=== PATIENT | male | born 1960 | race Caucasian/White ===

== ENCOUNTER 2018-02-22 15:46 | Emergency (ER) | payer MEDICARE, MEDICAID, SELFPAY ==
[2018-02-22 16:08] VITALS: BP 149/87; PULSE 95; RESP 22; TEMP 36.7; O2SAT 96
--- NOTE | 2018-02-22 16:20 | PDOC.ERCMPRO ---
Care Management Progress Note 02/22/18-Pt presented to ED by private car with caregiver for open wounds. CM contacted and spoke with Peter Salmeron who reports Pt sees Nursing Mon, Mon, and Mon and has an appt scheduled for tomorrow for wound dressing care and just saw their wound RN, Debby on Monday (02/19). Dr. Neva Arredondo informed.
[2018-02-22 16:44] LABS: Abs Immature Grans 0.01 k/cumm (0.0-0.09); Absolute Basophil Count 0.03 k/cumm (0.0-0.2); Absolute Eosinophil Count 0.13 k/cumm (0.0-0.7); Absolute Lymphocyte Count 2.64 k/cumm (1.2-3.4); Absolute Monocyte Count 0.77 k/cumm (0.11-0.7); Absolute Neutrophil Count 4.38 k/cumm (1.2-6.7); Basophils % 0.4; Eosinophils % 1.6; HCT 36.2 % (40.0-50.0); HGB 10.6 g/dL (13.5-17.5); Immature Grans % 0.1; Lymphocytes % 33.2; Mean Corp. HGB Concentration 29.3 g/dL (32.0-36.0); Mean Corpuscular Volume 78.7 fL (80-95); Mean Platelet Volume 10.1 fL (8.0-11.0); Monocytes % 9.7; Platelet Count 360 x1000/uL (130-400); RBC Distribution Width 16.9 % (11.8-14.1); White Blood Cell Count 7.96 k/cumm (4.4-10.8)
[2018-02-22 16:48] LABS: ALT 26 U/L (12-78); AST 21 U/L (15-37); Albumin 2.5 g/dL (3.4-5.0); Alkaline Phosphatase 114 U/L (46-116); Anion Gap 6.3 mmol/L (3-11); BUN 11 mg/dL (7-18); Bilirubin, Total 0.4 mg/dL (0.2-1.0); C-Reactive Protein 2.61 mg/dL (0.0-0.3); CO2 32.7 mmol/L (21.0-32.0); CREATININE 0.95 mg/dL (0.70-1.30); Calcium 8.4 mg/dL (8.5-10.1); Chloride 97 mmol/L (98-107); Glucose 370 mg/dL (70-100); Sodium 136 mmol/L (136-145); Total Protein 8.2 g/dL (6.4-8.2)
--- NOTE | 2018-02-22 17:07 | DI.RAD_ITS ---
SYMPTOMS/DIAGNOSIS: RIGHT METATARSAL ULCER OF 1ST TOE RIGHT FOOT: Three views. No priors. There is a soft tissue ulcer at the plantar and medial aspect of the base of the great toe adjacent to the 1st metatarsophalangeal joint. The bones show no destructive or erosive changes. No findings to suggest osteomyelitis are present. There are mild degenerative changes seen at the 1st metatarsophalangeal joint. The bones are normally mineralized. There is generalized soft tissue swelling of the foot. Vascular calcifications are seen in the soft tissues. IMPRESSION: Skin ulcer seen adjacent to the 1st metatarsophalangeal joint. No findings to suggest acute osteomyelitis.
--- NOTE | 2018-02-22 17:12 | DI.VRAD_ITS ---
EXAM: XR Right Foot Complete, 3 or more Views EXAM DATE/TIME: 02/22/2018 4:18 PM CLINICAL HISTORY: 57 years old, male; Pain; Foot; Right; Patient HX: Right 1st metatarsal ulcer. ; Additional info: Best images obtained due to patient, unable to move leg for imaging due to habitus. TECHNIQUE: XR Right foot 3 or more views. COMPARISON: No relevant prior studies available. FINDINGS: Bones/joints: There is a plantar surface skin ulcer identified at the first MTP level. There is mild degenerative change of the first MTP articulation with early subchondral cyst formation. Soft tissues: There is diffuse soft tissue swelling of the great toe particularly. IMPRESSION: Skin ulcer noted first MTP level. No evidence for osteomyelitis. COMMENT: Preliminary interpretation is based on receipt of 3 image(s). A final report will be issued subsequently. We appreciate the opportunity to be involved in this patient's care. Dictated and Authenticated by: eJanne Parnell MD. Ordering:IVAN RAJAN MD
--- NOTE | 2018-02-22 17:21 | ED.GENADUL_ITS ---
Discharge Plan Disposition Patient Disposition: HOME Condition: Good Discharge Details Chief Complaint: RashLesion Clinical Impression: Chronic ulcer of right foot Primary Care Provider: Alfonzo Young ED Provider: Fabrice Arredondo Home Meds and New Rx's Prescriptions: New doxycycline hyclate 100 mg capsule 100 mg PO BID Qty: 14 RF: 0 No Action polyethylene glycol 3350 17 GM powder in packet 17 gm PO BID RF: 0 magnesium hydroxide [Milk of Magnesia] 30 ML suspension 30 ml PO DAILY PRN PRN (Reason: Constipation) RF: 0 morphine [MS Contin] 60 MG tablet extended release 60 mg PO Q12H Qty: 30 RF: 0 omeprazole 20 MG capsule,delayed release(DR/EC) 40 mg PO BID@ RF: 0 morphine 15 MG tablet 15 mg PO TID RF: 0 gabapentin 300 MG capsule 300 mg PO TID RF: 0 albuterol sulfate [ProAir HFA] 200 PUFF HFA aerosol inhaler 2 puff Inhalation .Q6HPRN RF: 0 fluticasone 50 mcg/actuation Blister With Device 1 inh INHALATION Q12H RF: 0 acetaminophen [Tylenol] 325 mg Tablet 325 mg PO Q6H PRNRF: 0 glipizide 10 mg Tablet 10 mg PO BID RF: 0 trazodone 150 mg Tablet 150 mg PO HS RF: 0 metformin 1,000 mg Tablet 1,000 mg PO BID RF: 0 nystatin 100,000 unit/gram Cream 1 applic TOPICAL DAILY RF: 0 losartan 25 mg Tablet 25 mg PO DAILY RF: 0 ipratropium bromide [Atrovent HFA] 17 mcg/actuation Hfa Aerosol Inhaler 2 puff INHALATION Q6H RF: 0 cxafejkbeekm-oaoq-xlpgq acid [Multi Complete with Iron] 18-400 mg-mcg Tablet 1 tab PO DAILY RF: 0 amitriptyline 50 MG tablet 200 mg PO HS RF: 0 Discharge Instructions Instructions: Diabetic Foot Ulcers (ED) Additional Instructions: Please take the antibiotic as directed. If you notice any worsening of your symptoms, or any new symptoms such as vomiting, diarrhea, fever, chills, shortness of breath, chest pain, numbness, weakness, or fainting , please return immediately to the emergency department for reevaluation. Please follow up with your primary care provider as soon as possible for reassessment and reevaluation. As always, it was a pleasure participating in your medical care today. Referrals: Alfonzo Young [Primary Care Provider] - Medical Decision Making This is a 57-year-old male with a past medical history super morbid obesity, diabetes, panniculitis, who presents today for evaluation of ulcer, primarily over the distal component of the metatarsal of the foot.. There is evidence of a notable ulcer there, probing does elicit questionable contact with skin. The patient demonstrates multiple other skin breakdown findings throughout the rest of his body. Most notably by his buttock, and left lateral thigh. These all appear very chronic in nature. Barrier cream was placed on these personally by myself. Out of concern for mild osteomyelitis we did get an x-ray of the patient's foot, however this demonstrates no signs of acute osteomyelitis. Concerning the though I was able to probe to bone, and the patient's blood work does show a mildly elevated ESR and CRP, which does increase the likelihood in conjunction with bone probing for potential osteomyelitis. 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 We did involve case management, and contacted both his home nursing care, and his home community support specialist. We confirmed with him the need for continued close follow-up and management, as well as notable support care at home. Patient will be's prescribed doxycycline for MRSA coverage, we have recommended close follow-up with his PCP, we discussed red flags for which to return the patient understands. I have extensively reviewed the treatment plan and discharge instructions with the patient. I have addressed all patient concerns at this time. The patient was made aware of what symptoms to monitor for that would warrant a return to the emergency department. Discussed the plan with the patient, they demonstrate verbal understanding and agreement with our assessment and plan at this time. HPI General Date/Time Provider Initiated Documentation: 02/22/18 15:52 . HPI Narrative: This is a 57-year-old male with a past medical history of super morbid obesity, diabetes mellitus, GERD, who presents today for evaluation of ulcers. The patient is seen and cared for by multiple at home nursing assistance and community support specialist. He states today someone was coming to dress his wounds and they left early without completing their assessment. He comes in for evaluation of his wounds as he felt that they were not finished being cared for. Patient states that he has developed chronic ulcers of his right metatarsal on his great toe, around his buttock where his pannus sits, and on his left calf peer he denies any fevers or chills. He denies any acute worsening of his symptoms. He denies any chest pain, shortness of breath, vomiting, diarrhea, numbness, tingling or weakness. He denies any recent antibiotic use. He he denies any recent injuries. Patient has no other complaints at this time. Related Data Home Medications Medication Instructions Recorded Confirmed albuterol sulfate [ProAir HFA] 2 puff INHALATION .Q6HPRN 04/11/17 02/22/18 gabapentin 300 mg PO TID 04/11/17 02/22/18 morphine 15 mg PO TID 04/11/17 02/22/18 magnesium hydroxide [Milk of 30 ml PO DAILY PRN PRN cup 11/03/17 02/22/18 Magnesia] morphine [MS Contin] 60 mg PO Q12H #30 tabcr 11/03/17 02/22/18 omeprazole 40 mg PO BID@0730,2000 capcr 11/03/17 02/22/18 polyethylene glycol 3350 17 gm PO BID packet 11/03/17 02/22/18 acetaminophen [Tylenol] 325 mg PO Q6H PRN 02/22/18 02/22/18 amitriptyline 200 mg PO HS 02/22/18 02/22/18 doxycycline hyclate 100 mg PO BID #14 cap 02/22/18 fluticasone 1 inh INHALATION Q12H 02/22/18 02/22/18 glipizide 10 mg PO BID 02/22/18 02/22/18 ipratropium bromide [Atrovent HFA] 2 puff INHALATION Q6H 02/22/18 02/22/18 losartan 25 mg PO DAILY 02/22/18 02/22/18 metformin 1,000 mg PO BID 02/22/18 02/22/18 tmbsmrmbktnm-rujz-szphk acid 1 tab PO DAILY 02/22/18 02/22/18 [Multi Complete with Iron] nystatin 1 applic TOPICAL DAILY 02/22/18 02/22/18 trazodone 150 mg PO HS 02/22/18 02/22/18 Previous Rx's Medication Instructions Recorded magnesium hydroxide [Milk of 30 ml PO DAILY PRN PRN cup 11/03/17 Magnesia] morphine [MS Contin] 60 mg PO Q12H #30 tabcr 11/03/17 omeprazole 40 mg PO BID@0730,2000 capcr 11/03/17 polyethylene glycol 3350 17 gm PO BID packet 11/03/17 doxycycline hyclate 100 mg PO BID #14 cap 02/22/18 Allergies Allergy/AdvReac Type Severity Reaction Status Date / Time ketorolac Allergy Unverified 02/22/18 16:29 lisinopril Allergy Unverified 02/22/18 16:29 methadone Allergy Unverified 02/22/18 16:29 oxycodone [From OxyContin] Allergy Unverified 02/22/18 16:29 General Stated Complaint: RashLesion RAMESH: 3 Review of Systems Review of Systems All systems reviewed & are unremarkable except as noted in HPI and below PFSH Social History Smoking/Tobacco Use Status: Former Tobacco Use Exam Narrative Exam Narrative: 1.Const: Well-nourished, super morbidly obese 2.Eyes: PERRL, no conjunctival injection, and symmetrical lids. 3.ENT: Atraumatic external nose and ears. Moist MM. Neck: Symmetric, trachea midline, No thyromegaly. 4.CVS: +S1/S2, No murmurs or gallops. Peripheral pulses 2+ and equal in all extremities. Brisk capillary refill in all extremities. 5.RESP: Unlabored respiratory effort. Clear to auscultation bilaterally. No wheezes rales or rhonchi 6.GI: Extremely large, sagging pannus down below his knees, soft, Nontender/ Nondistended, No hepatosplenomegaly. No guarding or rebound. Some skin breakdown noted on the most inferior aspect of the pannus most likely secondary to dragging or contact. 7.MSK: Normocephalic/Atraumatic, patient is able to get up and ambulate with some assistance and his walker. Lower extremities are very large. Please see skin for findings. 8.Skin: Warm, multiple lesions secondary to trauma, abrasion, and most likely some component of chronic venous stasis and skin breakdown secondary to super morbid obesity. Patient's right foot demonstrates an ulcer over the medial aspect of the distal metatarsal for the great toe. Probing brings about questionable contact with bone. Capillary refill is intact skin brisk. Sensation is intact. Patient also demonstrates some skin breakdown over the left lateral calf, with no active bleeding or evidence of subcutaneous tissue involvement. Exam of the patient's buttock demonstrates mild to moderate skin breakdown between the medial aspect of his medial posterior thighs bilaterally. No evidence of active bleeding drainage or discharge. No other significant abnormalities can be appreciated at this time. 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 Sensation grossly intact, no focal neurologic deficits. 10.Psych: (AAO) x3. Appropriate mood and affect Course Vital Signs Temperature 36.7 C 02/22/18 16:08 Pulse 95 H 02/22/18 16:08 Respiratory Rate 22 02/22/18 16:08 Blood Pressure 149/87 H 02/22/18 16:08 Pulse Oximetry 96 02/22/18 16:08 Temperature 36.7 C 02/22/18 16:08 Temperature Source Temporal Artery Scan 02/22/18 16:08 Pulse 95 H 02/22/18 16:08 Respiratory Rate 22 02/22/18 16:08 Respiratory Effort Non-Labored 02/22/18 16:26 Blood Pressure 149/87 H 02/22/18 16:08 Pulse Oximetry 96 02/22/18 16:08 Oxygen Delivery Method Room Air 02/22/18 16:08 Oxygen Flow Rate 0 02/22/18 16:08 Pain Level 6 02/22/18 16:08 Lab/Test Results Lab/Test Results: Laboratory Tests Range/Units 02/22/18 02/22/18 16:20 16:20 WBC (4.4-10.8) k/cumm 7.96 RBC (4.50-6.00) m/cumm 4.60 Hgb (13.5-17.5) g/dL 10.6 L Hct (40.0-50.0) % 36.2 L MCV (80-95) fL 78.7 L MCH (27.0-33.0) pg 23.0 L MCHC (32.0-36.0) g/dL 29.3 L RDW (11.8-14.1) % 16.9 H Plt Count (130-400) x1000/uL 360 MPV (8.0-11.0) fL 10.1 Immature Gran % 0.1 Neutrophils % 55.0 Lymphocytes % 33.2 Monocytes % 9.7 Eosinophils % 1.6 Basophils % 0.4 Absolute Neutrophils (1.2-6.7) k/cumm 4.38 Absolute Lymphocytes (1.2-3.4) k/cumm 2.64 Absolute Monocytes (0.11-0.7) k/cumm 0.77 H Absolute Eosinophils (0.0-0.7) k/cumm 0.13 Absolute Basophils (0.0-0.2) k/cumm 0.03 Sodium (136-145) mmol/L 136 Potassium (3.5-5.1) mmol/L 4.0 Chloride (98-107) mmol/L 97 L Carbon Dioxide (21.0-32.0) mmol/L 32.7 H Anion Gap (3-11) mmol/L 6.3 BUN (7-18) mg/dL 11 Creatinine (0.70-1.30) mg/dL 0.95 Estimated GFR/1.73 m2 (mL/min/1.73m2) >= 60.00 Glucose (70-100) mg/dL 370 H Calcium (8.5-10.1) mg/dL 8.4 L Total Bilirubin (0.2-1.0) mg/dL 0.4 AST (15-37) U/L 21 ALT (12-78) U/L 26 Alkaline Phosphatase (46-116) U/L 114 C-Reactive Protein (0.0-0.3) mg/dL 2.61 H Total Protein (6.4-8.2) g/dL 8.2 Albumin (3.4-5.0) g/dL 2.5 L
[2018-02-22 17:28] LABS: ESR 70 MM/HR (1-20)
[2018-02-22 18:43] VITALS: BP 149/87; PULSE 95; RESP 22; TEMP 36.7; O2SAT 96
== END 2018-02-22 18:44 | disposition home or self-care (01) ==
PROVIDERS: Emergency Provider Student in an Organized Health Care Education/Training Program; PCP Family Medicine
DX: E11.621 Type 2 diabetes mellitus with foot ulcer (principal); L97.519 Non-pressure chronic ulcer of other part of right foot with unspecified severity; L98.491 Non-pressure chronic ulcer of skin of other sites limited to breakdown of skin; E66.01 Morbid (severe) obesity due to excess calories; Z79.84 Long term (current) use of oral hypoglycemic drugs; I10 Essential (primary) hypertension
CPT/HCPCS: 36415; 80053; 85652; 99284; 73630; 81003; 85025; 86140; 99285

== ENCOUNTER 2018-03-01 18:43 | Emergency (ER) | payer MEDICARE, MEDICAID, SELFPAY ==
[2018-03-01 18:55] VITALS: BP 149/79; PULSE 100; RESP 16; TEMP 36.4; O2SAT 94
[2018-03-01] MEDS: Insulin REGULAR-Human 100 UNITS/ML UNIT 10 UNITS SC (19:14)
--- NOTE | 2018-03-01 19:18 | W.ED.GENAD ---
Discharge Plan Disposition Patient Disposition: HOME Condition: Stable Discharge Details Chief Complaint: Diabetes Clinical Impression: Hyperglycemia Primary Care Provider: Alfonzo Young ED Provider: Lion Amaya Home Meds and New Rx's Prescriptions: Continue polyethylene glycol 3350 17 GM powder in packet 17 gm PO BID RF: 0 morphine [MS Contin] 60 MG tablet extended release 60 mg PO Q12H Qty: 30 RF: 0 morphine 15 MG tablet 15 mg PO TID RF: 0 gabapentin 300 MG capsule 300 mg PO TID RF: 0 albuterol sulfate [ProAir HFA] 200 PUFF HFA aerosol inhaler 2 puff Inhalation .Q6HPRN RF: 0 fluticasone 50 mcg/actuation Blister With Device 1 inh INHALATION Q12H RF: 0 acetaminophen [Tylenol] 325 mg Tablet 325 mg PO Q6H PRNRF: 0 glipizide 10 mg Tablet 10 mg PO BID RF: 0 trazodone 150 mg Tablet 150 mg PO HS RF: 0 metformin 1,000 mg Tablet 1,000 mg PO BID RF: 0 nystatin 100,000 unit/gram Cream 1 applic TOPICAL DAILY RF: 0 losartan 25 mg Tablet 25 mg PO DAILY RF: 0 ipratropium bromide [Atrovent HFA] 17 mcg/actuation Hfa Aerosol Inhaler 2 puff INHALATION Q6H RF: 0 lmacxsutkufn-mlle-ccjsn acid [Multi Complete with Iron] 18-400 mg-mcg Tablet 1 tab PO DAILY RF: 0 amitriptyline 50 MG tablet 200 mg PO HS RF: 0 Discharge Instructions Additional Instructions: follow up with your primary care provider within a week for further management of your diabetes if you have fevers, severe pain, difficulty breathing or persistent vomit return to the emergency department for reevaluation Discharge Data Discharge Physician: Lion Amaya Medical Decision Making 57 yo male with hx of morbid obesity, t2dm, chronic wounds, who comes in with complaint of elevated blood sugars for weeks. He states it was over 500 today so came here for an eval. Has chronic wounds of the legs and buttocks and abdomen which show no significant erythema or drainage and is having home health manage these, and has no bone esposed or evidence of tunneling. Denies fevers or other symptoms and is caox4. Given lack of symptoms do not feel w/u for sepsis or other infection indicated. I am going to have him f/u with his pcp sharonda and return precautions given Differential Diagnosis t2dm, obesity, insulin resistance HPI General Mode of arrival: wheelchair. Date/Time Provider Initiated Documentation: 03/01/18 18:46. Limitations to Documentation: no limitations. Information obtained by: patient. History of Present Illness 57 year old M presents to the emergency department with the chief complaint of high blood sugars, described as moderate, No relieving factors improve symptom(s), No exacerbating factors reported . Related Data Home Medications Medication Instructions Recorded Confirmed albuterol sulfate [ProAir HFA] 2 puff INHALATION .Q6HPRN 04/11/17 03/01/18 gabapentin 300 mg PO TID 04/11/17 03/01/18 morphine 15 mg PO TID 04/11/17 03/01/18 morphine [MS Contin] 60 mg PO Q12H #30 tabcr 11/03/17 03/01/18 polyethylene glycol 3350 17 gm PO BID packet 11/03/17 03/01/18 acetaminophen [Tylenol] 325 mg PO Q6H PRN 02/22/18 03/01/18 amitriptyline 200 mg PO HS 02/22/18 03/01/18 fluticasone 1 inh INHALATION Q12H 02/22/18 03/01/18 glipizide 10 mg PO BID 02/22/18 03/01/18 ipratropium bromide [Atrovent HFA] 2 puff INHALATION Q6H 02/22/18 03/01/18 losartan 25 mg PO DAILY 02/22/18 02/26/18 metformin 1,000 mg PO BID 02/22/18 03/01/18 aisufdogsmyy-uexw-ysxkz acid 1 tab PO DAILY 02/22/18 03/01/18 [Multi Complete with Iron] nystatin 1 applic TOPICAL DAILY 02/22/18 03/01/18 trazodone 150 mg PO HS 02/22/18 03/01/18 Previous Rx's Medication Instructions Recorded morphine [MS Contin] 60 mg PO Q12H #30 tabcr 11/03/17 polyethylene glycol 3350 17 gm PO BID packet 11/03/17 Allergies Allergy/AdvReac Type Severity Reaction Status Date / Time ketorolac Allergy Unverified 02/22/18 16:29 lisinopril Allergy Unverified 02/22/18 16:29 methadone Allergy Unverified 02/22/18 16:29 oxycodone [From OxyContin] Allergy Unverified 02/22/18 16:29 General Stated Complaint: Diabetes RAMESH: 3 Review of Systems Review of Systems All systems reviewed & are unremarkable except as noted in HPI and below Constitutional Denies chills, Denies fever(s) and Denies weakness Eyes Denies loss of vision ENT Denies change in voice Cardiovascular Denies chest pain and Denies dyspnea Respiratory Denies dyspnea Gastrointestinal Denies abdominal pain, Denies nausea and Denies vomiting Genitourinary Denies dysuria Musculoskeletal Denies joint swelling Integumentary/Breasts Denies rash Neurologic Denies loss of vision and Denies weakness Psychiatric Denies depression Endocrine Denies cold intolerance and Denies heat intolerance Allergic/Immunologic Reports urticaria Exam Const General: no acute distress Orientation: alert HENMT Head: normal to inspection Ears: external ears normal General nose exam: external nose normal Mouth: moist mucous membranes Eyes General: appearance normal, both eyes and all related structures Neck Neck: normal visual inspection Resp Effort & Inspection: normal respiratory effort and able to speak in complete sentences Cardio Rate: regular rate Neuro General: alert and oriented x3 Extrem General: normal to inspection Psych Mental Status: mental status grossly normal Course Vital Signs Temperature 36.4 C L 03/01/18 18:55 Pulse 100 H 03/01/18 18:55 Respiratory Rate 16 03/01/18 18:55 Blood Pressure 149/79 H 03/01/18 18:55 Pulse Oximetry 94 L 03/01/18 18:55 Temperature 36.4 C L 03/01/18 18:55 Temperature Source Skin 03/01/18 18:55 Pulse 100 H 03/01/18 18:55 Respiratory Rate 16 03/01/18 18:55 Respiratory Effort 03/01/18 18:59 Blood Pressure 149/79 H 03/01/18 18:55 Blood Pressure Position Sitting 03/01/18 18:55 Pulse Oximetry 94 L 03/01/18 18:55 Oxygen Delivery Method Room Air 03/01/18 18:55 Oxygen Flow Rate 0 03/01/18 18:55
--- NOTE | 2018-03-01 19:23 | ED.GENADUL_ITS ---
Discharge Plan Disposition Patient Disposition: HOME Condition: Stable Discharge Details Chief Complaint: Diabetes Clinical Impression: Hyperglycemia Primary Care Provider: Alfonzo Young ED Provider: Lion Amaya Home Meds and New Rx's Prescriptions: Continue polyethylene glycol 3350 17 GM powder in packet 17 gm PO BID RF: 0 morphine [MS Contin] 60 MG tablet extended release 60 mg PO Q12H Qty: 30 RF: 0 morphine 15 MG tablet 15 mg PO TID RF: 0 gabapentin 300 MG capsule 300 mg PO TID RF: 0 albuterol sulfate [ProAir HFA] 200 PUFF HFA aerosol inhaler 2 puff Inhalation .Q6HPRN RF: 0 fluticasone 50 mcg/actuation Blister With Device 1 inh INHALATION Q12H RF: 0 acetaminophen [Tylenol] 325 mg Tablet 325 mg PO Q6H PRNRF: 0 glipizide 10 mg Tablet 10 mg PO BID RF: 0 trazodone 150 mg Tablet 150 mg PO HS RF: 0 metformin 1,000 mg Tablet 1,000 mg PO BID RF: 0 nystatin 100,000 unit/gram Cream 1 applic TOPICAL DAILY RF: 0 losartan 25 mg Tablet 25 mg PO DAILY RF: 0 ipratropium bromide [Atrovent HFA] 17 mcg/actuation Hfa Aerosol Inhaler 2 puff INHALATION Q6H RF: 0 czffrwtwchnu-upto-twyiu acid [Multi Complete with Iron] 18-400 mg-mcg Tablet 1 tab PO DAILY RF: 0 amitriptyline 50 MG tablet 200 mg PO HS RF: 0 Discharge Instructions Additional Instructions: follow up with your primary care provider within a week for further management of your diabetes if you have fevers, severe pain, difficulty breathing or persistent vomit return to the emergency department for reevaluation Discharge Data Discharge Physician: Lion Amaya Medical Decision Making 57 yo male with hx of morbid obesity, t2dm, chronic wounds, who comes in with complaint of elevated blood sugars for weeks. He states it was over 500 today so came here for an eval. Has chronic wounds of the legs and buttocks and abdomen which show no significant erythema or drainage and is having home health manage these, and has no bone esposed or evidence of tunneling. Denies fevers or other symptoms and is caox4. Given lack of symptoms do not feel w/u for sepsis or other infection indicated. I am going to have him f/u with his pcp sharonda and return precautions given Differential Diagnosis t2dm, obesity, insulin resistance HPI General Mode of arrival: wheelchair . Date/Time Provider Initiated Documentation: 03/01/18 18:46 . Limitations to Documentation: no limitations . Information obtained by: patient . History of Present Illness 57 year old M presents to the emergency department with the chief complaint of high blood sugars, described as moderate, No relieving factors improve symptom(s), No exacerbating factors reported . Related Data Home Medications Medication Instructions Recorded Confirmed albuterol sulfate [ProAir HFA] 2 puff INHALATION .Q6HPRN 04/11/17 03/01/18 gabapentin 300 mg PO TID 04/11/17 03/01/18 morphine 15 mg PO TID 04/11/17 03/01/18 morphine [MS Contin] 60 mg PO Q12H #30 tabcr 11/03/17 03/01/18 polyethylene glycol 3350 17 gm PO BID packet 11/03/17 03/01/18 acetaminophen [Tylenol] 325 mg PO Q6H PRN 02/22/18 03/01/18 amitriptyline 200 mg PO HS 02/22/18 03/01/18 fluticasone 1 inh INHALATION Q12H 02/22/18 03/01/18 glipizide 10 mg PO BID 02/22/18 03/01/18 ipratropium bromide [Atrovent HFA] 2 puff INHALATION Q6H 02/22/18 03/01/18 losartan 25 mg PO DAILY 02/22/18 02/26/18 metformin 1,000 mg PO BID 02/22/18 03/01/18 nipkewkqzycn-dnbp-rptrk acid 1 tab PO DAILY 02/22/18 03/01/18 [Multi Complete with Iron] nystatin 1 applic TOPICAL DAILY 02/22/18 03/01/18 trazodone 150 mg PO HS 02/22/18 03/01/18 Previous Rx's Medication Instructions Recorded morphine [MS Contin] 60 mg PO Q12H #30 tabcr 11/03/17 polyethylene glycol 3350 17 gm PO BID packet 11/03/17 Allergies Allergy/AdvReac Type Severity Reaction Status Date / Time ketorolac Allergy Unverified 02/22/18 16:29 lisinopril Allergy Unverified 02/22/18 16:29 methadone Allergy Unverified 02/22/18 16:29 oxycodone [From OxyContin] Allergy Unverified 02/22/18 16:29 General Stated Complaint: Diabetes RAMESH: 3 Review of Systems Review of Systems All systems reviewed & are unremarkable except as noted in HPI and below Constitutional Denies chills, Denies fever(s) and Denies weakness Eyes Denies loss of vision ENT Denies change in voice Cardiovascular Denies chest pain and Denies dyspnea Respiratory Denies dyspnea Gastrointestinal Denies abdominal pain, Denies nausea and Denies vomiting Genitourinary Denies dysuria Musculoskeletal Denies joint swelling Integumentary/Breasts Denies rash Neurologic Denies loss of vision and Denies weakness Psychiatric Denies depression Endocrine Denies cold intolerance and Denies heat intolerance Allergic/Immunologic Reports urticaria Exam Const General: no acute distress Orientation: alert HENMT Head: normal to inspection Ears: external ears normal General nose exam: external nose normal Mouth: moist mucous membranes Eyes General: appearance normal, both eyes and all related structures Neck Neck: normal visual inspection Resp Effort & Inspection: normal respiratory effort and able to speak in complete sentences Cardio Rate: regular rate Neuro General: alert and oriented x3 Extrem General: normal to inspection Psych Mental Status: mental status grossly normal Course Vital Signs Temperature 36.4 C L 03/01/18 18:55 Pulse 100 H 03/01/18 18:55 Respiratory Rate 16 03/01/18 18:55 Blood Pressure 149/79 H 03/01/18 18:55 Pulse Oximetry 94 L 03/01/18 18:55 Temperature 36.4 C L 03/01/18 18:55 Temperature Source Skin 03/01/18 18:55 Pulse 100 H 03/01/18 18:55 Respiratory Rate 16 03/01/18 18:55 Respiratory Effort 03/01/18 18:59 Blood Pressure 149/79 H 03/01/18 18:55 Blood Pressure Position Sitting 03/01/18 18:55 Pulse Oximetry 94 L 03/01/18 18:55 Oxygen Delivery Method Room Air 03/01/18 18:55 Oxygen Flow Rate 0 03/01/18 18:55
[2018-03-01 19:30] VITALS: BP 149/79; PULSE 100; RESP 16; TEMP 36.4; O2SAT 94
--- NOTE | 2018-03-02 10:01 | CMPROGNOTE_ITS ---
Care Management Progress Note 03/02/18-Pt seen on 03/01/[address] Junior Amaya. F/U request faxed to PCP at [facility].
== END 2018-03-01 19:40 | disposition home or self-care (01) ==
PROVIDERS: Emergency Provider Emergency Medicine; PCP Family Medicine
DX: E11.65 Type 2 diabetes mellitus with hyperglycemia (principal); E66.01 Morbid (severe) obesity due to excess calories; Z68.44 Body mass index [BMI] 60.0-69.9, adult; I10 Essential (primary) hypertension
CPT/HCPCS: 36415; 96372; 99284

== ENCOUNTER 2018-03-07 14:09 | Outpatient (CLI) | payer MEDICARE, MEDICAID, SELFPAY | END 2018-03-07 14:29 | PROVIDERS: PCP Family Medicine; Visit Provider Student in an Organized Health Care Education/Training Program | DX: M75.101 Unspecified rotator cuff tear or rupture of right shoulder, not specified as traumatic (principal); E11.9 Type 2 diabetes mellitus without complications; M25.511 Pain in right shoulder; M25.512 Pain in left shoulder; Z79.84 Long term (current) use of oral hypoglycemic drugs | CPT/HCPCS: 20610; 99214; J1040 ==

== ENCOUNTER 2018-03-16 16:03 | Emergency (ER) | payer MEDICARE, MEDICAID, SELFPAY ==
[2018-03-16 16:21] VITALS: BP 144/83; PULSE 89; RESP 22; TEMP 36.5; O2SAT 94
[2018-03-16 18:23] LABS: Abs Immature Grans 0.02 k/cumm (0.0-0.09); Absolute Basophil Count 0.02 k/cumm (0.0-0.2); Absolute Eosinophil Count 0.15 k/cumm (0.0-0.7); Absolute Lymphocyte Count 2.59 k/cumm (1.2-3.4); Absolute Monocyte Count 0.86 k/cumm (0.11-0.7); Absolute Neutrophil Count 6.68 k/cumm (1.2-6.7); Basophils % 0.2; Eosinophils % 1.5; HCT 39.7 % (40.0-50.0); HGB 11.6 g/dL (13.5-17.5); Immature Grans % 0.2; Lymphocytes % 25.1; Mean Corp. HGB Concentration 29.2 g/dL (32.0-36.0); Mean Corpuscular Hemoglobin 22.7 pg (27.0-33.0); Mean Corpuscular Volume 77.8 fL (80-95); Mean Platelet Volume 10.6 fL (8.0-11.0); Monocytes % 8.3; Neutrophils % 64.7; Platelet Count 357 x1000/uL (130-400); RBC Distribution Width 18.5 % (11.8-14.1); White Blood Cell Count 10.32 k/cumm (4.4-10.8)
[2018-03-16 18:31] LABS: Bilirubin Negative (Negative); Blood Trace-intact (Negative); Clarity Clear; Glucose >=1000 mg/dL (Negative); Ketones Negative (Negative); Leukocyte Esterase Negative (Negative); Nitrite Negative (Negative); Specific Gravity 1.025 (1.005-1.025); Urobilinogen 0.2 EU/dL (Up TO 0.2); pH 5.5 (5-8)
[2018-03-16 18:40] LABS: Bacteria Negative HPF (Negative); C & S Indicated? Yes; Casts Negative LPF (Negative); Crystals Negative HPF (Negative); Epithelial Cells Few HPF (Negative); Mucus Negative (Negative); Other Cells Negative (Negative)
[2018-03-16 18:56] LABS: Anisocytosis 2+; Diff Comment RBC Morph Reviewed; Microcytosis 2+
[2018-03-16 19:01] LABS: ALT 30 U/L (12-78); AST 16 U/L (15-37); Albumin 2.7 g/dL (3.4-5.0); Alkaline Phosphatase 122 U/L (46-116); Anion Gap 5.4 mmol/L (3-11); BUN 17 mg/dL (7-18); Bilirubin, Total 0.4 mg/dL (0.2-1.0); CO2 34.6 mmol/L (21.0-32.0); CREATININE 0.92 mg/dL (0.70-1.30); Calcium 8.9 mg/dL (8.5-10.1); Chloride 95 mmol/L (98-107); Glucose 341 mg/dL (70-100); Potassium 3.9 mmol/L (3.5-5.1); Sodium 135 mmol/L (136-145); Total Protein 8.4 g/dL (6.4-8.2)
--- NOTE | 2018-03-16 19:31 | W.ED.GENAD ---
Discharge Plan Disposition Patient Disposition: HOME Condition: Stable Discharge Details Chief Complaint: Cellulitis Clinical Impression: Venous stasis ulcers of both lower extremities Primary Care Provider: Alfonzo Young ED Provider: Hebert Leger Home Meds and New Rx's Prescriptions: Continue polyethylene glycol 3350 17 GM powder in packet 17 gm PO BID RF: 0 morphine [MS Contin] 60 MG tablet extended release 60 mg PO Q12H Qty: 30 RF: 0 morphine 15 MG tablet 15 mg PO TID PRN PRNRF: 0 gabapentin 300 MG capsule 600 mg PO TID RF: 0 albuterol sulfate [ProAir HFA] 200 PUFF HFA aerosol inhaler .Q 4-6 HRS PRN RF: 0 fluticasone 50 mcg/actuation Blister With Device 1 inh INHALATION Q12H RF: 0 acetaminophen [Tylenol] 325 mg Tablet 325 mg PO Q6H PRNRF: 0 trazodone 150 mg Tablet 150 mg PO HS RF: 0 metformin 1,000 mg Tablet 1,000 mg PO BID RF: 0 nystatin 100,000 unit/gram Cream 1 applic TOPICAL BID RF: 0 losartan 25 mg Tablet 25 mg PO DAILY RF: 0 ipratropium bromide [Atrovent HFA] 17 mcg/actuation Hfa Aerosol Inhaler 2 puff INHALATION Q6H RF: 0 amitriptyline 50 MG tablet 150 mg PO HS RF: 0 furosemide [Lasix] 40 mg Tablet 40 mg PO BID RF: 0 glipizide 10 mg Tablet 10 mg PO BID RF: 0 glucagon (human recombinant) [Glucagon Emergency Kit (human)] 1 mg Recon Soln 1 mg IM PRN PRNRF: 0 furosemide 20 mg Tablet 20 mg PO DAILY RF: 0 metoprolol succinate 25 mg Tablet Extended Release 24 Hr 25 mg PO DAILY RF: 0 omeprazole 20 mg Tablet,Delayed Release (Dr/Ec) 20 mg PO BID RF: 0 insulin degludec [Tresiba FlexTouch U-200] 200 unit/mL (3 mL) Insulin Pen 45 unit subcut DAILY RF: 0 Discharge Instructions Instructions: Chronic Wound Care (ED), Stasis Dermatitis (ED) Additional Instructions: Return immediately to the emergency department for any new or worsening symptoms including fever chills, significant purulence or drainage to the wounds, rapidly spreading erythema/redness around your wound. Otherwise follow-up with your primary care provider early next week for further recommendation on long-term therapy. Referrals: Alfonzo Young [Primary Care Provider] - (Please follow-up with your primary care provider for reassessment early next week.) Medical Decision Making Patient presenting to the emergency department for chief complaint of chronic leg ulcers. Patient was presenting to the hospital to be direct admitted but hospitalist was concerned for possible arterial insufficiency as source of chronic wounds and inability to fully evaluate that on the inpatient unit. Examined patient and patient states that leg ulcers have been present for greater than 3 months, have appeared worse than they are now, and just is coming in for admission due to them not improving. Patient denies any fever chills, chest pain, or other current symptoms. He states that he has been followed by home health who is concern for them not healing. Wounds were visualized and patient has multiple wounds on lower extremities along with bilateral edema concern for venous stasis ulcerations most of them stage II/III otherwise there is no significant surrounding cellulitis, indication of abscess, or other worrisome findings. Initial hospitalist was concerned due to the arterial insufficiency that home health nurse had put in 1 single documentation but otherwise primary care provider had diagnosed with venous stasis ulcers. Bedside ultrasound was utilized to visualize all lower extremity pulses of the feet and there were no deficiencies noted and pulses were present. Labs were checked and patient was noted to have hyperglycemia which is at baseline for him otherwise no other emergent findings were noted. Called and spoke with hospitalist Dr. Crouch about admission of the patient and he declined admission of the patient stating that these were chronic venous stasis ulcerations and that he did not feel that patient needed acute admission for control of ongoing poorly managed diabetes and that surgery should be consulted for chronic wound management. Spoke with Dr. Roman general surgeon whom stated that there were no indications for emergent consultation and that patient should be discharged. Spoke with critical care nurse practitioner Cary and stated that patient did not meet swing bed criteria and that she recommended contacting primary care and that patient should qualify for long-term placement as these wounds may take a significant amount of time to fully heal but that patient did not may acute inpatient criteria and that we had no further beds available. Called and spoke with Dr. Aguayo and informed her that we had no beds available, this point patient states that he would rather be discharged and does not want to be admitted or transferred to a different facility, and that our care management team said that they could potentially assist as needed with long-term rehab or longterm facility placement to help assist with diabetic control and wound healing. Patient was in agreement with this plan and stated that he continued to want to be discharged home at this point. Patient was encouraged to return for any new or significant worsening of symptoms. After discussion of diagnosis and plan of care patient has no further needs, questions, or concerns and states clear understanding to return to the emergency department for any worsening symptoms. Lab Data Lab results reviewed: Yes I reviewed the patient's lab results. HPI General Mode of arrival: wheelchair. Date/Time Provider Initiated Documentation: 03/16/18 16:11. Limitations to Documentation: no limitations. Information obtained by: patient, family, RN notes reviewed and old records reviewed. History of Present Illness 57 year old M presents to the emergency department with the chief complaint of Chronic wounds, described as moderate, with intensity rated at 6. Quality is described as aching, and is localized to the lower extremity. Patient started experiencing this month(s) (3) and it has been constant. No exacerbating factors reported . Patient notes no other symptoms.. Patient did receive the following treatments prior to arrival, none Related Data Home Medications Medication Instructions Recorded Confirmed albuterol sulfate [ProAir HFA] .Q 4-6 HRS PRN 04/11/17 03/07/18 gabapentin 600 mg PO TID 04/11/17 03/16/18 morphine 15 mg PO TID PRN PRN 04/11/17 03/16/18 morphine [MS Contin] 60 mg PO Q12H #30 tabcr 11/03/17 03/16/18 polyethylene glycol 3350 17 gm PO BID packet 11/03/17 03/07/18 acetaminophen [Tylenol] 325 mg PO Q6H PRN 02/22/18 03/16/18 amitriptyline 150 mg PO HS 02/22/18 03/16/18 fluticasone 1 inh INHALATION Q12H 02/22/18 03/07/18 ipratropium bromide [Atrovent HFA] 2 puff INHALATION Q6H 02/22/18 03/16/18 losartan 25 mg PO DAILY 02/22/18 03/16/18 metformin 1,000 mg PO BID 02/22/18 03/16/18 nystatin 1 applic TOPICAL BID 02/22/18 03/16/18 trazodone 150 mg PO HS 02/22/18 03/16/18 furosemide 20 mg PO DAILY 03/16/18 03/16/18 furosemide [Lasix] 40 mg PO BID 03/16/18 03/16/18 glipizide 10 mg PO BID 03/16/18 03/16/18 glucagon (human recombinant) 1 mg IM PRN PRN 03/16/18 03/16/18 [Glucagon Emergency Kit (human)] insulin degludec [Tresiba 45 unit SUBCUT DAILY 03/16/18 FlexTouch U-200] metoprolol succinate 25 mg PO DAILY 03/16/18 03/16/18 omeprazole 20 mg PO BID 03/16/18 03/16/18 Previous Rx's Medication Instructions Recorded morphine [MS Contin] 60 mg PO Q12H #30 tabcr 11/03/17 polyethylene glycol 3350 17 gm PO BID packet 11/03/17 Allergies Allergy/AdvReac Type Severity Reaction Status Date / Time ketorolac Allergy Unverified 03/16/18 16:28 lisinopril Allergy Unverified 03/16/18 16:28 methadone Allergy Unverified 03/16/18 16:28 oxycodone [From OxyContin] Allergy Unverified 03/16/18 16:28 General Stated Complaint: Cellulitis RAMESH: 3 Review of Systems Constitutional Denies chills and Denies fever(s) Cardiovascular Denies chest pain Respiratory Denies cough Integumentary/Breasts Reports as per HPI and Reports skin ulcer PFSH Family History Father No problems noted. Son No problems noted. Medical History Ascending aortic aneurysm (Acute) Right ventricular dilation, secondary (Acute) Right ventricular systolic dysfunction (Acute) Chronic pain disorder (Acute) Super-super obese (Acute) Diabetes mellitus (Acute) Chronic anxiety (Chronic) Depression (Chronic) Obstructive sleep apnea hypopnea, severe (Chronic) Social History adopted: No caregiver/support person: Yes foster care: No household members: caregiver housing: assisted living facility lives independently: No number of children: 1 number of grandchildren: 0 current occupational status: disabled leisure activities: games Hx Recent Travel: No diet: diabetic well-balanced diet: about half the time eating out: rarely or never during the past year weight has: increased > 10 lbs Smoking/Tobacco Use Status: Former Tobacco Use Exam Const General: cooperative and no acute distress Nutritional Appearance: obese morbidly obese Orientation: alert, awake and oriented x3 Resp Effort & Inspection: normal respiratory effort and able to speak in complete sentences Cardio Rate: regular rate and not tachycardic Rhythm: regular rhythm Skin Wounds: wounds noted Extrem Right lower extremity: edema Details: 3+, lower leg Details: non-pitting edema Details: 3+ and foot Details: abnormal to inspection, vascular exam Details: dorsalis pedis pulse present, posterior tibial pulse present and normal capillary refill; not cool and no cyanosis and other (Ulceration to the medial aspect of the inner foot adjacent to the distal first metacarpal) Left lower extremity: edema Details: 3+, lower leg Details: other (Multiple ulcerations that appear approximately stage II to stage III on the anterior and lateral aspect of the leg. Minimal erythema ) and foot Details: vascular exam Details: dorsalis pedis pulse present, posterior tibial pulse present and normal capillary refill; not cool and no cyanosis Course Vital Signs Temperature 36.5 C 03/16/18 16:21 Pulse 89 03/16/18 16:21 Respiratory Rate 22 03/16/18 16:21 Blood Pressure 144/83 H 03/16/18 16:21 Pulse Oximetry 94 L 03/16/18 16:21 Temperature 36.5 C 03/16/18 16:21 Temperature Source Skin 03/16/18 16:21 Pulse 89 03/16/18 16:21 Respiratory Rate 22 03/16/18 16:21 Respiratory Effort 03/16/18 16:26 Blood Pressure 144/83 H 03/16/18 16:21 Blood Pressure Position Sitting 03/16/18 16:21 Pulse Oximetry 94 L 03/16/18 16:21 Oxygen Delivery Method Room Air 03/16/18 16:21 Oxygen Flow Rate 0 03/16/18 16:21 Pain Level 6 03/16/18 16:21 Lab/Test Results Lab/Test Results: 03/16/18 18:00 Urine - Reflex from Ua Urine Culture - Pending Laboratory Tests Range/Units 03/16/18 03/16/18 03/16/18 18:00 18:00 18:00 WBC (4.4-10.8) k/cumm 10.32 RBC (4.50-6.00) m/cumm 5.10 Hgb (13.5-17.5) g/dL 11.6 L Hct (40.0-50.0) % 39.7 L MCV (80-95) fL 77.8 L MCH (27.0-33.0) pg 22.7 L MCHC (32.0-36.0) g/dL 29.2 L RDW (11.8-14.1) % 18.5 H Plt Count (130-400) x1000/uL 357 MPV (8.0-11.0) fL 10.6 Immature Gran % 0.2 Neutrophils % 64.7 Lymphocytes % 25.1 Monocytes % 8.3 Eosinophils % 1.5 Basophils % 0.2 Absolute Neutrophils (1.2-6.7) k/cumm 6.68 Absolute Lymphocytes (1.2-3.4) k/cumm 2.59 Absolute Monocytes (0.11-0.7) k/cumm 0.86 H Absolute Eosinophils (0.0-0.7) k/cumm 0.15 Absolute Basophils (0.0-0.2) k/cumm 0.02 Differential Comment Rbc morph reviewed RBC Morphology See below Anisocytosis 2+ Microcytosis 2+ Sodium Cancelled Potassium Cancelled Chloride Cancelled Carbon Dioxide Cancelled Anion Gap Cancelled BUN Cancelled Creatinine Cancelled Estimated GFR/1.73 m2 Cancelled Glucose Cancelled Calcium Cancelled Total Bilirubin Cancelled AST Cancelled ALT Cancelled Alkaline Phosphatase Cancelled Total Protein Cancelled Albumin Cancelled Urine Color (Yellow) Yellow Urine Clarity Clear Urine pH (5-8) 5.5 Ur Specific [place] (1.005-1.025) 1.025 Urine Protein (Negative) mg/dL Negative Urine Ketones (Negative) mg/dL Negative Urine Blood (Negative) Trace-intact H Urine Nitrite (Negative) Negative Urine Bilirubin (Negative) Negative Urine Urobilinogen (Up TO 0.2) EU/dL 0.2 Ur Leukocyte Esterase (Negative) Negative Urine RBC (0-2) 10-20 H Urine WBC (0-5) HPF 5-10 Ur Epithelial Cells (Negative) HPF Few Urine Crystals (Negative) HPF Negative Urine Bacteria (Negative) HPF Negative Urine Casts (Negative) LPF Negative Urine Mucus (Negative) Negative Urine Other (Negative) Negative Ur Culture Indicated? Yes Urine Glucose (Negative) mg/dL >=1000 H Range/Units 03/16/18 18:35 WBC (4.4-10.8) k/cumm RBC (4.50-6.00) m/cumm Hgb (13.5-17.5) g/dL Hct (40.0-50.0) % MCV (80-95) fL MCH (27.0-33.0) pg MCHC (32.0-36.0) g/dL RDW (11.8-14.1) % Plt Count (130-400) x1000/uL MPV (8.0-11.0) fL Immature Gran % Neutrophils % Lymphocytes % Monocytes % Eosinophils % Basophils % Absolute Neutrophils (1.2-6.7) k/cumm Absolute Lymphocytes (1.2-3.4) k/cumm Absolute Monocytes (0.11-0.7) k/cumm Absolute Eosinophils (0.0-0.7) k/cumm Absolute Basophils (0.0-0.2) k/cumm Differential Comment RBC Morphology Anisocytosis Microcytosis Sodium 135 L Potassium 3.9 Chloride 95 L Carbon Dioxide 34.6 H Anion Gap 5.4 BUN 17 Creatinine 0.92 Estimated GFR/1.73 m2 >= 60.00 Glucose 341 H Calcium 8.9 Total Bilirubin 0.4 AST 16 ALT 30 Alkaline Phosphatase 122 H Total Protein 8.4 H Albumin 2.7 L Urine Color (Yellow) Urine Clarity Urine pH (5-8) Ur Specific [place] (1.005-1.025) Urine Protein (Negative) mg/dL Urine Ketones (Negative) mg/dL Urine Blood (Negative) Urine Nitrite (Negative) Urine Bilirubin (Negative) Urine Urobilinogen (Up TO 0.2) EU/dL Ur Leukocyte Esterase (Negative) Urine RBC (0-2) Urine WBC (0-5) HPF Ur Epithelial Cells (Negative) HPF Urine Crystals (Negative) HPF Urine Bacteria (Negative) HPF Urine Casts (Negative) LPF Urine Mucus (Negative) Urine Other (Negative) Ur Culture Indicated? Urine Glucose (Negative) mg/dL
[2018-03-16 21:10] VITALS: BP 129/98; PULSE 80; RESP 18; TEMP 36.6; O2SAT 94
--- NOTE | 2018-03-16 21:12 | NUR.NOTE ---
Nursing Note: Patients chronic wounds were dressed with mepilex foam and wrapped with cling and then wrapped with co band. Patient tolerated well.
== END 2018-03-16 21:10 | disposition home or self-care (01) ==
PROVIDERS: Emergency Provider Nurse Practitioner Family; PCP Family Medicine
DX: I87.2 Venous insufficiency (chronic) (peripheral) (principal); E11.69 Type 2 diabetes mellitus with other specified complication; Z79.84 Long term (current) use of oral hypoglycemic drugs
CPT/HCPCS: 36415; 80053; 99283; 81003; 81015; 85025; 87086

== ENCOUNTER 2018-06-21 15:53 | Inpatient (IN) | payer MEDICARE, MEDICAID, SELFPAY ==
[2018-06-21] VITALS (20 sets, daily range): BP systolic 108–147; BP diastolic 65–89; PULSE 118–125; RESP 2–25; TEMP 36.6–36.7; O2SAT 88–96
--- NOTE | 2018-06-21 16:04 | DI.RAD_ITS ---
SYMPTOM/DIAGNOSIS: COUGH AP AND LATERAL CHEST: 06/21/18 The heart is mildly enlarged. There are questionable radiodensities overlying the lung bases and in particular on the lateral view there is a suggestion of a posteriorly located area of consolidation which probably lies on the right. No gross pleural effusion seen, CONCLUSION: Findings suspicious for right lower lobe pneumonia. Appropriate follow up studies requested.
[2018-06-21] MEDS: Albuterol/Ipratropium 3 ML UPD VIAL UPD ×3 (16:15→23:23)
[2018-06-21] MEDS: methylPREDNISolone SUCC 125 MG VIAL IVP (16:15)
--- NOTE | 2018-06-21 16:15 | ED.GENADUL_ITS ---
Discharge Plan Disposition Patient Disposition: [facility] INPATIENT Condition: Stable Discharge Details Chief Complaint: RespSymp Clinical Impression: CAP (community acquired pneumonia), Hypoxia Reason For Visit: LYLY Primary Care Provider: Alfonzo Young ED Provider: Lion Amaya Home Meds and New Rx's Prescriptions: No Action polyethylene glycol 3350 17 GM powder in packet 17 gm PO BID RF: 0 morphine [MS Contin] 60 MG tablet extended release 60 mg PO Q12H Qty: 30 RF: 0 morphine 15 MG tablet 15 mg PO TID PRN PRNRF: 0 gabapentin 300 MG capsule 600 mg PO TID RF: 0 fluticasone 50 mcg/actuation Blister With Device 1 inh INHALATION Q12H RF: 0 acetaminophen [Tylenol] 325 mg Tablet 325 mg PO Q6H PRNRF: 0 trazodone 150 mg Tablet 150 mg PO HS RF: 0 metformin 1,000 mg Tablet 1,000 mg PO BID RF: 0 nystatin 100,000 unit/gram Cream 1 applic TOPICAL BID RF: 0 losartan 25 mg Tablet 25 mg PO DAILY RF: 0 amitriptyline 50 MG tablet 150 mg PO HS RF: 0 furosemide [Lasix] 40 mg Tablet 40 mg PO BID RF: 0 glipizide 10 mg Tablet 10 mg PO BID RF: 0 Glucagon Emergency Kit (human) 1 mg Recon Soln 1 mg IM PRN PRNRF: 0 furosemide 20 mg Tablet 20 mg PO DAILY RF: 0 metoprolol succinate 25 mg Tablet Extended Release 24 Hr 25 mg PO DAILY RF: 0 omeprazole 20 mg Tablet,Delayed Release (Dr/Ec) 20 mg PO BID RF: 0 Tresiba FlexTouch U-200 200 unit/mL (3 mL) Insulin Pen 45 unit subcut DAILY RF: 0 Medical Decision Making 58 yo male with hx of morbid obesity, chronic lower extremity wounds, hema, dm, former smoker who used to be on inhalers but is not any longer, comes in with productive cough and general weakness for 3 days. Denies fevers, recent travel. HAs chronic wounds of the lower extremities without discharge, mild redness and warmth of both lower extremities where chronic ulcers are located, no tunneling noted. HE is noted to be 85% on room air and has diffuse wheezing on exam, will treat with nebs and steroids and obtain lab work and chest xray to eval for pna and influenza. HAs no chest pain or pressure and symptoms seem infectious so doubt chf or other cardiac abnormalities. pt remains stable, speaking in full sentences and wheezing improving but still in the mid 80's on room air, is in mid 90's on NC o2. Labs show glucose of over 500, normal anion gap so unlikely dka. Has pna on xray, CAP abx ordered. Will admit to the hospitalist and discuss how they would like my to manage his hyperglycemia (IV insulin vs Sq), apparently he missed his long acting insulin this AM spoke with hospitalist who accepts, will give sq short acting and also his home dose of long acting. We apparently don't have his tresiba here so will discuss with pharmacy on alterante that we have here Differential Diagnosis uri, influenza, pna, copd Imaging Data Radiologic Study: Attestation: I personally reviewed and interpreted this imaging study as follows: Imaging: X-Ray Radiologist's impression: pneumonia ECG Data Attestation: I personally reviewed and interpreted this ECG (s) as follows: Prior ECG tracings: not available for review Interpretation: sinus rhythm, rate of 127, qtc 480, no acute st t wave ischemic changes HPI General Mode of arrival: EMS . Date/Time Provider Initiated Documentation: 06/21/18 15:56 . Limitations to Documentation: no limitations . Information obtained by: patient . History of Present Illness 58 year old M presents to the emergency department with the chief complaint of cough and not feeling well, described as moderate, Patient reports no radiation. and it has been constant. No relieving factors improve symptom(s), No exacerbating factors reported . Patient notes cough. Patient did receive the following treatments prior to arrival, none Related Data Home Medications Medication Instructions Recorded Confirmed gabapentin 600 mg PO TID 04/11/17 06/21/18 morphine 15 mg PO TID PRN PRN 04/11/17 06/21/18 morphine [MS Contin] 60 mg PO Q12H #30 tabcr 11/03/17 06/21/18 polyethylene glycol 3350 17 gm PO BID packet 11/03/17 06/21/18 acetaminophen [Tylenol] 325 mg PO Q6H PRN 02/22/18 06/21/18 amitriptyline 150 mg PO HS 02/22/18 06/21/18 fluticasone 1 inh INHALATION Q12H 02/22/18 06/21/18 losartan 25 mg PO DAILY 02/22/18 06/21/18 metformin 1,000 mg PO BID 02/22/18 06/21/18 nystatin 1 applic TOPICAL BID 02/22/18 06/21/18 trazodone 150 mg PO HS 02/22/18 06/21/18 Glucagon Emergency Kit (human) 1 mg IM PRN PRN 03/16/18 06/21/18 Tresiba FlexTouch U-200 45 unit SUBCUT DAILY 03/16/18 06/21/18 furosemide 20 mg PO DAILY 03/16/18 06/21/18 furosemide [Lasix] 40 mg PO BID 03/16/18 06/21/18 glipizide 10 mg PO BID 03/16/18 06/21/18 metoprolol succinate 25 mg PO DAILY 03/16/18 06/21/18 omeprazole 20 mg PO BID 03/16/18 06/21/18 Previous Rx's Medication Instructions Recorded morphine [MS Contin] 60 mg PO Q12H #30 tabcr 11/03/17 polyethylene glycol 3350 17 gm PO BID packet 11/03/17 Allergies Allergy/AdvReac Type Severity Reaction Status Date / Time ketorolac Allergy Unverified 03/16/18 16:28 lisinopril Allergy Unverified 03/16/18 16:28 methadone Allergy Unverified 03/16/18 16:28 oxycodone [From OxyContin] Allergy Unverified 03/16/18 16:28 General Stated Complaint: RespSymp RAMESH: 3 Review of Systems Review of Systems All systems reviewed & are unremarkable except as noted in HPI and below Constitutional Denies chills and Denies fever(s) ENT Denies change in voice Cardiovascular Denies chest pain Respiratory Denies cough Gastrointestinal Denies abdominal pain, Denies nausea and Denies vomiting Genitourinary Denies dysuria Musculoskeletal Denies joint swelling Integumentary/Breasts Denies rash Endocrine Denies cold intolerance and Denies heat intolerance [facility] Medical History Ascending aortic aneurysm (Acute) Right ventricular dilation, secondary (Acute) Right ventricular systolic dysfunction (Acute) Chronic pain disorder (Acute) Super-super obese (Acute) Diabetes mellitus (Acute) Chronic anxiety (Chronic) Depression (Chronic) Obstructive sleep apnea hypopnea, severe (Chronic) Severe muscle deconditioning (Acute) Family History Father No problems noted. Son No problems noted. Social History adopted: No caregiver/support person: Yes foster care: No household members: caregiver housing: assisted living facility lives independently: No number of children: 1 number of grandchildren: 0 current occupational status: disabled leisure activities: games Hx Recent Travel: No diet: diabetic well-balanced diet: about half the time daily servings fruits/ve-1 eating out: rarely or never reads food labels: sometimes during the past year weight has: increased > 10 lbs Smoking/Tobacco Use Status: Former Tobacco Use Exam Const General: no acute distress Orientation: alert HENMT Head: normal to inspection Ears: external ears normal General nose exam: external nose normal Mouth: moist mucous membranes Eyes General: appearance normal, both eyes and all related structures Neck Neck: normal visual inspection Resp Effort & Inspection: normal respiratory effort and able to speak in complete sentences Cardio Rate: regular rate Skin General skin exam: no rashes or lesions noted Neuro General: alert and oriented x3 Extrem General: normal to inspection Psych Mental Status: mental status grossly normal Course Vital Signs Temperature 36.7 C 06/21/18 15:59 Pulse 125 H 06/21/18 15:59 Respiratory Rate 06/21/18 15:59 Blood Pressure 147/83 H 06/21/18 15:59 Pulse Oximetry 88 L 06/21/18 15:59 Temperature 36.7 C 06/21/18 15:59 Temperature Source Temporal Artery Scan 06/21/18 15:59 Pulse 125 H 06/21/18 15:59 Respiratory Rate 24 06/21/18 15:59 Respiratory Effort 06/21/18 16:01 Blood Pressure 147/83 H 06/21/18 15:59 Pulse Oximetry 88 L 06/21/18 15:59 Oxygen Delivery Method Room Air 06/21/18 15:59 Oxygen Flow Rate 0 06/21/18 15:59
[2018-06-21 16:34] LABS: Abs Immature Grans 0.02 k/cumm (0.0-0.09); Absolute Basophil Count 0.03 k/cumm (0.0-0.2); Absolute Eosinophil Count 0.08 k/cumm (0.0-0.7); Absolute Monocyte Count 0.99 k/cumm (0.11-0.7); Absolute Neutrophil Count 7.82 k/cumm (1.2-6.7); Basophils % 0.3; Eosinophils % 0.7; HCT 38.7 % (40.0-50.0); HGB 11.8 g/dL (13.5-17.5); Immature Grans % 0.2; Lymphocytes % 19.7; Mean Corp. HGB Concentration 30.5 g/dL (32.0-36.0); Mean Corpuscular Hemoglobin 23.1 pg (27.0-33.0); Mean Corpuscular Volume 75.7 fL (80-95); Mean Platelet Volume 10.8 fL (8.0-11.0); Monocytes % 8.9; Neutrophils % 70.2; Platelet Count 282 x1000/uL (130-400); RBC 5.11 m/cumm (4.50-6.00); White Blood Cell Count 11.14 k/cumm (4.4-10.8)
[2018-06-21 16:40] LABS: INR 1.1 (0.9-1.1); PTT Activated 24.9 sec (21.0-31.4); Prothrombin Time 10.7 sec (9.3-11.0)
[2018-06-21 16:43] LABS: Absolute Lymphocyte Count 2.19 k/cumm (1.2-3.4)
[2018-06-21 17:06] LABS: ALT 16 U/L (12-78); Albumin 2.2 g/dL (3.4-5.0); BUN 18 mg/dL (7-18); CREATININE 1.25 mg/dL (0.70-1.30); Calcium 8.5 mg/dL (8.5-10.1); Chloride 94 mmol/L (98-107); Estimated GFR 59.53 (mL/min/1.73m2); Magnesium 1.8 mg/dL (1.8-2.4); NT-proBNP 325 pg/mL; Sodium 131 mmol/L (136-145); Total Protein 8.6 g/dL (6.4-8.2)
--- NOTE | 2018-06-21 17:10 | DI.VRAD_ITS ---
EXAM: XR Chest, 2 Views EXAM DATE/TIME: 06/21/2018 4:05 PM CLINICAL HISTORY: 58 years old, male; Signs and symptoms; Other: Cough TECHNIQUE: XR of the chest, 2 views. COMPARISON: CR PORTABLE CHEST ONE VIEW 10/19/2017 8:05 AM FINDINGS: Lungs: There is increased markings at the right lung base. Pleural space: Unremarkable. No pleural effusion. No pneumothorax. Heart/Mediastinum: Mild cardiomegaly unchanged. Bones/joints: Degenerative changes noted in right shoulder. IMPRESSION: Probable early right lower lobe pneumonia. Followup to assess clearing recommended. COMMENT: Preliminary interpretation is based on receipt of 3 image(s). A final report will be issued subsequently. Dictated and Authenticated by: Jeanne Parnell MD. Ordering:WILBER Seymour MD
[2018-06-21 17:17] LABS: AST 27 U/L (15-37); Alkaline Phosphatase 129 U/L (46-116); Anion Gap 6.4 mmol/L (3-11); Bilirubin, Total 0.2 mg/dL (0.2-1.0); CO2 30.6 mmol/L (21.0-32.0)
[2018-06-21 17:20] LABS: Glucose 553 mg/dL (70-100)
[2018-06-21] MEDS: Normal Saline 1,000 ML 1000 ML IV (17:27)
[2018-06-21] MEDS: Insulin REGULAR-Human 100 UNITS/ML UNIT 15 UNITS SC (17:41)
[2018-06-21] MEDS: Insulin Glargine 100 UNITS/ML UNIT 45 UNITS SC (17:52)
[2018-06-21 17:57] LABS: Bilirubin Negative (Negative); Blood Moderate (Negative); Clarity Clear; Glucose 500 mg/dL (Negative); Ketones Negative (Negative); Leukocyte Esterase Negative (Negative); Nitrite Negative (Negative); Specific Gravity <= 1.005 (1.005-1.025); Urobilinogen 0.2 EU/dL (Up TO 0.2); pH 5.5 (5-8)
[2018-06-21] MEDS: AZITHROMYCIN 500 MG in Normal Saline 250 ML 250 MG IVPB (18:00)
[2018-06-21 18:09] LABS: Bacteria Negative HPF (Negative); C & S Indicated? No; Casts Negative LPF (Negative); Crystals Negative HPF (Negative); Epithelial Cells Negative HPF (Negative); Mucus Negative (Negative); Other Cells Negative (Negative); WBC 0-2 HPF (0-5)
--- NOTE | 2018-06-21 19:05 | NUR.NOTE ---
Nursing Note: Report received from off going nurse, patient is currently resting in bed with no report of pain or discomfort at this time, the bed is in the low and locked position, side rails up x2, call light within reach.
[2018-06-21] MEDS: Omeprazole 20 MG CAPCR PO (20:11)
[2018-06-21] MEDS: Enoxaparin 40 MG/0.4 ML SYR SC (20:11)
[2018-06-21] MEDS: guaiFENesin 600 MG TABCR 1200 MG PO (20:11)
[2018-06-21] MEDS: Gabapentin 300 MG CAP 600 MG PO (20:11)
[2018-06-21] MEDS: Benzonatate 200 MG CAP PO (20:11)
[2018-06-21] MEDS: glipiZIDE 10 MG TAB PO (20:11)
[2018-06-21] MEDS: Nystatin CREAM 15 GM TUBE TP (20:12)
--- NOTE | 2018-06-21 20:50 | NUR.NOTE ---
Nursing Note: Charge nurse notified of elevated blood glucose, she will notify MD per orders.
[2018-06-21] MEDS: Amitriptyline 50 MG TAB 150 MG PO (21:13)
--- NOTE | 2018-06-21 21:13 | W.PM.HP.N ---
Date of service: 06/21/18 Time of Service: 21:13 Assessment and Plan (1) Acute pneumonitis: Current visit: Yes Status: Acute broad spectrum antibiotic coverage for CAP including Rocephin, Azithromycin, corticosteroids, aerosolized bronchodilators; check blood culture results but with normal lactate, I doubt that he has bacteremia. I asked him about his influenza and pneumonia vaccines. He says that he had this years influenza vaccine and had either the pneumovax of prevnar 4 yrs ago. (2) Pressure ulcer: Current visit: No Status: Chronic his ulcerations over his buttock/gluteal cleft are chronic as arre his lower extremity wounds. His pretibial stasis ulcers are healing up well. His right great toe is more concerning in that it remains open and he has not seen a manager credit collections. In addition to getting the hospital wound care nurses to look at his wounds, I will ask that Dr. Schultz evaluate his right great toe ulcer to see if this needs debrided. Christoph says that he has had an xray to rule out osteomyelitis. Last xray was taken February 22, 2018. I will repeat this in the a.m. to be sure that there is not an underlying osteomyelitis. We may need to broaden his antibiotic coverage in addition to treating his pneumonia. I will wait and see what Dr. Schultz thinks how we should proceed. Qualifiers: Laterality: left Pressure injury location: calf Pressure injury stage: stage 3 Qualified Code(s): L89.893 - Pressure ulcer of other site, stage 3 (3) Diabetes mellitus: Current visit: No Status: Chronic poorly controlled by the patient's admission. reportedly A1c was 11% last month. Previously he had been under 7%. Some of this is probably driven by his current infection or by his chronic skin ulcers. Some is certainly diet related and lack of activity d/t his morbid obesity. We do not have his Tresiba therefore I have written for Lantus and added both high dose sliding scale as well as for carb coverage. I will hold his metformin and glipizide for now. I am holding his metformin until I see how his renal function and his pneumonia respond. I do not feel that he is septic and if he remains stable his metformin can be restarted tomorrow. I have concerns about type 2 diabetic patients who are on insulin and taking either glyburide or glipizide. I think that he would be better controlled if he were to take a meal time Novolog and receive a progressive corrective scale. he also probably needs adjustment of his long acting insulin. At present he is not in DKA although his glucose is severly out of control partially driven by his pneumonia. Qualifiers: Diabetes mellitus complication detail: with foot ulcer Diabetes mellitus complication status: with skin complications Diabetes mellitus usp insulin use: with camera machinist use Diabetes mellitus type: due to underlying condition Qualified Code(s): E08.621 - Diabetes mellitus due to underlying condition with foot ulcer; L97.509 - Non-pressure chronic ulcer of other part of unspecified foot with unspecified severity; Z79.4 - care home (current) use of insulin (4) Obstructive sleep apnea hypopnea, severe: Current visit: No Status: Chronic patient states he is compliant w/ home CPAP. A unit was brought and he is wearing one tonight. (5) Iron deficiency anemia, unspecified: Current visit: No Status: Chronic he remains anemic. I will check his iron levels, reticulocyte count tomorrow. also check B12 given he is chronically on metformin (which I have held for now) (6) Depression: Current visit: No Status: Chronic continue current home meds History of Present Illness Chief Complaint: cough, dyspnea, hypoxemia Narrative: 58 yr old morbidly obese male w/ poorly controlled DM type 2 on insulin and oral diabetic meds complicated by peripheral neuropathy and chronic venous stasis ulcerations of his legs, ABHAY, GERD, cor pulmonale, depression and anxiety, he is former smoker. He now presents to the ER w/ 3 day hx of productive cough, generalized weakness and malaise, as well as dyspnea and hypoxemia. Oxygen saturation on RA on arrival was 88% but corrected to 93% after aerosolized bronchodilators and supplemental oxygen at 3 LPM per NC. Workup in the ER included negative influenza nasal swab for influenza A&B, CXR that demonstrated RLL infiltrate c/w pneumonia. Labs were remarkable for leukocytosis of 11,000, mild microcytic anemia w/ Hb 11.8 GM and MCV of 75, RDW 17% w/ normal platelets of 282,000. Coagulation studies were normal. CMP demonstrated low sodium of 131, normal BUN 18 and creatinine of 1.25. Glucose was high at 553 mg/dL. Pro-BNP was borderline elevated at 325. UA was remarkable for moderate blood, 10-20 RBC, 0-2 WBC, but negative for crystals/bacteria, casts, mucous, leukocyte esterace, nitrites or ketones or protein but glycosuria of 500 mg/dL. Dr. Lion Amaya, emergency room attending treated the patient w/ iv fluids, antibiotics (ceftriaxone 2 gm, azithromycin 500 mg), solumedrol 125 mg iv, and novolog 15 units. The patient is now admitted for treatment of CAP. Review of Systems Constitutional Denies chills, Reports fatigue, Denies fever(s) and Reports malaise ENT Reports system reviewed and no additional complaints, except as docu Cardiovascular Denies chest pain, Denies chest pain at rest, Reports dyspnea and Reports dyspnea on exertion Respiratory Reports as per HPI, Reports chest congestion, Reports cough, Denies hemoptysis, Reports dyspnea, Reports dyspnea on exertion and Reports wheezing Gastrointestinal Reports system reviewed and no additional complaints, except as docu Genitourinary Reports system reviewed and no additional complaints, except as docu Musculoskeletal Reports system reviewed and no additional complaints, except as docu Integumentary/Breasts Reports skin ulcer (buttocks, legs and r. great toe) and Reports sores Neurologic Reports sensory deficit and Reports paresthesias Psychiatric Reports system reviewed and no additional complaints, except as docu Endocrine Reports fatigue Hematologic/Lymphatic Reports system reviewed and no additional complaints, except as docu Allergic/Immunologic Reports system reviewed and no additional complaints, except as docu and Reports wheezing PFSH Medical History Pressure ulcer (Chronic) Right rotator cuff tear (Chronic) Ascending aortic aneurysm (Chronic) Right ventricular dilation, secondary (Chronic) Right ventricular systolic dysfunction (Chronic) Chronic pain disorder (Chronic) Super-super obese (Chronic) Diabetes mellitus (Chronic) GERD (gastroesophageal reflux disease) (Chronic) Chronic anxiety (Chronic) Depression (Chronic) Chronic back pain (Chronic) Obstructive sleep apnea hypopnea, severe (Chronic) Iron deficiency anemia, unspecified (Chronic) Severe muscle deconditioning (Acute) Panniculitis of other sites (Resolved) Family History Father No problems noted. Son No problems noted. Social History adopted: No caregiver/support person: Yes foster care: No household members: caregiver housing: assisted living facility lives independently: No number of children: 1 number of grandchildren: 0 current occupational status: disabled leisure activities: games Hx Recent Travel: No diet: diabetic well-balanced diet: about half the time daily servings fruits/ve-1 eating out: rarely or never reads food labels: sometimes during the past year weight has: increased > 10 lbs Smoking/Tobacco Use Status: Former Tobacco Use Meds Home Medications Medication Instructions Recorded Confirmed Type gabapentin 600 mg PO TID 04/11/17 06/21/18 History morphine 15 mg PO TID PRN PRN 04/11/17 06/21/18 History morphine [MS Contin] 60 mg PO Q12H #30 tabcr 11/03/17 06/21/18 Rx polyethylene glycol 3350 17 gm PO BID packet 11/03/17 06/21/18 Rx acetaminophen [Tylenol] 325 mg PO Q6H PRN 02/22/18 06/21/18 History amitriptyline 150 mg PO HS 02/22/18 06/21/18 History fluticasone 1 inh INHALATION Q12H 02/22/18 06/21/18 History losartan 25 mg PO DAILY 02/22/18 06/21/18 History metformin 1,000 mg PO BID 02/22/18 06/21/18 History nystatin 1 applic TOPICAL BID 02/22/18 06/21/18 History trazodone 150 mg PO HS 02/22/18 06/21/18 History Glucagon Emergency Kit (human) 1 mg IM PRN PRN 03/16/18 06/21/18 History Tresiba FlexTouch U-200 45 unit SUBCUT DAILY 03/16/18 06/21/18 History furosemide 20 mg PO DAILY 03/16/18 06/21/18 History furosemide [Lasix] 40 mg PO BID 03/16/18 06/21/18 History glipizide 10 mg PO BID 03/16/18 06/21/18 History metoprolol succinate 25 mg PO DAILY 03/16/18 06/21/18 History omeprazole 20 mg PO BID 03/16/18 06/21/18 History Allergies Allergy/AdvReac Type Severity Reaction Status Date / Time ketorolac Allergy Unverified 03/16/18 16:28 lisinopril Allergy Unverified 03/16/18 16:28 methadone Allergy Unverified 03/16/18 16:28 oxycodone [From OxyContin] Allergy Unverified 03/16/18 16:28 Exam Const General: cooperative and no acute distress Nutritional Appearance: obese morbidly obese Orientation: alert, awake and oriented x3 HENMT Head: normal to inspection, normocephalic and atraumatic Teeth and gingiva: poor dentition Eyes General: appearance normal, both eyes and all related structures Alignment and Position: alignment normal Periorbital: periorbital findings normal Eyelids: eyelids normal Conjunctivae: conjunctivae normal Sclera: sclerae normal Resp Effort & Inspection: normal respiratory effort Auscultation: bronchovesicular breath sounds bilaterally and wheezes scattered wheezes Cardio Jugular venous pressure: no JVD Palpation: normal PMI Rate: regular rate Rhythm: regular rhythm Pulses: posterior tibial pulses present bilaterally 1+ and dorsalis pedis pulses present bilaterally 2+ GI Inspection: large pannus and obesity Palpation: soft and nontender Percussion: normal to percussion Auscultation: normal bowel sounds Rectal Exam: other (sacral and bilateral gluteal fold pressure ulcers w/out purulent discharge) Skin Wounds: wounds noted gluteal cleft drainage serosanguinous, buttock open, ulceration right anterior lower leg , right great toe without odor and open Neuro General: alert, awake, oriented x3, moves all extremities and no focal motor deficits Cognition: normal cognition Speech: speech normal Motor: muscle tone normal throughout, strength 5/5 throughout and no movement abnormalities noted Sensory Exam: lower extremity bilateral light-touch abnormal decreased Extrem Right lower extremity: foot (right great toe w/ open ulceration over medial aspect; no purulent drainage) Psych Appearance: grossly normal Mental Status: mental status grossly normal Speech and Movement: speech and movement normal Mood: congruent mood Affect: normal affect Attitude: cooperative Thought Process: normal Thought Content: normal Insight: insight good Judgment: judgment good Results Imaging Chest x-ray: report reviewed (IMPRESSION: Probable early right lower lobe pneumonia. Followup to assess clearing recommended. COMMENT: Preliminary interpretation is based on receipt of 3 image(s). A final report will be issued subsequently. Dictated and Authenticated by: Jeanne Parnell MD.) Labs : 06/22/18 06:50 06/22/18 06:50 Laboratory Results - last 24 hr 06/21/18 06/21/18 06/21/18 16:07 16:07 16:07 WBC 11.14 H RBC 5.11 Hgb 11.8 L Hct 38.7 L MCV 75.7 L MCH 23.1 L MCHC 30.5 L RDW 17.0 H Plt Count 282 MPV 10.8 Immature Gran % 0.2 Neutrophils % 70.2 Lymphocytes % 19.7 Monocytes % 8.9 Eosinophils % 0.7 Basophils % 0.3 Absolute Neutrophils 7.82 H Absolute Lymphocytes 2.19 Absolute Monocytes 0.99 H Absolute Eosinophils 0.08 Absolute Basophils 0.03 PT 10.7 INR 1.1 APTT 24.9 Sodium 131 L Potassium 4.0 Chloride 94 L Carbon Dioxide 30.6 Anion Gap 6.4 BUN 18 Creatinine 1.25 Estimated GFR/1.73 m2 59.53 Glucose 553 H* Calcium 8.5 Magnesium 1.8 Total Bilirubin 0.2 AST 27 ALT 16 Alkaline Phosphatase 129 H Troponin I Cancelled NT-Pro-B Natriuret Pep 325 H Total Protein 8.6 H Albumin 2.2 L Urine Color Urine Clarity Urine pH Ur Specific [place] Urine Protein Urine Ketones Urine Blood Urine Nitrite Urine Bilirubin Urine Urobilinogen Ur Leukocyte Esterase Urine RBC Urine WBC Ur Epithelial Cells Urine Crystals Urine Bacteria Urine Casts Urine Mucus Urine Other Ur Culture Indicated? Urine Glucose 06/21/18 17:25 WBC RBC Hgb Hct MCV MCH MCHC RDW Plt Count MPV Immature Gran % Neutrophils % Lymphocytes % Monocytes % Eosinophils % Basophils % Absolute Neutrophils Absolute Lymphocytes Absolute Monocytes Absolute Eosinophils Absolute Basophils PT INR APTT Sodium Potassium Chloride Carbon Dioxide Anion Gap BUN Creatinine Estimated GFR/1.73 m2 Glucose Calcium Magnesium Total Bilirubin AST ALT Alkaline Phosphatase Troponin I NT-Pro-B Natriuret Pep Total Protein Albumin Urine Color Yellow Urine Clarity Clear Urine pH 5.5 Ur Specific [place] <= 1.005 Urine Protein Negative Urine Ketones Negative Urine Blood Moderate H Urine Nitrite Negative Urine Bilirubin Negative Urine Urobilinogen 0.2 Ur Leukocyte Esterase Negative Urine RBC 10-20 H Urine WBC 0-2 Ur Epithelial Cells Negative Urine Crystals Negative Urine Bacteria Negative Urine Casts Negative Urine Mucus Negative Urine Other Negative Ur Culture Indicated? No Urine Glucose 500 H Last Vital Signs Temp 36.7 C 06/21/18 18:21 Pulse 121 H 06/21/18 18:21 Resp 20 06/21/18 18:21 BP 122/66 06/21/18 18:21 Pulse Ox 93 L 06/21/18 18:55
[2018-06-21] MEDS: traZODone 50 MG TAB 150 MG PO (21:14)
[2018-06-21] MEDS: Insulin Aspart 300 UNITS/3 ML PEN 15 UNITS SC (21:43)
--- NOTE | 2018-06-21 22:57 | NUR.NOTE ---
Nursing Note: POC glucose re checked with a reading of 526. Charge nurse notified.
[2018-06-21] MEDS: Insulin Glargine 300 UNITS/3 ML PEN 15 UNITS SC (23:23)
--- NOTE | 2018-06-21 23:59 | NUR.NOTE ---
Nursing Note: Notified by POT FI[employer]MAN that patients POV glucose is 450. Will notify charge nurse and make her aware of orders to call MD if >350.
[2018-06-22] VITALS (8 sets, daily range): BP systolic 109–136; BP diastolic 63–82; PULSE 64–103; RESP 2–21; TEMP 36–36.8; O2SAT 91–95
[2018-06-22] MEDS: Insulin Aspart 300 UNITS/3 ML PEN 10 UNITS SC ×2 (00:20→04:19)
[2018-06-22] MEDS: Albuterol/Ipratropium 3 ML UPD VIAL UPD ×2 (05:10→18:21)
[2018-06-22 07:19] LABS: Abs Immature Grans 0.02 k/cumm (0.0-0.09); Absolute Basophil Count 0.01 k/cumm (0.0-0.2); Absolute Lymphocyte Count 1.14 k/cumm (1.2-3.4); Absolute Monocyte Count 0.19 k/cumm (0.11-0.7); Absolute Neutrophil Count 8.58 k/cumm (1.2-6.7); Basophils % 0.1; HCT 38.6 % (40.0-50.0); HGB 11.4 g/dL (13.5-17.5); Immature Grans % 0.2; Lymphocytes % 11.5; Mean Corp. HGB Concentration 29.5 g/dL (32.0-36.0); Mean Corpuscular Hemoglobin 22.8 pg (27.0-33.0); Mean Corpuscular Volume 77.2 fL (80-95); Mean Platelet Volume 10.8 fL (8.0-11.0); Monocytes % 1.9; Neutrophils % 86.3; Platelet Count 294 x1000/uL (130-400); RBC Distribution Width 17.1 % (11.8-14.1); Reticulocyte 1.6 % (0.5-2.4); White Blood Cell Count 9.94 k/cumm (4.4-10.8)
[2018-06-22 07:47] LABS: Anion Gap 7.7 mmol/L (3-11); BUN 17 mg/dL (7-18); CO2 29.3 mmol/L (21.0-32.0); CREATININE 0.95 mg/dL (0.70-1.30); Calcium 8.7 mg/dL (8.5-10.1); Chloride 98 mmol/L (98-107); Ferritin 36 ng/mL (8-388); Glucose 437 mg/dL (70-100); Sodium 135 mmol/L (136-145)
[2018-06-22 07:59] LABS: Folate 17.3 ng/mL (8.6-20.0); Vitamin B12 699 pg/mL (193-986)
[2018-06-22 08:05] LABS: Iron 14 ug/dL (50-175); Total Iron Binding Capacity 235 ug/dL (250-450); Transferrin Sat 6 % (20-55)
[2018-06-22 09:53] LABS: Hemoglobin A1C 13.6 % (4.5-6.2)
--- NOTE | 2018-06-22 09:55 | POCOE_ITS ---
Date of service: 06/22/18 Time of Service: 09:41 History of Present Illness Chief Complaint: right foot ulcer Narrative: Mr. Hidalgo is seen at bedside. He is resting comfortably. He indicates he is feeling much better since his admission. I been asked to ev aluate a chronic ulcer on the medial wall of the first MPJ of the right foot. Peter states this wound has been there at least 6 months probably longer. He has been receiving home health services 3 times a week for local wound care. He did have a radiograph done in February 22, 2018 which did not reveal signs of osteomyelitis he is a morbidly obese male he does indicate that when he lays in bed he turns to the left side which places the medial wall of the first MPJ against the mattress likely promoting and exacerbating the chronicity of this wound he does not ambulate very much outside of the home and he goes in his stocking feet within his house. He admits to being neuropathic but states that he does have some pain in the wound on occasion [facility] Medical History Pressure ulcer (Chronic) Right rotator cuff tear (Chronic) Ascending aortic aneurysm (Chronic) Right ventricular dilation, secondary (Chronic) Right ventricular systolic dysfunction (Chronic) Chronic pain disorder (Chronic) Super-super obese (Chronic) Diabetes mellitus (Chronic) GERD (gastroesophageal reflux disease) (Chronic) Chronic anxiety (Chronic) Depression (Chronic) Chronic back pain (Chronic) Obstructive sleep apnea hypopnea, severe (Chronic) Iron deficiency anemia, unspecified (Chronic) Severe muscle deconditioning (Acute) Panniculitis of other sites (Resolved) Family History Father No problems noted. Son No problems noted. Social History adopted: No caregiver/support person: Yes foster care: No household members: caregiver housing: assisted living facility lives independently: No number of children: 1 number of grandchildren: 0 current occupational status: disabled leisure activities: games Hx Recent Travel: No diet: diabetic well-balanced diet: about half the time daily servings fruits/ve-1 eating out: rarely or never reads food labels: sometimes during the past year weight has: increased > 10 lbs Smoking/Tobacco Use Status: Former Tobacco Use Exam Narrative Exam Narrative: Subjective findings: Peter is seen at bedside, he is awake and alert and pleasant. Indicates he is never been seen by podiatry. He does indicate that he suffered from venous wounds for many years and has had failure after failure with compression stockings. The wound on the medial wall of the right great toe has been present for at least 6 months likely longer. He has been receiving home health wound care Fridays for that length of time. Objective findings: Vitals BP 121/70 pulse 64 respirations 16 O2 sat room air is 92% his temp is 36.4 morning labs WBCs are normal at 9.94 RBCs at 5.0 abnormal labs include hemoglobin of 11.4 hematocrit 38.6 absolute neutrophils of 8.58 absolute lymphocytes 1.14 glucose this morning was 437 Is currently receiving ceftriaxone 2 g IV q. 24 Peripheral pulses at the ankle are easily palpable bilaterally. He has chronic venous stasis disease involving both lower extremity with multiple venous stasis wounds over the anterior medial aspects of both left legs. These wounds appear clean at this time hemosiderin changes are noted affecting both lower extremities. Toenails appear fungal sufficiently groomed at this time. He has a full-thickness ulceration overlying the medial wall of the first MPJ of the right foot. Farheen is appreciated along the dorsal and proximal aspect of the wound in need of debridement. Hypertrophy around the wound margin is appreciated but there is no roopa cellulitis noted. No purulence was noted from the wound edges of base of the wound. Range of motion of the first MPJ was free of crepitance although restricted in motion. No instability was currently appreciated. The remaining pedal joints were otherwise grossly benign. Also groups are 5 out of 5 bilaterally although markedly deconditioned. Neurologically he displays typical moderate to dense diabetic peripheral neuropathy affecting both lower extremities. Interestingly, he does have some sensation within the ulcerated region of his right foot upon debridement. Impressions: Poorly controlled insulin dependent diabetic super obese white male with diabetic neuropathy chronic ulceration of his right foot Plan: Radiographs have been ordered for his right foot but have yet to be obtained. I agree with this. The wound was cleansed with Betadine paint and with a #15 scalpel and pickup the eschar was removed from the base of the wound and the hypertrophic margins were gently debrided. Pinpoint bleeding was appreciated within the debridement region. There was no significant undermining and there was no bone exposed within the wound. The wound was dressed with Xeroform gauze dressings. I am recommending Unna boot applications to both lower extremities for control of the venous stasis disease and to aid the venous stasis wounds in healing. See no reason why CircAid compression stockings cannot be utilized once the wounds have healed they are easy to Franklyn and should be amenable to the shape of his leg. We will recommend this going forward. Definitive management for the wound on his right foot remains to be determined based on future x-rays etc. I will continue to follow while he remains inhales. Thank you for this consultation. Results Last Vital Signs Temp 36.4 C L 06/22/18 07:53 Pulse 64 06/22/18 07:53 Resp 16 06/22/18 07:53 BP 121/70 06/22/18 07:53 Pulse Ox 92 L 06/22/18 07:53 Labs : 06/22/18 06:50 06/22/18 06:50 Laboratory Results - last 24 hr 06/21/18 06/21/18 06/21/18 16:07 16:07 16:07 WBC 11.14 H RBC 5.11 Hgb 11.8 L Hct 38.7 L MCV 75.7 L MCH 23.1 L MCHC 30.5 L RDW 17.0 H Plt Count 282 MPV 10.8 Immature Gran % 0.2 Neutrophils % 70.2 Lymphocytes % 19.7 Monocytes % 8.9 Eosinophils % 0.7 Basophils % 0.3 Absolute Neutrophils 7.82 H Absolute Lymphocytes 2.19 Absolute Monocytes 0.99 H Absolute Eosinophils 0.08 Absolute Basophils 0.03 Retic Count PT 10.7 INR 1.1 APTT 24.9 Sodium 131 L Potassium 4.0 Chloride 94 L Carbon Dioxide 30.6 Anion Gap 6.4 BUN 18 Creatinine 1.25 Estimated GFR/1.73 m2 59.53 Glucose 553 H* Calcium 8.5 Magnesium 1.8 Iron TIBC Transferrin % Sat Ferritin Total Bilirubin 0.2 AST 27 ALT 16 Alkaline Phosphatase 129 H Troponin I Cancelled NT-Pro-B Natriuret Pep 325 H Total Protein 8.6 H Albumin 2.2 L Vitamin B12 Folate Urine Color Urine Clarity Urine pH Ur Specific [place] Urine Protein Urine Ketones Urine Blood Urine Nitrite Urine Bilirubin Urine Urobilinogen Ur Leukocyte Esterase Urine RBC Urine WBC Ur Epithelial Cells Urine Crystals Urine Bacteria Urine Casts Urine Mucus Urine Other Ur Culture Indicated? Urine Glucose 06/21/18 06/22/18 06/22/18 17:25 06:50 06:50 WBC 9.94 RBC 5.00 Hgb 11.4 L Hct 38.6 L MCV 77.2 L MCH 22.8 L MCHC 29.5 L RDW 17.1 H Plt Count 294 MPV 10.8 Immature Gran % 0.2 Neutrophils % 86.3 Lymphocytes % 11.5 Monocytes % 1.9 Eosinophils % 0.0 Basophils % 0.1 Absolute Neutrophils 8.58 H Absolute Lymphocytes 1.14 L Absolute Monocytes 0.19 Absolute Eosinophils 0.00 Absolute Basophils 0.01 Retic Count 1.6 PT INR APTT Sodium 135 L Potassium 4.0 Chloride 98 Carbon Dioxide 29.3 Anion Gap 7.7 BUN 17 Creatinine 0.95 Estimated GFR/1.73 m2 >= 60.00 Glucose 437 H D Calcium 8.7 Magnesium Iron TIBC Transferrin % Sat Ferritin 36 Total Bilirubin AST ALT Alkaline Phosphatase Troponin I NT-Pro-B Natriuret Pep Total Protein Albumin Vitamin B12 Folate Urine Color Yellow Urine Clarity Clear Urine pH 5.5 Ur Specific [place] <= 1.005 Urine Protein Negative Urine Ketones Negative Urine Blood Moderate H Urine Nitrite Negative Urine Bilirubin Negative Urine Urobilinogen 0.2 Ur Leukocyte Esterase Negative Urine RBC 10-20 H Urine WBC 0-2 Ur Epithelial Cells Negative Urine Crystals Negative Urine Bacteria Negative Urine Casts Negative Urine Mucus Negative Urine Other Negative Ur Culture Indicated? No Urine Glucose 500 H 06/22/18 06/22/18 06:50 06:50 WBC RBC Hgb Hct MCV MCH MCHC RDW Plt Count MPV Immature Gran % Neutrophils % Lymphocytes % Monocytes % Eosinophils % Basophils % Absolute Neutrophils Absolute Lymphocytes Absolute Monocytes Absolute Eosinophils Absolute Basophils Retic Count PT INR APTT Sodium Potassium Chloride Carbon Dioxide Anion Gap BUN Creatinine Estimated GFR/1.73 m2 Glucose Calcium Magnesium Iron 14 L TIBC 235 L Transferrin % Sat 6 L Ferritin Total Bilirubin AST ALT Alkaline Phosphatase Troponin I NT-Pro-B Natriuret Pep Total Protein Albumin Vitamin B12 699 Folate 17.3 Urine Color Urine Clarity Urine pH Ur Specific [place] Urine Protein Urine Ketones Urine Blood Urine Nitrite Urine Bilirubin Urine Urobilinogen Ur Leukocyte Esterase Urine RBC Urine WBC Ur Epithelial Cells Urine Crystals Urine Bacteria Urine Casts Urine Mucus Urine Other Ur Culture Indicated? Urine Glucose
[2018-06-22] MEDS: Omeprazole 20 MG CAPCR PO ×2 (10:07→19:53)
[2018-06-22] MEDS: Gabapentin 300 MG CAP 600 MG PO ×3 (10:07→19:53)
[2018-06-22] MEDS: Benzonatate 200 MG CAP PO ×3 (10:07→19:53)
[2018-06-22] MEDS: Losartan 25 MG TAB PO (10:07)
[2018-06-22] MEDS: guaiFENesin 600 MG TABCR 1200 MG PO ×2 (10:07→19:53)
[2018-06-22] MEDS: Azithromycin 250 MG TAB PO (10:07)
[2018-06-22] MEDS: predniSONE 20 MG TAB 60 MG PO (10:07)
[2018-06-22] MEDS: Nystatin CREAM 15 GM TUBE TP (10:08)
[2018-06-22] MEDS: Insulin Glargine 300 UNITS/3 ML PEN 45 UNITS SC (10:08)
[2018-06-22] MEDS: Insulin Aspart 300 UNITS/3 ML PEN SC ×7 (10:08→21:44)
[2018-06-22] MEDS: Metoprolol CR 25 MG TABCR PO (10:08)
[2018-06-22] MEDS: Magnesium Oxide 400 MG TAB PO (10:30)
[2018-06-22] MEDS: Mometasone 220 MCG 14 DOSE INHALER 1 PUFF IH (10:35)
--- NOTE | 2018-06-22 11:56 | PGE_ITS ---
Date of Service Date of service: 06/22/18 Time of Service: 11:43 Assessment and Plan (1) Acute pneumonitis: Current visit: Yes Status: Acute Continue current regimen of Azithromycin and Ceftriaxone, day #2. Also on oral prednisone and duonebs. Appears to be significantly improved. Monitor culture results. (2) Pressure ulcer: Current visit: No Status: Chronic Wound consult in place. Qualifiers: Laterality: left Pressure injury location: calf Pressure injury stage: stage 3 Qualified Code(s): L89.893 - Pressure ulcer of other site, stage 3 (3) Right ventricular systolic dysfunction: Current visit: No Status: Chronic In morbidly obese man with history of ABHAY. Noted. Lower extremity edema appears chronic and unchanged. Monitor. (4) Diabetes mellitus: Current visit: No Status: Chronic Poorly controlled sugars in setting of infection and steroid use, in patient with exceedingly poor control - current HgA1C of 13.6%. Initiated Lantus (Tresiba not on formulary) which will very likely need titration. Continue aggressive sliding scale coverage and ADA diet. Qualifiers: Chronic kidney disease stage: Diabetes mellitus complication detail: with foot ulcer Diabetes mellitus complication status: with skin complications Diabetes mellitus penitentiary insulin use: with manager long term care use Diabetes mellitus macular edema: Diabetes mellitus type: due to underlying condition Diabetic retinopathy severity: Laterality: Proliferative retinopathy type: Qualified Code(s): E08.621 - Diabetes mellitus due to underlying condition with foot ulcer; L97.509 - Non-pressure chronic ulcer of other part of unspecified foot with unspecified severity; Z79.4 - FDC (current) use of insulin (5) GERD (gastroesophageal reflux disease): Current visit: No Status: Chronic Continue PPI therapy. (6) Obstructive sleep apnea hypopnea, severe: Current visit: No Status: Chronic CPAP ordered. (7) DVT prophylaxis: Current visit: Yes Status: Acute SC Lovenox. Subjective Interval history since last seen: 58 year old morbidly obese man with past medical history significant for poorly controlled diabetes admitted from [facility] Emergency Department on 06/21 with a diagnosis of community-acquired pneumonia. Mr. Hidalgo has a past medical history significant for poorly controlled type 2 insulin-dependent complicated by peripheral neuropathy diabetes, chronic venous stasis with ulcers in his lower extremities, ABHAY on CPAP therapy, GERD, depression, and anxiety. He also has evidence of mild RV systolic dysfunction. There is evidence of a moderately sized aortic aneurysm on his echocardiogram. The patient presented to the ED with a 3-day history of productive cough, genera lized weakness, malaise, and dyspnea. While in the ED he was found to be hypoxic, with oxygen saturation of 88%. Further workup was negative for influenza, but with evidence of mild leukocytosis and a right lower lobe infiltrates on imaging with chest x-ray. Given these findings he was admitted for further evaluation and treatment. This morning Mr. Hidalgo appears vastly improved, afebrile, and oxygenating well. His white count has normalized, and he feels well. He was also evaluated by podiatry for the wound on his foot, and deemed unlikely to be osteomyelitis. No overnight events were reported. He remains afebrile. Exam Narrative Exam Narrative: General: Patient appears comfortable, AAOX3, NAD Neck: Supple CV: Regular, nontachycardic, S1S2, No rubs, murmurs, or gallops. Pulmonary: Clear to auscultation bilaterally, no wheezing, or rhonchi on exam limited by body habitus. Potential RLL crackles limited to lateral lower lobe. Abdomen: + Bowel Sounds, soft, nontender, nondistended, obese in contour with a large pannus Vascular: B/l LE Edema with with chronic appearing hyperpigmentation Psych: Normal mood and affect. Objective Objective Clinical Data: Abnormal lab results 06/21/18 06/21/18 06/21/18 Range/Units 16:07 16:07 17:25 WBC 11.14 H (4.4-10.8) k/cumm Hgb 11.8 L (13.5-17.5) g/dL Hct 38.7 L (40.0-50.0) % MCV 75.7 L (80-95) fL MCH 23.1 L (27.0-33.0) pg MCHC 30.5 L (32.0-36.0) g/dL RDW 17.0 H (11.8-14.1) % Absolute Neutrophils 7.82 H (1.2-6.7) k/cumm Absolute Lymphocytes (1.2-3.4) k/cumm Absolute Monocytes 0.99 H (0.11-0.7) k/cumm Sodium 131 L (136-145) mmol/L Chloride 94 L (98-107) mmol/L Glucose 553 H* (70-100) mg/dL Hemoglobin A1c (4.5-6.2) % Iron (50-175) ug/dL TIBC (250-450) ug/dL Transferrin % Sat (20-55) % Alkaline Phosphatase 129 H (46-116) U/L NT-Pro-B Natriuret Pep 325 H ( - 299) pg/mL Total Protein 8.6 H (6.4-8.2) g/dL Albumin 2.2 L (3.4-5.0) g/dL Urine Blood Moderate H (Negative) Urine RBC 10-20 H (0-2) Urine Glucose 500 H (Negative) mg/dL 06/22/18 06/22/18 06/22/18 Range/Units 06:50 06:50 06:50 WBC (4.4-10.8) k/cumm Hgb 11.4 L (13.5-17.5) g/dL Hct 38.6 L (40.0-50.0) % MCV 77.2 L (80-95) fL MCH 22.8 L (27.0-33.0) pg MCHC 29.5 L (32.0-36.0) g/dL RDW 17.1 H (11.8-14.1) % Absolute Neutrophils 8.58 H (1.2-6.7) k/cumm Absolute Lymphocytes 1.14 L (1.2-3.4) k/cumm Absolute Monocytes (0.11-0.7) k/cumm Sodium 135 L (136-145) mmol/L Chloride (98-107) mmol/L Glucose 437 H D (70-100) mg/dL Hemoglobin A1c (4.5-6.2) % Iron 14 L (50-175) ug/dL TIBC 235 L (250-450) ug/dL Transferrin % Sat 6 L (20-55) % Alkaline Phosphatase (46-116) U/L NT-Pro-B Natriuret Pep ( - 299) pg/mL Total Protein (6.4-8.2) g/dL Albumin (3.4-5.0) g/dL Urine Blood (Negative) Urine RBC (0-2) Urine Glucose (Negative) mg/dL 06/22/18 Range/Units 06:50 WBC (4.4-10.8) k/cumm Hgb (13.5-17.5) g/dL Hct (40.0-50.0) % MCV (80-95) fL MCH (27.0-33.0) pg MCHC (32.0-36.0) g/dL RDW (11.8-14.1) % Absolute Neutrophils (1.2-6.7) k/cumm Absolute Lymphocytes (1.2-3.4) k/cumm Absolute Monocytes (0.11-0.7) k/cumm Sodium (136-145) mmol/L Chloride (98-107) mmol/L Glucose (70-100) mg/dL Hemoglobin A1c 13.6 H (4.5-6.2) % Iron (50-175) ug/dL TIBC (250-450) ug/dL Transferrin % Sat (20-55) % Alkaline Phosphatase (46-116) U/L NT-Pro-B Natriuret Pep ( - 299) pg/mL Total Protein (6.4-8.2) g/dL Albumin (3.4-5.0) g/dL Urine Blood (Negative) Urine RBC (0-2) Urine Glucose (Negative) mg/dL Vital Signs Temperature 36.4 C L 06/22/18 07:53 Temperature Source Tympanic 06/22/18 07:53 Pulse 64 06/22/18 07:53 Pulse 123 H 06/21/18 18:00 Respiratory Rate 16 06/22/18 07:53 Respiratory Effort 06/21/18 21:51 Respiratory Depth Normal 06/21/18 21:51 Respiratory Pattern Normal 06/21/18 21:51 Blood Pressure 121/70 06/22/18 07:53 Blood Pressure Mean 98 06/21/18 17:30 Pulse Oximetry 92 L 06/22/18 07:53 Oxygen Delivery Method Cpap 06/22/18 07:53 Oxygen Flow Rate 2 06/21/18 21:51 Pain Level 4 06/21/18 22:14 Intake & Output 06/21/18 06/21/18 06/22/18 11:59 23:59 11:59 Intake Total 1300 / 1300 910 / 910 Output Total 1150 / 1150 600 / 600 Balance 150 / 150 310 / 310 Weight 209 kg 205.7 kg Intake: IV 1300 / 1300 Oral 910 / 910 Output: Urine 1150 / 1150 600 / 600 Other: Urine Color Yellow Yellow Urine Appearance Clear Clear Urine Odor Normal Voiding Methods Urinal Laboratory Results WBC 9.94 k/cumm (4.4-10.8) 06/22/18 06:50 RBC 5.00 m/cumm (4.50-6.00) 06/22/18 06:50 Hgb 11.4 g/dL (13.5-17.5) L 06/22/18 06:50 Hct 38.6 % (40.0-50.0) L 06/22/18 06:50 MCV 77.2 fL (80-95) L 06/22/18 06:50 MCH 22.8 pg (27.0-33.0) L 06/22/18 06:50 MCHC 29.5 g/dL (32.0-36.0) L 06/22/18 06:50 RDW 17.1 % (11.8-14.1) H 06/22/18 06:50 Plt Count 294 x1000/uL (130-400) 06/22/18 06:50 MPV 10.8 fL (8.0-11.0) 06/22/18 06:50 Immature Gran % 0.2 06/22/18 06:50 Neutrophils % 86.3 06/22/18 06:50 Lymphocytes % 11.5 06/22/18 06:50 Monocytes % 1.9 06/22/18 06:50 Eosinophils % 0.0 06/22/18 06:50 Basophils % 0.1 06/22/18 06:50 Absolute Neutrophils 8.58 k/cumm (1.2-6.7) H 06/22/18 06:50 Absolute Lymphocytes 1.14 k/cumm (1.2-3.4) L 06/22/18 06:50 Absolute Monocytes 0.19 k/cumm (0.11-0.7) 06/22/18 06:50 Absolute Eosinophils 0.00 k/cumm (0.0-0.7) 06/22/18 06:50 Absolute Basophils 0.01 k/cumm (0.0-0.2) 06/22/18 06:50 Retic Count 1.6 % (0.5-2.4) 06/22/18 06:50 PT 10.7 sec (9.3-11.0) 06/21/18 16:07 INR 1.1 (0.9-1.1) 06/21/18 16:07 APTT 24.9 sec (21.0-31.4) 06/21/18 16:07 Sodium 135 mmol/L (136-145) L 06/22/18 06:50 Potassium 4.0 mmol/L (3.5-5.1) 06/22/18 06:50 Chloride 98 mmol/L (98-107) 06/22/18 06:50 Carbon Dioxide 29.3 mmol/L (21.0-32.0) 06/22/18 06:50 Anion Gap 7.7 mmol/L (3-11) 06/22/18 06:50 BUN 17 mg/dL (7-18) 06/22/18 06:50 Creatinine 0.95 mg/dL (0.70-1.30) 06/22/18 06:50 Estimated GFR/1.73 m2 >= 60.00 (mL/min/1.73m2) 06/22/18 06:50 Glucose 437 mg/dL (70-100) H D 06/22/18 06:50 Hemoglobin A1c 13.6 % (4.5-6.2) H 06/22/18 06:50 Calcium 8.7 mg/dL (8.5-10.1) 06/22/18 06:50 Magnesium 1.8 mg/dL (1.8-2.4) 06/21/18 16:07 Iron 14 ug/dL (50-175) L 06/22/18 06:50 TIBC 235 ug/dL (250-450) L 06/22/18 06:50 Transferrin % Sat 6 % (20-55) L 06/22/18 06:50 Ferritin 36 ng/mL (8-388) 06/22/18 06:50 Total Bilirubin 0.2 mg/dL (0.2-1.0) 06/21/18 16:07 AST 27 U/L (15-37) 06/21/18 16:07 ALT 16 U/L (12-78) 06/21/18 16:07 Alkaline Phosphatase 129 U/L (46-116) H 06/21/18 16:07 Troponin I Cancelled 06/21/18 16:07 NT-Pro-B Natriuret Pep 325 pg/mL (-299) H 06/21/18 16:07 Total Protein 8.6 g/dL (6.4-8.2) H 06/21/18 16:07 Albumin 2.2 g/dL (3.4-5.0) L 06/21/18 16:07 Vitamin B12 699 pg/mL (193-986) 06/22/18 06:50 Folate 17.3 ng/mL (8.6-20.0) 06/22/18 06:50 Urine Color Yellow (Yellow) 06/21/18 17:25 Urine Clarity Clear 06/21/18 17:25 Urine pH 5.5 (5-8) 06/21/18 17:25 Ur Specific [place] <= 1.005 (1.005-1.025) 06/21/18 17:25 Urine Protein Negative mg/dL (Negative) 06/21/18 17:25 Urine Ketones Negative mg/dL (Negative) 06/21/18 17:25 Urine Blood Moderate (Negative) H 06/21/18 17:25 Urine Nitrite Negative (Negative) 06/21/18 17:25 Urine Bilirubin Negative (Negative) 06/21/18 17:25 Urine Urobilinogen 0.2 EU/dL (Up TO 0.2) 06/21/18 17:25 Ur Leukocyte Esterase Negative (Negative) 06/21/18 17:25 Urine RBC 10-20 (0-2) H 06/21/18 17:25 Urine WBC 0-2 HPF (0-5) 06/21/18 17:25 Ur Epithelial Cells Negative HPF (Negative) 06/21/18 17:25 Urine Crystals Negative HPF (Negative) 06/21/18 17:25 Urine Bacteria Negative HPF (Negative) 06/21/18 17:25 Urine Casts Negative LPF (Negative) 06/21/18 17:25 Urine Mucus Negative (Negative) 06/21/18 17:25 Urine Other Negative (Negative) 06/21/18 17:25 Ur Culture Indicated? No 06/21/18 17:25 Urine Glucose 500 mg/dL (Negative) H 06/21/18 17:25
--- NOTE | 2018-06-22 14:52 | PDOC.CMIN ---
- If Service Date Differs Date of service: 06/22/18 Time of Service: 14:52 Care Management Initial Assess REASON FOR HOSPITALIZATION:: Acute Pneumonitis PAST MEDICAL HISTORY/PAST SURGICAL HISTORY:: Pressure ulcer (Chronic). Right rotator cuff tear (Chronic). Ascending aortic aneurysm (Chronic). Right ventricular dilation, secondary (Chronic). Right ventricular systolic dysfunction (Chronic). Chronic pain disorder (Chronic). Super-super obese (Chronic). Diabetes mellitus (Chronic). GERD (gastroesophageal reflux disease) (Chronic). Chronic anxiety (Chronic). Depression (Chronic). Chronic back pain (Chronic). Obstructive sleep apnea hypopnea, severe (Chronic). Iron deficiency anemia, unspecified (Chronic). Severe muscle deconditioning (Acute). Panniculitis of other sites (Resolved) PREVIOUS FUNCTIONAL STATUS/SOCIAL/FAMILY SUPPORTS:: Rajan resides in [place] with his caregiver Cash Shah, he has support of [facility] for care. Rajan has had mutiple stays at different SNF's including [facility]) and [facility]. Rajan depends on his caregiver for transportation. CURRENT FUNCTIONAL STATUS:: Rajan is lying in bed this afternoon when this policy writer typist visits. He states that his caregiver Maxi called and Rajan states that Maxi is reporting that he is unable to care for him at this time. Rajan reports that he will be returning to [facility]'s home. ADVANCE DIRECTIVES:: None on file Has patient been provided with information about the portal?: Yes Did the patient sign up for the portal?: No CODE STATUS:: Full Code INSURANCE COVERAGE / FINANCIAL ISSUES:: Medicare, Medicaid CURRENT HOME/COMMUNITY SERVICES/EQUIPMENT:: Currently Rajan resides [facility] [place] in [place] with his provider Cash. Equipment in the home includes bariatric luis miguel lift, home bipap machine, medical bed, trapeze, and a shower chair. Rajan receives home health RN services 3x/week for wound care. Rajan's case monitor through [place] support services is Licha Driver - Rajan states that she is away at this time. PRIMARY CARE PHYSICIAN:: Dr. Young POTENTIAL DISCHARGE NEEDS:: F/U appointment with PCP. Resume home health RN services PATIENT/FAMILY EDUCATION NEEDS:: Review DC instructions, any limitations, and ongoing DC planning discussion. Discuss 'Ask Me Three' ANTICIPATED BARRIERS TO DISCHARGE:: CM received a call from Maxi, care provider, whom states that he feels as though he is unable to care for Rajan at this time. Maxi states that he has already collected money for Rajan for this month, though states that he does not feel able to meet his needs. SHEBA spoke with Chetan Cuellar [facility], whom states that [facility] [place] been attempting to find Rajan housing for the past month to no avail. Alisa states that she has contacted [facility] and left a message for Archana Tan in regards to next steps. SHEBA notified Alisa that [facility] was not the appropriate place for Rajan to await placement, and that he should return to his previous placement while awaiting a bed. Alisa states that she would like to have a team meeting in regards to Rajan and placement, and SHEBA states that Rajan may be ready as soon as this weekend, therefore this would need to take place at his home. Alisa then stated that if he returns home there is a high likelihood that he will be brought back to the ER. TRANSPORTATION:: ? Via caregiver vs. [facility] PLAN:: Rajan to return to his caregiver Cash's home in [place] once medically cleared. He will resume home health RN services 3x/week. Caregiver Maxi or RCT to transport at time of DC.
--- NOTE | 2018-06-22 15:16 | INITIAL_ITS ---
- If Service Date Differs Date of service: 06/22/18 Time of Service: 14:52 Care Management Initial Assess REASON FOR HOSPITALIZATION:: Acute Pneumonitis PAST MEDICAL HISTORY/PAST SURGICAL HISTORY:: Pressure ulcer (Chronic). Right rotator cuff tear (Chronic). Ascending aortic aneurysm (Chronic). Right ventricular dilation, secondary (Chronic). Right ventricular systolic dysfunction (Chronic). Chronic pain disorder (Chronic). Super-super obese (Chronic). Diabetes mellitus (Chronic). GERD (gastroesophageal reflux disease) (Chronic). Chronic anxiety (Chronic). Depression (Chronic). Chronic back pain (Chronic). Obstructive sleep apnea hypopnea, severe (Chronic). Iron deficiency anemia, unspecified (Chronic). Severe muscle deconditioning (Acute). Panniculitis of other sites (Resolved) PREVIOUS FUNCTIONAL STATUS/SOCIAL/FAMILY SUPPORTS:: Rajan resides in [place] with his caregiver Cash Shah, he has support of [facility] [employer] for care. Rajan has had mutiple stays at different SNF's including [facility] and [facility]. Rajan depends on his caregiver for transportation. CURRENT FUNCTIONAL STATUS:: Rajan is lying in bed this afternoon when this business writer visits. He states that his caregiver Maxi called and Rajan states that Maxi is reporting that he is unable to care for him at this time. Rajan reports that he will be returning to [facility]'s home. ADVANCE DIRECTIVES:: None on file Has patient been provided with information about the portal?: Yes Did the patient sign up for the portal?: No CODE STATUS:: Full Code INSURANCE COVERAGE / FINANCIAL ISSUES:: Medicare, Medicaid CURRENT HOME/COMMUNITY SERVICES/EQUIPMENT:: Currently Rajan resides in a private residential in [place] with his provider Cash. Equipment in the home includes bariatric luis miguel lift, home bipap machine, medical bed, trapeze, and a shower chair. Rajan receives home health RN services 3x/week for wound care. Rajan's case hardener through [facility] support services is Licha Driver - Rajan states that she is away at this time. PRIMARY CARE PHYSICIAN:: Dr. Young POTENTIAL DISCHARGE NEEDS:: F/U appointment with PCP. Resume home health RN services PATIENT/FAMILY EDUCATION NEEDS:: Review DC instructions, any limitations, and ongoing DC planning discussion. Discuss 'Ask Me Three' ANTICIPATED BARRIERS TO DISCHARGE:: CM received a call from Maxi, care provider, whom states that he feels as though he is unable to care for Rajan at this time. Maxi states that he has already collected money for Rajan for this month, though states that he does not feel able to meet his needs. SHEBA spoke with Chetan Cuellar [facility], whom states that [facility] [place] been attempting to find Rajan housing for the past month to no avail. Alisa states that she has contacted [facility] and left a message for Archana Tan in regards to next steps. SHEBA notified Alisa that [facility] was not the appropriate place for Rajan to await placement, and that he should return to his previous placement while awaiting a bed. Alisa states that she would like to have a team meeting in regards to Rajan and placement, and SHEBA states that Rajan may be ready as soon as this weekend, therefore this would need to take place at his home. Alisa then stated that if he returns home there is a high likelihood that he will be brought back to the ER. TRANSPORTATION:: ? Via caregiver vs. [facility] PLAN:: Rajan to return to his caregiver Cash's home in [place] once medically cleared. He will resume home health RN services 3x/week. Caregiver Maxi or RCT to transport at time of DC.
[2018-06-22] MEDS: Normal Saline Flush 10 ML SYR IVP ×3 (16:56→19:54)
[2018-06-22] MEDS: Normal Saline 500 ML 200 ML IV (16:56)
[2018-06-22] MEDS: Enoxaparin 40 MG/0.4 ML SYR SC (18:03)
[2018-06-22] MEDS: Acetaminophen 325 MG TAB PO (18:03)
[2018-06-22] MEDS: traZODone 50 MG TAB 150 MG PO (21:44)
[2018-06-22] MEDS: Amitriptyline 50 MG TAB 150 MG PO (21:44)
--- NOTE | 2018-06-22 23:43 | NUR.NOTE ---
Nursing Note: Unna boots applied BLE to lower legs ankle to knee. Bilat feet do not have stasis, reported need for application clarification - does MD want to start boots at toes/proximal to ulcer on R foot or only over reddened unhealthy skin from ankles to knees. Pt states he has always had coban wrapped over top of unna boots. Current order does not include outside wrap, this will also be clarified.
[2018-06-23] VITALS (12 sets, daily range): BP systolic 105–149; BP diastolic 66–82; PULSE 68–95; RESP 18–21; TEMP 36.2–36.9; O2SAT 93–99
[2018-06-23] MEDS: Albuterol/Ipratropium 3 ML UPD VIAL UPD ×2 (00:09→23:49)
[2018-06-23] MEDS: Nystatin CREAM 15 GM TUBE TP ×3 (00:09→21:27)
[2018-06-23] MEDS: Polyethylene Glycol 3350 17 GM PACKET PO ×2 (09:39→19:53)
[2018-06-23] MEDS: Benzonatate 200 MG CAP PO ×3 (09:40→19:53)
[2018-06-23] MEDS: predniSONE 20 MG TAB 40 MG PO (09:40)
[2018-06-23] MEDS: Omeprazole 20 MG CAPCR PO ×2 (09:40→19:53)
[2018-06-23] MEDS: guaiFENesin 600 MG TABCR 1200 MG PO ×2 (09:40→19:53)
[2018-06-23] MEDS: Azithromycin 250 MG TAB PO (09:40)
[2018-06-23] MEDS: Losartan 25 MG TAB PO (09:40)
[2018-06-23] MEDS: Metoprolol CR 25 MG TABCR PO (09:40)
[2018-06-23] MEDS: Gabapentin 300 MG CAP 600 MG PO ×3 (09:40→19:53)
[2018-06-23] MEDS: Insulin Glargine 300 UNITS/3 ML PEN 45 UNITS SC (09:42)
[2018-06-23] MEDS: Insulin Aspart 300 UNITS/3 ML PEN SC ×7 (09:43→21:30)
--- NOTE | 2018-06-23 10:19 | IN_ITS ---
Date of service: 06/23/18 Time of Service: 10:00 PT Notes Inpatient Physical Therapy Evaluation Date: 06/23/18 Referring Doctor: Brielle Chapin NP PT Orders: PT CONSULT: strengthening Precautions: Fall precautions, LE skin precautions secondary to multiple ulcers Patient Profile/Admitting Diagnosis: Morbidly obese man, admitted with community acquired pneumonia. Receiving medical care for poorly managed LE ulcers while admitted. History of manipulative behavior with prior inpatient PT treatment and evaluations, with attempt to perform poorly and unsafely to remain in hospital care longer. PMHX: Pressure ulcer (Chronic) Right rotator cuff tear (Chronic) Ascending aortic aneurysm (Chronic) Right ventricular dilation, secondary (Chronic) Right ventricular systolic dysfunction (Chronic) Chronic pain disorder (Chronic) Super-super obese (Chronic) Diabetes mellitus (Chronic) GERD (gastroesophageal reflux disease) (Chronic) Chronic anxiety (Chronic) Depression (Chronic) Chronic back pain (Chronic) Obstructive sleep apnea hypopnea, severe (Chronic) Iron deficiency anemia, unspecified (Chronic) Severe muscle deconditioning (Acute) Panniculitis of other sites (Resolved) Social History/Home Situation: Lives with caregiver, nursing services 3x/week for wound care. Premorbid level of function: Reports to be able to stand and transfer from to , and vice versa with walker. He is able to take 2-3 steps with walker at a time. Independent toileting with caregiver stand by. Independent bed mobility. Essentially wheelchair bound. Current Functional Limitations: Same Equipment Owned/DME: Walker, , [facility] bed Subjective: Denies pain, aside from his usual chronic multiple joint arthralgias related to his morbid obesity. He primarily complains about his caregiver during the initial minutes of our session. He no longer feel short of breath or weak compared to her ER presentation. Objective: General Observation: Lying on L side, with remarkable abdominal pannus pulling him to the side, HOB about 30* inclined. Mental Status: A&Ox3 Pain: 4/10 - chronic joint arthralgias Vital Signs: BP 133/77, HR 83, O2 99% on 3L. RN decreasing O2 to 2L, post vital assessment, during my presence due to his good Sat. ROM: Right Upper Extremity: Shoulder flexion/abduction about 90*, otherwise WNL Left Upper Extremity: Shoulder flexion/abduction about 90*, otherwise WNL Right Lower Extremity: Grossly WFL, considering obesity Left Lower Extremity: Grossly WFL, consider obesity Strength: B Upper Extremity: Shoulder flexion 4+/5, abduction 4/5, shoulder ER/IR 5/5, otherwise 5/5 at UE B Lower Extremity: Grossly 5/5 within available knee ankle ROM. B hips grossly 3/4 with abduction and flexion. Unable to perform bridge due to weight. Sensation: Good at R foot, not intact to left foot with light touch. Coverage with bandage for management of ulcers at B lower legs, so not assessed. Bed Mobility/Transfers: I bed mobility I supine <>sit Sit to stand interrupted by Dr. Schultz, will assess at later session. Gait: Not assessed, due to interruption of Dr. Schultz for wound evaluation. Will assess at later time. Per chart review, patient unable to tolerate more then 3-5 steps at a time, and fatigues very quickly due to his poor medical condition, at baseline. Balance: Static Sitting: Good Dynamic Sitting: Good Static Standing: Not assessed Dynamic Standing: Not assessed Special Tests: Mobility Limitations Standardized Measure [facility] 6 clicks Basic Mobility Inpatient Short Form: Raw Score: 17 Standardized Score: 50% Established with clinical judgment from known premorbid level of function, and patient report. Informed Consent/Education: Patient instructed in purpose of PT consult and plan of care. Assessment: Patient is a 58 year old male referred to physical therapy services with the diagnosis of complications from community acquired pneumonia, LE wound from poorly managed diabetic ulcers, and morbid obesity. Patient presents with clinical signs and symptoms consistent with admission diagnosis, as demonstrated by the following impairment level findings: Poor tolerance to weightbearing activity, quick fatigue, poor UE and LE ROM due to morbid obesity and limb weight, LE wounds, and generally deconditioned. Impairments are contributing to the following functional limitations: AMPAC score of 50%, unable to functionally ambulate, dependent on HH nursing and caregiver for assist with hygeine, home care and meals, WC bound, and can only tolerate short distance stand pivot transfers for the most part. Requires PT intevention to receive strengthening and transfer activities to avoid further deconditioning and functional decline, until discharged. Patient is assessed as a Low 84783 Moderate 27760 x High 05261 complexity based on the following: History: See comorbidites, patient has historically unpredictable and manip ulative behavior. Examination: See above impairments and functional limitations Presentation: Unpredictable Decision Making: Complex Goals: Goals X1 week 1. Supine-Sit I 2. Sit-Supine I 3. Sit-Stand Supervision 4. Stand-Sit Supervision 5. Bed-Chair Supervision 6. Chair-Bed Supervision 7. Gait 2-3 steps with walker 8. Stairs N/A 9. Independent with home exercise program 10. Balance Fair with standing at walker Plan of Care/Treatment Plan: 1-2x/day, 7 days/week x 1 week. Plan of care has been reviewed with the SALES WAREHOUSE DRIVER providing the service under Physical Therapy direction. Initiate Physical Therapy intervention for strengthening, bed mobility, transfers, gait, stairs and conditioning. DISCHARGE RECOMMENDATIONS: Home with caregiver and HH for wound care TREATMENT CODE/TIME: 30 minutes, 00121
--- NOTE | 2018-06-23 10:34 | PGE_ITS ---
Date of Service Date of service: 06/23/18 Time of Service: 10:27 Subjective Patient reports: no new complaints Exam Narrative Exam Narrative: Peter is seen at bedside. He is resting comfortably. He indicates he continues to feel better since his admission. He denies any pain in his lower extremities at this time. Objective: Vitals BP 111/71 pulse 69 respiration 20 temperature 36.2 O2 sat room air is 99%. Morning labs are pending. Evaluation of both lower extremities; Unna boot gauze dressings were applied last night but no secondary coverings were applied and the Unna boots have drifted down from his leg and on in a state of disarray. Iodosorb gauze dressing is being applied to the wound on the medial wall of the right first metatarsal head. Dressings are removed at this level the wound appears stable. There is no active signs of bacterial infection there is no surrounding erythema or cellulitis. The ulcer is full-thickness and appears to be down towards the fibrous joint capsule layer. But no bone is probed and there is no undermining. Radiographs had not been ordered although I had attempted to place that order yesterday they will be re-ordered today to rule out osteomyelitis. Impression Chronic ulcer first MPJ right foot in a poorly controlled morbidly obese diabetic Venous stasis disease of both lower extremities with venous stasis ulcers Plan: Unna boot dressings will be reapplied to both lower extremities nursing understands the necessity for secondary dressings over the Unna boot to include Kerlix rolls and Ryley wraps. We will continue with Iodosorb gauze dressings to the right foot and await for x-rays to determine further interventions and/or treatment. Dr. Barr informed me that she thought some vascular studies have been done at [facility] earlier last year and she will try to procure those reports for our review. I will continue to follow. Objective Objective Clinical Data: Vital Signs Temperature 36.2 C L 06/23/18 07:40 Temperature Source Tympanic 06/23/18 07:40 Pulse 69 06/23/18 07:40 Pulse Rhythm Regular 06/22/18 20:00 Pulse 123 H 06/21/18 18:00 Respiratory Rate 20 06/23/18 07:40 Respiratory Effort 06/22/18 20:00 Respiratory Depth Normal 06/22/18 20:00 Respiratory Pattern Normal 06/22/18 20:00 Blood Pressure 111/71 06/23/18 07:40 Blood Pressure Mean 98 06/21/18 17:30 Pulse Oximetry 99 06/23/18 10:00 Oxygen Delivery Method Nasal Cannula 06/23/18 10:00 Oxygen Flow Rate 3 06/23/18 10:00 Pain Level 7 06/23/18 07:41 Comment 06/23/18 10:00 Intake & Output 06/22/18 06/23/18 06/23/18 18:59 06:59 18:59 Intake Total 2023.333 / 3453.333 1430 / 3453.333 Output Total 2000 / 2600 600 / 2600 Balance 23.333 / 853.333 830 / 853.333 Weight 205.7 kg 208.2 kg Intake: IV 83.333 / 193.333 110 / 193.333 Oral 1940 / 3260 1320 / 3260 Output: Urine 2000 / 2600 600 / 2600 Other: Urine Color Yellow Yellow Urine Appearance Clear Urine Odor Normal Comment Void x1 in the urinal. Voiding Methods Urinal Urinal Laboratory Results WBC 9.94 k/cumm (4.4-10.8) 06/22/18 06:50 RBC 5.00 m/cumm (4.50-6.00) 06/22/18 06:50 Hgb 11.4 g/dL (13.5-17.5) L 06/22/18 06:50 Hct 38.6 % (40.0-50.0) L 06/22/18 06:50 MCV 77.2 fL (80-95) L 06/22/18 06:50 MCH 22.8 pg (27.0-33.0) L 06/22/18 06:50 MCHC 29.5 g/dL (32.0-36.0) L 06/22/18 06:50 RDW 17.1 % (11.8-14.1) H 06/22/18 06:50 Plt Count 294 x1000/uL (130-400) 06/22/18 06:50 MPV 10.8 fL (8.0-11.0) 06/22/18 06:50 Immature Gran % 0.2 06/22/18 06:50 Neutrophils % 86.3 06/22/18 06:50 Lymphocytes % 11.5 06/22/18 06:50 Monocytes % 1.9 06/22/18 06:50 Eosinophils % 0.0 06/22/18 06:50 Basophils % 0.1 06/22/18 06:50 Absolute Neutrophils 8.58 k/cumm (1.2-6.7) H 06/22/18 06:50 Absolute Lymphocytes 1.14 k/cumm (1.2-3.4) L 06/22/18 06:50 Absolute Monocytes 0.19 k/cumm (0.11-0.7) 06/22/18 06:50 Absolute Eosinophils 0.00 k/cumm (0.0-0.7) 06/22/18 06:50 Absolute Basophils 0.01 k/cumm (0.0-0.2) 06/22/18 06:50 Retic Count 1.6 % (0.5-2.4) 06/22/18 06:50 PT 10.7 sec (9.3-11.0) 06/21/18 16:07 INR 1.1 (0.9-1.1) 06/21/18 16:07 APTT 24.9 sec (21.0-31.4) 06/21/18 16:07 Sodium 135 mmol/L (136-145) L 06/22/18 06:50 Potassium 4.0 mmol/L (3.5-5.1) 06/22/18 06:50 Chloride 98 mmol/L (98-107) 06/22/18 06:50 Carbon Dioxide 29.3 mmol/L (21.0-32.0) 06/22/18 06:50 Anion Gap 7.7 mmol/L (3-11) 06/22/18 06:50 BUN 17 mg/dL (7-18) 06/22/18 06:50 Creatinine 0.95 mg/dL (0.70-1.30) 06/22/18 06:50 Estimated GFR/1.73 m2 >= 60.00 (mL/min/1.73m2) 06/22/18 06:50 Glucose 437 mg/dL (70-100) H D 06/22/18 06:50 Hemoglobin A1c 13.6 % (4.5-6.2) H 06/22/18 06:50 Calcium 8.7 mg/dL (8.5-10.1) 06/22/18 06:50 Magnesium 1.8 mg/dL (1.8-2.4) 06/21/18 16:07 Iron 14 ug/dL (50-175) L 06/22/18 06:50 TIBC 235 ug/dL (250-450) L 06/22/18 06:50 Transferrin % Sat 6 % (20-55) L 06/22/18 06:50 Ferritin 36 ng/mL (8-388) 06/22/18 06:50 Total Bilirubin 0.2 mg/dL (0.2-1.0) 06/21/18 16:07 AST 27 U/L (15-37) 06/21/18 16:07 ALT 16 U/L (12-78) 06/21/18 16:07 Alkaline Phosphatase 129 U/L (46-116) H 06/21/18 16:07 Troponin I Cancelled 06/21/18 16:07 NT-Pro-B Natriuret Pep 325 pg/mL (-299) H 06/21/18 16:07 Total Protein 8.6 g/dL (6.4-8.2) H 06/21/18 16:07 Albumin 2.2 g/dL (3.4-5.0) L 06/21/18 16:07 Vitamin B12 699 pg/mL (193-986) 06/22/18 06:50 Folate 17.3 ng/mL (8.6-20.0) 06/22/18 06:50 Urine Color Yellow (Yellow) 06/21/18 17:25 Urine Clarity Clear 06/21/18 17:25 Urine pH 5.5 (5-8) 06/21/18 17:25 Ur Specific [place] <= 1.005 (1.005-1.025) 06/21/18 17:25 Urine Protein Negative mg/dL (Negative) 06/21/18 17:25 Urine Ketones Negative mg/dL (Negative) 06/21/18 17:25 Urine Blood Moderate (Negative) H 06/21/18 17:25 Urine Nitrite Negative (Negative) 06/21/18 17:25 Urine Bilirubin Negative (Negative) 06/21/18 17:25 Urine Urobilinogen 0.2 EU/dL (Up TO 0.2) 06/21/18 17:25 Ur Leukocyte Esterase Negative (Negative) 06/21/18 17:25 Urine RBC 10-20 (0-2) H 06/21/18 17:25 Urine WBC 0-2 HPF (0-5) 06/21/18 17:25 Ur Epithelial Cells Negative HPF (Negative) 06/21/18 17:25 Urine Crystals Negative HPF (Negative) 06/21/18 17:25 Urine Bacteria Negative HPF (Negative) 06/21/18 17:25 Urine Casts Negative LPF (Negative) 06/21/18 17:25 Urine Mucus Negative (Negative) 06/21/18 17:25 Urine Other Negative (Negative) 06/21/18 17:25 Ur Culture Indicated? No 06/21/18 17:25 Urine Glucose 500 mg/dL (Negative) H 06/21/18 17:25
[2018-06-23 10:56] LABS: Abs Immature Grans 0.04 k/cumm (0.0-0.09); Absolute Monocyte Count 0.55 k/cumm (0.11-0.7); Basophils % 0.1; HCT 39.5 % (40.0-50.0); HGB 11.8 g/dL (13.5-17.5); Immature Grans % 0.3; Lymphocytes % 14.4; Mean Corp. HGB Concentration 29.9 g/dL (32.0-36.0); Mean Corpuscular Hemoglobin 22.9 pg (27.0-33.0); Mean Corpuscular Volume 76.7 fL (80-95); Mean Platelet Volume 10.6 fL (8.0-11.0); Neutrophils % 81.2; Platelet Count 276 x1000/uL (130-400); RBC 5.15 m/cumm (4.50-6.00); RBC Distribution Width 17.5 % (11.8-14.1); White Blood Cell Count 13.79 k/cumm (4.4-10.8)
[2018-06-23 11:00] LABS: Anion Gap 5.2 mmol/L (3-11); BUN 22 mg/dL (7-18); CO2 31.8 mmol/L (21.0-32.0); CREATININE 1.05 mg/dL (0.70-1.30); Chloride 98 mmol/L (98-107); Glucose 435 mg/dL (70-100); Potassium 4.2 mmol/L (3.5-5.1); Sodium 135 mmol/L (136-145)
[2018-06-23 11:01] LABS: Absolute Basophil Count 0.01 k/cumm (0.0-0.2); Absolute Lymphocyte Count 1.99 k/cumm (1.2-3.4)
--- NOTE | 2018-06-23 11:15 | DI.RAD_ITS ---
SYMPTOM/DIAGNOSIS: CHRONIC WOUND 1ST MTP , EVAL FOR OSTEOMYELITIS RIGHT FOOT: Comparison is made with 22 Feb 2018. The exam is somewhat limited by overlying bandages. There is an ulcer seen at the medial aspect of the foot at the level of the 1st MTP joint. No bony erosions are visible. Vascular calcifications are seen. IMPRESSION: Soft tissue ulcer. No plain film evidence of osteomyelitis.
[2018-06-23 11:17] LABS: Diff Comment Agrees w/ Instrument; RBC Morphology Normal
--- NOTE | 2018-06-23 11:21 | WOUNDCARE ---
Wound Care Report: 06/22/18 - This nurse was asked to recommended wound care for wounds to patient's to LLE, coccyx, and bilateral posterior thigh. Patient is an alert and oriented obese male admitted for pneumonitis. Chart review completed included, history and physical, labs, and vital signs. Patient also has a diabetic ulcer to his great toe of his right foot, which is currently being managed by Dr. Schultz. Present to patient's posterior left lower leg are wounds measuring 3.2 x 3.3 x <0.1 cm and 0.7 x 0.5 <0.1 cm. Wound beds are red and nongranulating, and dry. Minimal serosainguinous drainage noted to be coming from wounds. Periwound skin is pink and warm, with some maceration, no induration noted. To patient's lateral left lower leg is noted to be multiple wounds measuring 0.7 x 0.5 x <0.1cm, 0.3 x 0.4 x <0.1 cm, and 1.1 x 0.5 x <0.1 cm. Wound beds noted to be pink with some fibrinous tissue and moist. Minimal amount of serosainguinous drainage coming from these wounds. Periwound skin is pink and warm, no induration noted. To patient's anterior left lower leg is noted to be a wound measuring 2 x 2.3 x 0.3 cm. Wound bed is noted to be red, nongranulating, and dry. No drainage noted to be coming from this wound. Periwound skin is noted to be warm, pink, dry, and flaky. Dr. Schultz had ordered to have Unna boots to be applied to bilateral lower legs and feet. Patient reports that he has had previously had BLE wounds and that they improve with Unna boot application. This nurse agrees with applying Unna boots and changing them Q3days. Present to patient's coccyx is a wound measuring 6.6 x 0.6 x 0.5 cm. Wound bed noted to be 10% loosely adherent yellow slough and 90% red nongranulating tissue. Minimal amount of serosainguinous drainage noted to be draining from wound. Periwound skin noted to be warm, pink, with some superficial open areas and some maceration. Patient reports a history of pilondial cyst removal 20 years ago, and, since then, wound has been in a cycle of opening, healing, and then opening again. He also reports that he uses the urinal to void and that sometimes he misses and is not always aware of this. He also reports that, although when in bed he lies on his side, he will sit positioned on his coccyx when in his chair for long periods of time. This nurse discussed with patient the importance of keeping pressure off of the coccyx, and also discussed methods to keep area dry, like allowing staff and caregivers to assist patient when using the urinal to avoid spillage and to provide prompt incontinence care PRN. This nurse recommends to his wound to cleanse wound with skintegrity wound cleanser and gauze, apply skin prep to periwound skin, massage anasept gel into gauze and lightly fluff into wound, and cover with mepilex with borders, change QD. Present to patient's left posterior thigh is a collection of wounds covering an area measuring 12.5 x 10.5 x <0.1 cm. Wound bed is noted to be red and nongranulating, and draining a moderate amount of serosainguinous drainage. Periwound skin is noted to macerated, moist, warm, and swollen. Patient reports that his scrotum and inner thighs becomes very moist and diaphoretic, independent of voiding. Patient has a history of wounds to his bilateral posterior thighs. This nurse stressed the importance of keeping this area dry, and advised recommended applying an absorbent pad between thighs, to keep inner thighs and scrotum dry. This nurse recommends cleansing wound with skintegrity wound cleanser and gauze, applying skin prep to periwound skin, and covering with mepilex ag with borders and changing every 2 days. This nurse also recommendations having the area evaluated by the hospitalist for concern for infection. Present to patient's right posterior thigh is two wounds measuring 1.8 x 1.9 cm and 5.3 x 3 cm. Wound bed is noted to be red and nongranulating, and dry. Periwound skin is warm and pink, with some maceration noted. Some epithelialization noted at wound edges. This nurse recommends cleansing wound with skintegrity wound cleanser and gauze, applying skin prep to periwound skin, and covering with mepilex with borders and changing Q2D.
--- NOTE | 2018-06-23 11:38 | DI.VRAD_ITS ---
EXAM: XR Right Foot Complete, 3 or more Views EXAM DATE/TIME: 06/23/2018 11:13 AM CLINICAL HISTORY: 58 years old, male; Condition or disease; Other: Chronic wound 1st mpj eval for osteomyelitis TECHNIQUE: XR Right foot 3 or more views. COMPARISON: CR XR foot RT complete 02/22/2018 4:57 PM FINDINGS: Bones/joints: Mild great toe MTP primary osteoarthritis. Soft tissues: Nonspecific soft tissue swelling over the foot and ankle. Vasculature: Mild calcified peripheral vascular disease. IMPRESSION: 1. Mild calcified peripheral vascular disease. 2. Nonspecific soft tissue swelling over the foot and ankle. 3. Mild great toe MTP primary osteoarthritis. Dictated and Authenticated by: Lion Verdin MD. Ordering:DIMITRIOS Earl MD
[2018-06-23] MEDS: Mometasone 220 MCG 14 DOSE INHALER 1 PUFF IH (11:42)
--- NOTE | 2018-06-23 13:58 | PDOC.CMPRO ---
- If Service Date Differs Date of service: 06/23/18 Time of Service: 13:58 Care Management Progress Note S/O: Rajan is lying in his bed watching TV when this newspaper writer visits this morning, he is pleasant and receptive to discussion. Rajan continues to have an oxygen requirement as of this morning, and it was stated in morning meeting that this would be weaned down today. Rajan states that he would like to return home, CM discussed that his caregiver Maxi would not be home today which Rajan was aware of. Discussed DC when he is medically ready ? Monday/Monday. A: 58 y/o male admitted 06/21/18 with Pneumonia P: Rajan will return to his caregiver Maxi's home in [place] once medically cleared. He will resume home health RN services 3x/week, as well as continue to receive support through [facility].
--- NOTE | 2018-06-23 14:22 | CMPROGNOTE_ITS ---
- If Service Date Differs Date of service: 06/23/18 Time of Service: 13:58 Care Management Progress Note S/O: Rajan is lying in his bed watching TV when this mortgage loan underwriter visits this morning, he is pleasant and receptive to discussion. Rajan continues to have an oxygen requirement as of this morning, and it was stated in morning meeting that this would be weaned down today. Rajan states that he would like to return home, CM discussed that his caregiver Maxi would not be home today which Rajan was aware of. Discussed DC when he is medically ready ? Monday/Monday. A: 58 y/o male admitted 06/21/18 with Pneumonia P: Rajan will return to his caregiver Maxi's home in [place] once medically cleared. He will resume home health RN services 3x/week, as well as continue to receive support through [facility].
--- NOTE | 2018-06-23 15:34 | W.PM.PROGNOT ---
Date of Service Date of service: 06/23/18 Time of Service: 15:43 Assessment and Plan (1) Acute pneumonitis: Start date: 06/23/18 Start time: 15:34 Current visit: Yes Status: Acute Continue current regimen of Azithromycin and Ceftriaxone, day #3. Appears to be significantly improved. Continue with duonebs and steroids. Monitor culture results. Weaning off oxygen today with exercise oximetery and continue ICS. (2) Pressure ulcer: Start date: 06/23/18 Start time: 15:35 Current visit: No Status: Chronic Wound consult in place. Qualifiers: Laterality: left Pressure injury location: calf Pressure injury stage: stage 3 Qualified Code(s): L89.893 - Pressure ulcer of other site, stage 3 (3) Right ventricular systolic dysfunction: Start date: 06/23/18 Start time: 15:38 Current visit: No Status: Chronic morbidly obese man with history of ABHAY. Will continue to monitor, BLE edema is chronic and appear unchanged. (4) Diabetes mellitus: Current visit: No Status: Chronic Poorly controlled sugars in setting of infection and steroid use, in patient with exceedingly poor control, Lantus increased to 60 at h.s. 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 Diabetes mellitus macular edema: Diabetes mellitus type: due to underlying condition Diabetic retinopathy severity: Laterality: Proliferative retinopathy type: Qualified Code(s): E08.621 - Diabetes mellitus due to underlying condition with foot ulcer; L97.509 - Non-pressure chronic ulcer of other part of unspecified foot with unspecified severity; 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 Subjective Patient reports: feels better Interval history since last seen: 58 y.o. M, morbidly obese with past medical history for poorly controlled diabetes admitted from [facility] ED 06/21 with CAP. He is a poorly controlled type 2 diabetic on insulin at home complicated while being on steroids in the hospital. He was started on lantus yesterday 45 mg with 400 blood sugars today, I have increased his lantus to 60 at night and 30 in the am with tight sliding scale control. He further has complicating peripheral neuropathy, chronic venous stasis with ulcers, ABHAY on CPAP, GERD, depression, and anxiety. He had a 3 day history of productive cough, generalized weakness, malaise and dyspnea. Admitted for CAP. Today he is breathing better and feeling better. Afebrile, and oxygen level on 3 L 95. We will wean to RA and exercise Oximetery. Podiatry saw him today and said he looks good and can f/u in 1 week in their office. Xray was negative for osteomylitis,. Exam Const General: cooperative and comfortable HENMT Head: normal to inspection Eyes General: appearance normal, both eyes and all related structures Chest Chest: normal inspection of the chest Resp Effort & Inspection: normal respiratory effort Auscultation: rhonchi and wheezes Cardio Rate: regular rate Rhythm: regular rhythm Heart Sounds: S1 normal and S2 normal GI Inspection: normal to inspection Auscultation: normal bowel sounds Skin Other: Laterality: left Pressure injury location: calf Pressure injury stage: stage 3 Pressure ulcer of other site, stage 3 Neuro General: alert, awake and oriented x3 Extrem Other: B/l LE Edema with with chronic appearing hyperpigmentation Objective Objective Clinical Data: Abnormal lab results 06/23/18 06/23/18 Range/Units 10:41 10:41 WBC 13.79 H D (4.4-10.8) k/cumm Hgb 11.8 L (13.5-17.5) g/dL Hct 39.5 L (40.0-50.0) % MCV 76.7 L (80-95) fL MCH 22.9 L (27.0-33.0) pg MCHC 29.9 L (32.0-36.0) g/dL RDW 17.5 H (11.8-14.1) % Absolute Neutrophils 11.20 H (1.2-6.7) k/cumm Sodium 135 L (136-145) mmol/L BUN 22 H (7-18) mg/dL Glucose 435 H (70-100) mg/dL Vital Signs Temperature 36.2 C L 06/23/18 11:31 Temperature Source Tympanic 06/23/18 11:31 Pulse 78 06/23/18 11:31 Pulse Rhythm Regular 06/22/18 20:00 Pulse 123 H 06/21/18 18:00 Respiratory Rate 20 06/23/18 11:31 Respiratory Effort 06/22/18 20:00 Respiratory Depth Normal 06/22/18 20:00 Respiratory Pattern Normal 06/22/18 20:00 Blood Pressure 116/74 06/23/18 11:31 Blood Pressure Mean 98 06/21/18 17:30 Pulse Oximetry 96 06/23/18 12:58 Oxygen Delivery Method Nasal Cannula 06/23/18 12:58 Oxygen Flow Rate 1 06/23/18 12:58 Pain Level 6 06/23/18 14:40 Comment 06/23/18 12:58 Intake & Output 06/22/18 06/23/18 06/23/18 23:59 11:59 23:59 Intake Total 2543.333 / 3453.333 240 / 1030 790 / 1030 Output Total 2000 / 2600 600 / 600 Balance 543.333 / 853.333 240 / 430 190 / 430 Weight 208.2 kg Intake: IV 193.333 / 193.333 Oral 2350 / 3260 240 / 1030 790 / 1030 Output: Urine 2000 / 2600 600 / 600 Other: Urine Color Yellow Yellow Urine Appearance Clear Clear Urine Odor Normal Comment Void x1 in the urinal. Voiding Methods Urinal Urinal Laboratory Results WBC 13.79 k/cumm (4.4-10.8) H D 06/23/18 10:41 RBC 5.15 m/cumm (4.50-6.00) 06/23/18 10:41 Hgb 11.8 g/dL (13.5-17.5) L 06/23/18 10:41 Hct 39.5 % (40.0-50.0) L 06/23/18 10:41 MCV 76.7 fL (80-95) L 06/23/18 10:41 MCH 22.9 pg (27.0-33.0) L 06/23/18 10:41 MCHC 29.9 g/dL (32.0-36.0) L 06/23/18 10:41 RDW 17.5 % (11.8-14.1) H 06/23/18 10:41 Plt Count 276 x1000/uL (130-400) 06/23/18 10:41 MPV 10.6 fL (8.0-11.0) 06/23/18 10:41 Immature Gran % 0.3 06/23/18 10:41 Neutrophils % 81.2 06/23/18 10:41 Lymphocytes % 14.4 06/23/18 10:41 Monocytes % 4.0 06/23/18 10:41 Eosinophils % 0.0 06/23/18 10:41 Basophils % 0.1 06/23/18 10:41 Absolute Neutrophils 11.20 k/cumm (1.2-6.7) H 06/23/18 10:41 Absolute Lymphocytes 1.99 k/cumm (1.2-3.4) 06/23/18 10:41 Absolute Monocytes 0.55 k/cumm (0.11-0.7) 06/23/18 10:41 Absolute Eosinophils 0.00 k/cumm (0.0-0.7) 06/23/18 10:41 Absolute Basophils 0.01 k/cumm (0.0-0.2) 06/23/18 10:41 Differential Comment Agrees w/ instrument 06/23/18 10:41 RBC Morphology Normal 06/23/18 10:41 Retic Count 1.6 % (0.5-2.4) 06/22/18 06:50 PT 10.7 sec (9.3-11.0) 06/21/18 16:07 INR 1.1 (0.9-1.1) 06/21/18 16:07 APTT 24.9 sec (21.0-31.4) 06/21/18 16:07 Sodium 135 mmol/L (136-145) L 06/23/18 10:41 Potassium 4.2 mmol/L (3.5-5.1) 06/23/18 10:41 Chloride 98 mmol/L (98-107) 06/23/18 10:41 Carbon Dioxide 31.8 mmol/L (21.0-32.0) 06/23/18 10:41 Anion Gap 5.2 mmol/L (3-11) 06/23/18 10:41 BUN 22 mg/dL (7-18) H 06/23/18 10:41 Creatinine 1.05 mg/dL (0.70-1.30) 06/23/18 10:41 Estimated GFR/1.73 m2 >= 60.00 (mL/min/1.73m2) 06/23/18 10:41 Glucose 435 mg/dL (70-100) H 06/23/18 10:41 Hemoglobin A1c 13.6 % (4.5-6.2) H 06/22/18 06:50 Calcium 9.0 mg/dL (8.5-10.1) 06/23/18 10:41 Magnesium 2.0 mg/dL (1.8-2.4) 06/23/18 10:41 Iron 14 ug/dL (50-175) L 06/22/18 06:50 TIBC 235 ug/dL (250-450) L 06/22/18 06:50 Transferrin % Sat 6 % (20-55) L 06/22/18 06:50 Ferritin 36 ng/mL (8-388) 06/22/18 06:50 Total Bilirubin 0.2 mg/dL (0.2-1.0) 06/21/18 16:07 AST 27 U/L (15-37) 06/21/18 16:07 ALT 16 U/L (12-78) 06/21/18 16:07 Alkaline Phosphatase 129 U/L (46-116) H 06/21/18 16:07 Troponin I Cancelled 06/21/18 16:07 NT-Pro-B Natriuret Pep 325 pg/mL (-299) H 06/21/18 16:07 Total Protein 8.6 g/dL (6.4-8.2) H 06/21/18 16:07 Albumin 2.2 g/dL (3.4-5.0) L 06/21/18 16:07 Vitamin B12 699 pg/mL (193-986) 06/22/18 06:50 Folate 17.3 ng/mL (8.6-20.0) 06/22/18 06:50 Urine Color Yellow (Yellow) 06/21/18 17:25 Urine Clarity Clear 06/21/18 17:25 Urine pH 5.5 (5-8) 06/21/18 17:25 Ur Specific [place] <= 1.005 (1.005-1.025) 06/21/18 17:25 Urine Protein Negative mg/dL (Negative) 06/21/18 17:25 Urine Ketones Negative mg/dL (Negative) 06/21/18 17:25 Urine Blood Moderate (Negative) H 06/21/18 17:25 Urine Nitrite Negative (Negative) 06/21/18 17:25 Urine Bilirubin Negative (Negative) 06/21/18 17:25 Urine Urobilinogen 0.2 EU/dL (Up TO 0.2) 06/21/18 17:25 Ur Leukocyte Esterase Negative (Negative) 06/21/18 17:25 Urine RBC 10-20 (0-2) H 06/21/18 17:25 Urine WBC 0-2 HPF (0-5) 06/21/18 17:25 Ur Epithelial Cells Negative HPF (Negative) 06/21/18 17:25 Urine Crystals Negative HPF (Negative) 06/21/18 17:25 Urine Bacteria Negative HPF (Negative) 06/21/18 17:25 Urine Casts Negative LPF (Negative) 06/21/18 17:25 Urine Mucus Negative (Negative) 06/21/18 17:25 Urine Other Negative (Negative) 06/21/18 17:25 Ur Culture Indicated? No 06/21/18 17:25 Urine Glucose 500 mg/dL (Negative) H 06/21/18 17:25
[2018-06-23] MEDS: Enoxaparin 40 MG/0.4 ML SYR SC (17:51)
[2018-06-23] MEDS: Normal Saline Flush 10 ML SYR IVP (19:53)
[2018-06-23] MEDS: Amitriptyline 50 MG TAB 150 MG PO (21:27)
[2018-06-23] MEDS: traZODone 50 MG TAB 150 MG PO (21:27)
[2018-06-23] MEDS: Insulin Glargine 300 UNITS/3 ML PEN 60 UNITS SC (21:30)
[2018-06-24 00:19] VITALS: RESP 1
[2018-06-24 03:26] VITALS: BP 92/54; PULSE 93; RESP 20; TEMP 36.5; O2SAT 94
--- NOTE | 2018-06-24 06:28 | NUR.NOTE ---
Nursing Note: Pt feels that duoneb makes his lungs worse, refused 0600 tx.
[2018-06-24 07:45] VITALS: BP 110/70; PULSE 87; RESP 20; TEMP 36.1; O2SAT 93
[2018-06-24] MEDS: Mometasone 220 MCG 14 DOSE INHALER 1 PUFF IH (08:07)
[2018-06-24] MEDS: Insulin Aspart 300 UNITS/3 ML PEN SC ×4 (08:08→12:13)
[2018-06-24] MEDS: Azithromycin 250 MG TAB PO (08:09)
[2018-06-24] MEDS: Metoprolol CR 25 MG TABCR PO (08:09)
[2018-06-24] MEDS: Gabapentin 300 MG CAP 600 MG PO (08:09)
[2018-06-24] MEDS: predniSONE 20 MG TAB 40 MG PO (08:09)
[2018-06-24] MEDS: Benzonatate 200 MG CAP PO (08:09)
[2018-06-24] MEDS: guaiFENesin 600 MG TABCR 1200 MG PO (08:09)
[2018-06-24] MEDS: Omeprazole 20 MG CAPCR PO (08:09)
[2018-06-24] MEDS: Losartan 25 MG TAB PO (08:09)
[2018-06-24] MEDS: Insulin Glargine 300 UNITS/3 ML PEN 30 UNITS SC ×2 (08:10→10:40)
[2018-06-24] MEDS: Nystatin CREAM 15 GM TUBE TP (08:11)
--- NOTE | 2018-06-24 10:11 | W.PM.DS.N ---
Date of service: 06/24/18 Time of Service: 10:11 DS: Diagnosis Discharge Diagnosis (1) Acute pneumonitis: Status: Acute (2) Pressure ulcer: Status: Chronic (3) Right ventricular systolic dysfunction: Status: Chronic (4) Diabetes mellitus: Status: Chronic (5) GERD (gastroesophageal reflux disease): Status: Chronic (6) Obstructive sleep apnea hypopnea, severe: Status: Chronic Discharge Plan Disposition Patient Disposition: HOME Condition: Stable Discharge Details Reason For Visit: HYPOXIA, PNEUMONIA Admit Date/Time: 06/21/18 17:36 Admit Provider: Jake Cordero Attending Provider: Jake Cordero Primary Care Provider: Alfonzo Young [facility] Course Hospital Course: Interval history since last seen: 58 y.o. M, morbidly obese with past medical history for poorly controlled diabetes admitted from [facility] ED 06/21 with CAP. He is a poorly controlled type 2 diabetic on insulin at home complicated while being on steroids in the hospital. I have given him Lantus 30 units now prior to DC as he will be on a short course Steroids at home. He further has complicating peripheral neuropathy, chronic venous stasis with ulcers, ABHAY on CPAP, GERD, depression, and anxiety. He had a 3 day history of productive cough, generalized weakness, malaise and dyspnea. Admitted for CAP. Today he is breathing better and feeling better. Afebrile, and oxygen level on RA. Able to sit on the side of his bed without assist and becoming SOB, agreeable to being discharged home. 1) Acute pneumonitis: Appears to be significantly improved. Continue with duonebs and steroids. Monitor culture results. Weaning off oxygen today with exercise oximetery and continue ICS. (2) Pressure ulcer: Wound nurse recommends skintergrity wound cleanser and gauze, applying skin prep to periwound skin, and covering with mepilex ag with borders and changing q2 days. Qualifiers: Laterality: left Pressure injury location: calf Pressure injury stage: stage 3 Qualified Code(s): L89.893 - Pressure ulcer of other site, stage 3 (3) Right ventricular systolic dysfunction: morbidly obese man with history of ABHAY. Will continue to monitor, BLE edema is chronic and appear unchanged. (4) Diabetes mellitus: Poorly controlled sugars in setting of infection and steroid use, in patient with exceedingly poor control, Lantus was increased to 60 at h.s. and 30 in am as blood sugars today were in 400's, continue with sliding scale, today prior to d/c I will give an additional 30 units Podiatry will see him in the office in 1 week for f/u. Xray was negative for osteomylitis,. Home Meds and New Rx's Prescriptions: No Action polyethylene glycol 3350 17 GM powder in packet 17 gm PO BID RF: 0 morphine [MS Contin] 60 MG tablet extended release 60 mg PO Q12H Qty: 30 RF: 0 morphine 15 MG tablet 15 mg PO TID PRN PRNRF: 0 gabapentin 300 MG capsule 600 mg PO TID RF: 0 fluticasone 50 mcg/actuation Blister With Device 1 inh INHALATION Q12H RF: 0 acetaminophen [Tylenol] 325 mg Tablet 325 mg PO Q6H PRNRF: 0 trazodone 150 mg Tablet 150 mg PO HS RF: 0 metformin 1,000 mg Tablet 1,000 mg PO BID RF: 0 nystatin 100,000 unit/gram Cream 1 applic TOPICAL BID RF: 0 losartan 25 mg Tablet 25 mg PO DAILY RF: 0 amitriptyline 50 MG tablet 150 mg PO HS RF: 0 furosemide [Lasix] 40 mg Tablet 40 mg PO BID RF: 0 glipizide 10 mg Tablet 10 mg PO BID RF: 0 Glucagon Emergency Kit (human) 1 mg Recon Soln 1 mg IM PRN PRNRF: 0 furosemide 20 mg Tablet 20 mg PO DAILY RF: 0 metoprolol succinate 25 mg Tablet Extended Release 24 Hr 25 mg PO DAILY RF: 0 omeprazole 20 mg Tablet,Delayed Release (Dr/Ec) 20 mg PO BID RF: 0 Tresiba FlexTouch U-200 200 unit/mL (3 mL) Insulin Pen 45 unit subcut DAILY RF: 0 Discharge Instructions Instructions: Foot Care for People with Diabetes (GEN), Diabetes Mellitus Type 2 in Adults (GEN), Acute Wound Care (GEN), Diabetic Foot Ulcers (DC), Venous Insufficiency (GEN) Additional Instructions: Follow up with Dr. Schultz in 1 week continue dressing changes : Unna boot applications to both lower extremities for control of the venous stasis disease and to aid the venous stasis wounds in healing. wash both lower extremities copiously with soap and water. Pat dry gently. Apply Iodosorb to the base of wound right great toe cover with gauze dressing. Every 12 hours. Apply 3 inch Unna boot dressings to both lower extremities. Start the Unna boot proximal to the ulcer on the right first metatarsal head. Unna boots are to be changed every 3 days initially. Activity:: Activity as Tolerated Equipment/Supplies:: Walker Diet:: Carb Counting Discharge Orders Discharge Orders: Discharge Order (Routine); Ordered 06/24/18 Ordered By: Brielle Chapin Exam Const General: cooperative and comfortable HENMT Head: normal to inspection Eyes General: appearance normal, both eyes and all related structures Chest Chest: normal inspection of the chest Resp Effort & Inspection: normal respiratory effort and able to speak in complete sentences Auscultation: rhonchi Cardio Rate: regular rate Rhythm: regular rhythm Heart Sounds: S1 normal and S2 normal GI Inspection: normal to inspection Auscultation: normal bowel sounds Skin General skin exam: no rashes or lesions noted Other: wounds to bilateral feet, Laterality: left Pressure injury location: calf Pressure injury stage: stage 3 Neuro General: alert, awake and oriented x3 DS: Data Vitals/I&O Vitals and I&O: Vital Signs Temperature 36.1 C L 06/24/18 07:45 Temperature Source Tympanic 06/24/18 07:45 Pulse 87 06/24/18 07:45 Pulse Rhythm Regular 06/24/18 09:37 Pulse 123 H 06/21/18 18:00 Respiratory Rate 20 06/24/18 07:45 Respiratory Effort Non-Labored 06/24/18 09:37 Respiratory Depth Normal 06/24/18 09:37 Respiratory Pattern Normal 06/24/18 09:37 Blood Pressure 110/70 06/24/18 07:45 Blood Pressure Mean 98 06/21/18 17:30 Pulse Oximetry 93 L 06/24/18 07:45 Oxygen Delivery Method Cpap 06/24/18 07:45 Oxygen Flow Rate 3 06/24/18 07:45 Pain Level 0 06/24/18 07:45 Comment 06/23/18 12:58 Intake & Output 06/23/18 06/23/18 06/24/18 11:59 23:59 11:59 Intake Total 240 / 2080 1840 / 2080 120 / 120 Output Total 1800 / 1800 800 / 800 Balance 240 / 280 40 / 280 -680 / -680 Weight 208.2 kg 209 kg Intake: IV 140 / 140 Oral 240 / 1940 1700 / 1940 120 / 120 Output: Urine 1800 / 1800 800 / 800 Other: Urine Color Yellow Yellow Urine Appearance Clear Clear Urine Odor None Comment Void x1 in the urinal. Voiding Methods Urinal Urinal Completed studies during hospitalization [Text1]: Foot Xray:06/23/2018 FINDINGS: Bones/joints: Mild great toe MTP primary osteoarthritis. Soft tissues: Nonspecific soft tissue swelling over the foot and ankle. Vasculature: Mild calcified peripheral vascular disease. IMPRESSION: 1. Mild calcified peripheral vascular disease. 2. Nonspecific soft tissue swelling over the foot and ankle. 3. Mild great toe MTP primary osteoarthritis. Chest Xray: AP AND LATERAL CHEST: 06/21/18 The heart is mildly enlarged. There are questionable radiodensities overlying the lung bases and in particular on the lateral view there is a suggestion of a posteriorly located area of consolidation which probably lies on the right. No gross pleural effusion seen, CONCLUSION: Findings suspicious for right lower lobe pneumonia. Labs on day of discharge: Labs from last 24 hours 06/24/18 06/24/18 06/23/18 09:41 09:41 10:41 WBC Pending 13.79 H D RBC Pending 5.15 Hgb Pending 11.8 L Hct Pending 39.5 L MCV Pending 76.7 L MCH Pending 22.9 L MCHC Pending 29.9 L RDW Pending 17.5 H Plt Count Pending 276 MPV Pending 10.6 Immature Gran % Pending 0.3 Neutrophils % Pending 81.2 Lymphocytes % Pending 14.4 Monocytes % Pending 4.0 Eosinophils % Pending 0.0 Basophils % Pending 0.1 Absolute Neutrophils Pending 11.20 H Absolute Lymphocytes Pending 1.99 Absolute Monocytes Pending 0.55 Absolute Eosinophils Pending 0.00 Absolute Basophils Pending 0.01 Differential Comment Agrees w/ instrument RBC Morphology Normal Sodium Pending Potassium Pending Chloride Pending Carbon Dioxide Pending Anion Gap Pending BUN Pending Creatinine Pending Estimated GFR/1.73 m2 Pending Glucose Pending Calcium Pending Magnesium 06/23/18 10:41 WBC RBC Hgb Hct MCV MCH MCHC RDW Plt Count MPV Immature Gran % Neutrophils % Lymphocytes % Monocytes % Eosinophils % Basophils % Absolute Neutrophils Absolute Lymphocytes Absolute Monocytes Absolute Eosinophils Absolute Basophils Differential Comment RBC Morphology Sodium 135 L Potassium 4.2 Chloride 98 Carbon Dioxide 31.8 Anion Gap 5.2 BUN 22 H Creatinine 1.05 Estimated GFR/1.73 m2 >= 60.00 Glucose 435 H Calcium 9.0 Magnesium 2.0 Preliminary micro results at discharge 06/21/18 16:40 Blood Culture - Preliminary Blood NO GROWTH 48 HOURS 06/21/18 16:35 Blood Culture - Preliminary Blood NO GROWTH 48 HOURS PFSH Medical History Pressure ulcer (Chronic) Right rotator cuff tear (Chronic) Ascending aortic aneurysm (Chronic) Right ventricular dilation, secondary (Chronic) Right ventricular systolic dysfunction (Chronic) Chronic pain disorder (Chronic) Super-super obese (Chronic) Diabetes mellitus (Chronic) GERD (gastroesophageal reflux disease) (Chronic) Chronic anxiety (Chronic) Depression (Chronic) Chronic back pain (Chronic) Obstructive sleep apnea hypopnea, severe (Chronic) Iron deficiency anemia, unspecified (Chronic) Severe muscle deconditioning (Acute) Panniculitis of other sites (Resolved) Family History Father No problems noted. Son No problems noted. Social History adopted: No caregiver/support person: Yes foster care: No household members: caregiver housing: assisted living facility lives independently: No number of children: 1 number of grandchildren: 0 current occupational status: disabled leisure activities: games Hx Recent Travel: No diet: diabetic well-balanced diet: about half the time daily servings fruits/ve-1 eating out: rarely or never reads food labels: sometimes during the past year weight has: increased > 10 lbs Smoking/Tobacco Use Status: Former Tobacco Use
[2018-06-24 11:22] LABS: Abs Immature Grans 0.04 k/cumm (0.0-0.09); HCT 40.5 % (40.0-50.0); HGB 11.9 g/dL (13.5-17.5); Mean Corp. HGB Concentration 29.4 g/dL (32.0-36.0); Mean Corpuscular Volume 78.2 fL (80-95); Mean Platelet Volume 10.7 fL (8.0-11.0); RBC 5.18 m/cumm (4.50-6.00); RBC Distribution Width 17.4 % (11.8-14.1); White Blood Cell Count 15.52 k/cumm (4.4-10.8)
--- NOTE | 2018-06-24 11:24 | W.PM.PROGNOT ---
Date of Service Date of service: 06/24/18 Time of Service: 11:25 Subjective Patient reports: no new complaints Interval history since last seen: Peter is seen in his room. He is sitting on the edge of the bed with his feet in dependency. He is hoping to get discharged today . He indicates that he has learned a lot about diet and what he needs to be doing for his wound during his hospital admission and he seems motivated to take better care of himself once he is discharged. Exam Narrative Exam Narrative: Objective: Vitals BP 110/70 pulse 87 respiration 20 temp 36.1 O2 sat at room air is 93% Unna boot dressings are applied and intact on both lower extremities. Gauze dressings are noted overlying the medial aspect of the first metatarsal head right foot. There is no drainage appreciated on the dressings, foot is warm to the touch without signs of sepsis. The peripheral edema is improved secondary to compression therapy. Radiographs that were obtained yesterday of his right foot negative for signs of osteomyelitis. Impressions: Chronic diabetic wound medial wall first MPJ right foot is above Chronic venous stasis disease with ulceration both lower extremity Plan: Peter receives home health care Fridays. I would encourage continued use utilization of Unna boot wraps changing every 5 days until the venous stasis wounds have closed. Once that is achieved compression therapy will be essential to maintain the peripheral edema. CircAid type stockings should be a reasonable option for him. Recommend continued treatment for the right foot wound as he is receiving here at the hospital to the wound shows some improved signs of granulation. Perhaps in the next week or 2 wound care orders will be modified. I will be in touch with the wound care nurse from [facility] and coordinate ongoing wound care for Peter. Appreciate the consultation and coordination of care with the hospitalist. Objective Objective Clinical Data: Vital Signs Temperature 36.1 C L 06/24/18 07:45 Temperature Source Tympanic 06/24/18 07:45 Pulse 87 06/24/18 07:45 Pulse Rhythm Regular 06/24/18 09:37 Pulse 123 H 06/21/18 18:00 Respiratory Rate 20 06/24/18 07:45 Respiratory Effort Non-Labored 06/24/18 09:37 Respiratory Depth Normal 06/24/18 09:37 Respiratory Pattern Normal 06/24/18 09:37 Blood Pressure 110/70 06/24/18 07:45 Blood Pressure Mean 98 06/21/18 17:30 Pulse Oximetry 93 L 06/24/18 07:45 Oxygen Delivery Method Cpap 06/24/18 07:45 Oxygen Flow Rate 3 06/24/18 07:45 Pain Level 0 06/24/18 07:45 Comment 06/23/18 12:58 Intake & Output 06/23/18 06/24/18 06/24/18 18:59 06:59 18:59 Intake Total 1950 / 2200 250 / 2200 Output Total 1300 / 0 750 / 2050 550 / 550 Balance 650 / 150 -500 / 150 -550 / -550 Weight 209 kg Intake: IV 130 / 140 10 / 140 Oral 1820 / 0 240 / 2060 Output: Urine 1300 / 0 750 / 0 550 / 550 Other: Urine Color Yellow Yellow Yellow Urine Appearance Clear Clear Clear Urine Odor None Comment Void x1 in the urinal. Voiding Methods Urinal Urinal Laboratory Results WBC 13.79 k/cumm (4.4-10.8) H D 06/23/18 10:41 RBC 5.15 m/cumm (4.50-6.00) 06/23/18 10:41 Hgb 11.8 g/dL (13.5-17.5) L 06/23/18 10:41 Hct 39.5 % (40.0-50.0) L 06/23/18 10:41 MCV 76.7 fL (80-95) L 06/23/18 10:41 MCH 22.9 pg (27.0-33.0) L 06/23/18 10:41 MCHC 29.9 g/dL (32.0-36.0) L 06/23/18 10:41 RDW 17.5 % (11.8-14.1) H 06/23/18 10:41 Plt Count 276 x1000/uL (130-400) 06/23/18 10:41 MPV 10.6 fL (8.0-11.0) 06/23/18 10:41 Immature Gran % 0.3 06/23/18 10:41 Neutrophils % 81.2 06/23/18 10:41 Lymphocytes % 14.4 06/23/18 10:41 Monocytes % 4.0 06/23/18 10:41 Eosinophils % 0.0 06/23/18 10:41 Basophils % 0.1 06/23/18 10:41 Absolute Neutrophils 11.20 k/cumm (1.2-6.7) H 06/23/18 10:41 Absolute Lymphocytes 1.99 k/cumm (1.2-3.4) 06/23/18 10:41 Absolute Monocytes 0.55 k/cumm (0.11-0.7) 06/23/18 10:41 Absolute Eosinophils 0.00 k/cumm (0.0-0.7) 06/23/18 10:41 Absolute Basophils 0.01 k/cumm (0.0-0.2) 06/23/18 10:41 Differential Comment Agrees w/ instrument 06/23/18 10:41 RBC Morphology Normal 06/23/18 10:41 Retic Count 1.6 % (0.5-2.4) 06/22/18 06:50 PT 10.7 sec (9.3-11.0) 06/21/18 16:07 INR 1.1 (0.9-1.1) 06/21/18 16:07 APTT 24.9 sec (21.0-31.4) 06/21/18 16:07 Sodium 135 mmol/L (136-145) L 06/23/18 10:41 Potassium 4.2 mmol/L (3.5-5.1) 06/23/18 10:41 Chloride 98 mmol/L (98-107) 06/23/18 10:41 Carbon Dioxide 31.8 mmol/L (21.0-32.0) 06/23/18 10:41 Anion Gap 5.2 mmol/L (3-11) 06/23/18 10:41 BUN 22 mg/dL (7-18) H 06/23/18 10:41 Creatinine 1.05 mg/dL (0.70-1.30) 06/23/18 10:41 Estimated GFR/1.73 m2 >= 60.00 (mL/min/1.73m2) 06/23/18 10:41 Glucose 435 mg/dL (70-100) H 06/23/18 10:41 Hemoglobin A1c 13.6 % (4.5-6.2) H 06/22/18 06:50 Calcium 9.0 mg/dL (8.5-10.1) 06/23/18 10:41 Magnesium 2.0 mg/dL (1.8-2.4) 06/23/18 10:41 Iron 14 ug/dL (50-175) L 06/22/18 06:50 TIBC 235 ug/dL (250-450) L 06/22/18 06:50 Transferrin % Sat 6 % (20-55) L 06/22/18 06:50 Ferritin 36 ng/mL (8-388) 06/22/18 06:50 Total Bilirubin 0.2 mg/dL (0.2-1.0) 06/21/18 16:07 AST 27 U/L (15-37) 06/21/18 16:07 ALT 16 U/L (12-78) 06/21/18 16:07 Alkaline Phosphatase 129 U/L (46-116) H 06/21/18 16:07 Troponin I Cancelled 06/21/18 16:07 NT-Pro-B Natriuret Pep 325 pg/mL (-299) H 06/21/18 16:07 Total Protein 8.6 g/dL (6.4-8.2) H 06/21/18 16:07 Albumin 2.2 g/dL (3.4-5.0) L 06/21/18 16:07 Vitamin B12 699 pg/mL (193-986) 06/22/18 06:50 Folate 17.3 ng/mL (8.6-20.0) 06/22/18 06:50 Urine Color Yellow (Yellow) 06/21/18 17:25 Urine Clarity Clear 06/21/18 17:25 Urine pH 5.5 (5-8) 06/21/18 17:25 Ur Specific [place] <= 1.005 (1.005-1.025) 06/21/18 17:25 Urine Protein Negative mg/dL (Negative) 06/21/18 17:25 Urine Ketones Negative mg/dL (Negative) 06/21/18 17:25 Urine Blood Moderate (Negative) H 06/21/18 17:25 Urine Nitrite Negative (Negative) 06/21/18 17:25 Urine Bilirubin Negative (Negative) 06/21/18 17:25 Urine Urobilinogen 0.2 EU/dL (Up TO 0.2) 06/21/18 17:25 Ur Leukocyte Esterase Negative (Negative) 06/21/18 17:25 Urine RBC 10-20 (0-2) H 06/21/18 17:25 Urine WBC 0-2 HPF (0-5) 06/21/18 17:25 Ur Epithelial Cells Negative HPF (Negative) 06/21/18 17:25 Urine Crystals Negative HPF (Negative) 06/21/18 17:25 Urine Bacteria Negative HPF (Negative) 06/21/18 17:25 Urine Casts Negative LPF (Negative) 06/21/18 17:25 Urine Mucus Negative (Negative) 06/21/18 17:25 Urine Other Negative (Negative) 06/21/18 17:25 Ur Culture Indicated? No 06/21/18 17:25 Urine Glucose 500 mg/dL (Negative) H 06/21/18 17:25
[2018-06-24 11:29] LABS: Anion Gap 4.8 mmol/L (3-11); BUN 23 mg/dL (7-18); CO2 35.2 mmol/L (21.0-32.0); CREATININE 0.97 mg/dL (0.70-1.30); Calcium 8.8 mg/dL (8.5-10.1); Chloride 96 mmol/L (98-107); Glucose 348 mg/dL (70-100); Potassium 3.8 mmol/L (3.5-5.1); Sodium 136 mmol/L (136-145)
[2018-06-24 11:40] LABS: Absolute Neutrophil Count 12.26 k/cumm (1.2-6.7)
[2018-06-24 11:41] LABS: Absolute Lymphocyte Count 2.48 k/cumm (1.2-3.4); Absolute Monocyte Count 0.78 k/cumm (0.11-0.7); Anisocytosis 2+; Atypical Lymphocytes % 3; Diff Comment Manual Differential; Hypochromasia 1+
[2018-06-24 11:42] LABS: Platelet Count 368 x1000/uL (130-400)
[2018-06-24 11:50] VITALS: BP 152/95; PULSE 93; RESP 20; TEMP 36.3; O2SAT 93
--- NOTE | 2018-06-24 13:43 | PDOC.CMDIS ---
- If Service Date Differs Date of service: 06/24/18 Time of Service: 13:43 LACE Index Scoring Tool - Questions: Length of Stay (in days): 3 Acuity (Admit via E.D.?): Yes Comorbidities: Diabetes w/o Complication E.D. Visits: 7 - Answers: Total Score: 11 Risk of Readmission: High Risk Care Management Discharge Reason for Hospitalization: Acute Pneumonitis Discharge Plan: Peter will be discharged home today with resumption of home health RN services. Peter will be transported via private vehicle, his caregiver will bring his w/c for transport. Rajan will F/U with Dr. Schultz as an outpatient. has notified [facility] of DC today. Patient/Family Education Needs: review DC instructions, any limitations, and discuss 'Ask me three' Services Needed at Discharge: Home Health Care Services (RN)
--- NOTE | 2018-06-24 13:49 | CMDISCH_ITS ---
- If Service Date Differs Date of service: 06/24/18 Time of Service: 13:43 LACE Index Scoring Tool - Questions: Length of Stay (in days): 3 Acuity (Admit via E.D.?): Yes Comorbidities: Diabetes w/o Complication E.D. Visits: 7 - Answers: Total Score: 11 Risk of Readmission: High Risk Care Management Discharge Reason for Hospitalization: Acute Pneumonitis Discharge Plan: Peter will be discharged home today with resumption of home health RN services. Peter will be transported via private vehicle, his caregiver will bring his w/c for transport. Rajan will F/U with Dr. Schultz as an outpatient. has notified [facility] of DC today. Patient/Family Education Needs: review DC instructions, any limitations, and discuss 'Ask me three' Services Needed at Discharge: Home Health Care Services (RN)
--- NOTE | 2018-06-25 10:43 | PT.INDS ---
Date of service: 06/25/18 Time of Service: 10:43 PT Notes 06/25/18 Discharge Summary Treatment Dates: 06/23/18 Patient was seen for evaluation only. He transferred home the following day, where he receives HH services and has caregiver services around the clock. Will discharge from PT services in acute care setting as patient was medically stabilized to allow for safe transition back home with baseline level of assistance. Chandrika Thacker, PT, DPT
== END 2018-06-24 12:55 | disposition home or self-care (01) | DRG 592 ==
LOC: ER 18:18 → MS 18:27
PROVIDERS: Nurse Practitioner Family; Admitting Provider Internal Medicine; Emergency Provider Emergency Medicine; PCP Family Medicine; Visit Provider Internal Medicine
DX: L89.303 Pressure ulcer of unspecified buttock, stage 3 (principal); J18.9 Pneumonia, unspecified organism; Z68.44 Body mass index [BMI] 60.0-69.9, adult; I83.009 Varicose veins of unspecified lower extremity with ulcer of unspecified site; L97.511 Non-pressure chronic ulcer of other part of right foot limited to breakdown of skin; I51.9 Heart disease, unspecified; E11.65 Type 2 diabetes mellitus with hyperglycemia; Z79.4 Long term (current) use of insulin; T38.0X5A Adverse effect of glucocorticoids and synthetic analogues, initial encounter; E66.01 Morbid (severe) obesity due to excess calories; E11.42 Type 2 diabetes mellitus with diabetic polyneuropathy; G47.33 Obstructive sleep apnea (adult) (pediatric); K21.9 Gastro-esophageal reflux disease without esophagitis; F41.8 Other specified anxiety disorders; D50.9 Iron deficiency anemia, unspecified
CPT/HCPCS: 36415; 80048; 80053; 87040; 87449; 93005; 94640; 96361; 96365; 96367; 96372; 96375; 97163; 99223; 99232; 99233; 99239; 99285; J1650; 71046; 73630; 81003; 81015; 82607; 82728; 82746; 83036; 83540; 83550; 83735; 83880; 84484; 85025; 85045; 85610; 85730; 93010; 94660; J0456; J1815; J2930; J3490; J7512; J7620

== ENCOUNTER 2018-06-28 19:05 | Inpatient (IN) | payer MEDICARE, MEDICAID, SELFPAY ==
[2018-06-28] VITALS (51 sets, daily range): BP systolic 87–144; BP diastolic 59–113; PULSE 98–151; RESP 18–24; TEMP 36.9–37.5; O2SAT 84–98
--- NOTE | 2018-06-28 19:18 | W.ED.GENAD ---
Discharge Plan Disposition Patient Disposition: [facility] INPATIENT Condition: Stable Discharge Details Chief Complaint: SOB Clinical Impression: Hypoxia, HCAP (healthcare-associated pneumonia) Reason For Visit: LYLY Primary Care Provider: Alfonzo Young ED Provider: Lion Amaya Home Meds and New Rx's Prescriptions: No Action polyethylene glycol 3350 17 GM powder in packet 17 gm PO BID RF: 0 morphine [MS Contin] 60 MG tablet extended release 60 mg PO Q12H Qty: 30 RF: 0 Iodosorb 0.9 % Gel 40 gm topical Q12H Qty: 40 RF: 0 morphine 15 MG tablet 15 mg PO TID PRN PRNRF: 0 gabapentin 300 MG capsule 600 mg PO TID RF: 0 fluticasone 50 mcg/actuation Blister With Device 1 inh INHALATION Q12H RF: 0 acetaminophen [Tylenol] 325 mg Tablet 325 mg PO Q6H PRNRF: 0 trazodone 150 mg Tablet 150 mg PO HS RF: 0 metformin 1,000 mg Tablet 1,000 mg PO BID RF: 0 nystatin 100,000 unit/gram Cream 1 applic TOPICAL BID RF: 0 losartan 25 mg Tablet 25 mg PO DAILY RF: 0 amitriptyline 50 MG tablet 150 mg PO HS RF: 0 furosemide [Lasix] 40 mg Tablet 40 mg PO BID RF: 0 glipizide 10 mg Tablet 10 mg PO BID RF: 0 Glucagon Emergency Kit (human) 1 mg Recon Soln 1 mg IM PRN PRNRF: 0 furosemide 20 mg Tablet 20 mg PO DAILY RF: 0 metoprolol succinate 25 mg Tablet Extended Release 24 Hr 25 mg PO DAILY RF: 0 omeprazole 20 mg Tablet,Delayed Release (Dr/Ec) 20 mg PO BID RF: 0 Tresiba FlexTouch U-200 200 unit/mL (3 mL) Insulin Pen 45 unit subcut DAILY RF: 0 Medical Decision Making 58 yr old morbidly obese male with poorly controlled DM type 2 on insulin with peripheral neuropathy and chronic venous stasis ulcerations of his legs, chronic sacral ulcer, ABHAY, GERD, cor pulmonale, depression and anxiety, former smoker, who comes in with chief complaint of shortness of breath worsening throughout the day and cough. He denies chest pain or pressure. He was recently admitted for CAP and pneumonitis and d/c'd on 06/24. He tells me he never felt back to his baseline at time of d/c but shortness of breath had improved. Today his shortness of breath has slowly been worsening. HE has wheezing in all lung taveras bilaterally on exam but does have good air movement. No jvd. Will give steroids and nebulizers for his wheezing and also obtain lab work to evaluate for anemia, cardiac ischemia and monitor. He was noted to have blood on the stretcher when nursing was helping ems move him and he has an external hemorrhoid on exam and no active bleeding on my exam. He is noted to be in the low 80's on room air and is not on home o2 during the day, does where bipap at night per pt labs show mild eda, continued leukocytosis. HE is still hypoxic otherwise HD stable. There are issues with vrad at this current time so don't have radiology read of the xray but on my interpreation continues to have some consolidation in the rll. Spoke with Dr. Cordero who will admit for hypoxia and will cover for HCAP with levofloxacin and vancomycin after discussing with Dr. Cordero Differential Diagnosis copd, pneumonia, chf Imaging Data Radiologic Study: Attestation: I personally reviewed and interpreted this imaging study as follows: Imaging: X-Ray My impression: no significant change from chest xray on 06/21 Lab Data Lab results reviewed: Yes I reviewed the patient's lab results. ECG Data Attestation: I personally reviewed and interpreted this ECG (s) as follows: Prior ECG tracings: available for review Interpretation: sinus rhythm, rate of 106, pr 178, no st t wave changes when compared to old ekg HPI General Mode of arrival: EMS. Date/Time Provider Initiated Documentation: 06/28/18 19:06. Limitations to Documentation: no limitations. Information obtained by: patient. History of Present Illness 58 year old M presents to the emergency department with the chief complaint of shortness of breath, described as moderate, with intensity rated at 5. Patient started experiencing this day(s) (1) and it has been constant. Rest improves symptom(s), Movement worsens symptoms . Patient notes no other symptoms.. Related Data Home Medications Medication Instructions Recorded Confirmed gabapentin 600 mg PO TID 04/11/17 06/28/18 morphine 15 mg PO TID PRN PRN 04/11/17 06/28/18 morphine [MS Contin] 60 mg PO Q12H #30 tabcr 11/03/17 06/28/18 polyethylene glycol 3350 17 gm PO BID packet 11/03/17 06/28/18 acetaminophen [Tylenol] 325 mg PO Q6H PRN 02/22/18 06/28/18 amitriptyline 150 mg PO HS 02/22/18 06/28/18 fluticasone 1 inh INHALATION Q12H 02/22/18 06/28/18 losartan 25 mg PO DAILY 02/22/18 06/28/18 metformin 1,000 mg PO BID 02/22/18 06/28/18 nystatin 1 applic TOPICAL BID 02/22/18 06/28/18 trazodone 150 mg PO HS 02/22/18 06/28/18 Glucagon Emergency Kit (human) 1 mg IM PRN PRN 03/16/18 06/28/18 Tresiba FlexTouch U-200 45 unit SUBCUT DAILY 03/16/18 06/28/18 furosemide 20 mg PO DAILY 03/16/18 06/28/18 furosemide [Lasix] 40 mg PO BID 03/16/18 06/28/18 glipizide 10 mg PO BID 03/16/18 06/28/18 metoprolol succinate 25 mg PO DAILY 03/16/18 06/28/18 omeprazole 20 mg PO BID 03/16/18 06/28/18 cadexomer iodine [Iodosorb] 40 gm TOPICAL Q12H #40 gm 06/24/18 06/28/18 Previous Rx's Medication Instructions Recorded morphine [MS Contin] 60 mg PO Q12H #30 tabcr 11/03/17 polyethylene glycol 3350 17 gm PO BID packet 11/03/17 cadexomer iodine [Iodosorb] 40 gm TOPICAL Q12H #40 gm 06/24/18 Allergies Allergy/AdvReac Type Severity Reaction Status Date / Time ketorolac Allergy Unverified 06/28/18 19:31 lisinopril Allergy Unverified 06/28/18 19:31 methadone Allergy Unverified 06/28/18 19:31 oxycodone [From OxyContin] Allergy Unverified 06/28/18 19:31 General Stated Complaint: SOB RAMESH: 3 Review of Systems Review of Systems All systems reviewed & are unremarkable except as noted in HPI and below Constitutional Denies fever(s) Cardiovascular Denies chest pain Gastrointestinal Denies abdominal pain, Denies nausea and Denies vomiting Genitourinary Denies dysuria Endocrine Denies heat intolerance [facility] Medical History Pressure ulcer (Chronic) Right rotator cuff tear (Chronic) Ascending aortic aneurysm (Chronic) Right ventricular dilation, secondary (Chronic) Right ventricular systolic dysfunction (Chronic) Chronic pain disorder (Chronic) Super-super obese (Chronic) Diabetes mellitus (Chronic) GERD (gastroesophageal reflux disease) (Chronic) Chronic anxiety (Chronic) Depression (Chronic) Chronic back pain (Chronic) Obstructive sleep apnea hypopnea, severe (Chronic) Iron deficiency anemia, unspecified (Chronic) Severe muscle deconditioning (Acute) Panniculitis of other sites (Resolved) Family History Father No problems noted. Son No problems noted. Social History adopted: No caregiver/support person: Yes foster care: No household members: caregiver housing: assisted living facility marital status details: about 17-18 years ago lives independently: No number of children: 1 number of grandchildren: 0 highest education level completed: high school graduate service: No current occupational status: disabled leisure activities: games Hx Recent Travel: No sexually active: No diet: diabetic well-balanced diet: about half the time daily servings fruits/ve-1 eating out: rarely or never reads food labels: sometimes during the past year weight has: increased > 10 lbs what type of physical activity do you participate in: none Smoking and Tabacco status: Former Tobacco Use Exam Const General: no acute distress Orientation: alert HENMT Head: normal to inspection Ears: external ears normal General nose exam: external nose normal Mouth: moist mucous membranes Eyes General: appearance normal, both eyes and all related structures Neck Neck: normal visual inspection Resp Auscultation: wheezes Cardio Rate: regular rate Skin General skin exam: no rashes or lesions noted Neuro General: alert and oriented x3 Extrem General: normal to inspection Psych Mental Status: mental status grossly normal Course Vital Signs Temperature 37.5 C 06/28/18 19:06 Pulse 102 H 06/28/18 19:06 Respiratory Rate 24 06/28/18 19:06 Pulse Oximetry 84 L 06/28/18 19:06 Temperature 37.5 C 06/28/18 19:06 Temperature Source Oral 06/28/18 19:06 Pulse 102 H 06/28/18 19:06 Respiratory Rate 24 06/28/18 19:06 Blood Pressure 97/59 L 06/28/18 19:10 Pulse Oximetry 84 L 06/28/18 19:06 Oxygen Delivery Method Room Air 06/28/18 19:06 Oxygen Flow Rate 0 06/28/18 19:06 Pain Level 0 06/28/18 19:06
[2018-06-28] MEDS: Albuterol/Ipratropium 3 ML UPD VIAL UPD ×2 (19:28→23:14)
[2018-06-28] MEDS: methylPREDNISolone SUCC 125 MG VIAL IVP (19:28)
[2018-06-28 19:32] LABS: Abs Immature Grans 0.07 k/cumm (0.0-0.09); Absolute Basophil Count 0.01 k/cumm (0.0-0.2); Absolute Eosinophil Count 0.06 k/cumm (0.0-0.7); Absolute Monocyte Count 0.94 k/cumm (0.11-0.7); Basophils % 0.1; Eosinophils % 0.4; HCT 45.6 % (40.0-50.0); HGB 13.4 g/dL (13.5-17.5); Immature Grans % 0.5; Lymphocytes % 14.6; Mean Corp. HGB Concentration 29.4 g/dL (32.0-36.0); Mean Corpuscular Hemoglobin 22.7 pg (27.0-33.0); Mean Corpuscular Volume 77.3 fL (80-95); Mean Platelet Volume 10.8 fL (8.0-11.0); Monocytes % 6.4; Platelet Count 437 x1000/uL (130-400); RBC Distribution Width 17.3 % (11.8-14.1)
[2018-06-28 19:35] LABS: Absolute Lymphocyte Count 2.15 k/cumm (1.2-3.4); Absolute Neutrophil Count 11.47 k/cumm (1.2-6.7)
--- NOTE | 2018-06-28 19:37 | NUR.NOTE ---
patient has pre-hospital skin breakdown to perineum and buttocks, area cleasned and dressed with mepilex dressing, patient does hemmoriod noted with some scant blood. MD aware Nursing Note:
[2018-06-28 19:40] LABS: PTT Activated 23.2 sec (21.0-31.4); Prothrombin Time 10.4 sec (9.3-11.0)
--- NOTE | 2018-06-28 19:43 | DI.RAD_ITS ---
SYMPTOM/DIAGNOSIS: HYPOXIA AP AND LATERAL CHEST: The heart is mildly enlarged. Predominantly right sided basilar infiltrate again noted. This may be a little more prominent than on examination of 06/21/18. Upper lungs remain mostly clear with slight interstitial prominence seen bilaterally, likely chronic. CONCLUSION: Findings suggesting mild interval worsening of right basilar infiltrate.
[2018-06-28 19:47] LABS: ALT 26 U/L (12-78); AST 29 U/L (15-37); Albumin 2.9 g/dL (3.4-5.0); Alkaline Phosphatase 139 U/L (46-116); Anion Gap 4.8 mmol/L (3-11); BUN 33 mg/dL (7-18); Bilirubin, Total 0.4 mg/dL (0.2-1.0); CO2 34.2 mmol/L (21.0-32.0); CREATININE 1.72 mg/dL (0.70-1.30); Calcium 9.2 mg/dL (8.5-10.1); Chloride 90 mmol/L (98-107); Estimated GFR 41.19 (mL/min/1.73m2); Glucose 452 mg/dL (70-100); Magnesium 1.7 mg/dL (1.8-2.4); Potassium 4.4 mmol/L (3.5-5.1); Sodium 129 mmol/L (136-145); Total Protein 9.8 g/dL (6.4-8.2)
[2018-06-28 19:48] LABS: NT-proBNP 69 pg/mL
[2018-06-28 19:51] LABS: Troponin I < 0.02 ng/mL (0.00-0.06)
[2018-06-28] MEDS: LEVOFLOXACIN 750 MG/150 ML BAG 100 MG IVPB (20:32)
--- NOTE | 2018-06-28 21:03 | NUR.NOTE ---
patient to be admitted, patient eating dinner Nursing Note:
--- NOTE | 2018-06-28 21:14 | NUR.NOTE ---
patient rpeort given to Mae SINGLETARY Nursing Note:
--- NOTE | 2018-06-28 21:28 | DI.VRAD_ITS ---
EXAM: XR Chest, 2 Views EXAM DATE/TIME: 06/28/2018 8:00 PM CLINICAL HISTORY: 58 years old, male; Signs and symptoms; Other: Hypoxia TECHNIQUE: XR of the chest, 2 views. COMPARISON: CR XR CHEST 2V PA LATERAL 06/21/2018 4:54 PM FINDINGS: Lungs: Slightly more pronounced diffuse prominence to interstitial markings. More pronounced patchy air space consolidations seen in the right lower lobe. Bilateral segmental bronchial wall thickening also suspected. Pleural space: Unremarkable. No pleural effusion. No pneumothorax. Heart/Mediastinum: Stable cardiomediastinal silhouette with mild cardiomegaly again noted. Bones/joints: Stable bony thorax. IMPRESSION: Mild worsening in diffuse interstitial prominence and patchy airspace opacities in the right lower lobe. Differential diagnosis includes worsening interstitial and airspace disease for which the differential would include infectious pneumonia versus interstitial/airspace edema in the appropriate clinical setting. Dictated and Authenticated by: Boby Adamson MD. Ordering:WILBER Seymour MD
--- NOTE | 2018-06-28 23:07 | HPE_ITS ---
Date of service: 06/28/18 Time of Service: 23:07 Assessment and Plan (1) HCAP (healthcare-associated pneumonia): Current visit: Yes Status: Acute Given his recent hospitalization and incomplete resolution of his prior pneumonitis, he should be treated as an HCAP. As such I have put him on Levquin and Vancomycin w/ renal adjustments of each. I have continued iv corticosteroids started in the ER and he will continue to receive schedule DuoNeb treatments for his bronchospasms. (2) Acute kidney injury (nontraumatic): Current visit: Yes Status: Acute Patient has acute renal injury d/t dehydration and continued diuretics use. His baseline renal function is creatinine of 0.97 and BUN of 17. I am witholding his losartan and furosemide for now and giving him gentle iv fluid hydration overnight w/ repeat BMP in the a.m. The day hospitalist can then decide whether or not to continue iv fluids based upon his renal response. (3) Pressure ulcer: Current visit: No Status: Chronic I will ask wound care nurse to resume following him and guiding hospitalist service on appropriate dressing changes for his chronic decubitus wounds and bilateral leg venous ulcerations Qualifiers: Laterality: left Pressure injury location: calf Pressure injury stage: stage 3 Qualified Code(s): L89.893 - Pressure ulcer of other site, stage 3 (4) Diabetes mellitus: Current visit: No Status: Chronic poorly controlled. I have held his metformin and glyburide in light of his renal insufficiency. He really ought to not be on glyburide and insulin but just needs to be on meal time immediate acting insulin such as novolog along w/ a corrective scale and his long acting insulin dose needs to be adjusted. I do not feel that his DM is responding to the glyburide and metformin anymore and just complicates his DM management. Of course his glucose is going to be elevated for few days d/t corticosteroids and he ought to have NPH added for coverage timed to his corticosteroids. Qualifiers: Chronic kidney disease stage: Diabetes mellitus complication detail: with foot ulcer Diabetes mellitus complication status: with skin complications Diabetes mellitus nursing home insulin use: with nursing home use Diabetes mellitus macular edema: Diabetes mellitus type: due to underlying condition Diabetic retinopathy severity: Laterality: Proliferative retinopathy type: Qualified Code(s): E08.621 - Diabetes mellitus due to underlying condition with foot ulcer; L97.509 - Non-pressure chronic ulcer of other part of unspecified foot with unspecified severity; Z79.4 - long term care pharmacist (current) use of insulin (5) Depression: Current visit: No Status: Chronic continue his home meds (6) Obstructive sleep apnea hypopnea, severe: Current visit: No Status: Chronic continue home CPAP use History of Present Illness Chief Complaint: cough, dyspnea Narrative: Christoph is 58 yr old male w/ multiple chronic medical problems (I will not enumerate them here but refer you to my H&P dated 06/21/2018) who was treated at [facility] from 06/21/18 to 06/24/18 with Ceftriaxone and Azithromycin and DuoNeb aerosolized bronchodilators and corti costeroids. He was discharged on 06/24/18 but did not receive further antibiotics but was sent home on prednisone and tessalon. Since discharge he has had incresed dyspnea w/ minimal effort, and persistent cough which has not been productive but no fever or rigors. Workup in the ER included labs and CXR. CXR demonstrated persistent RLL infiltrate that actually appears to be worse w/ increased diffuse interstitial prominence and patchy airspace opacities in the RLL. Labs show leukocytosis of 14,700 (he was on steroids but for only 3 days after discharge). His CMP demonstrates ANI w/ BUN 33, creatinine of 1.72 (baseline is 17 and 0.97 respectively). He has hyponatremia with sodium of 129 and elevated carbon dioxide of 34 and glucose of 452. Troponin and BNP were normal. He is now admitted for broad spectrum antibiotics to cover HCAP and treat w/ parenteral corticosteroids and aerosolized bronchodilators. Review of Systems Review of Systems All systems reviewed & are unremarkable except as noted in HPI and below [facility] Medical History Pressure ulcer (Chronic) Right rotator cuff tear (Chronic) Ascending aortic aneurysm (Chronic) Right ventricular dilation, secondary (Chronic) Right ventricular systolic dysfunction (Chronic) Chronic pain disorder (Chronic) Super-super obese (Chronic) Diabetes mellitus (Chronic) GERD (gastroesophageal reflux disease) (Chronic) Chronic anxiety (Chronic) Depression (Chronic) Chronic back pain (Chronic) Obstructive sleep apnea hypopnea, severe (Chronic) Iron deficiency anemia, unspecified (Chronic) Severe muscle deconditioning (Acute) Panniculitis of other sites (Resolved) Family History Father No problems noted. Son No problems noted. Social History adopted: No caregiver/support person: Yes foster care: No household members: caregiver housing: assisted living facility marital status details: about 17-18 years ago lives independently: No number of children: 1 number of grandchildren: 0 highest education level completed: high school graduate service: No current occupational status: disabled leisure activities: games Hx Recent Travel: No sexually active: No diet: diabetic well-balanced diet: about half the time daily servings fruits/ve-1 eating out: rarely or never reads food labels: sometimes during the past year weight has: increased > 10 lbs what type of physical activity do you participate in: none Smoking and Tabacco status: Former Tobacco Use Meds Home Medications Medication Instructions Recorded Confirmed Type gabapentin 600 mg PO TID 04/11/17 06/28/18 History morphine 15 mg PO TID PRN PRN 04/11/17 06/28/18 History morphine [MS Contin] 60 mg PO Q12H #30 tabcr 11/03/17 06/28/18 Rx polyethylene glycol 3350 17 gm PO BID packet 11/03/17 06/28/18 Rx acetaminophen [Tylenol] 325 mg PO Q6H PRN 02/22/18 06/28/18 History amitriptyline 150 mg PO HS 02/22/18 06/28/18 History fluticasone 1 inh INHALATION Q12H 02/22/18 06/28/18 History losartan 25 mg PO DAILY 02/22/18 06/28/18 History metformin 1,000 mg PO BID 02/22/18 06/28/18 History nystatin 1 applic TOPICAL BID 02/22/18 06/28/18 History trazodone 150 mg PO HS 02/22/18 06/28/18 History Glucagon Emergency Kit (human) 1 mg IM PRN PRN 03/16/18 06/28/18 History Tresiba FlexTouch U-200 45 unit SUBCUT DAILY 03/16/18 06/28/18 History furosemide 20 mg PO DAILY 03/16/18 06/28/18 History furosemide [Lasix] 40 mg PO BID 03/16/18 06/28/18 History glipizide 10 mg PO BID 03/16/18 06/28/18 History metoprolol succinate 25 mg PO DAILY 03/16/18 06/28/18 History omeprazole 20 mg PO BID 03/16/18 06/28/18 History cadexomer iodine [Iodosorb] 40 gm TOPICAL Q12H #40 gm 06/24/18 06/28/18 Rx Allergies Allergy/AdvReac Type Severity Reaction Status Date / Time ketorolac Allergy Unverified 06/28/18 19:31 lisinopril Allergy Unverified 06/28/18 19:31 methadone Allergy Unverified 06/28/18 19:31 oxycodone [From OxyContin] Allergy Unverified 06/28/18 19:31 Exam Const General: cooperative, no acute distress and ill appearing acutely Nutritional Appearance: obese morbidly obese Orientation: alert, awake and oriented x3 HENMT Head: normal to inspection and normocephalic Ears: hearing grossly normal bilaterally, external ears normal and TM's normal bilaterally General nose exam: external nose normal Face and sinus: normal facial exam Mouth: oral mucosae normal Throat: posterior oropharynx normal Eyes General: appearance normal, both eyes and all related structures Alignment and Position: alignment normal Periorbital: periorbital findings normal Eyelids: eyelids normal Conjunctivae: conjunctivae normal Sclera: sclerae normal Cornea: corneas normal Pupils: PERRL EOM: EOM intact bilaterally Direct ophthalmoscopy: normal light reflex Neck Neck: normal visual inspection, full ROM, no lymphadenopathy, no meningeal signs, trachea midline and no JVD Thyroid: thyroid normal Carotids: normal carotid upstroke Lymphatic: no lymphadenopathy noted Chest Chest: normal inspection of the chest and normal palpation of entire chest wall Resp Effort & Inspection: tachypneic Auscultation: bronchovesicular breath sounds bilaterally, rhonchi right lower and wheezes scattered wheezes Cardio Jugular venous pressure: no JVD Palpation: normal PMI Rate: regular rate Rhythm: regular rhythm Heart Sounds: S1 normal, S2 normal and normal, physiologic split S2 Bruits: no abdominal aortic bruits, no carotid bruits and no renal bruits Pulses: normal peripheral pulses GI Inspection: normal to inspection and obesity Palpation: soft and no hepatosplenomegaly Percussion: normal to percussion Auscultation: normal bowel sounds Back/Spine/Pelvis Back: no CVA tenderness Skin Rashes: no rashes Wounds: wounds noted (chronic presacral and gluteal decubitus wounds along) buttock , gluteal cleft , right great toe Neuro General: alert, awake, oriented x3, moves all extremities, no focal motor deficits and decrease sensation to monofilament Cranial Nerves: EOM intact bilaterally Cognition: normal cognition Speech: speech normal Motor: muscle tone normal throughout, strength 5/5 throughout and no movement abnormalities noted Sensory Exam: lower extremity bilateral light-touch abnormal decreased Extrem General: other (both lower legs were wrapped in bandages which I did not remove) Psych Appearance: grossly normal Mental Status: mental status grossly normal Speech and Movement: speech and movement normal Mood: congruent mood Affect: normal affect Attitude: cooperative Thought Process: normal Thought Content: normal Insight: insight good Judgment: judgment good Results Imaging Chest x-ray: image reviewed (mild worsening in diffuse interstitial prominence and patchy airspace opacities in the right lower lobe.) Labs : 06/28/18 19:20 06/28/18 19:20 Laboratory Results - last 24 hr 06/28/18 06/28/18 06/28/18 19:20 19:20 19:20 WBC 14.70 H RBC 5.90 Hgb 13.4 L Hct 45.6 MCV 77.3 L MCH 22.7 L MCHC 29.4 L RDW 17.3 H Plt Count 437 H MPV 10.8 Immature Gran % 0.5 Neutrophils % 78.0 Lymphocytes % 14.6 Monocytes % 6.4 Eosinophils % 0.4 Basophils % 0.1 Absolute Neutrophils 11.47 H Absolute Lymphocytes 2.15 Absolute Monocytes 0.94 H Absolute Eosinophils 0.06 Absolute Basophils 0.01 PT INR APTT Sodium 129 L Potassium 4.4 Chloride 90 L Carbon Dioxide 34.2 H Anion Gap 4.8 BUN 33 H Creatinine 1.72 H Estimated GFR/1.73 m2 41.19 Glucose 452 H Calcium 9.2 Magnesium 1.7 L Total Bilirubin 0.4 AST 29 ALT 26 Alkaline Phosphatase 139 H Troponin I < 0.02 NT-Pro-B Natriuret Pep 69 Total Protein 9.8 H Albumin 2.9 L 06/28/18 19:20 WBC RBC Hgb Hct MCV MCH MCHC RDW Plt Count MPV Immature Gran % Neutrophils % Lymphocytes % Monocytes % Eosinophils % Basophils % Absolute Neutrophils Absolute Lymphocytes Absolute Monocytes Absolute Eosinophils Absolute Basophils PT 10.4 INR 1.0 APTT 23.2 Sodium Potassium Chloride Carbon Dioxide Anion Gap BUN Creatinine Estimated GFR/1.73 m2 Glucose Calcium Magnesium Total Bilirubin AST ALT Alkaline Phosphatase Troponin I NT-Pro-B Natriuret Pep Total Protein Albumin Last Vital Signs Temp 36.9 C 06/28/18 21:45 Pulse 100 H 06/28/18 21:45 Resp 18 06/28/18 21:45 BP 121/68 06/28/18 21:45 Pulse Ox 34 L 06/28/18 21:45
[2018-06-28] MEDS: VANCOMYCIN 2,000 MG in Normal Saline 500 ML 250 MG IVPB (23:15)
[2018-06-29] VITALS (7 sets, daily range): BP systolic 101–135; BP diastolic 64–81; PULSE 87–114; RESP 4–28; TEMP 35.5–37.4; O2SAT 90–95
[2018-06-29] MEDS: Enoxaparin 40 MG/0.4 ML SYR SC ×2 (00:08→21:51)
[2018-06-29] MEDS: Amitriptyline 50 MG TAB 150 MG PO ×2 (00:09→21:51)
[2018-06-29] MEDS: traZODone 50 MG TAB 150 MG PO ×2 (00:09→21:51)
[2018-06-29] MEDS: guaiFENesin 600 MG TABCR 1200 MG PO ×3 (00:23→20:15)
[2018-06-29] MEDS: Normal Saline 1,000 ML 100 ML IV (02:00)
[2018-06-29 02:02] LABS: Glucose 544 mg/dL (70-100)
[2018-06-29] MEDS: Insulin Aspart 300 UNITS/3 ML PEN 25 UNITS SC (02:38)
[2018-06-29] MEDS: Insulin Glargine 300 UNITS/3 ML PEN 45 UNITS SC (02:40)
[2018-06-29] MEDS: methylPREDNISolone SUCC 125 MG VIAL 60 MG IVP ×3 (03:51→20:13)
--- NOTE | 2018-06-29 05:04 | NUR.NOTE ---
Nursing Note: 2135H 06/28/18 Patient admitted to med/surg Bed 231 from ER via stretcher. With c/o SOB. Transferred to bed safely. VSS. Made aware of hospital surroundings: call rivera, TV, Bathroom, bed etc.
[2018-06-29] MEDS: Albuterol/Ipratropium 3 ML UPD VIAL UPD ×3 (05:40→18:44)
[2018-06-29 07:07] LABS: Abs Immature Grans 0.09 k/cumm (0.0-0.09); HCT 40.4 % (40.0-50.0); HGB 11.8 g/dL (13.5-17.5); Mean Corp. HGB Concentration 29.2 g/dL (32.0-36.0); Mean Corpuscular Hemoglobin 22.4 pg (27.0-33.0); Mean Corpuscular Volume 76.8 fL (80-95); RBC 5.26 m/cumm (4.50-6.00); RBC Distribution Width 16.9 % (11.8-14.1); White Blood Cell Count 24.91 k/cumm (4.4-10.8)
[2018-06-29 07:14] LABS: Anion Gap 1.2 mmol/L (3-11); BUN 31 mg/dL (7-18); CO2 34.8 mmol/L (21.0-32.0); CREATININE 1.29 mg/dL (0.70-1.30); Chloride 97 mmol/L (98-107); Estimated GFR 57.41 (mL/min/1.73m2); Glucose 409 mg/dL (70-100); Potassium 4.2 mmol/L (3.5-5.1); Sodium 133 mmol/L (136-145)
[2018-06-29] MEDS: Insulin Aspart 300 UNITS/3 ML PEN SC ×7 (07:39→21:52)
[2018-06-29 08:01] LABS: Absolute Neutrophil Count 23.17 k/cumm (1.2-6.7)
[2018-06-29 08:02] LABS: Absolute Monocyte Count 0.75 k/cumm (0.11-0.7); Anisocytosis 1+; Hypochromasia 1+
[2018-06-29 08:03] LABS: Platelet Count 335 x1000/uL (130-400); Polychromasia Present
[2018-06-29 08:04] LABS: Diff Comment Manual Differential
[2018-06-29] MEDS: Benzonatate 200 MG CAP PO ×3 (09:56→20:15)
[2018-06-29] MEDS: Gabapentin 300 MG CAP 600 MG PO ×2 (09:57→20:15)
[2018-06-29] MEDS: Omeprazole 20 MG CAPCR PO ×2 (09:57→20:15)
[2018-06-29] MEDS: Nystatin CREAM 15 GM TUBE TP ×2 (09:58→20:15)
--- NOTE | 2018-06-29 10:52 | PDOC.CMIN ---
- If Service Date Differs Date of service: 06/29/18 Time of Service: 10:54 Care Management Initial Assess REASON FOR HOSPITALIZATION:: HCAP, Hypoxia PAST MEDICAL HISTORY/PAST SURGICAL HISTORY:: Pressure ulcer (Chronic). Right rotator cuff tear (Chronic). Ascending aortic aneurysm (Chronic). Right ventricular dilation, secondary (Chronic). Right ventricular systolic dysfunction (Chronic). Chronic pain disorder (Chronic). Super-super obese (Chronic). Diabetes mellitus (Chronic). GERD (gastroesophageal reflux disease) (Chronic). Chronic anxiety (Chronic). Depression (Chronic). Chronic back pain (Chronic). Obstructive sleep apnea hypopnea, severe (Chronic). Iron deficiency anemia, unspecified (Chronic). Severe muscle deconditioning (Acute). Panniculitis of other sites (Resolved) PREVIOUS FUNCTIONAL STATUS/SOCIAL/FAMILY SUPPORTS:: Peter resides in [place] with his caregiver Cash Shah, he has support of [facility] for care. Rajan states that he cooks his own meals at home, and has been trying to do lower carb. Rajan has had mutiple stays at different SNF's including [facility] and [facility]. Rajan depends on his caregiver for transportation. CURRENT FUNCTIONAL STATUS:: Peter is lying in bed watching TV when this headline writer visits. He is pleasant and receptive to discussion. Peter states that he is feeling weak, and feels as though he may need PT. ADVANCE DIRECTIVES:: None on file Has patient been provided with information about the portal?: Yes Did the patient sign up for the portal?: No CODE STATUS:: Full Code INSURANCE COVERAGE / FINANCIAL ISSUES:: Medicare, Medicaid CURRENT HOME/COMMUNITY SERVICES/EQUIPMENT:: Currently Rajan resides in a private alf in [place] with his provider Cash. Equipment in the home includes bariatric luis miguel lift, home bipap machine, medical bed, trapeze, and a shower chair. Rajan receives home health RN services 3x/week for wound care. Rajan's porter sample case through [facility] is Licha Driver - Rajan states that she is away at this time. PRIMARY CARE PHYSICIAN:: Dr. Young POTENTIAL DISCHARGE NEEDS:: F/U appointment with PCP. Resumption of home health RN services. PATIENT/FAMILY EDUCATION NEEDS:: Review DC instructions, any limitations, and ongoing DC planning discussion. discuss 'Ask Me Three' ANTICIPATED BARRIERS TO DISCHARGE:: None identified at this time. TRANSPORTATION:: Via private vehicle with caregiver Cash PLAN:: Peter will return home with a resumption of home health RN services, as well as supports through [facility], and his caregiver Cash. Peter to F/U with PCP and plan of care as prescribed. He will transport via private vehicle with caregiver Cash or Luz Readmission - Within the Past 30 Days Yes or No: Y - Date of First Admission Date of 1st Admission: 06/21/18 - Date of this Admission Date of Admission: 06/25/18 This admission was: Through ED - Office Visit Since 1st Admission Have you seen your PCP in the office since discharge?: No Had an appointment Been Scheduled?: Yes Date of Scheduled Appointment: 06/28/18 Describe barriers for scheduling or getting an appointment: Had appointment scheduled, unable to attend appointment due to feeling weak and inability to get into van. - Speicalist Appointments Have you seen any other specialist since your 1st Admission?: No - I. Interview patient and/or Family Difficulty reaching your doctor or getting an office appt?: No Have you had trouble purchasing/ or taking medication?: No How do you take your medications and set up your pills?: Cash (Caregiver) brings pills to Peter and watches him take them. Peter states he was not taking the big pills therefore Cash watches him at this time. Have you had trouble with getting meals at home?: No Describe your typical meals since you have been home: Had salmon, potatoes, and carrots last evening. States that he has been preparing meals himself as his caregiver usually prepares [place] meals which he does not care for. Did you feel ready for discharge when you left the last time: Yes Were services received that you thought were set up on disch: Yes What services were received?: Home health RN services Did you call your physician beore you came to the ED?: No How do you think you became sick enough to come back?: feel like I wasn't ready when I left. Had trouble getting out of bed, and felt weak. Home health thought I should come back. - If the patient had a VNA ordered Did the patient have a VNA order?: Yes Did you call the VNA before you came?: Yes (told me to come to hospital) Did the VNA tell you to come to the hospital?: Yes Do you know if the VNA called your physician?: No - If the patient had home care service Call them to discuss the patient's admission: Spoke with nahed [facility]man line whom states that they had seen him that morning, and then that afternoon. They received a call from Peter, he was stating he was anxious, couldn't breath, and had one word dyspnea. they then recommended that he go to the ER - Ask the Care Team Members: What do you think caused the patient to be readmitted: Providers felt that this was possibly a continuum of illness, and that the infiltrates may still be present from his previous admission. - ED visits How many ED visits in the past 12 months: 8 - Assessment for Readmission Summary of readmission circumstances, based upon interviews: Peter was discharged from [facility] on Monday06/24/18 to his alf with his caregiver Cash Shah. On previous admission, Cash had stated that he was having difficulty caring for Peter in the community, and CM spoke with [facility]. SS stated that they had been working for the past month on a different housing option for Peter, and that they were having difficulties with this. Peter is reporting to this headline writer that he must not have been ready and that he was feeling weak and having difficulty breathing at home. He states that he spoke with [facility] and that they notified him that he should be sent to the ER. Peter stated that I didn't want to come to the ER because they usually send me home. CM to discuss with [facility] and to assess whether there can be increase in services at home.
--- NOTE | 2018-06-29 11:28 | INITIAL_ITS ---
- If Service Date Differs Date of service: 06/29/18 Time of Service: 10:54 Care Management Initial Assess REASON FOR HOSPITALIZATION:: HCAP, Hypoxia PAST MEDICAL HISTORY/PAST SURGICAL HISTORY:: Pressure ulcer (Chronic). Right rotator cuff tear (Chronic). Ascending aortic aneurysm (Chronic). Right ventricular dilation, secondary (Chronic). Right ventricular systolic dysfunction (Chronic). Chronic pain disorder (Chronic). Super-super obese (Chronic). Diabetes mellitus (Chronic). GERD (gastroesophageal reflux disease) (Chronic). Chronic anxiety (Chronic). Depression (Chronic). Chronic back pain (Chronic). Obstructive sleep apnea hypopnea, severe (Chronic). Iron deficiency anemia, unspecified (Chronic). Severe muscle deconditioning (Acute). Panniculitis of other sites (Resolved) PREVIOUS FUNCTIONAL STATUS/SOCIAL/FAMILY SUPPORTS:: Peter resides in [place] with his caregiver Cash Shah, he has support of [employer] for care. Raajn states that he cooks his own meals at home, and has been trying to do lower carb. Rajan has had mutiple stays at different SNF's including [facility] and [facility]. Rajan depends on his caregiver for transportation. CURRENT FUNCTIONAL STATUS:: Peter is lying in bed watching TV when this journalists and other writers visits. He is pleasant and receptive to discussion. Peter states that he is feeling weak, and feels as though he may need PT. ADVANCE DIRECTIVES:: None on file Has patient been provided with information about the portal?: Yes Did the patient sign up for the portal?: No CODE STATUS:: Full Code INSURANCE COVERAGE / FINANCIAL ISSUES:: Medicare, Medicaid CURRENT HOME/COMMUNITY SERVICES/EQUIPMENT:: Currently Rajan resides in a private skilled nursing in [place] with his provider Cash. Equipment in the home includes bariatric luis miguel lift, home bipap machine, medical bed, trapeze, and a shower chair. Rajan receives home health RN services 3x/week for wound care. Rajan's residential case manager through [employer] [facility] is Licha Driver - Rajan states that she is away at this time. PRIMARY CARE PHYSICIAN:: Dr. Young POTENTIAL DISCHARGE NEEDS:: F/U appointment with PCP. Resumption of home health RN services. PATIENT/FAMILY EDUCATION NEEDS:: Review DC instructions, any limitations, and ongoing DC planning discussion. discuss 'Ask Me Three' ANTICIPATED BARRIERS TO DISCHARGE:: None identified at this time. TRANSPORTATION:: Via private vehicle with caregiver Cash PLAN:: Peter will return home with a resumption of home health RN services, as well as supports through [facility], and his caregiver Cash. Peter to F/U with PCP and plan of care as prescribed. He will transport via private vehicle with caregiver Cash or Luz Readmission - Within the Past 30 Days Yes or No: Y - Date of First Admission Date of 1st Admission: 06/21/18 - Date of this Admission Date of Admission: 06/25/18 This admission was: Through ED - Office Visit Since 1st Admission Have you seen your PCP in the office since discharge?: No Had an appointment Been Scheduled?: Yes Date of Scheduled Appointment: 06/28/18 Describe barriers for scheduling or getting an appointment: Had appointment scheduled, unable to attend appointment due to feeling weak and inability to get into van. - Speicalist Appointments Have you seen any other specialist since your 1st Admission?: No - I. Interview patient and/or Family Difficulty reaching your doctor or getting an office appt?: No Have you had trouble purchasing/ or taking medication?: No How do you take your medications and set up your pills?: Cash (Caregiver) brings pills to Peter and watches him take them. Peter states he was not taking the big pills therefore Cash watches him at this time. Have you had trouble with getting meals at home?: No Describe your typical meals since you have been home: Had salmon, potatoes, and carrots last evening. States that he has been preparing meals himself as his caregiver usually prepares [place] [employer] meals which he does not care for. Did you feel ready for discharge when you left the last time: Yes Were services received that you thought were set up on disch: Yes What services were received?: Home health RN services Did you call your physician beore you came to the ED?: No How do you think you became sick enough to come back?: feel like I wasn't ready when I left. Had trouble getting out of bed, and felt weak. Home health thought I should come back. - If the patient had a VNA ordered Did the patient have a VNA order?: Yes Did you call the VNA before you came?: Yes (told me to come to hospital) Did the VNA tell you to come to the hospital?: Yes Do you know if the VNA called your physician?: No - If the patient had home care service Call them to discuss the patient's admission: Spoke with nahed Foreman line whom states that they had seen him that morning, and then that afternoon. They received a call from Peter, he was stating he was anxious, couldn't breath, and had one word dyspnea. they then recommended that he go to the ER - Ask the Care Team Members: What do you think caused the patient to be readmitted: Providers felt that this was possibly a continuum of illness, and that the infiltrates may still be present from his previous admission. - ED visits How many ED visits in the past 12 months: 8 - Assessment for Readmission Summary of readmission circumstances, based upon interviews: Peter was discharged from [facility] on Monday06/24/18 to his skilled nursing with his caregiver Cash Shah. On previous admission, Cash had stated that he was having difficulty caring for Peter in the community, and CM spoke with [facility]. SS stated that they had been working for the past month on a different housing option for Peter, and that they were having difficulties with this. Peter is reporting to this journalists and other writers that he must not have been ready and that he was feeling weak and having difficulty breathing at home. He states that he spoke with [facility] and that they notified him that he should be sent to the ER. Peter stated that I didn't want to come to the ER because they usually send me home. CM to discuss with [facility] and to assess whether there can be increase in services at home.
[2018-06-29] MEDS: Normal Saline Flush 10 ML SYR IVP ×2 (11:55→20:15)
[2018-06-29] MEDS: MAGNESIUM SULFATE 1 GM/100 ML BAG IVPB (13:45)
--- NOTE | 2018-06-29 13:50 | PT.INIE ---
Date of service: 06/29/18 Time of Service: 13:30 PT Notes Inpatient Physical Therapy Evaluation Date: 06/29/18 Referring Doctor: Dr. Barr PT Orders: PT CONSULT: Evaluate and treat Precautions: Fall Patient Profile/Admitting Diagnosis: Patient admitted 06/28/18 with a diagnosis of healthcare acquired pneumonia. He had a recent hospitalization from 06/21/2018 06/24/18, after which he returned home, although with declining health after that point. He presented to the emergency department yesterday with hypoxia, and was subsequently diagnosed with H CAP. 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 Per his report he has been performing stand pivot transfers consistently. He also states that he has been able to walk more as of late, recently able to get himself into a hotel room with family members with use of a WW. He reports increasing frequency of falls over the days leading up to admission. He estimates that he typically falls about once a month, although fell twice yesterday. When he falls he requires assistance and use of Nori lift to get up. Equipment Owned/DME: Bariatric Nori, BiPAP, hospital bed, trapeze, shower chair. Patient has home health services 3 times a week for wound care Subjective: Patient states that he continues to feel very short of breath. He feels generally weak, and does not feel that he is able to walk at this time. He is very nervous about losing ground with regards to his mobility, which he states is quite limited as it is. Objective: General Observation: Morbidly obese male, resting in bed with supplemental oxygen. Mental Status: A and O x3 Pain: Patient reports chronic pain related to his wounds ROM: Right Upper Extremity: WFL, although with reports of right shoulder pain in end ranges of flexion Left Upper Extremity: WFL Right Lower Extremity: WFL Left Lower Extremity: WFL Strength: Right Upper Extremity: 3/5 shoulder flexion. Triceps 4/5. Biceps 4/5. Left Upper Extremity: 4/5 shoulder flexion. Triceps 4/5. Biceps 4/5. Right Lower Extremity: Patient able to perform SLR although with extension lag. Otherwise strength is grossly 3/5 for hip flexion, knee flexion, ankle dorsiflexion. Left Lower Extremity: Patient able to perform SLR although with extension lag. Otherwise strength is grossly 3/5 for hip flexion, knee flexion, ankle dorsiflexion. Bed Mobility/Transfers: Supine sit: Independent, although with increased time to perform Sit to supine: Independent, with increased time to perform. Patient is able to scoot up in bed independently, with heavy reliance on rails and trapeze Sit to stand: Unable Gait: Unable Balance: Static Sitting: Good Dynamic Sitting: Fair Static Standing: Unable Dynamic Standing: Unable Special Tests: Mobility Limitations Standardized Measure [facility] AM-PAC 6 clicks Basic Mobility Inpatient Short Form: Raw Score: 12 CMS Score: 69% deficit Informed Consent/Education: Patient instructed in purpose of PT consult and plan of care. Treatment: Today's session consisted of evaluation, followed by instruction in therex program for supine and seated activities as noted on flowsheet. He requires contact-guard at the trunk during seated upper extremity activities, and frequent rest periods throughout due to WHITLEY. Assessment: Patient is a 58 year old male referred to physical therapy services with the diagnosis of healthcare acquired pneumonia. Patient presents with clinical signs and symptoms consistent with mobility deficits related to current diagnosis, as demonstrated by the following impairment level findings: 1. Decreased upper extremity strength 2. Decreased functional strength of the lower extremities 3. Decreased balance 4. Decreased activity tolerance Impairments are contributing to the following functional limitations: 1. Unable to transfer to wheelchair 2. Unable to ambulate 3. Increased time to perform bed mobility 4. WHITLEY with upper extremity movements Patient is assessed as High [id number] complexity based on the following: History: 58-year-old male with super super obesity and multiple chronic medical issues, being treated in acute care setting for healthcare acquired pneumonia. Patient has a long history of falls including previous falls in this hospital and 2 falls at home yesterday. Examination: Functional limitations as noted above Presentation: Unstable Decision Making: High complexity Goals: Goals X1 week 1. Supine-Sit: Independent 2. Sit-Supine: Independent 3. Sit-Stand: Min assist 4. Stand-Sit : Min assist 5. Stand pivot transfer: Min assist Plan of Care/Treatment Plan: 1-2x/day, 7 days/week x 1 week. Plan of care has been reviewed with the ROVING CAN TENDER providing the service under Physical Therapy direction. Initiate Physical Therapy intervention for strengthening, bed mobility, transfers, gait, stairs, balance training, use of assistive device. DISCHARGE RECOMMENDATIONS: Return home with 24-hour care and resumption of home health services TREATMENT CODE/TIME: 30 minutes ([id number], [id number])
--- NOTE | 2018-06-29 14:06 | IN_ITS ---
Date of service: 06/29/18 Time of Service: 13:30 PT Notes Inpatient Physical Therapy Evaluation Date: 06/29/18 Referring Doctor: Dr. Barr PT Orders: PT CONSULT: Evaluate and treat Precautions: Fall Patient Profile/Admitting Diagnosis: Patient admitted 06/28/18 with a diagnosis of healthcare acquired pneumonia. He had a recent hospitalization from 06/21/2018 06/24/18, after which he returned home, although with declining health after that point. He presented to the emergency department yesterday with hypoxia, and was subsequently diagnosed with H CAP. 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 Per his report he has been performing stand pivot transfers consistently. He also states that he has been able to walk more as of late, recently able to get himself into a hotel room with family members with use of a WW. He reports increasing frequency of falls over the days leading up to admission. He estimates that he typically falls about once a month, although fell twice yesterday. When he falls he requires assistance and use of Nori lift to get up. Equipment Owned/DME: Bariatric Nori, BiPAP, hospital bed, trapeze, shower chair. Patient has home health services 3 times a week for wound care Subjective: Patient states that he continues to feel very short of breath. He f eels generally weak, and does not feel that he is able to walk at this time. He is very nervous about losing ground with regards to his mobility, which he states is quite limited as it is. Objective: General Observation: Morbidly obese male, resting in bed with supplemental oxygen. Mental Status: A and O x3 Pain: Patient reports chronic pain related to his wounds ROM: Right Upper Extremity: WFL, although with reports of right shoulder pain in end ranges of flexion Left Upper Extremity: WFL Right Lower Extremity: WFL Left Lower Extremity: WFL Strength: Right Upper Extremity: 3/5 shoulder flexion. Triceps 4/5. Biceps 4/5. Left Upper Extremity: 4/5 shoulder flexion. Triceps 4/5. Biceps 4/5. Right Lower Extremity: Patient able to perform SLR although with extension lag. Otherwise strength is grossly 3/5 for hip flexion, knee flexion, ankle dorsiflexion. Left Lower Extremity: Patient able to perform SLR although with extension lag. Otherwise strength is grossly 3/5 for hip flexion, knee flexion, ankle dorsiflexion. Bed Mobility/Transfers: Supine sit: Independent, although with increased time to perform Sit to supine: Independent, with increased time to perform. Patient is able to scoot up in bed independently, with heavy reliance on rails and trapeze Sit to stand: Unable Gait: Unable Balance: Static Sitting: Good Dynamic Sitting: Fair Static Standing: Unable Dynamic Standing: Unable Special Tests: Mobility Limitations Standardized Measure [facility] AM-PAC 6 clicks Basic Mobility Inpatient Short Form: Raw Score: 12 CMS Score: 69% deficit Informed Consent/Education: Patient instructed in purpose of PT consult and plan of care. Treatment: Today's session consisted of evaluation, followed by instruction in therex program for supine and seated activities as noted on flowsheet. He requires contact-guard at the trunk during seated upper extremity activities, and frequent rest periods throughout due to WHITLEY. Assessment: Patient is a 58 year old male referred to physical therapy services with the diagnosis of healthcare acquired pneumonia. Patient presents with clinical signs and symptoms consistent with mobility deficits related to current diagnosis, as demonstrated by the following impairment level findings: 1. Decreased upper extremity strength 2. Decreased functional strength of the lower extremities 3. Decreased balance 4. Decreased activity tolerance Impairments are contributing to the following functional limitations: 1. Unable to transfer to wheelchair 2. Unable to ambulate 3. Increased time to perform bed mobility 4. WHITLEY with upper extremity movements Patient is assessed as High 96125 complexity based on the following: History: 58-year-old male with super super obesity and multiple chronic medical issues, being treated in acute care setting for healthcare acquired pneumonia. Patient has a long history of falls including previous falls in this hospital and 2 falls at home yesterday. Examination: Functional limitations as noted above Presentation: Unstable Decision Making: High complexity Goals: Goals X1 week 1. Supine-Sit: Independent 2. Sit-Supine: Independent 3. Sit-Stand: Min assist 4. Stand-Sit : Min assist 5. Stand pivot transfer: Min assist Plan of Care/Treatment Plan: 1-2x/day, 7 days/week x 1 week. Plan of care has been reviewed with the NOVELTY MAKER providing the service under Physical Therapy direction. Initiate Physical Therapy intervention for strengthening, bed mobility, transfers, gait, stairs, balance training, use of assistive device. DISCHARGE RECOMMENDATIONS: Return home with 24-hour care and resumption of home health services TREATMENT CODE/TIME: 30 minutes ([id number], [id number])
[2018-06-29] MEDS: VANCOMYCIN 1,500 MG in Normal Saline 500 ML 333.333 MG IVPB (15:06)
--- NOTE | 2018-06-29 17:02 | DM INPTCON_ITS ---
Date of service: 06/29/18 Time of Service: 12:41 Diabetes Inpatient Consult DESCRIPTION/ASSESSMENT: Appreciate diabetes consult for Mr. Hidalgo who is hospitalized with pneumonia and leg ulcers. A1c 13.6 up from 6.8 two years ago. Mr. Hidalgo manages diabetes with Metformin, Glyburide and 45u Tresiba. He wonders if the oral medication is doing any good. He monitors his blood sugars once a day recently in the 500s. He is now watching his carbohydrate at home. Here bloods sugars 377-544mg/dl. He is medically managed here with 45u Glargine, insulin for carbohydrate at 1 unit for 10 grams, moderate insulin correction. He is taking Prednisone 60mg q 8 hours. Currently inadequately managed type 2 diabetes especially worsened by steroid induced hyperglycemia. INTERVENTION: Mr. Hidalgo is motivated to improve his blood sugars and states he is willing to have his insulin increased to achieve this. He may benefit from NPH at the time of steroid administration to address the glycemic excursion as his currently prescribed insulin dosage looks similar to the effect of his home medication regimen. Typical dosing of NPH is .6Xweight in KG(203) however this would be a very high dose given his usual regimen. Suggest initiating at 20units NPH with each stero id administration. Additionally, he may benefit from insulin correction at the resistant level. PLAN: Will follow up for nutrition and lifestyle changes prior to discharge Will follow blood sugars Suggest increase in insulin: Aspart correction from moderate to resistant; NPH started at ~20units with each steroid dose Time Spent in Nutritional Counseling and Treatment: 15 minutes face to face inpatient
--- NOTE | 2018-06-29 17:42 | NUR.NOTE ---
Nursing Note: patients fingersticks have trended back up to the four hundreds again. spoke to clinical home health caregiver, I told her that I was going to per form a post prandial fs on the patient and report results
--- NOTE | 2018-06-29 18:35 | NUR.NOTE ---
post prandial finger stick was too high to measure on the machine, clinical health care coordinator was notified to ask doctor for orders , will await for new orders Nursing Note:
[2018-06-29] MEDS: Furosemide 40 MG/4 ML VIAL IVP (20:13)
[2018-06-29 20:14] LABS: Anion Gap 3.3 mmol/L (3-11); BUN 26 mg/dL (7-18); CO2 35.7 mmol/L (21.0-32.0); CREATININE 1.16 mg/dL (0.70-1.30); Calcium 8.9 mg/dL (8.5-10.1); Chloride 96 mmol/L (98-107); Glucose 393 mg/dL (70-100); Potassium 3.8 mmol/L (3.5-5.1); Sodium 135 mmol/L (136-145)
[2018-06-29] MEDS: Insulin Aspart 300 UNITS/3 ML PEN 20 UNITS SC (20:14)
[2018-06-29] MEDS: Mometasone 220 MCG 14 DOSE INHALER 1 PUFF IH (20:16)
--- NOTE | 2018-06-29 21:12 | PGE_ITS ---
Date of Service Date of service: 06/29/18 Time of Service: 18:10 Assessment and Plan (1) HCAP (healthcare-associated pneumonia): Current visit: Yes Status: Acute Agree with Levaquin and Vancomycin. Continue IV corticosteroids, nebs. Add symbicort. (2) Acute on chronic diastolic (congestive) heart failure: Current visit: Yes Status: Acute EF preserved on the echo from 09/2017. Some of this is likely also related to R heart failure. At this point, the patient refuses lasix gtt, but is agreeable to bolus infusions. I feel that lasix drip would have been safer on his kidneys. Monitor Cr, I/O's, and daily weights, as well as respiratory status. I feel that a lot of what I am hearing on the lung exam is fluid. (3) Steroid-induced hyperglycemia: Current visit: Yes Status: Acute Increase basal and scheduled prandial insulin. Continue SSI. (4) Acute kidney injury (nontraumatic): Current visit: Yes Status: Acute Agree with holding losartan, but the patient would benefit from diuresis at this point. Read discussion above. No longer on IVF. (5) Pressure ulcer: Current visit: No Status: Chronic Wound care consulted Qualifiers: Pressure injury location: calf Pressure injury stage: stage 3 Laterality: left Qualified Code(s): L89.893 - Pressure ulcer of other site, stage 3 (6) Diabetes mellitus: Current visit: No Status: Chronic As above - titrating basal bolus insulin Qualifiers: Diabetes mellitus type: due to underlying condition Diabetes mellitus rodent exterminator insulin use: with rodent exterminator use Diabetes mellitus complication status: with skin complications Diabetes mellitus complication detail: with f oot ulcer Diabetic retinopathy severity: Proliferative retinopathy type: Diabetes mellitus macular edema: Laterality: Chronic kidney disease stage: Qualified Code(s): E08.621 - Diabetes mellitus due to underlying condition with foot ulcer; L97.509 - Non-pressure chronic ulcer of other part of unspecified foot with unspecified severity; 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 Subjective Interval history since last seen: Mr Brothpetros feels like his not much better today. He feels a lot of secretions in the back of his throat - but the cough is no longer productive. He denies dizziness, chest pain, nausea, vomiting. Exam Narrative Exam Narrative: General: obese male, very pleasant, not in acute distress, able to lay down nearly flat HEENT: EOMI, MMM Heart: RRR, no m/r/g Lungs: rhonchi on expiration and rales bilaterally GI: abdomen obese, soft, nontender Extremities: BLE's with +2 edema, chronic venous stasis dermatitis, wounds that are dressed at the time of exam Objective Objective Clinical Data: Abnormal lab results 06/29/18 06/29/18 06/29/18 Range/Units 01:19 06:38 06:38 WBC 24.91 H (4.4-10.8) k/cumm Hgb 11.8 L (13.5-17.5) g/dL MCV 76.8 L (80-95) fL MCH 22.4 L (27.0-33.0) pg MCHC 29.2 L (32.0-36.0) g/dL RDW 16.9 H (11.8-14.1) % Absolute Neutrophils 23.17 H (1.2-6.7) k/cumm Absolute Lymphocytes 1.00 L (1.2-3.4) k/cumm Absolute Monocytes 0.75 H (0.11-0.7) k/cumm Sodium 133 L (136-145) mmol/L Chloride 97 L (98-107) mmol/L Carbon Dioxide 34.8 H (21.0-32.0) mmol/L Anion Gap 1.2 L (3-11) mmol/L BUN 31 H (7-18) mg/dL Glucose 544 H* D 409 H D (70-100) mg/dL 06/29/18 Range/Units 19:32 WBC (4.4-10.8) k/cumm Hgb (13.5-17.5) g/dL MCV (80-95) fL MCH (27.0-33.0) pg MCHC (32.0-36.0) g/dL RDW (11.8-14.1) % Absolute Neutrophils (1.2-6.7) k/cumm Absolute Lymphocytes (1.2-3.4) k/cumm Absolute Monocytes (0.11-0.7) k/cumm Sodium 135 L (136-145) mmol/L Chloride 96 L (98-107) mmol/L Carbon Dioxide 35.7 H (21.0-32.0) mmol/L Anion Gap (3-11) mmol/L BUN 26 H (7-18) mg/dL Glucose 393 H (70-100) mg/dL Vital Signs Temperature 37.3 C 06/29/18 16:41 Temperature Source Tympanic 06/29/18 16:41 Pulse 114 H 06/29/18 16:41 Pulse Rhythm Regular 06/29/18 17:27 Respiratory Rate 20 06/29/18 16:41 Respiratory Effort 06/29/18 17:27 Respiratory Depth Normal 06/29/18 17:27 Respiratory Pattern Normal 06/29/18 17:27 Blood Pressure 118/73 06/29/18 16:41 Pulse Oximetry 92 L 06/29/18 16:41 Oxygen Delivery Method Room Air 06/29/18 16:41 Oxygen Flow Rate 0 06/29/18 16:41 Pain Level 5 06/29/18 16:10 Intake & Output 06/28/18 06/29/18 06/29/18 23:59 11:59 23:59 Intake Total 150 / 150 2537 / 4094 1557 / 4094 Output Total 2290 / 3105 815 / 3105 Balance 150 / 150 247 / 989 742 / 989 Weight 211.6 kg 203 kg Intake: IV 150 / 150 1500 / 2100 600 / 2100 Oral 1036 / 1993 957 / 1994 Output: Urine 2290 / 3105 815 / 3105 Other: Urine Color Yellow Yellow Urine Appearance Clear Clear Urine Odor Strong Normal Comment No pt c/o burning/itching. Stool Size Large Stool Characteristics Soft Formed Brown Voiding Methods Urinal Urinal Laboratory Results WBC 24.91 k/cumm (4.4-10.8) H 06/29/18 06:38 RBC 5.26 m/cumm (4.50-6.00) 06/29/18 06:38 Hgb 11.8 g/dL (13.5-17.5) L 06/29/18 06:38 Hct 40.4 % (40.0-50.0) 06/29/18 06:38 MCV 76.8 fL (80-95) L 06/29/18 06:38 MCH 22.4 pg (27.0-33.0) L 06/29/18 06:38 MCHC 29.2 g/dL (32.0-36.0) L 06/29/18 06:38 RDW 16.9 % (11.8-14.1) H 06/29/18 06:38 Plt Count 335 x1000/uL (130-400) D 06/29/18 06:38 MPV 11.0 fL (8.0-11.0) 06/29/18 06:38 Immature Gran % 0.0 06/29/18 06:38 Neutrophils % 88.0 06/29/18 06:38 Band Neutrophils % 5.0 % 06/29/18 06:38 Lymphocytes % 4.0 06/29/18 06:38 Monocytes % 3.0 06/29/18 06:38 Eosinophils % 0.0 06/29/18 06:38 Basophils % 0.0 06/29/18 06:38 Absolute Neutrophils 23.17 k/cumm (1.2-6.7) H 06/29/18 06:38 Absolute Lymphocytes 1.00 k/cumm (1.2-3.4) L 06/29/18 06:38 Absolute Monocytes 0.75 k/cumm (0.11-0.7) H 06/29/18 06:38 Absolute Eosinophils 0.00 k/cumm (0.0-0.7) 06/29/18 06:38 Absolute Basophils 0.00 k/cumm (0.0-0.2) 06/29/18 06:38 Differential Comment Manual differential 06/29/18 06:38 RBC Morphology See below 06/29/18 06:38 Polychromasia Present 06/29/18 06:38 Hypochromasia 1+ 06/29/18 06:38 Anisocytosis 1+ 06/29/18 06:38 PT 10.4 sec (9.3-11.0) 06/28/18 19:20 INR 1.0 (0.9-1.1) 06/28/18 19:20 APTT 23.2 sec (21.0-31.4) 06/28/18 19:20 Sodium 135 mmol/L (136-145) L 06/29/18 19:32 Potassium 3.8 mmol/L (3.5-5.1) 06/29/18 19:32 Chloride 96 mmol/L (98-107) L 06/29/18 19:32 Carbon Dioxide 35.7 mmol/L (21.0-32.0) H 06/29/18 19:32 Anion Gap 3.3 mmol/L (3-11) 06/29/18 19:32 BUN 26 mg/dL (7-18) H 06/29/18 19:32 Creatinine 1.16 mg/dL (0.70-1.30) 06/29/18 19:32 Estimated GFR/1.73 m2 >= 60.00 (mL/min/1.73m2) 06/29/18 19:32 Glucose 393 mg/dL (70-100) H 06/29/18 19:32 Calcium 8.9 mg/dL (8.5-10.1) 06/29/18 19:32 Magnesium 1.7 mg/dL (1.8-2.4) L 06/28/18 19:20 Total Bilirubin 0.4 mg/dL (0.2-1.0) 06/28/18 19:20 AST 29 U/L (15-37) 06/28/18 19:20 ALT 26 U/L (12-78) 06/28/18 19:20 Alkaline Phosphatase 139 U/L (46-116) H 06/28/18 19:20 Troponin I < 0.02 ng/mL (0.00-0.06) 06/28/18 19:20 NT-Pro-B Natriuret Pep 69 pg/mL (-299) 06/28/18 19:20 Total Protein 9.8 g/dL (6.4-8.2) H 06/28/18 19:20 Albumin 2.9 g/dL (3.4-5.0) L 06/28/18 19:20
[2018-06-29] MEDS: Insulin Glargine 300 UNITS/3 ML PEN 60 UNITS SC (21:52)
[2018-06-30] MEDS: Albuterol/Ipratropium 3 ML UPD VIAL UPD ×5 (00:14→23:54)
[2018-06-30] MEDS: VANCOMYCIN 1,500 MG in Normal Saline 500 ML 333.333 MG IVPB (00:15)
[2018-06-30] MEDS: methylPREDNISolone SUCC 125 MG VIAL 60 MG IVP ×3 (03:49→22:09)
[2018-06-30] MEDS: Normal Saline Flush 10 ML SYR IVP ×4 (03:49→16:25)
[2018-06-30 07:53] LABS: Abs Immature Grans 0.06 k/cumm (0.0-0.09); HGB 11.9 g/dL (13.5-17.5); Immature Grans % 0.3; Lymphocytes % 4.3; Mean Corpuscular Hemoglobin 22.5 pg (27.0-33.0); Mean Corpuscular Volume 77.7 fL (80-95); Mean Platelet Volume 11.4 fL (8.0-11.0); Neutrophils % 93.4; Platelet Count 347 x1000/uL (130-400); RBC 5.28 m/cumm (4.50-6.00); RBC Distribution Width 17.4 % (11.8-14.1); White Blood Cell Count 20.69 k/cumm (4.4-10.8)
[2018-06-30 08:01] LABS: Absolute Lymphocyte Count 0.89 k/cumm (1.2-3.4); Absolute Monocyte Count 0.41 k/cumm (0.11-0.7); Absolute Neutrophil Count 19.32 k/cumm (1.2-6.7)
[2018-06-30 08:07] LABS: Anion Gap 4.3 mmol/L (3-11); BUN 21 mg/dL (7-18); CO2 37.7 mmol/L (21.0-32.0); CREATININE 0.96 mg/dL (0.70-1.30); Chloride 96 mmol/L (98-107); Glucose 315 mg/dL (70-100); Magnesium 1.6 mg/dL (1.8-2.4); Potassium 3.9 mmol/L (3.5-5.1); Sodium 138 mmol/L (136-145)
[2018-06-30 08:10] VITALS: BP 122/72; PULSE 80; RESP 18; TEMP 36.9; O2SAT 94
[2018-06-30] MEDS: Insulin Aspart 300 UNITS/3 ML PEN 20 UNITS SC ×3 (08:40→17:04)
[2018-06-30] MEDS: Insulin Aspart 300 UNITS/3 ML PEN SC ×4 (08:41→22:08)
[2018-06-30] MEDS: Budesonide/Formoterol 160/4.5 6 GM 60 PUFF INH IH ×2 (09:06→20:11)
[2018-06-30] MEDS: Furosemide 40 MG/4 ML VIAL IVP ×2 (09:29→16:25)
[2018-06-30] MEDS: Benzonatate 200 MG CAP PO ×3 (09:31→20:10)
[2018-06-30] MEDS: Omeprazole 20 MG CAPCR PO ×2 (09:31→20:10)
[2018-06-30] MEDS: guaiFENesin 600 MG TABCR 1200 MG PO ×2 (09:32→20:11)
[2018-06-30] MEDS: Nystatin CREAM 15 GM TUBE TP ×2 (09:32→20:12)
[2018-06-30] MEDS: Gabapentin 300 MG CAP 600 MG PO ×2 (09:32→20:10)
[2018-06-30] MEDS: CEFEPIME 2 GM in Normal Saline 100 ML IVPB ×2 (11:28→22:08)
--- NOTE | 2018-06-30 12:48 | PTTR_ITS ---
Date of service: 06/30/18 Time of Service: 12:05 PT Notes Inpatient Physical Therapy Treatment Note [facility] Date: 06/30/18 PRECAUTIONS: Fall SUBJECTIVE: Indicated he likes to sit up on edge of bed to eat. This was discussed with nursing staff. Wants to be able to use his walker while in hospital this time. OBJECTIVE: PAIN: No complaints of pain offered. BED MOBILITY/TRANSFERS Rolling L/R: Independent but difficult due to bed being small for patient, belly tended to roll over side of bed. Supine-sit: Independent - Although transition was very dangerous with patient moving too quickly and not waiting for lines to be moved. Almost pulled his IV line out and O2 tubing off. Sit-supine: To transfer back to supine with nursing after lunch. Bed alarm set while patient is eating. THEREX: See flow sheet. Tends to hold his breath with exercise, will need to work on this. Performed AP, SLRs, LAQs, glut sets, UE shoulder horizontal abd/ adduction, shoulder flexion within limited ROM due to right old right shoulder injury, elbow flexion/ extension and modified curl up for 10 -15 reps each. ASSESSMENT: Needs significant instructions to avoid doing quick dangerous movements. Needs to slow down and focus on how he is moving to avoid falls. PLAN: Continue with strengthening of bilateral UE / LEs and improved functional mobility. TREATMENT CODE/TIME: 12:05 to 12:25 (20'), 11065 x 1 Mae Laguna, [employer]
--- NOTE | 2018-06-30 12:55 | PGE_ITS ---
Date of Service Date of service: 06/30/18 Time of Service: 13:16 Assessment and Plan (1) HCAP (healthcare-associated pneumonia): Start date: 06/30/18 Start time: 13:14 Current visit: Yes Status: Acute Continue IV corticosteroids, nebs. Add symbicort. vancomycin and levaquin continue with cefipime added for coverage. (2) Acute on chronic diastolic (congestive) heart failure: Start date: 06/30/18 Start time: 13:04 Current visit: Yes Status: Acute EF preserved on the echo from 09/2017. Some of this is likely also related to R heart failure. Lungs sounding improved today. Able to breath better, 91% on 1 L oxygen continue to Monitor Cr, I/O's, and daily weights, as well as respiratory status. (3) Steroid-induced hyperglycemia: Start date: 06/30/18 Start time: 13:05 Current visit: Yes Status: Acute Increase basal and scheduled prandial insulin. Continue SSI. I have also added 30 u in the am with the 60 units Hs (4) Acute kidney injury (nontraumatic): Start date: 06/30/18 Start time: 13:06 Current visit: Yes Status: Acute BUN creatinine at baseline. continue diuresis (5) Pressure ulcer: Start date: 06/30/18 Start time: 13:13 Current visit: No Status: Chronic Wound care consulted Qualifiers: Laterality: left Pressure injury location: calf Pressure injury stage: stage 3 Qualified Code(s): L89.893 - Pressure ulcer of other site, stage 3 (6) Diabetes mellitus: Start date: 06/30/18 Start time: 13:13 Current visit: No Status: Chronic As above Qualifiers: Chronic kidney disease stage: Diabetes mellitus complication detail: with foot ulcer Diabetes mellitus complication status: with skin complications Diabetes mellitus adjunct faculty for medical terminology insulin use: with adjunct faculty for medical terminology use Diabetes mellitus macular edema: Diabetes mellitus type: due to underlying condition Diabetic retinopathy severity: Laterality: Proliferative retinopathy type: Qualified Code(s): E08.621 - Diabetes mellitus due to underlying condition with foot ulcer; L97.509 - Non-pressure chronic ulcer of other part of unspecified foot with unspecified severity; Z79.4 - MCFP (current) use of insulin (7) Obstructive sleep apnea hypopnea, severe: Start date: 06/30/18 Start time: 13:13 Current visit: No Status: Chronic continue home CPAP use (8) DVT prophylaxis: Start date: 06/30/18 Start time: 13:14 Current visit: No Status: Acute Lovenox (9) Discharge planning issues: Start date: 06/30/18 Start time: 13:14 Current visit: Yes Status: Acute Full Code PT/OT consulted. will need nursing for home Subjective Patient reports: feels better Interval history since last seen: Mr. Hidalgo is a 58 y.o male recently admitted for CAP, Dcd on 06/24 returning on 06/28 for cough, worsening SOB, CXR showed RLL infiltrate that was worse from previous admission. He was started on vanco, levaquin, steroids, lasix and nebs. Today he is feeling better, He states he can breath better and feels much better. RA sat was 87, he was placed on 1 L and is 91. He does not currently take oxygen, but does use CPAP at night. He was sitting up in bed during assessment playing video games. He did not have any crackles or SOB when talking. I have reordered his dressing changes from previous admission per Dr. Schultz recommendation. I will continue his nebs, steroids and lasix. His ANI has corrected I will try to wean him tomorrow to PO lasix his home dose is 40 mg BID. Continue to monitor weights and I/O. I have added an am dose of lantus and will monitor glucose levels. He denies CP, SOB, diarrhea. Exam Narrative Exam Narrative: General: obese male, very pleasant, not in acute distress, able to lay down nearly flat HEENT: EOMI, MMM Heart: RRR, no m/r/g Lungs: Rhonci expiration, GI: abdomen obese, soft, nontender Extremities: BLE's with +2 edema, chronic venous stasis dermatitis, wounds that are dressed at the time of exam Const General: cooperative, no acute distress and ill appearing acutely Nutritional Appearance: obese morbidly obese Orientation: alert, awake and oriented x3 HENMT Head: normal to inspection and normocephalic Ears: hearing grossly normal bilaterally, external ears normal and TM's normal bilaterally General nose exam: external nose normal Face and sinus: normal facial exam Mouth: oral mucosae normal Throat: posterior oropharynx normal Eyes General: appearance normal, both eyes and all related structures Alignment and Position: alignment normal Periorbital: periorbital findings normal Eyelids: eyelids normal Conjunctivae: conjunctivae normal Sclera: sclerae normal Cornea: corneas normal Pupils: PERRL EOM: EOM intact bilaterally Direct ophthalmoscopy: normal light reflex Neck Neck: normal visual inspection, full ROM, no lymphadenopathy, no meningeal signs, trachea midline and no JVD Thyroid: thyroid normal Carotids: normal carotid upstroke Lymphatic: no lymphadenopathy noted Chest Chest: normal inspection of the chest and normal palpation of entire chest wall Resp Effort & Inspection: tachypneic Auscultation: bronchovesicular breath sounds bilaterally, rhonchi right lower and wheezes scattered wheezes Cardio Jugular venous pressure: no JVD Palpation: normal PMI Rate: regular rate Rhythm: regular rhythm Heart Sounds: S1 normal, S2 normal and normal, physiologic split S2 Bruits: no abdominal aortic bruits, no carotid bruits and no renal bruits Pulses: normal peripheral pulses GI Inspection: normal to inspection and obesity Palpation: soft and no hepatosplenomegaly Percussion: normal to percussion Auscultation: normal bowel sounds Back/Spine/Pelvis Back: no CVA tenderness Skin Rashes: no rashes Wounds: wounds noted (chronic presacral and gluteal decubitus wounds along) Neuro General: alert, awake, oriented x3, moves all extremities, no focal motor deficits and decrease sensation to monofilament Cranial Nerves: EOM intact bilaterally Cognition: normal cognition Speech: speech normal Motor: muscle tone normal throughout, strength 5/5 throughout and no movement abnormalities noted Sensory Exam: lower extremity Extrem General: other (both lower legs were wrapped in bandages which I did not remove) Psych Appearance: grossly normal Mental Status: mental status grossly normal Speech and Movement: speech and movement normal Mood: congruent mood Affect: normal affect Attitude: cooperative Thought Process: normal Thought Content: normal Insight: insight good Judgment: judgment good Objective Objective Clinical Data: Abnormal lab results 06/29/18 06/30/18 06/30/18 Range/Units 19:32 07:05 07:05 WBC 20.69 H (4.4-10.8) k/cumm Hgb 11.9 L (13.5-17.5) g/dL MCV 77.7 L (80-95) fL MCH 22.5 L (27.0-33.0) pg MCHC 29.0 L (32.0-36.0) g/dL RDW 17.4 H (11.8-14.1) % MPV 11.4 H (8.0-11.0) fL Absolute Neutrophils 19.32 H (1.2-6.7) k/cumm Absolute Lymphocytes 0.89 L (1.2-3.4) k/cumm Sodium 135 L (136-145) mmol/L Chloride 96 L 96 L (98-107) mmol/L Carbon Dioxide 35.7 H 37.7 H (21.0-32.0) mmol/L BUN 26 H 21 H (7-18) mg/dL Glucose 393 H 315 H (70-100) mg/dL Magnesium 1.6 L (1.8-2.4) mg/dL Vital Signs Temperature 36.9 C 06/30/18 08:10 Temperature Source Tympanic 06/30/18 08:10 Pulse 80 06/30/18 08:10 Pulse Rhythm Regular 06/30/18 04:22 Respiratory Rate 18 06/30/18 08:10 Respiratory Effort 06/30/18 04:22 Respiratory Depth Normal 06/30/18 04:22 Respiratory Pattern Normal 06/30/18 04:22 Blood Pressure 122/72 06/30/18 08:10 Pulse Oximetry 94 L 06/30/18 08:10 Oxygen Delivery Method Nasal Cannula 06/30/18 08:10 Oxygen Flow Rate 4 06/30/18 08:10 Pain Level 6 06/30/18 08:39 Intake & Output 06/29/18 06/30/18 06/30/18 23:59 11:59 23:59 Intake Total 1557 / 4094 1070 / 1070 Output Total 1465 / 3755 575 / 575 Balance 92 / 339 495 / 495 Intake: IV 600 / 2100 500 / 500 Oral 957 / 1994 570 / 570 Output: Urine 1465 / 3755 575 / 575 Other: Urine Color Pale Yellow Urine Appearance Clear Clear Urine Odor None None Voiding Methods Urinal Urinal Laboratory Results WBC 20.69 k/cumm (4.4-10.8) H 06/30/18 07:05 RBC 5.28 m/cumm (4.50-6.00) 06/30/18 07:05 Hgb 11.9 g/dL (13.5-17.5) L 06/30/18 07:05 Hct 41.0 % (40.0-50.0) 06/30/18 07:05 MCV 77.7 fL (80-95) L 06/30/18 07:05 MCH 22.5 pg (27.0-33.0) L 06/30/18 07:05 MCHC 29.0 g/dL (32.0-36.0) L 06/30/18 07:05 RDW 17.4 % (11.8-14.1) H 06/30/18 07:05 Plt Count 347 x1000/uL (130-400) 06/30/18 07:05 MPV 11.4 fL (8.0-11.0) H 06/30/18 07:05 Immature Gran % 0.3 06/30/18 07:05 Neutrophils % 93.4 06/30/18 07:05 Band Neutrophils % 5.0 % 06/29/18 06:38 Lymphocytes % 4.3 06/30/18 07:05 Monocytes % 2.0 06/30/18 07:05 Eosinophils % 0.0 06/30/18 07:05 Basophils % 0.0 06/30/18 07:05 Absolute Neutrophils 19.32 k/cumm (1.2-6.7) H 06/30/18 07:05 Absolute Lymphocytes 0.89 k/cumm (1.2-3.4) L 06/30/18 07:05 Absolute Monocytes 0.41 k/cumm (0.11-0.7) 06/30/18 07:05 Absolute Eosinophils 0.00 k/cumm (0.0-0.7) 06/30/18 07:05 Absolute Basophils 0.00 k/cumm (0.0-0.2) 06/30/18 07:05 Differential Comment Manual differential 06/29/18 06:38 RBC Morphology See below 06/29/18 06:38 Polychromasia Present 06/29/18 06:38 Hypochromasia 1+ 06/29/18 06:38 Anisocytosis 1+ 06/29/18 06:38 PT 10.4 sec (9.3-11.0) 06/28/18 19:20 INR 1.0 (0.9-1.1) 06/28/18 19:20 APTT 23.2 sec (21.0-31.4) 06/28/18 19:20 Sodium 138 mmol/L (136-145) 06/30/18 07:05 Potassium 3.9 mmol/L (3.5-5.1) 06/30/18 07:05 Chloride 96 mmol/L (98-107) L 06/30/18 07:05 Carbon Dioxide 37.7 mmol/L (21.0-32.0) H 06/30/18 07:05 Anion Gap 4.3 mmol/L (3-11) 06/30/18 07:05 BUN 21 mg/dL (7-18) H 06/30/18 07:05 Creatinine 0.96 mg/dL (0.70-1.30) 06/30/18 07:05 Estimated GFR/1.73 m2 >= 60.00 (mL/min/1.73m2) 06/30/18 07:05 Glucose 315 mg/dL (70-100) H 06/30/18 07:05 Calcium 9.0 mg/dL (8.5-10.1) 06/30/18 07:05 Magnesium 1.6 mg/dL (1.8-2.4) L 06/30/18 07:05 Total Bilirubin 0.4 mg/dL (0.2-1.0) 06/28/18 19:20 AST 29 U/L (15-37) 06/28/18 19:20 ALT 26 U/L (12-78) 06/28/18 19:20 Alkaline Phosphatase 139 U/L (46-116) H 06/28/18 19:20 Troponin I < 0.02 ng/mL (0.00-0.06) 06/28/18 19:20 NT-Pro-B Natriuret Pep 69 pg/mL (-299) 06/28/18 19:20 Total Protein 9.8 g/dL (6.4-8.2) H 06/28/18 19:20 Albumin 2.9 g/dL (3.4-5.0) L 06/28/18 19:20 Legionella Source (see note) 06/29/18 00:30 Legionella Reprt Status (see note) 06/29/18 00:30 Legionella Final Result (see note) 06/29/18 00:30
--- NOTE | 2018-06-30 13:30 | PHARADMIT ---
Addendum entered by Alejandro Davis III 07/04/18 12:19: Pharmacy Note Subjective HCAP improving, feeling better Objective BP-143/82 VS-OK, Na-137, K+4.2, Mag-2.0 WBC-15.92 (up) FSBS-240 BG-279 Assessment On Cefepime, Levaquin, Vanco trough evaluated (18.4) yesterday, no changes, (Day#5) Steroids being tapered. Insulin adjjusted daily. [id number] Plan Working with PT, plans to return home. Follow Vancomycin, WBC, FSBS Original Note: Admission Pharmacy Clinical Review HCAP, hypoxemia Code Status Full Code Current Weight 203 kg Renally Cleared and Narrow Therapeutic Index Meds Crcl ~110.0 mL/min using lean body weight current meds okay QTc Value / Action Taken QTc 470 BP Control, Fever BP 122/72 afebrile Electrolytes reviewed Cl 96 mag 1.6 DVT Prophylaxis enoxaparin Opiate Usage / Scheduled Bowel Regimen Ordered td/td Plt/SCr for Heparin / Enoxaparin plt 347 SCr 0.96 INR for Warfarin n/a H/H stable, WBC/Bands h/h 11.9/41.0 wbc 20.69 Antibiotic appropriateness cefepime (day 1), levofloxacin and vanco (day 3) Cultures and Sensitivities blood cultures no growth @24 hours rapid flu- negative Surgical ABX d/c within 24 hr n/a DM control / Insulin Dosing BG 315 scheduled glargine; scheduled and sliding scale aspart Heart Failure (Check EF%) (BENJAMIN's, B-Block, Diuretics) furosemide, other home meds not currently ordered IV to PO Switch n/a Home Meds Reviewed multiple MANAGER FILTER depressants-morphine, amitriptyline, gabapentin Home Meds Not Ordered flovent (asmanex substituted), glipizide, insulin degludec (has glargine and aspart ordered), losartan, metformin, metoprolol Comments vanco trough ordered for tomorrow @1100
[2018-06-30] MEDS: MAGNESIUM SULFATE 2 GM/50 ML BAG IVPB (13:39)
[2018-06-30] MEDS: VANCOMYCIN 1,500 MG in Normal Saline 500 ML 333.33 MG IVPB ×2 (13:39→23:54)
[2018-06-30] MEDS: LEVOFLOXACIN 500 MG, LEVOFLOXACIN 250 MG 750 MG PO (13:40)
[2018-06-30 16:04] VITALS: BP 158/90; PULSE 65; RESP 18; TEMP 35.3; O2SAT 97
[2018-06-30] MEDS: Mometasone 220 MCG 14 DOSE INHALER 1 PUFF IH (20:11)
--- NOTE | 2018-06-30 20:38 | PDOC.CMPRO ---
Care Management Progress Note S/O: Peter was sitting on the side of his bed, talking on the phone when CM attempted to meet with him. He appeared friendly; smiled and waved and appeared to have just washed up as his hair was wet. No change to overall plan at this time; outpatient providers will likely resume discharge planning on Monday. CM will continue to follow. A: 58 year old male admitted to [facility] 06/28/18 for HCAP, Hypoxia P: Peter will return home with a resumption of home health RN services, as well as supports through [facility] Support services, and his caregiver Cash. Peter will follow up with his PCP and plan of care as prescribed. He will transport via private vehicle with caregiver Cash or Luz.
--- NOTE | 2018-06-30 21:03 | PDOC.ANES ---
Date of service: 06/30/18 Time of Service: 21:04 Anesthesia Note Report Anesthesia Note: Consulted to place a midline on this gentleman due to multiple IV attempts that were unsuccessful or stopped working after a period of time. He is 58 yo with BMI of 64.2. Left arm used, tourniquet applied, prepped with chloroprep and left basilic vein identified. 1% lidocaine to skin and subcutaneous tissue. 18 gauge 10cm BARD Powerglide Pro advanced under ultrasound until inside vessel. Guidewire advanced with ease, catheter advanced with ease. Noted non pulsatile blood flow. Saline lock placed as well as statlock device and dressing secured. Nursing staff notified and advised given location and amount of soft tissue around line to assess it regularly for infiltration/extravasation. Plan is to use this for now and likely rewire it to a PICC line on Monday given need for 10 days of antibiotics. Pt. tolerated procedure well with no complications encountered.
[2018-06-30] MEDS: Amitriptyline 50 MG TAB 150 MG PO (22:07)
[2018-06-30] MEDS: traZODone 50 MG TAB 150 MG PO (22:07)
[2018-06-30] MEDS: Enoxaparin 40 MG/0.4 ML SYR SC (22:08)
[2018-06-30] MEDS: Insulin Glargine 300 UNITS/3 ML PEN 60 UNITS SC (22:09)
[2018-06-30 23:12] VITALS: BP 135/68; PULSE 106; RESP 20; TEMP 36.7; O2SAT 92
[2018-07-01 00:24] VITALS: RESP 1
[2018-07-01] MEDS: CEFEPIME 2 GM in Normal Saline 100 ML IVPB ×3 (06:16→21:50)
[2018-07-01] MEDS: Albuterol/Ipratropium 3 ML UPD VIAL UPD ×4 (06:17→23:31)
[2018-07-01] MEDS: methylPREDNISolone SUCC 125 MG VIAL 60 MG IVP ×3 (06:17→21:46)
[2018-07-01 07:59] LABS: Abs Immature Grans 0.08 k/cumm (0.0-0.09); Absolute Lymphocyte Count 0.99 k/cumm (1.2-3.4); Absolute Monocyte Count 0.62 k/cumm (0.11-0.7); Absolute Neutrophil Count 10.22 k/cumm (1.2-6.7); HCT 39.2 % (40.0-50.0); HGB 11.7 g/dL (13.5-17.5); Immature Grans % 0.7; Lymphocytes % 8.3; Mean Corp. HGB Concentration 29.8 g/dL (32.0-36.0); Mean Corpuscular Hemoglobin 22.9 pg (27.0-33.0); Mean Corpuscular Volume 76.6 fL (80-95); Mean Platelet Volume 11.3 fL (8.0-11.0); Monocytes % 5.2; Neutrophils % 85.8; Platelet Count 334 x1000/uL (130-400); RBC 5.12 m/cumm (4.50-6.00); RBC Distribution Width 17.3 % (11.8-14.1); White Blood Cell Count 11.91 k/cumm (4.4-10.8)
[2018-07-01 08:07] LABS: Anion Gap 3.4 mmol/L (3-11); BUN 25 mg/dL (7-18); CO2 38.6 mmol/L (21.0-32.0); CREATININE 0.94 mg/dL (0.70-1.30); Chloride 94 mmol/L (98-107); Glucose 404 mg/dL (70-100); Magnesium 1.8 mg/dL (1.8-2.4); Sodium 136 mmol/L (136-145)
[2018-07-01 08:10] VITALS: BP 164/95; PULSE 71; RESP 22; TEMP 35.4; O2SAT 90
[2018-07-01] MEDS: Normal Saline Flush 10 ML SYR IVP ×3 (08:31→21:50)
[2018-07-01] MEDS: Nystatin CREAM 15 GM TUBE TP ×2 (08:31→20:22)
[2018-07-01] MEDS: Furosemide 40 MG/4 ML VIAL IVP ×2 (08:31→16:29)
[2018-07-01] MEDS: Insulin Glargine 300 UNITS/3 ML PEN 30 UNITS SC (08:32)
[2018-07-01] MEDS: Insulin Aspart 300 UNITS/3 ML PEN SC ×4 (08:33→21:53)
[2018-07-01] MEDS: Insulin Aspart 300 UNITS/3 ML PEN 20 UNITS SC ×3 (08:33→16:56)
[2018-07-01] MEDS: Benzonatate 200 MG CAP PO ×3 (08:36→20:05)
[2018-07-01] MEDS: LEVOFLOXACIN 500 MG, LEVOFLOXACIN 250 MG 750 MG PO (08:36)
[2018-07-01] MEDS: Omeprazole 20 MG CAPCR PO ×2 (08:36→20:05)
[2018-07-01] MEDS: guaiFENesin 600 MG TABCR 1200 MG PO ×2 (08:36→20:05)
[2018-07-01] MEDS: Gabapentin 300 MG CAP 600 MG PO (08:36)
[2018-07-01 09:20] VITALS: O2SAT 94
[2018-07-01] MEDS: Budesonide/Formoterol 160/4.5 6 GM 60 PUFF INH IH ×2 (09:21→20:14)
[2018-07-01] MEDS: Magnesium Oxide 400 MG TAB PO ×3 (10:16→21:49)
--- NOTE | 2018-07-01 10:26 | PDOC.CMPRO ---
Care Management Progress Note S/O: Peter was lying on his bed when CM met with him. 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 He had his TV on and his tablet in hand. He reported feeling better physically and felt that he would be able to return home when ready. No change to overall plan at this time; outpatient providers will likely resume discharge planning when available on Monday. CM will continue to follow. A: 58 year old male admitted to [facility] 06/28/18 for HCAP, Hypoxia P: Peter will return home with a resumption of home health RN services, as well as supports through [facility] Support services, and his caregiver Cash. Peter will follow up with his PCP and plan of care as prescribed. He will transport via private vehicle with caregiver Cash or Luz.
[2018-07-01 11:38] LABS: Vancomycin, Trough 17.3 ug/mL (10.0-20.0)
[2018-07-01] MEDS: VANCOMYCIN 1,500 MG in Normal Saline 500 ML 333.33 MG IVPB ×2 (12:16→23:34)
--- NOTE | 2018-07-01 12:51 | PT.INTREAT ---
Date of service: 07/01/18 Time of Service: 09:30 PT Notes Inpatient Physical Therapy Treatment Note [facility] Date: 07/01/18 PRECAUTIONS: Standard and Fall SUBJECTIVE: Indicated he knows he has to build up his leg strength to be able to stand better. Wants to be able to walk again. OBJECTIVE: PAIN: No report of pain, but did get very fatigued when attempting to get himself from seated on edge of bed to supine. Needed to take a short 3-5 minute break. BED MOBILITY/TRANSFERS Rolling L/R: Independent with stand by guarding Supine-sit: Independent with stand by guarding Sit-supine: Independent with stand by guarding THEREX: Performed supine positioned SLRs for 10 reps without assist today and bridging for 10 reps with focus on good breathing pattern. While on edge of bed patient performed APs, SAQs, seated hip flexion, seated hip abd/adduction and UE horizontal shoulder abd/adduction, shoulder flexion and elbow flexion / extension for 10 reps x 2 sets each. ASSESSMENT: Tolerated today's PT session well with good effort given. Very determined to get more independent. Would benefit from a larger bed. PLAN: Continue with current POC with focus on improved UE/LE strength and ADL function. TREATMENT CODE/TIME: 9:30 to 10:00 (30'), [id number] x 2 Mae Laguna [employer]UST[employer] CONSULTANT
--- NOTE | 2018-07-01 13:02 | PTTR_ITS ---
Date of service: 07/01/18 Time of Service: 09:30 PT Notes Inpatient Physical Therapy Treatment Note [facility] Date: 07/01/18 PRECAUTIONS: Standard and Fall SUBJECTIVE: Indicated he knows he has to build up his leg strength to be able to stand better. Wants to be able to walk again. OBJECTIVE: PAIN: No report of pain, but did get very fatigued when attempting to get hims elf from seated on edge of bed to supine. Needed to take a short 3-5 minute break. BED MOBILITY/TRANSFERS Rolling L/R: Independent with stand by guarding Supine-sit: Independent with stand by guarding Sit-supine: Independent with stand by guarding THEREX: Performed supine positioned SLRs for 10 reps without assist today and bridging for 10 reps with focus on good breathing pattern. While on edge of bed patient performed APs, SAQs, seated hip flexion, seated hip abd/adduction and UE horizontal shoulder abd/adduction, shoulder flexion and elbow flexion / extension for 10 reps x 2 sets each. ASSESSMENT: Tolerated today's PT session well with good effort given. Very determined to get more independent. Would benefit from a larger bed. PLAN: Continue with current POC with focus on improved UE/LE strength and ADL function. TREATMENT CODE/TIME: 9:30 to 10:00 (30'), [id number] x 2 Mae Laguna CERTIFIED MIDWIFE
--- NOTE | 2018-07-01 14:46 | W.PM.PROGNOT ---
Date of Service Date of service: 07/01/18 Time of Service: 14:47 Assessment and Plan (1) HCAP (healthcare-associated pneumonia): Start date: 07/01/18 Start time: 14:49 Current visit: Yes Status: Acute Day 2 of vanco, day 2 of levaquin, day 1 of cefepime. Continue Antbx. Breathing improved. 91% on RA not requiring oxygen. Continue steroids, nebs, ICS and accapella (2) Steroid-induced hyperglycemia: Start date: 07/01/18 Start time: 14:53 Current visit: Yes Status: Acute glucose in 400's poorly controlled diabetic on steroids. Will continue to titrate lantus as needed. (3) Acute on chronic diastolic (congestive) heart failure: Start date: 07/01/18 Start time: 14:54 Current visit: Yes Status: Acute Continue diuresis. Lung sounds and breathing improving. Fine crackles in bases will continue with current regimen. (4) DVT prophylaxis: Start date: 07/01/18 Start time: 14:54 Current visit: Yes Status: Acute lovenox subcu (5) Pressure ulcer: Start date: 07/01/18 Start time: 14:55 Current visit: No Status: Chronic managed by wound care continue recommendations Qualifiers: Laterality: left Pressure injury location: calf Pressure injury stage: stage 3 Qualified Code(s): L89.893 - Pressure ulcer of other site, stage 3 (6) Discharge planning issues: Start date: 07/01/18 Start time: 14:56 Current visit: Yes Status: Acute will go home when medically cleared. Full code Subjective Patient reports: feels better Interval history since last seen: Mr. Hidalgo is a 58 y.o male recently admitted for CAP, Dcd on 06/24 returning on 06/28 for cough, worsening SOB, CXR showed RLL infiltrate that was worse from previous admission. He was started on vanco, levaquin, steroids, lasix and nebs. Today he is feeling better, He states he can breath better and feels much better. RA sat was 91% and he is only using Cpap at this time for sleep. He was lying down and half asleep on CPAP when I walked in. He did not have SOB when talking. He did have some fine crackles, I will keep him on his current dose of steroids and diuretics. I encouraged him to get OOB he has agreed to sit up in a reclining chair. His glucose levels are still in 400's if this continues tomorrow, lantus will be adjusted. He will receive a repeat CXR tomorrow. Continue to monitor weights and I/O. He denies CP, SOB, diarrhea. Exam Narrative Exam Narrative: General: obese male, very pleasant, not in acute distress, able to lay down nearly flat HEENT: EOMI, MMM Heart: RRR, no m/r/g Lungs: Rhonci expiration, fine crackles in bases. GI: abdomen obese, soft, nontender Extremities: BLE's with +2 edema, chronic venous stasis dermatitis, wounds that are dressed at the time of exam Const General: cooperative, no acute distress and ill appearing Nutritional Appearance: obese Orientation: alert, awake and oriented x3 HENMT Head: normal to inspection and normocephalic Ears: hearing grossly normal bilaterally, external ears normal and TM's normal bilaterally General nose exam: external nose normal Face and sinus: normal facial exam Mouth: oral mucosae normal Throat: posterior oropharynx normal Eyes General: appearance normal, both eyes and all related structures Alignment and Position: alignment normal Periorbital: periorbital findings normal Eyelids: eyelids normal Conjunctivae: conjunctivae normal Sclera: sclerae normal Cornea: corneas normal Pupils: PERRL EOM: EOM intact bilaterally Direct ophthalmoscopy: normal light reflex Neck Neck: normal visual inspection, full ROM, no lymphadenopathy, no meningeal signs, trachea midline and no JVD Thyroid: thyroid normal Carotids: normal carotid upstroke Lymphatic: no lymphadenopathy noted Chest Chest: normal inspection of the chest and normal palpation of entire chest wall Resp Effort & Inspection: tachypneic Auscultation: bronchovesicular breath sounds, rhonchi and wheezes Cardio Jugular venous pressure: no JVD Palpation: normal PMI Rate: regular rate Rhythm: regular rhythm Heart Sounds: S1 normal, S2 normal and normal, physiologic split S2 Bruits: no abdominal aortic bruits, no carotid bruits and no renal bruits Pulses: normal peripheral pulses GI Inspection: normal to inspection and obesity Palpation: soft and no hepatosplenomegaly Percussion: normal to percussion Auscultation: normal bowel sounds Back/Spine/Pelvis Back: no CVA tenderness Skin Rashes: no rashes Wounds: wounds noted (chronic presacral and gluteal decubitus wounds along) Neuro General: alert, awake, oriented x3, moves all extremities, no focal motor deficits and decrease sensation to monofilament Cranial Nerves: EOM intact bilaterally Cognition: normal cognition Speech: speech normal Motor: muscle tone normal throughout, strength 5/5 throughout and no movement abnormalities noted Sensory Exam: lower extremity Extrem General: other (both lower legs were wrapped in bandages which I did not remove) Psych Appearance: grossly normal Mental Status: mental status grossly normal Speech and Movement: speech and movement normal Mood: congruent mood Affect: normal affect Attitude: cooperative Thought Process: normal Thought Content: normal Insight: insight good Judgment: judgment good Objective Objective Clinical Data: Abnormal lab results 07/01/18 07/01/18 Range/Units 07:30 07:30 WBC 11.91 H D (4.4-10.8) k/cumm Hgb 11.7 L (13.5-17.5) g/dL Hct 39.2 L (40.0-50.0) % MCV 76.6 L (80-95) fL MCH 22.9 L (27.0-33.0) pg MCHC 29.8 L (32.0-36.0) g/dL RDW 17.3 H (11.8-14.1) % MPV 11.3 H (8.0-11.0) fL Absolute Neutrophils 10.22 H (1.2-6.7) k/cumm Absolute Lymphocytes 0.99 L (1.2-3.4) k/cumm Chloride 94 L (98-107) mmol/L Carbon Dioxide 38.6 H (21.0-32.0) mmol/L BUN 25 H (7-18) mg/dL Glucose 404 H (70-100) mg/dL Vital Signs Temperature 35.4 C L 07/01/18 08:10 Temperature Source Tympanic 07/01/18 08:10 Pulse 71 07/01/18 08:10 Pulse Rhythm Regular 07/01/18 12:35 Respiratory Rate 22 07/01/18 08:10 Respiratory Effort 07/01/18 12:35 Respiratory Depth Normal 07/01/18 12:35 Respiratory Pattern Normal 07/01/18 12:35 Blood Pressure 164/95 H 07/01/18 08:10 Pulse Oximetry 94 L 07/01/18 09:20 Oxygen Delivery Method Nasal Cannula 07/01/18 09:20 Oxygen Flow Rate 2 07/01/18 09:20 Pain Level 7 07/01/18 06:35 Comment 07/01/18 08:10 Intake & Output 06/30/18 07/01/18 07/01/18 23:59 11:59 23:59 Intake Total 840 / 2460 1060 / 1310 250 / 1310 Output Total 650 / 2225 2300 / 2900 600 / 2900 Balance 190 / 235 -1240 / -1590 -350 / -1590 Weight 202.4 kg Intake: IV 600 / 1100 700 / 700 Oral 240 / 1360 360 / 610 250 / 610 Output: Urine 650 / 2225 2300 / 2900 600 / 2900 Other: Urine Color Light Keely Yellow Yellow Urine Appearance Clear Clear Clear Urine Odor None None Voiding Methods Urinal Urinal Urinal Laboratory Results WBC 11.91 k/cumm (4.4-10.8) H D 07/01/18 07:30 RBC 5.12 m/cumm (4.50-6.00) 07/01/18 07:30 Hgb 11.7 g/dL (13.5-17.5) L 07/01/18 07:30 Hct 39.2 % (40.0-50.0) L 07/01/18 07:30 MCV 76.6 fL (80-95) L 07/01/18 07:30 MCH 22.9 pg (27.0-33.0) L 07/01/18 07:30 MCHC 29.8 g/dL (32.0-36.0) L 07/01/18 07:30 RDW 17.3 % (11.8-14.1) H 07/01/18 07:30 Plt Count 334 x1000/uL (130-400) 07/01/18 07:30 MPV 11.3 fL (8.0-11.0) H 07/01/18 07:30 Immature Gran % 0.7 07/01/18 07:30 Neutrophils % 85.8 07/01/18 07:30 Band Neutrophils % 5.0 % 06/29/18 06:38 Lymphocytes % 8.3 07/01/18 07:30 Monocytes % 5.2 07/01/18 07:30 Eosinophils % 0.0 07/01/18 07:30 Basophils % 0.0 07/01/18 07:30 Absolute Neutrophils 10.22 k/cumm (1.2-6.7) H 07/01/18 07:30 Absolute Lymphocytes 0.99 k/cumm (1.2-3.4) L 07/01/18 07:30 Absolute Monocytes 0.62 k/cumm (0.11-0.7) 07/01/18 07:30 Absolute Eosinophils 0.00 k/cumm (0.0-0.7) 07/01/18 07:30 Absolute Basophils 0.00 k/cumm (0.0-0.2) 07/01/18 07:30 Differential Comment Manual differential 06/29/18 06:38 RBC Morphology See below 06/29/18 06:38 Polychromasia Present 06/29/18 06:38 Hypochromasia 1+ 06/29/18 06:38 Anisocytosis 1+ 06/29/18 06:38 PT 10.4 sec (9.3-11.0) 06/28/18 19:20 INR 1.0 (0.9-1.1) 06/28/18 19:20 APTT 23.2 sec (21.0-31.4) 06/28/18 19:20 Sodium 136 mmol/L (136-145) 07/01/18 07:30 Potassium 4.0 mmol/L (3.5-5.1) 07/01/18 07:30 Chloride 94 mmol/L (98-107) L 07/01/18 07:30 Carbon Dioxide 38.6 mmol/L (21.0-32.0) H 07/01/18 07:30 Anion Gap 3.4 mmol/L (3-11) 07/01/18 07:30 BUN 25 mg/dL (7-18) H 07/01/18 07:30 Creatinine 0.94 mg/dL (0.70-1.30) 07/01/18 07:30 Estimated GFR/1.73 m2 >= 60.00 (mL/min/1.73m2) 07/01/18 07:30 Glucose 404 mg/dL (70-100) H 07/01/18 07:30 Calcium 9.0 mg/dL (8.5-10.1) 07/01/18 07:30 Magnesium 1.8 mg/dL (1.8-2.4) 07/01/18 07:30 Total Bilirubin 0.4 mg/dL (0.2-1.0) 06/28/18 19:20 AST 29 U/L (15-37) 06/28/18 19:20 ALT 26 U/L (12-78) 06/28/18 19:20 Alkaline Phosphatase 139 U/L (46-116) H 06/28/18 19:20 Troponin I < 0.02 ng/mL (0.00-0.06) 06/28/18 19:20 NT-Pro-B Natriuret Pep 69 pg/mL (-299) 06/28/18 19:20 Total Protein 9.8 g/dL (6.4-8.2) H 06/28/18 19:20 Albumin 2.9 g/dL (3.4-5.0) L 06/28/18 19:20 Vancomycin Trough 17.3 ug/mL (10.0-20.0) 07/01/18 11:18 Legionella Source (see note) 06/29/18 00:30 Legionella Reprt Status (see note) 06/29/18 00:30 Legionella Final Result (see note) 06/29/18 00:30
[2018-07-01 16:03] VITALS: BP 147/87; PULSE 95; RESP 20; TEMP 36.4; O2SAT 96
[2018-07-01] MEDS: Gabapentin 600 MG TAB PO (20:05)
[2018-07-01] MEDS: Mometasone 220 MCG 14 DOSE INHALER 1 PUFF IH (20:15)
[2018-07-01] MEDS: Amitriptyline 50 MG TAB 150 MG PO (21:49)
[2018-07-01] MEDS: traZODone 50 MG TAB 150 MG PO (21:49)
[2018-07-01] MEDS: Enoxaparin 40 MG/0.4 ML SYR SC (21:49)
[2018-07-01] MEDS: Insulin Glargine 300 UNITS/3 ML PEN 60 UNITS SC (21:54)
[2018-07-01 23:31] VITALS: RESP 20; RESP 7; O2SAT 96
[2018-07-02] VITALS (11 sets, daily range): BP systolic 134–161; BP diastolic 75–98; PULSE 66–116; RESP 1–26; TEMP 36.2–36.7; O2SAT 91–98
[2018-07-02] MEDS: methylPREDNISolone SUCC 125 MG VIAL 60 MG IVP (05:40)
[2018-07-02] MEDS: Normal Saline Flush 10 ML SYR IVP ×5 (05:41→23:41)
[2018-07-02] MEDS: CEFEPIME 2 GM in Normal Saline 100 ML IVPB ×3 (05:42→21:15)
[2018-07-02] MEDS: Albuterol/Ipratropium 3 ML UPD VIAL UPD ×4 (05:42→23:35)
[2018-07-02 07:29] LABS: Abs Immature Grans 0.05 k/cumm (0.0-0.09); Absolute Basophil Count 0.01 k/cumm (0.0-0.2); Absolute Lymphocyte Count 0.97 k/cumm (1.2-3.4); Absolute Monocyte Count 0.63 k/cumm (0.11-0.7); Basophils % 0.1; HCT 39.2 % (40.0-50.0); HGB 11.6 g/dL (13.5-17.5); Immature Grans % 0.4; Lymphocytes % 8.5; Mean Corp. HGB Concentration 29.6 g/dL (32.0-36.0); Mean Corpuscular Hemoglobin 22.9 pg (27.0-33.0); Mean Corpuscular Volume 77.3 fL (80-95); Mean Platelet Volume 11.2 fL (8.0-11.0); Monocytes % 5.5; Neutrophils % 85.5; Platelet Count 323 x1000/uL (130-400); RBC 5.07 m/cumm (4.50-6.00); RBC Distribution Width 17.4 % (11.8-14.1); White Blood Cell Count 11.41 k/cumm (4.4-10.8)
[2018-07-02 07:32] LABS: Absolute Neutrophil Count 9.76 k/cumm (1.2-6.7)
[2018-07-02 07:36] LABS: Anion Gap 0.3 mmol/L (3-11); BUN 30 mg/dL (7-18); CO2 39.7 mmol/L (21.0-32.0); CREATININE 1.06 mg/dL (0.70-1.30); Calcium 9.2 mg/dL (8.5-10.1); Chloride 95 mmol/L (98-107); Glucose 377 mg/dL (70-100); Magnesium 1.8 mg/dL (1.8-2.4); Potassium 4.1 mmol/L (3.5-5.1); Sodium 135 mmol/L (136-145)
[2018-07-02] MEDS: guaiFENesin 600 MG TABCR 1200 MG PO ×2 (07:51→19:55)
[2018-07-02] MEDS: LEVOFLOXACIN 500 MG, LEVOFLOXACIN 250 MG 750 MG PO (07:51)
[2018-07-02] MEDS: Gabapentin 600 MG TAB PO ×2 (07:51→19:55)
[2018-07-02] MEDS: Omeprazole 20 MG CAPCR PO ×2 (07:51→19:55)
[2018-07-02] MEDS: Benzonatate 200 MG CAP PO ×3 (07:51→19:55)
[2018-07-02] MEDS: Furosemide 40 MG TAB PO ×2 (07:58→17:06)
[2018-07-02] MEDS: Lactobacillus Acidophilus CAP 1 CAP PO ×3 (07:59→19:55)
[2018-07-02] MEDS: Insulin Aspart 300 UNITS/3 ML PEN 20 UNITS SC ×3 (08:00→17:07)
[2018-07-02] MEDS: Insulin Aspart 300 UNITS/3 ML PEN SC ×4 (08:00→21:17)
[2018-07-02] MEDS: Insulin Glargine 300 UNITS/3 ML PEN 60 UNITS SC ×2 (08:01→21:18)
[2018-07-02] MEDS: Nystatin CREAM 15 GM TUBE TP ×2 (09:30→20:00)
[2018-07-02] MEDS: Magnesium Oxide 400 MG TAB PO ×2 (09:51→21:13)
--- NOTE | 2018-07-02 09:52 | DI.RAD_ITS ---
SYMPTOM/DIAGNOSIS: HYPOXIA PORTABLE CHEST: There are again seen bilateral interstitial infiltrates noted without significant change. No focal consolidating infiltrates or effusions seen. No pneumothorax is identified. IMPRESSION: Overall stable appearance of the chest since 06/28/18.
[2018-07-02] MEDS: Budesonide/Formoterol 160/4.5 6 GM 60 PUFF INH IH ×2 (10:07→19:58)
[2018-07-02 10:34] LABS: Streptococcus Pneumoniae Ag, U Negative (Negative)
[2018-07-02] MEDS: methylPREDNISolone SUCC 40 MG VIAL IVP ×2 (11:34→19:56)
[2018-07-02] MEDS: VANCOMYCIN 1,500 MG in Normal Saline 500 ML 333 MG IVPB (11:35)
--- NOTE | 2018-07-02 14:19 | PDOC.CMPRO ---
- If Service Date Differs Date of service: 07/02/18 Time of Service: 14:20 Care Management Progress Note S/O: Peter is lying in bed when this poem writer visits this morning, he has his computer at the hospital and enjoys playing on it. SHEBA received a call from MIRLANDE Lisa, inquiring about Peter's current care, and requesting an update. SHEBA updated Sloan on Peter's current stay at [facility], as well as his DC plan of returning to his caregiver Cash's home. A: 58 y/o male admitted 06/28/18 for HCAP, Hypoxia P: Peter will return to his caregiver Cash's home in [place] once medically cleared. He will resume home health RN services, and F/U with PCP and plan of care as prescribed. Peter's caregiver to transport when ready.
--- NOTE | 2018-07-02 14:26 | W.PM.PROGNOT ---
Date of Service Date of service: 07/02/18 Time of Service: 14:43 Assessment and Plan (1) HCAP (healthcare-associated pneumonia): Start date: 07/02/18 Start time: 14:27 Current visit: Yes Status: Acute Day 3 of vanco, day 3 of levaquin, day 2 of cefepime. Continue Antbx. Breathing improved. 98% on RA not requiring oxygen. Continue steroids, nebs, ICS and accapella. Weaning steroids as pt is feeling improved. (2) Steroid-induced hyperglycemia: Start date: 07/02/18 Start time: 14:27 Current visit: Yes Status: Acute glucose in 300's, titrated lantus to 60 in am and 60 HS. Poorly controlled diabetic on steroids. Weaning down steroids this should help with glucose levels. (3) Acute on chronic diastolic (congestive) heart failure: Start date: 07/02/18 Start time: 14:32 Current visit: Yes Status: Acute Continue diuresis. Lung sounds and breathing improving, no Fine crackles in bases, weaning diuersis to home dose. Will conintue to montior. Edema to bilateral extremities is trace. (4) DVT prophylaxis: Start date: 07/02/18 Start time: 14:41 Current visit: Yes Status: Acute lovenox subcu (5) Pressure ulcer: Start date: 07/02/18 Start time: 14:41 Current visit: No Status: Chronic managed by wound care continue recommendations, wounds to legs per Dr. Schultz recommendation Qualifiers: Laterality: left Pressure injury location: calf Pressure injury stage: stage 3 Qualified Code(s): L89.893 - Pressure ulcer of other site, stage 3 (6) Discharge planning issues: Start date: 07/02/18 Start time: 14:42 Current visit: Yes Status: Acute will go home when medically cleared. Full code Subjective Patient reports: feels better Interval history since last seen: Mr. Hidalgo is a 58 y.o male recently admitted for CAP, Dcd on 06/24 returning on 06/28 for cough, worsening SOB, CXR showed RLL infiltrate that was worse from previous admission. He was started on vanco, levaquin, steroids, lasix and nebs. Today he is feeling better, He states he can breath better and feels much better. RA sat is 98% with CPAP at HS. No crackles or wheezing. No SOB. BLE with trace edema. Steroids are being weaned as he is improving. Repeat CXR is pending, treatment will continue with vanco, levaquin and cefepime. Lasix is being titrated to home dose. Glucose in 300's still, lantus has been titrated to 60 q daily and at HS. with steroids being weaned pt should start to have better control. He was able to get up today and stand up with walker which is the most he has been able to do in days. Exam Narrative Exam Narrative: General: obese male, very pleasant, not in acute distress, able to lay down nearly flat HEENT: EOMI, MMM Heart: RRR, no m/r/g Lungs: Rhonci expiration, fine crackles in bases. GI: abdomen obese, soft, nontender Extremities: BLE's with +2 edema, chronic venous stasis dermatitis, wounds that are dressed at the time of exam Const General: cooperative, no acute distress and ill appearing Nutritional Appearance: obese Orientation: alert, awake and oriented x3 HENMT Head: normal to inspection and normocephalic Ears: hearing grossly normal bilaterally, external ears normal and TM's normal bilaterally General nose exam: external nose normal Face and sinus: normal facial exam Mouth: oral mucosae normal Throat: posterior oropharynx normal Eyes General: appearance normal, both eyes and all related structures Alignment and Position: alignment normal Periorbital: periorbital findings normal Eyelids: eyelids normal Conjunctivae: conjunctivae normal Sclera: sclerae normal Cornea: corneas normal Pupils: PERRL EOM: EOM intact bilaterally Direct ophthalmoscopy: normal light reflex Neck Neck: normal visual inspection, full ROM, no lymphadenopathy, no meningeal signs, trachea midline and no JVD Thyroid: thyroid normal Carotids: normal carotid upstroke Lymphatic: no lymphadenopathy noted Chest Chest: normal inspection of the chest and normal palpation of entire chest wall Resp Effort & Inspection: tachypneic Auscultation: bronchovesicular breath sounds, rhonchi and wheezes Cardio Jugular venous pressure: no JVD Palpation: normal PMI Rate: regular rate Rhythm: regular rhythm Heart Sounds: S1 normal, S2 normal and normal, physiologic split S2 Bruits: no abdominal aortic bruits, no carotid bruits and no renal bruits Pulses: normal peripheral pulses GI Inspection: normal to inspection and obesity Palpation: soft and no hepatosplenomegaly Percussion: normal to percussion Auscultation: normal bowel sounds Back/Spine/Pelvis Back: no CVA tenderness Skin Rashes: no rashes Wounds: wounds noted (chronic presacral and gluteal decubitus wounds along) Neuro General: alert, awake, oriented x3, moves all extremities, no focal motor deficits and decrease sensation to monofilament Cranial Nerves: EOM intact bilaterally Cognition: normal cognition Speech: speech normal Motor: muscle tone normal throughout, strength 5/5 throughout and no movement abnormalities noted Sensory Exam: lower extremity Extrem General: other (both lower legs were wrapped in bandages which I did not remove) Psych Appearance: grossly normal Mental Status: mental status grossly normal Speech and Movement: speech and movement normal Mood: congruent mood Affect: normal affect Attitude: cooperative Thought Process: normal Thought Content: normal Insight: insight good Judgment: judgment good Objective Objective Clinical Data: Abnormal lab results 07/02/18 07/02/18 Range/Units 06:50 06:50 WBC 11.41 H (4.4-10.8) k/cumm Hgb 11.6 L (13.5-17.5) g/dL Hct 39.2 L (40.0-50.0) % MCV 77.3 L (80-95) fL MCH 22.9 L (27.0-33.0) pg MCHC 29.6 L (32.0-36.0) g/dL RDW 17.4 H (11.8-14.1) % MPV 11.2 H (8.0-11.0) fL Absolute Neutrophils 9.76 H (1.2-6.7) k/cumm Absolute Lymphocytes 0.97 L (1.2-3.4) k/cumm Sodium 135 L (136-145) mmol/L Chloride 95 L (98-107) mmol/L Carbon Dioxide 39.7 H (21.0-32.0) mmol/L Anion Gap 0.3 L (3-11) mmol/L BUN 30 H (7-18) mg/dL Glucose 377 H (70-100) mg/dL Vital Signs Temperature 36.2 C L 07/02/18 07:45 Temperature Source Tympanic 07/02/18 07:45 Pulse 110 H 07/02/18 12:53 Pulse Rhythm Regular 07/02/18 07:44 Respiratory Rate 26 H 07/02/18 12:53 Respiratory Effort Non-Labored 07/02/18 07:44 Respiratory Depth Normal 07/02/18 07:44 Respiratory Pattern Normal 07/02/18 07:44 Blood Pressure 134/79 07/02/18 07:45 Pulse Oximetry 98 07/02/18 12:53 Oxygen Delivery Method Room Air 07/02/18 12:53 Oxygen Flow Rate 0 07/02/18 12:53 Pain Level 6 07/02/18 07:45 Comment 07/02/18 03:50 Intake & Output 07/01/18 07/02/18 07/02/18 23:59 11:59 23:59 Intake Total 994 / 2054 1320 / 1560 240 / 1560 Output Total 1850 / 4150 1700 / 1700 Balance -856 / -2096 -380 / -140 240 / -140 Intake: IV 744 / 1444 600 / 600 Oral 250 / 610 720 / 960 240 / 960 Output: Urine 1850 / 4150 1700 / 1700 Other: Urine Color Pale Yellow Urine Appearance Clear Clear Urine Odor Normal Normal Voiding Methods Urinal Urinal Incontinent Laboratory Results WBC 11.41 k/cumm (4.4-10.8) H 07/02/18 06:50 RBC 5.07 m/cumm (4.50-6.00) 07/02/18 06:50 Hgb 11.6 g/dL (13.5-17.5) L 07/02/18 06:50 Hct 39.2 % (40.0-50.0) L 07/02/18 06:50 MCV 77.3 fL (80-95) L 07/02/18 06:50 MCH 22.9 pg (27.0-33.0) L 07/02/18 06:50 MCHC 29.6 g/dL (32.0-36.0) L 07/02/18 06:50 RDW 17.4 % (11.8-14.1) H 07/02/18 06:50 Plt Count 323 x1000/uL (130-400) 07/02/18 06:50 MPV 11.2 fL (8.0-11.0) H 07/02/18 06:50 Immature Gran % 0.4 07/02/18 06:50 Neutrophils % 85.5 07/02/18 06:50 Band Neutrophils % 5.0 % 06/29/18 06:38 Lymphocytes % 8.5 07/02/18 06:50 Monocytes % 5.5 07/02/18 06:50 Eosinophils % 0.0 07/02/18 06:50 Basophils % 0.1 07/02/18 06:50 Absolute Neutrophils 9.76 k/cumm (1.2-6.7) H 07/02/18 06:50 Absolute Lymphocytes 0.97 k/cumm (1.2-3.4) L 07/02/18 06:50 Absolute Monocytes 0.63 k/cumm (0.11-0.7) 07/02/18 06:50 Absolute Eosinophils 0.00 k/cumm (0.0-0.7) 07/02/18 06:50 Absolute Basophils 0.01 k/cumm (0.0-0.2) 07/02/18 06:50 Differential Comment Manual differential 06/29/18 06:38 RBC Morphology See below 06/29/18 06:38 Polychromasia Present 06/29/18 06:38 Hypochromasia 1+ 06/29/18 06:38 Anisocytosis 1+ 06/29/18 06:38 PT 10.4 sec (9.3-11.0) 06/28/18 19:20 INR 1.0 (0.9-1.1) 06/28/18 19:20 APTT 23.2 sec (21.0-31.4) 06/28/18 19:20 Sodium 135 mmol/L (136-145) L 07/02/18 06:50 Potassium 4.1 mmol/L (3.5-5.1) 07/02/18 06:50 Chloride 95 mmol/L (98-107) L 07/02/18 06:50 Carbon Dioxide 39.7 mmol/L (21.0-32.0) H 07/02/18 06:50 Anion Gap 0.3 mmol/L (3-11) L 07/02/18 06:50 BUN 30 mg/dL (7-18) H 07/02/18 06:50 Creatinine 1.06 mg/dL (0.70-1.30) 07/02/18 06:50 Estimated GFR/1.73 m2 >= 60.00 (mL/min/1.73m2) 07/02/18 06:50 Glucose 377 mg/dL (70-100) H 07/02/18 06:50 Calcium 9.2 mg/dL (8.5-10.1) 07/02/18 06:50 Magnesium 1.8 mg/dL (1.8-2.4) 07/02/18 06:50 Total Bilirubin 0.4 mg/dL (0.2-1.0) 06/28/18 19:20 AST 29 U/L (15-37) 06/28/18 19:20 ALT 26 U/L (12-78) 06/28/18 19:20 Alkaline Phosphatase 139 U/L (46-116) H 06/28/18 19:20 Troponin I < 0.02 ng/mL (0.00-0.06) 06/28/18 19:20 NT-Pro-B Natriuret Pep 69 pg/mL (-299) 06/28/18 19:20 Total Protein 9.8 g/dL (6.4-8.2) H 06/28/18 19:20 Albumin 2.9 g/dL (3.4-5.0) L 06/28/18 19:20 Vancomycin Trough 17.3 ug/mL (10.0-20.0) 07/01/18 11:18 Legionella Source (see note) 06/29/18 00:30 Legionella Reprt Status (see note) 06/29/18 00:30 Legionella Final Result (see note) 06/29/18 00:30 Ur Strep pneumoniae Ag Negative (Negative) 06/29/18 00:30
--- NOTE | 2018-07-02 14:28 | CMPROGNOTE_ITS ---
- If Service Date Differs Date of service: 07/02/18 Time of Service: 14:20 Care Management Progress Note S/O: Peter is lying in bed when this food writer visits this morning, he has his computer at the hospital and enjoys playing on it. SHEBA received a call from MIRLANDE Lisa, inquiring about Peter's current care, and requesting an update. SHEBA updated Sloan on Peter's current stay at [facility], as well as his DC plan of returning to his caregiver Cash's home. A: 58 y/o male admitted 06/28/18 for HCAP, Hypoxia P: Peter will return to his caregiver Cash's home in [place] once medically cleared. He will resume home health RN services, and F/U with PCP and plan of care as prescribed. Peter's caregiver to transport when ready.
--- NOTE | 2018-07-02 15:23 | PT.INTREAT ---
Date of service: 07/02/18 Time of Service: 15:23 PT Notes Inpatient Physical Therapy Treatment Note [facility] Date: 07/02/18 PRECAUTIONS: Fall SUBJECTIVE: Raajn is agreeable to participating in PT. In afternoon Rajan states that he is feeling lightheaded, and feels that it would not be safe to attempt to stand this afternoon. OBJECTIVE: PAIN: No complaints of pain BED MOBILITY/TRANSFERS Rolling L/R: Min A Supine-sit: I Sit-supine: I Sit-stand: SBA Stand-sit: SBA Bed-Chair: SBA Chair-bed: SBA GAIT Assistive Device: Bariatric FWW Weight bearing: Full Assist: SBA Distance: Stand pivot THEREX: Patient completed a resisted upper extremity and lower extremity strengthening program, while seated at edge of bed and in supine and side-lying positions, as per flow sheet. Patient was able to tolerate a progression and ther ex today, modifications made to weights and repetitions are noted on flow sheet. ASSESSMENT: Patient tolerated session well, with some complaint of increased fatigue. Patient was able to tolerate stand pivot transfers from bed<>commode with bariatric FWW support. Patient was able to tolerate a progression and ther ex today. Patient would benefit from continued strengthening as well as transfer training for improved mobility, as well as improved activity tolerance. PLAN: Continue with PTs POC TREATMENT CODE/TIME: Session 1: 40 minutes; 94397, 12573 x2 Session 2: 25 minutes; [id number]
--- NOTE | 2018-07-02 15:28 | PTTR_ITS ---
Date of service: 07/02/18 Time of Service: 15:23 PT Notes Inpatient Physical Therapy Treatment Note [facility] Date: 07/02/18 PRECAUTIONS: Fall SUBJECTIVE: Rajan is agreeable to participating in PT. In afternoon Rajan states that he is feeling lightheaded, and feels that it would not be safe to attempt to stand this afternoon. OBJECTIVE: PAIN: No complaints of pain BED MOBILITY/TRANSFERS Rolling L/R: Min A Supine-sit: I Sit-supine: I Sit-stand: SBA Stand-sit: SBA Bed-Chair: SBA Chair-bed: SBA GAIT Assistive Device: Bariatric FWW Weight bearing: Full Assist: SBA Distance: Stand pivot THEREX: Patient completed a resisted upper extremity and lower extremity strengthening program, while seated at edge of bed and in supine and side-lying positions, as per flow sheet. Patient was able to tolerate a progression and ther ex today, modifications made to weights and repetitions are noted on flow sheet. ASSESSMENT: Patient tolerated session well, with some complaint of increased fat igue. Patient was able to tolerate stand pivot transfers from bed<>commode with bariatric FWW support. Patient was able to tolerate a progression and ther ex today. Patient would benefit from continued strengthening as well as transfer training for improved mobility, as well as improved activity tolerance. PLAN: Continue with PTs POC TREATMENT CODE/TIME: Session 1: 40 minutes; [id number], 98596 x2 Session 2: 25 minutes; [id number]
--- NOTE | 2018-07-02 15:47 | OT.INIE ---
Occupational Therapy Notes Inpatient Occupational Therapy Evaluation Date: 07/02/18 Referring Doctor:Dahlai Barr MD OT Orders: Eval and Treat Precautions: Fall Precautions PATIENT PROFILE/ADMITTING DIAGNOSIS: Pt is a 58 year old male admitted to [facility] on 06/28/18 with a diagnosis of healthcare acquired pneumonia. He had a recent hospitalization from 06/21/2018 to 06/24/18, after which he returned home, with declining health after that point. He presented to the emergency department on 06/29/18 with hypoxia. 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 Social History/Home Situation: Pt reports that he lives in the basement level of his caretakers home. He states that he has 24 hour care as well as 2 other residents in the home. His baseline is sitting in shower with max (A) for (B) LE, min (A) for dressing, (I) eating, he reports that he cooks meals in the microwave and is able to go grocery shopping. He has a wheelchair that he utilizes as well as an electric chiar which he states is supposed to be coming this week. Equipment owned/DME: Bariatric Nori, BiPAP, hospital bed, trapeze, shower chair. Patient has home health services 3 times a week for wound care SUBJECTIVE: Pt was lying in bed when OT arrived. He reports that he is agreeable to OT consult and would like to be as (I) as possible. OBJECTIVE: General Observation: Morbidly obese male, supplemental oxygen, IV (B) UE. Mental Status: A&Ox3 Pain: no c/o pain. ROM: RUE WFL throughout L UE WFL throughout STRENGTH: RUE 3-/5 shoulder flexion, 4+/5 elbow, 4/5 medical laboratory technician LUE 4/5 shoulder flexion. 4/5 elbow FUNCTIONAL MOBILITY/ADLS: GROOMING Sitting in bed with max (A) for set up pt was able to perform brushing of his teeth with min vc for body positioning, otherwise (I). BALANCE: Static sitting Good Dynamic Sitting Fair SPECIAL TESTS: Daily Activity Limitations Standardized Measure [facility] AM -PAC ?6 clicks? Daily Activity Inpatient Short Form: Raw score: 16 CMS score: 53% INFORMED CONSENT/EDUCATION: Pt instructed in purpose of OT Consult and plan of care. ASSESSMENT: Patient is a 58-year-old male referred to occupational therapy services with diagnosis of of healthcare acquired pneumonia . Patient presents with clinical signs and symptoms consistent with decreased functional (I) in ADLs/IADLs due to dx, as demonstrated by the following impairment level findings: decreased (B) UE strength, decreased functional activity tolerance, decreased functional mobility to perform ADLs. Impairments are contributing to the following functional limitations: Unable to perform ADLs, decreased functional activity tolerance, decrease functional mobility, decreased gross motor control for ADLs. OT recommends that pt return home with 24 hour care and increased HH services. AMPAC score 16, CMS score 53% Patient is assessed as a high [id number] complexity based on the following: History: See Above Examination: See Above Presentation: Evolving Decision Making: AMPAC score 16, CMS score 53% GOALS Goals x1 week 1. Transfers min (A) 2. Dressing- Sitting on side of the bed pt will be able to (I) don and doff UE clothing Sitting on side of bed pt will require min (A) for donning and doffing LE clothing 3. Bathing- Pt will be able to (I) wash up sitting in the shower with min (A) LE and ideal technique with use of long handled sponge. 4. Toileting- Pt will be able to perform toileting routine (I) on toilet. PLAN OF CARE/TREATMENT PLAN: 1x/day, 5 days/ week x 1week Initiate Occupational Therapy Services for bathing, dressing, grooming, toileting, eating, transfer training. DISCHARGE RECOMMENDATIONS OT recommends that pt return home with 24 hour care and increased HH services. TREATMENT TIME/MINUTES/CODES 84696, 23650, 20 minutes (09:50) [facility]
--- NOTE | 2018-07-02 16:05 | OTIE_ITS ---
Occupational Therapy Notes Inpatient Occupational Therapy Evaluation Date: 07/02/18 Referring Doctor:Dahlia Barr MD OT Orders: Eval and Treat Precautions: Fall Precautions PATIENT PROFILE/ADMITTING DIAGNOSIS: Pt is a 58 year old male admitted to [facility] on 06/28/18 with a diagnosis of healthcare acquired pneumonia. He had a recent hospitalization from 06/21/2018 to 06/24/18, after which he returned home, with declining health after that point. He presented to the emergency department on 06/29/18 with hypoxia. 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 Social History/Home Situation: Pt reports that he lives in the basement level of his caretakers home. He states that he has 24 hour care as well as 2 other residents in the home. His baseline is sitting in shower with max (A) for (B) LE, min (A) for dressing, (I) eating, he reports that he cooks meals in the microwave and is able to go grocery shopping. He has a wheelchair that he utilizes as well as an electric chiar which he states is supposed to be coming this week. Equipment owned/DME: Bariatric Nori, BiPAP, hospital bed, trapeze, shower chair. Patient has home health services 3 times a week for wound care SUBJECTIVE: Pt was lying in bed when OT arrived. He reports that he is agreeable to OT consult and would like to be as (I) as possible. OBJECTIVE: General Observation: Morbidly obese male, supplemental oxygen, IV (B) UE. Mental Status: A&Ox3 Pain: no c/o pain. ROM: RUE WFL throughout L UE WFL throughout STRENGTH: RUE 3-/5 shoulder flexion, 4+/5 elbow, 4/5 game farm helper LUE 4/5 shoulder flexion. 4/5 elbow FUNCTIONAL MOBILITY/ADLS: GROOMING Sitting in bed with max (A) for set up pt was able to perform brushing of his teeth with min vc for body positioning, otherwise (I). BALANCE: Static sitting Good Dynamic Sitting Fair SPECIAL TESTS: Daily Activity Limitations Standardized Measure [facility] AM -PAC ?6 clicks? Daily Activity Inpatient Short Form: Raw score: 16 CMS score: 53% INFORMED CONSENT/EDUCATION: Pt instructed in purpose of OT Consult and plan of care. ASSESSMENT: Patient is a 58-year-old male referred to occupational therapy services with diagnosis of of healthcare acquired pneumonia . Patient presents with clinical signs and symptoms consistent with decreased functional (I) in ADLs/IADLs due to dx, as demonstrated by the following impairment level findings: decreased (B) UE strength, decreased functional activity tolerance, decreased functional mobility to perform ADLs. Impairments are contributing to the following functional limitations: Unable to perform ADLs, decreased functional activity tolerance, decrease functional mobility, decreased gross motor control for ADLs. OT recommends that pt return home with 24 hour care and increased HH services. AMPAC score 16, CMS score 53% Patient is assessed as a high [id number] complexity based on the following: History: See Above Examination: See Above Presentation: Evolving Decision Making: AMPAC score 16, CMS score 53% GOALS Goals x1 week 1. Transfers min (A) 2. Dressing- Sitting on side of the bed pt will be able to (I) don and doff UE clothing Sitting on side of bed pt will require min (A) for donning and doffing LE clothing 3. Bathing- Pt will be able to (I) wash up sitting in the shower with min (A) LE and ideal technique with use of long handled sponge. 4. Toileting- Pt will be able to perform toileting routine (I) on toilet. PLAN OF CARE/TREATMENT PLAN: 1x/day, 5 days/ week x 1week Initiate Occupational Therapy Services for bathing, dressing, grooming, toileting, eating, transfer training. DISCHARGE RECOMMENDATIONS OT recommends that pt return home with 24 hour care and increased HH services. TREATMENT TIME/MINUTES/CODES 33520, 89940, 20 minutes (09:50) [facility]
[2018-07-02] MEDS: Polyethylene Glycol 3350 17 GM PACKET PO (20:06)
[2018-07-02] MEDS: Mometasone 220 MCG 14 DOSE INHALER 1 PUFF IH (20:07)
[2018-07-02] MEDS: traZODone 50 MG TAB 150 MG PO (21:13)
[2018-07-02] MEDS: Amitriptyline 50 MG TAB 150 MG PO (21:13)
[2018-07-02] MEDS: Enoxaparin 40 MG/0.4 ML SYR SC (21:16)
[2018-07-02] MEDS: VANCOMYCIN 1,500 MG in Normal Saline 500 ML 333.333 MG IVPB (23:42)
[2018-07-03] VITALS (8 sets, daily range): BP systolic 119–154; BP diastolic 74–100; PULSE 82–114; RESP 1–20; TEMP 36.2–37.1; O2SAT 92–98
[2018-07-03] MEDS: Normal Saline Flush 10 ML SYR IVP ×5 (03:31→23:26)
[2018-07-03] MEDS: methylPREDNISolone SUCC 40 MG VIAL IVP ×2 (03:31→11:37)
[2018-07-03] MEDS: CEFEPIME 2 GM in Normal Saline 100 ML IVPB ×3 (05:48→21:33)
[2018-07-03] MEDS: Albuterol/Ipratropium 3 ML UPD VIAL UPD ×2 (06:25→11:42)
[2018-07-03] MEDS: Insulin Aspart 300 UNITS/3 ML PEN 20 UNITS SC ×3 (07:53→16:57)
[2018-07-03] MEDS: Polyethylene Glycol 3350 17 GM PACKET PO ×2 (07:53→19:36)
[2018-07-03 07:54] LABS: Anion Gap 0.5 mmol/L (3-11); BUN 33 mg/dL (7-18); CO2 38.5 mmol/L (21.0-32.0); Calcium 9.2 mg/dL (8.5-10.1); Chloride 95 mmol/L (98-107); Glucose 398 mg/dL (70-100); Magnesium 1.9 mg/dL (1.8-2.4); Potassium 4.3 mmol/L (3.5-5.1); Sodium 134 mmol/L (136-145)
[2018-07-03] MEDS: Insulin Glargine 300 UNITS/3 ML PEN 60 UNITS SC (07:54)
[2018-07-03] MEDS: Insulin Aspart 300 UNITS/3 ML PEN SC ×4 (07:54→21:34)
[2018-07-03] MEDS: LEVOFLOXACIN 500 MG, LEVOFLOXACIN 250 MG 750 MG PO (07:55)
[2018-07-03] MEDS: Omeprazole 20 MG CAPCR PO ×2 (07:56→19:37)
[2018-07-03] MEDS: Benzonatate 200 MG CAP PO ×3 (07:56→19:36)
[2018-07-03] MEDS: Lactobacillus Acidophilus CAP 1 CAP PO ×3 (07:56→19:36)
[2018-07-03] MEDS: Budesonide/Formoterol 160/4.5 6 GM 60 PUFF INH IH ×2 (07:56→19:41)
[2018-07-03] MEDS: guaiFENesin 600 MG TABCR 1200 MG PO ×2 (07:56→19:37)
[2018-07-03] MEDS: Gabapentin 600 MG TAB PO ×2 (07:56→19:37)
[2018-07-03] MEDS: Furosemide 40 MG TAB PO ×2 (07:56→16:56)
[2018-07-03] MEDS: Nystatin CREAM 15 GM TUBE TP ×2 (07:58→19:42)
[2018-07-03 08:01] LABS: Abs Immature Grans 0.07 k/cumm (0.0-0.09); Absolute Basophil Count 0.01 k/cumm (0.0-0.2); Absolute Lymphocyte Count 0.97 k/cumm (1.2-3.4); Absolute Monocyte Count 0.65 k/cumm (0.11-0.7); Absolute Neutrophil Count 10.31 k/cumm (1.2-6.7); Basophils % 0.1; HCT 39.3 % (40.0-50.0); HGB 11.7 g/dL (13.5-17.5); Immature Grans % 0.6; Lymphocytes % 8.1; Mean Corp. HGB Concentration 29.8 g/dL (32.0-36.0); Mean Corpuscular Volume 77.2 fL (80-95); Mean Platelet Volume 11.3 fL (8.0-11.0); Monocytes % 5.4; Neutrophils % 85.8; Platelet Count 344 x1000/uL (130-400); RBC 5.09 m/cumm (4.50-6.00); RBC Distribution Width 17.5 % (11.8-14.1); White Blood Cell Count 12.02 k/cumm (4.4-10.8)
[2018-07-03] MEDS: Magnesium Oxide 400 MG TAB PO ×2 (09:09→21:31)
--- NOTE | 2018-07-03 11:36 | OT.INTREAT ---
Date of service: 07/03/18 Time of Service: 11:25 Occupational Therapy Notes Occupational Therapy Inpatient Treatment Note Date: 07/03/18 PRECAUTIONS: Fall, standard precautions SUBJECTIVE: Pt was lying in bed when OT arrived. He reports that he has been washed up with nursing and that he would love to wash his teeth. OBJECTIVE: PAIN:no c/o pain. GROOMING: Lying in bed with pt lying on the his (L) side. He was (I) with brushing his teeth. He reports that he is hoping to get a new partial plate for his upper and lower teeth. ASSESSMENT/PLAN: Pt was cleaned up with nursing prior to OT arrival. He is concerned about washing his lower legs, OT will educate pt on long handled sponge to increase pts (I) in bathing routine. OT recommends that pt return home with 24 hr care and HH services when medically cleared per MD. TREATMENT CODES/TIME: 38991, 11 minutes (11:25) [facility]
[2018-07-03 11:37] LABS: Vancomycin, Trough 19.8 ug/mL (10.0-20.0)
--- NOTE | 2018-07-03 11:40 | OTTR_ITS ---
Date of service: 07/03/18 Time of Service: 11:25 Occupational Therapy Notes Occupational Therapy Inpatient Treatment Note Date: 07/03/18 PRECAUTIONS: Fall, standard precautions SUBJECTIVE: Pt was lying in bed when OT arrived. He reports that he has been washed up with nursing and that he would love to wash his teeth. OBJECTIVE: PAIN:no c/o pain. GROOMING: Lying in bed with pt lying on the his (L) side. He was (I) with brushing his teeth. He reports that he is hoping to get a new partial plate for his upper and lower teeth. ASSESSMENT/PLAN: Pt was cleaned up with nursing prior to OT arrival. He is concerned about washing his lower legs, OT will educate pt on long handled sponge to increase pts (I) in bathing routine. OT recommends that pt return home with 24 hr care and HH services when medically cleared per MD. TREATMENT CODES/TIME: 28452, 11 minutes (11:25) [facility]
[2018-07-03] MEDS: VANCOMYCIN 1,500 MG in Normal Saline 500 ML 333.333 MG IVPB ×2 (11:56→23:26)
--- NOTE | 2018-07-03 15:00 | PT.INTREAT ---
Date of service: 07/03/18 Time of Service: 15:00 PT Notes Inpatient Physical Therapy Treatment Note [facility] Date: 07/03/18 PRECAUTIONS: Fall SUBJECTIVE: Rajan reports that he has been performing exercise routine, independently, in bed. OBJECTIVE: PAIN: No c/o pain BED MOBILITY/TRANSFERS Rolling L/R: I Supine-sit: I Sit-supine: I Sit-stand: SBA Stand-sit: SBA Bed?chair: SBA Chair?bed: Mod A x3 GAIT Assistive Device: Bariatric FWW Weight bearing: Full Assist: SBA to commode; Mod A x3 to bed due to LOB Distance: Stand pivot transfer bed<> commode Deviation: LOB x1 THEREX: Patient completed a global strengthening program, in a supine position, as per flow sheet. Patient tolerated the addition of side-lying hip abduction and extension, as well as supine bridging and resisted punch-ups. Patient requires verbal and tactile cueing for proper exercise performance. ASSESSMENT: Patient tolerated session with LOB x1, requiring Mod A x3 for [id number] transfer. Patient would benefit from continued transfer training as well as strengthening for continued improvement in activity tolerance and mobility. PLAN: Continue with PT's POC TREATMENT CODE/TIME: Session 1: 45 minutes; 28552 x2, 52931 Session 2: 30 minutes; 01280, 22730
--- NOTE | 2018-07-03 15:01 | CMPROGNOTE_ITS ---
- If Service Date Differs Date of service: 07/03/18 Time of Service: 15:00 Care Management Progress Note S/O: Peter is lying in bed playing on his tablet when this administrative underwriter visits this afternoon, he is pleasant and receptive to discussion. Peter also has his TV hooked up in his room, and has been watching [employer] ([employer] to pass the time. Peter states that once his IV abx are completed he will be returning to Cash's home, which CM discussed. Peter states that he has been working with PT, and that he is feeling like he is getting much stronger. A: 58 y/o male admitted 06/28/18 for HCAP, Hypoxia P: Peter will return to his caregiver Cash's home in [place] once medically cleared. He will resume home health RN services, and F/U with PCP and plan of care as prescribed. ePter's caregiver to transport when ready.
--- NOTE | 2018-07-03 15:04 | PTTR_ITS ---
Date of service: 07/03/18 Time of Service: 15:00 PT Notes Inpatient Physical Therapy Treatment Note [facility] Date: 07/03/18 PRECAUTIONS: Fall SUBJECTIVE: Rajan reports that he has been performing exercise routine, independently, in bed. OBJECTIVE: PAIN: No c/o pain BED MOBILITY/TRANSFERS Rolling L/R: I Supine-sit: I Sit-supine: I Sit-stand: SBA Stand-sit: SBA Bed?chair: SBA Chair?bed: Mod A x3 GAIT Assistive Device: Bariatric FWW Weight bearing: Full Assist: SBA to commode; Mod A x3 to bed due to LOB Distance: Stand pivot transfer bed<> commode Deviation: LOB x1 THEREX: Patient completed a global strengthening program, in a supine position, as per flow sheet. Patient tolerated the addition of side-lying hip abduction and extension, as well as supine bridging and resisted punch-ups. Patient requires verbal and tactile cueing for proper exercise performance. ASSESSMENT: Patient tolerated session with LOB x1, requiring Mod A x3 for [id number] transfer. Patient would benefit from continued transfer training as well as strengthening for continued improvement in activity tolerance and mobility. PLAN: Continue with PT's POC TREATMENT CODE/TIME: Session 1: 45 minutes; 58853 x2, 72596 Session 2: 30 minutes; 66564, 03132
--- NOTE | 2018-07-03 15:21 | PGE_ITS ---
Date of Service Date of service: 07/03/18 Time of Service: 15:18 Assessment and Plan (1) HCAP (healthcare-associated pneumonia): Current visit: Yes Status: Acute Improving. Currently on day #4 of combination antibiotic therapy including Vancomycin, levaquin and cefepime. Not requiring oxygen. Continue antibiotics, change nebs to PRN, continue to taper steroids, transition to oral prednisone. Continue IS. (2) Steroid-induced hyperglycemia: Current visit: Yes Status: Acute In the setting of poorly controlled diabetes, with Hgb A1c of 13.6. Blood glucose remains elevated, increase HS lantus to 65 units, increase short-acting insulin to resistant scale, continue to monitor closely as steroids are tapered. (3) Acute on chronic diastolic (congestive) heart failure: Current visit: Yes Status: Acute He is back on his home diuretic dose. His respiratory status has improved, no rales on auscultation, edema improved. Continue lasix at current dose. Continue to monitor fluid status and renal function. (4) Pressure ulcer: Current visit: No Status: Chronic Continue current wound care. Qualifiers: Pressure injury location: calf Pressure injury stage: stage 3 Laterality: left Qualified Code(s): L89.893 - Pressure ulcer of other site, stage 3 (5) DVT prophylaxis: Current visit: Yes Status: Acute Subcutaneous Lovenox. (6) Discharge planning issues: Current visit: Yes Status: Acute He is a FULL CODE. He will return home when he is medically ready. This case was discussed with Dr. Acuña who is in agreement. Subjective Interval history since last seen: Mr. Hidalgo is a pleasant 58-year-old male with past medical history significant for poorly controlled diabetes, morbid obesity, diastolic heart failure, chronic pain, ABHAY, who was recently admitted to [facility] for community acquired pneumonia with azithromycin and ceftriaxone and discharged on 06/24/18. He returned 4 days later with worsening infiltrate noted on CXR. He is currently being treated with Vanomycin, Levaquin and Cefepime (day #4) as well as steroids and nebs. He reports feeling better today, he is not coughing, he only has shortness of breath with ambulation, which is baseline for him, he is not wheezing, no chest pain/pressure, or palpitations. He is eating and drinking without nausea, vomiting or diarrhea. He is working with PT, he got out of bed to the commode today. Exam Narrative Exam Narrative: General: obese male, very pleasant, laying in bed in acute distress, able to speak in complete sentences with no shortness of breath. HEENT: EOMI, pupils equal and round, mucous membranes slightly dry. Heart: regular rate and rhythm, no murmur appreciated. Lungs: Respirations even and unlabored, lungs are clear throughout, no rales, rhonchi or wheezing. GI: abdomen obese with thickened skin on pannus, no open areas noted on limited exam, soft, nontender on palpation. Extremities: BLE's with trace edema, chronic venous stasis dermatitis, wounds with shearing to posterior thighs. Bilateral feet cool to touch, pedal pulses palpable bilaterally. Ulceration to coccyx not visualized. Objective Objective Clinical Data: Abnormal lab results 07/03/18 07/03/18 Range/Units 07:30 07:30 WBC 12.02 H (4.4-10.8) k/cumm Hgb 11.7 L (13.5-17.5) g/dL Hct 39.3 L (40.0-50.0) % MCV 77.2 L (80-95) fL MCH 23.0 L (27.0-33.0) pg MCHC 29.8 L (32.0-36.0) g/dL RDW 17.5 H (11.8-14.1) % MPV 11.3 H (8.0-11.0) fL Absolute Neutrophils 10.31 H (1.2-6.7) k/cumm Absolute Lymphocytes 0.97 L (1.2-3.4) k/cumm Sodium 134 L (136-145) mmol/L Chloride 95 L (98-107) mmol/L Carbon Dioxide 38.5 H (21.0-32.0) mmol/L Anion Gap 0.5 L (3-11) mmol/L BUN 33 H (7-18) mg/dL Glucose 398 H (70-100) mg/dL Vital Signs Temperature 36.2 C L 07/03/18 07:50 Temperature Source Tympanic 07/03/18 07:50 Pulse 82 07/03/18 07:50 Pulse Rhythm Regular 07/03/18 08:41 Respiratory Rate 20 07/03/18 07:50 Respiratory Effort Non-Labored 07/03/18 08:41 Respiratory Depth Normal 07/03/18 08:41 Respiratory Pattern Normal 07/03/18 08:41 Blood Pressure 154/94 H 07/03/18 07:50 Pulse Oximetry 94 L 07/03/18 07:50 Oxygen Delivery Method Bi-pap 07/03/18 07:50 Oxygen Flow Rate 0 07/03/18 00:04 Pain Level 7 07/03/18 07:50 Comment 07/02/18 03:50 Intake & Output 07/02/18 07/03/18 07/03/18 23:59 11:59 23:59 Intake Total 1723.333 / 3043.333 850 / 1590 740 / 1590 Output Total 1200 / 2900 1350 / 1900 550 / 1900 Balance 523.333 / 143.333 -500 / -310 190 / -310 Weight 204.5 kg Intake: IV 713.333 / 1313.333 600 / 1100 500 / 1100 Oral 1010 / 1730 250 / 490 240 / 490 Output: Urine 1200 / 2900 1350 / 1900 550 / 1900 Other: Urine Color Yellow Yellow Yellow Urine Appearance Clear Clear Clear Urine Odor Normal Normal Normal Comment Pt needs assistance with urinal. Voiding Methods Urinal Urinal Urinal Incontinent Laboratory Results WBC 12.02 k/cumm (4.4-10.8) H 07/03/18 07:30 RBC 5.09 m/cumm (4.50-6.00) 07/03/18 07:30 Hgb 11.7 g/dL (13.5-17.5) L 07/03/18 07:30 Hct 39.3 % (40.0-50.0) L 07/03/18 07:30 MCV 77.2 fL (80-95) L 07/03/18 07:30 MCH 23.0 pg (27.0-33.0) L 07/03/18 07:30 MCHC 29.8 g/dL (32.0-36.0) L 07/03/18 07:30 RDW 17.5 % (11.8-14.1) H 07/03/18 07:30 Plt Count 344 x1000/uL (130-400) 07/03/18 07:30 MPV 11.3 fL (8.0-11.0) H 07/03/18 07:30 Immature Gran % 0.6 07/03/18 07:30 Neutrophils % 85.8 07/03/18 07:30 Band Neutrophils % 5.0 % 06/29/18 06:38 Lymphocytes % 8.1 07/03/18 07:30 Monocytes % 5.4 07/03/18 07:30 Eosinophils % 0.0 07/03/18 07:30 Basophils % 0.1 07/03/18 07:30 Absolute Neutrophils 10.31 k/cumm (1.2-6.7) H 07/03/18 07:30 Absolute Lymphocytes 0.97 k/cumm (1.2-3.4) L 07/03/18 07:30 Absolute Monocytes 0.65 k/cumm (0.11-0.7) 07/03/18 07:30 Absolute Eosinophils 0.00 k/cumm (0.0-0.7) 07/03/18 07:30 Absolute Basophils 0.01 k/cumm (0.0-0.2) 07/03/18 07:30 Differential Comment Manual differential 06/29/18 06:38 RBC Morphology See below 06/29/18 06:38 Polychromasia Present 06/29/18 06:38 Hypochromasia 1+ 06/29/18 06:38 Anisocytosis 1+ 06/29/18 06:38 PT 10.4 sec (9.3-11.0) 06/28/18 19:20 INR 1.0 (0.9-1.1) 06/28/18 19:20 APTT 23.2 sec (21.0-31.4) 06/28/18 19:20 Sodium 134 mmol/L (136-145) L 07/03/18 07:30 Potassium 4.3 mmol/L (3.5-5.1) 07/03/18 07:30 Chloride 95 mmol/L (98-107) L 07/03/18 07:30 Carbon Dioxide 38.5 mmol/L (21.0-32.0) H 07/03/18 07:30 Anion Gap 0.5 mmol/L (3-11) L 07/03/18 07:30 BUN 33 mg/dL (7-18) H 07/03/18 07:30 Creatinine 1.10 mg/dL (0.70-1.30) 07/03/18 07:30 Estimated GFR/1.73 m2 >= 60.00 (mL/min/1.73m2) 07/03/18 07:30 Glucose 398 mg/dL (70-100) H 07/03/18 07:30 Calcium 9.2 mg/dL (8.5-10.1) 07/03/18 07:30 Magnesium 1.9 mg/dL (1.8-2.4) 07/03/18 07:30 Total Bilirubin 0.4 mg/dL (0.2-1.0) 06/28/18 19:20 AST 29 U/L (15-37) 06/28/18 19:20 ALT 26 U/L (12-78) 06/28/18 19:20 Alkaline Phosphatase 139 U/L (46-116) H 06/28/18 19:20 Troponin I < 0.02 ng/mL (0.00-0.06) 06/28/18 19:20 NT-Pro-B Natriuret Pep 69 pg/mL (-299) 06/28/18 19:20 Total Protein 9.8 g/dL (6.4-8.2) H 06/28/18 19:20 Albumin 2.9 g/dL (3.4-5.0) L 06/28/18 19:20 Vancomycin Trough 19.8 ug/mL (10.0-20.0) 07/03/18 11:05 Legionella Source (see note) 06/29/18 00:30 Legionella Reprt Status (see note) 06/29/18 00:30 Legionella Final Result (see note) 06/29/18 00:30 Ur Strep pneumoniae Ag Negative (Negative) 06/29/18 00:30
[2018-07-03] MEDS: predniSONE 20 MG TAB 40 MG PO (19:37)
[2018-07-03] MEDS: Mometasone 220 MCG 14 DOSE INHALER 1 PUFF IH (19:42)
[2018-07-03] MEDS: Amitriptyline 50 MG TAB 150 MG PO (21:31)
[2018-07-03] MEDS: traZODone 50 MG TAB 150 MG PO (21:32)
[2018-07-03] MEDS: Insulin Glargine 300 UNITS/3 ML PEN 65 UNITS SC (21:36)
[2018-07-03] MEDS: Enoxaparin 40 MG/0.4 ML SYR SC (21:38)
[2018-07-04] MEDS: CEFEPIME 2 GM in Normal Saline 100 ML IVPB ×3 (05:03→22:49)
[2018-07-04] MEDS: Normal Saline Flush 10 ML SYR IVP ×3 (05:04→22:47)
[2018-07-04 07:29] LABS: Abs Immature Grans 0.14 k/cumm (0.0-0.09); Absolute Lymphocyte Count 2.01 k/cumm (1.2-3.4); Absolute Monocyte Count 1.26 k/cumm (0.11-0.7); Absolute Neutrophil Count 11.92 k/cumm (1.2-6.7); Basophils % 0.1; HGB 11.6 g/dL (13.5-17.5); Immature Grans % 0.9; Lymphocytes % 13.1; Mean Corp. HGB Concentration 29.7 g/dL (32.0-36.0); Mean Corpuscular Hemoglobin 22.9 pg (27.0-33.0); Mean Corpuscular Volume 77.1 fL (80-95); Monocytes % 8.2; Neutrophils % 77.7; Platelet Count 349 x1000/uL (130-400); RBC 5.06 m/cumm (4.50-6.00); RBC Distribution Width 17.6 % (11.8-14.1); White Blood Cell Count 15.34 k/cumm (4.4-10.8)
[2018-07-04 07:30] LABS: Absolute Basophil Count 0.02 k/cumm (0.0-0.2)
[2018-07-04 07:39] LABS: Anion Gap 0.6 mmol/L (3-11); BUN 31 mg/dL (7-18); CO2 39.4 mmol/L (21.0-32.0); CREATININE 0.95 mg/dL (0.70-1.30); Chloride 97 mmol/L (98-107); Glucose 279 mg/dL (70-100); Potassium 4.2 mmol/L (3.5-5.1); Sodium 137 mmol/L (136-145)
[2018-07-04 08:00] VITALS: BP 143/82; PULSE 67; RESP 15; TEMP 36.4; O2SAT 92
[2018-07-04] MEDS: Nystatin CREAM 15 GM TUBE TP ×2 (09:00→20:41)
[2018-07-04] MEDS: LEVOFLOXACIN 500 MG, LEVOFLOXACIN 250 MG 750 MG PO (09:02)
[2018-07-04] MEDS: Gabapentin 600 MG TAB PO ×2 (09:02→20:42)
[2018-07-04] MEDS: guaiFENesin 600 MG TABCR 1200 MG PO ×2 (09:02→20:42)
[2018-07-04] MEDS: Furosemide 40 MG TAB PO ×2 (09:03→16:23)
[2018-07-04] MEDS: Benzonatate 200 MG CAP PO ×3 (09:03→20:42)
[2018-07-04] MEDS: Omeprazole 20 MG CAPCR PO ×2 (09:03→20:42)
[2018-07-04] MEDS: Lactobacillus Acidophilus CAP 1 CAP PO ×3 (09:03→20:43)
[2018-07-04] MEDS: Insulin Glargine 300 UNITS/3 ML PEN 60 UNITS SC (09:03)
[2018-07-04] MEDS: predniSONE 20 MG TAB 40 MG PO ×2 (09:03→20:43)
[2018-07-04] MEDS: Insulin Aspart 300 UNITS/3 ML PEN 20 UNITS SC ×3 (09:04→16:24)
[2018-07-04] MEDS: Insulin Aspart 300 UNITS/3 ML PEN SC ×4 (09:04→22:54)
[2018-07-04] MEDS: Polyethylene Glycol 3350 17 GM PACKET PO ×2 (09:08→20:42)
[2018-07-04 10:10] VITALS: O2SAT 92
[2018-07-04] MEDS: Budesonide/Formoterol 160/4.5 6 GM 60 PUFF INH IH ×2 (10:12→20:41)
--- NOTE | 2018-07-04 10:13 | PDOC.CMPRO ---
- If Service Date Differs Date of service: 07/04/18 Time of Service: 10:13 Care Management Progress Note S/O: Peter is lying in bed playing his Nintendo when this investment underwriter visits this morning. Peter states that he had a good night, and his goals are to get healthier and stronger so that he can return home. Peter showed CM pictures of his wounds on his legs today and states that he believes these are from his w/c. Peter has a motorized w/c on order, and states that they will be delivering it when he is discharged. A: 58 y/o male admitted 06/28/18 for HCAP, Hypoxia P: Peter will return to his caregiver Cash's home in [place] once medically cleared. He will resume home health RN services, and F/U with PCP and plan of care as prescribed. Peter's caregiver to transport when ready.
--- NOTE | 2018-07-04 10:26 | CMPROGNOTE_ITS ---
- If Service Date Differs Date of service: 07/04/18 Time of Service: 10:13 Care Management Progress Note S/O: Peter is lying in bed playing his Nintendo when this proposal writer visits this morning. Pteer states that he had a good night, and his goals are to get healthier and stronger so that he can return home. Peter showed CM pictures of his wounds on his legs today and states that he believes these are from his w/c. Peter has a motorized w/c on order, and states that they will be delivering it when he is discharged. A: 58 y/o male admitted 06/28/18 for HCAP, Hypoxia P: Peter will return to his caregiver Cash's home in [place] once medically cleared. He will resume home health RN services, and F/U with PCP and plan of care as prescribed. Peter's caregiver to transport when ready.
[2018-07-04] MEDS: Magnesium Oxide 400 MG TAB PO ×2 (10:44→22:48)
--- NOTE | 2018-07-04 11:05 | W.INDIABCONS ---
Date of service: 07/04/18 Time of Service: 14:47 Diabetes Inpatient Consult DESCRIPTION/ASSESSMENT: Follow up chart review for Peter Hidalgo who continues to have hyperglycemia despite increased basal insulin now at 125units daily, 20u mealtime insulin for food and resistant insulin correction. He is eating 30-70grams carbohydrate per meal. He now receives 40u Prednisone twice daily. Blood sugars fasting 278-362 past 2 days; pre-meal 240-454mg/dl. Inconsistent response to mealtime insulin; yesterday 32 units caused 90mg/dl increase in blood sugar, today it corrected blood sugar 38mg/dl. Would expect elevated blood sugar at lunch caused by steroid administration. Mr. Hidalgo is counting carbohydrate grams up to 60 when doing his menu. He is able to choose vegetables and protein to fill in to be satisfied. INTERVENTION: Mr. Hidalgo may benefit from additional insulin to follow the steroid effect. Given he receives 125 units basal and ~100units mealtime insulin, suggest increasing mealtime Novolog insulin to 22 units per meal and assess impact. Business Technology Professor will work to decrease carbohydrate closer to 45 grams per meal if tolerated by patient. PLAN: Will follow blood sugars Suggest increase in Novolog with meals to 22units plus resistant insulin correction. Time Spent in Nutritional Counseling and Treatment: 0 face to face for inpatient
--- NOTE | 2018-07-04 11:24 | OT.INTREAT ---
Date of service: 07/04/18 Time of Service: 10:25 Occupational Therapy Notes Occupational Therapy Inpatient Treatment Note Date: 07/04/18 PRECAUTIONS: Fall, Standard SUBJECTIVE: Pt was sitting in bed he was agreeable to OT session. OBJECTIVE: PAIN:no c/o pain but notes wounds on his glutes. FUNCTIONAL MOBILITY Rolling L/R: (I) Supine-sit: S Sit-supine: S BATHING: Sitting on side of bed, min vc Upper Body: (I) with min (A) for back after performed with long handled sponge Lower Body: (I) with use of long handled sponge only able to access to knees as pt is wrapped from knees down. DRESSING: Upper Extremity: Sitting on side of bed (I) with [facility] gown Lower Extremity: Max (A) (B) socks not receptive to use of sock aid. GROOMING: Max (A) set up, sitting on side of bed (S), (I) with teeth brushing TOILETING: Device: Urinal Assist: (I) with min vc ASSESSMENT/PLAN: OT recommends that pt return home when medically cleared per MD. He is demonstrating increased (I) in ADLs. He requires vc for toileting routine but he is able to perform this (I) with urinal. Pt would benefit from continued skilled OT intervention for (I) in ADL routines. TREATMENT CODES/TIME: [id number], 40 minutes (10:25) [facility]
[2018-07-04] MEDS: VANCOMYCIN 1,500 MG in Normal Saline 500 ML 333.333 MG IVPB (11:29)
--- NOTE | 2018-07-04 11:32 | OTTR_ITS ---
Date of service: 07/04/18 Time of Service: 10:25 Occupational Therapy Notes Occupational Therapy Inpatient Treatment Note Date: 07/04/18 PRECAUTIONS: Fall, Standard SUBJECTIVE: Pt was sitting in bed he was agreeable to OT session. OBJECTIVE: PAIN:no c/o pain but notes wounds on his glutes. FUNCTIONAL MOBILITY Rolling L/R: (I) Supine-sit: S Sit-supine: S BATHING: Sitting on side of bed, min vc Upper Body: (I) with min (A) for back after performed with long handled sponge Lower Body: (I) with use of long handled sponge only able to access to knees as pt is wrapped from knees down. DRESSING: Upper Extremity: Sitting on side of bed (I) with [facility] gown Lower Extremity: Max (A) (B) socks not receptive to use of sock aid. GROOMING: Max (A) set up, sitting on side of bed (S), (I) with teeth brushing TOILETING: Device: Urinal Assist: (I) with min vc ASSESSMENT/PLAN: OT recommends that pt return home when medically cleared per MD. He is demonstrating increased (I) in ADLs. He requires vc for toileting routine but he is able to perform this (I) with urinal. Pt would benefit from continued skilled OT intervention for (I) in ADL routines. TREATMENT CODES/TIME: [id number], 40 minutes (10:25) [facility]
--- NOTE | 2018-07-04 13:56 | PT.INTREAT ---
Date of service: 07/04/18 Time of Service: 12:35 PT Notes Inpatient Physical Therapy Treatment Note [facility] Date: 07/04/18 PRECAUTIONS: Fall SUBJECTIVE: Rajan reports that he has been performing exercise routine, independently, in bed. He has had difficulty keeping his dressings in place, stating that he tries to keep moving without disturbing them. OBJECTIVE: PAIN: No c/o pain BED MOBILITY/TRANSFERS Rolling L/R: I Supine-sit: I. Patient prefers to transfer from foot of bed due to placement of side rail, however requires a great deal of scooting to get into this position. Recommended transfer from center of bed to eliminate scooting, with elimination of EOB activities, focusing on sit<->stand transfers only to reduce time spent at EOB; patient declines this. Sit-supine: I THEREX: Patient completed a global strengthening program, in a supine position, as per flow sheet. Patient tolerated side-lying hip abduction and extension, with addition of sidelying knee flexion activities. He struggles with AROM of right shouler; modified program to eliminated resisted flexion activities and focus on theraband resisted shoulder extension, rows, and tricep kick backs. Patient requires verbal and tactile cueing for proper exercise performance. ASSESSMENT: Performed bed activities only. Patient performed single supine->sit transfer for activities with OT. Need to reduce shear to backside during transfer activities, however, patient is not receptive to alterations in technique. PLAN: Continue with PT's POC TREATMENT CODE/TIME: 10:25-10:35; 12:35-1:05 (40 minutes); [id number] , [id number]
--- NOTE | 2018-07-04 14:02 | PTTR_ITS ---
Date of service: 07/04/18 Time of Service: 12:35 PT Notes Inpatient Physical Therapy Treatment Note [facility] Date: 07/04/18 PRECAUTIONS: Fall SUBJECTIVE: Rajan reports that he has been performing exercise routine, independently, in bed. He has had difficulty keeping his dressings in place, s tating that he tries to keep moving without disturbing them. OBJECTIVE: PAIN: No c/o pain BED MOBILITY/TRANSFERS Rolling L/R: I Supine-sit: I. Patient prefers to transfer from foot of bed due to placement of side rail, however requires a great deal of scooting to get into this position. Recommended transfer from center of bed to eliminate scooting, with elimination of EOB activities, focusing on sit<->stand transfers only to reduce time spent at EOB; patient declines this. Sit-supine: I THEREX: Patient completed a global strengthening program, in a supine position, as per flow sheet. Patient tolerated side-lying hip abduction and extension, with addition of sidelying knee flexion activities. He struggles with AROM of right shouler; modified program to eliminated resisted flexion activities and focus on theraband resisted shoulder extension, rows, and tricep kick backs. Patient requires verbal and tactile cueing for proper exercise performance. ASSESSMENT: Performed bed activities only. Patient performed single supine->sit transfer for activities with OT. Need to reduce shear to backside during transfer activities, however, patient is not receptive to alterations in technique. PLAN: Continue with PT's POC TREATMENT CODE/TIME: 10:25-10:35; 12:35-1:05 (40 minutes); [id number] , [id number]
--- NOTE | 2018-07-04 15:38 | PT.INTREAT ---
Date of service: 07/04/18 Time of Service: 15:05 PT Notes Inpatient Physical Therapy Treatment Note [facility] Date: 07/04/18 PRECAUTIONS:fall, standard SUBJECTIVE: Rajan states that he is having significant pain from his wounds. He's had them redressed several times today. OBJECTIVE: BED MOBILITY/TRANSFERS Rolling L/R: independent Supine-sit: independent Sit-stand: SBA x 1, CG x 1, with manual blocking to FWW Stand-sit: Patient able to transition back to sitting at EOB with poorly controlled descent. Once sitting, he was unable to achieve sitting balance, sliding forward and performing controlled fall to floor. He was able to transfer from sidelying to long sit independently, then transferred back to bed with Nori lift and assist of 3. GAIT : Unable. Patient performs static standing for approx 45 seconds with FWW and CG. He's able to perform side step x 2 with CG and FWW. ASSESSMENT: Limited session today due to fall during transfer training. Patient denies any new pain post-rx. PLAN: Continue with strengthening efforts. Will eliminate WBing activity due to safety concerns and focus on supine and sitting exercises. TREATMENT CODE/TIME: 3:05-3:35 ([id number])
--- NOTE | 2018-07-04 15:41 | PTTR_ITS ---
Date of service: 07/04/18 Time of Service: 15:05 PT Notes Inpatient Physical Therapy Treatment Note [facility] Date: 07/04/18 PRECAUTIONS:fall, standard SUBJECTIVE: Rajan states that he is having significant pain from his wounds. He' s had them redressed several times today. OBJECTIVE: BED MOBILITY/TRANSFERS Rolling L/R: independent Supine-sit: independent Sit-stand: SBA x 1, CG x 1, with manual blocking to FWW Stand-sit: Patient able to transition back to sitting at EOB with poorly controlled descent. Once sitting, he was unable to achieve sitting balance, sliding forward and performing controlled fall to floor. He was able to transfer from sidelying to long sit independently, then transferred back to bed with Nori lift and assist of 3. GAIT : Unable. Patient performs static standing for approx 45 seconds with FWW and CG. He's able to perform side step x 2 with CG and FWW. ASSESSMENT: Limited session today due to fall during transfer training. Patient denies any new pain post-rx. PLAN: Continue with strengthening efforts. Will eliminate WBing activity due to safety concerns and focus on supine and sitting exercises. TREATMENT CODE/TIME: 3:05-3:35 ([id number])
[2018-07-04 16:29] VITALS: BP 147/78; PULSE 100; RESP 20; TEMP 37.3; O2SAT 94
--- NOTE | 2018-07-04 17:49 | W.PM.PROGNOT ---
Date of Service Date of service: 07/04/18 Time of Service: 17:49 Assessment and Plan (1) HCAP (healthcare-associated pneumonia): Current visit: Yes Status: Acute Improving. Currently on day #5 of combination antibiotic therapy including Vancomycin, levaquin and cefepime. His white count is up slightly today. We will continue to monitor, possibly related to steroids, delayed response. Not requiring oxygen. Continue antibiotics, continue PRN nebs, continue prednisone. Continue IS. (2) Steroid-induced hyperglycemia: Current visit: Yes Status: Acute In the setting of poorly controlled diabetes, with Hgb A1c of 13.6. Blood glucose improved today, continue HS lantus at 65 units, continue short-acting insulin on resistant scale, continue to monitor closely as steroids are tapered. (3) Acute on chronic diastolic (congestive) heart failure: Current visit: Yes Status: Acute He is back on his home diuretic dose. His respiratory status has improved, no rales on auscultation, edema improved. Continue lasix at current dose. Continue to monitor fluid status and renal function. (4) Pressure ulcer: Current visit: No Status: Chronic Continue current wound care. Qualifiers: Pressure injury location: calf Pressure injury stage: stage 3 Laterality: left Qualified Code(s): L89.893 - Pressure ulcer of other site, stage 3 (5) DVT prophylaxis: Current visit: Yes Status: Acute Subcutaneous Lovenox. (6) Discharge planning issues: Current visit: Yes Status: Acute He is a FULL CODE. He will return home when he is medically ready. This case was discussed with Dr. Acuña who is in agreement. Subjective Interval history since last seen: Mr. Hidalgo is a pleasant 58-year-old male with past medical history significant for poorly controlled diabetes, morbid obesity, diastolic heart failure, chronic pain, ABHAY, who was recently admitted to [facility] for community acquired pneumonia with azithromycin and ceftriaxone and discharged on 06/24/18. He returned 4 days later with worsening infiltrate noted on CXR. He is currently being treated with Vanomycin, Levaquin and Cefepime (day #4) as well as steroids and nebs. He continues to feel well today. He denies coughing, he has no shortness of breath at rest, he does have mild shortness of breath with ambulation, which is his baseline. He denies wheezing, no chest pain/pressure, palpitations, he is eating and drinking and tolerating his diet, no nausea, vomiting or diarrhea. He does report constipation. He has not had a bowel movement in 5 days, he would like milk of magnesia. This afternoon, he was standing with physical therapy, he attempted to sit on the bed and slipped gently to the floor. He did not hit his head he denies hurting his body in any way. Nursing will continue to monitor him. Exam Narrative Exam Narrative: General: obese male, very pleasant, laying in bed on his left side, in acute distress, able to speak in complete sentences with no shortness of breath. HEENT: EOMI, pupils equal and round, mucous membranes slightly dry. Heart: regular rate and rhythm, no murmur appreciated. Lungs: Respirations even and unlabored, lungs are clear throughout, no rales, rhonchi or wheezing. GI: abdomen obese with thickened skin on pannus, no open areas noted on limited exam, soft, nontender on palpation. Extremities: BLE's with trace edema, chronic venous stasis dermatitis, wounds with dressings intact, dressings not removed to visualize wounds today. Bilateral feet cool to touch, pedal pulses palpable bilaterally. Ulceration to coccyx not visualized. Objective Objective Clinical Data: Abnormal lab results 07/04/18 07/04/18 Range/Units 07:15 07:15 WBC 15.34 H (4.4-10.8) k/cumm Hgb 11.6 L (13.5-17.5) g/dL Hct 39.0 L (40.0-50.0) % MCV 77.1 L (80-95) fL MCH 22.9 L (27.0-33.0) pg MCHC 29.7 L (32.0-36.0) g/dL RDW 17.6 H (11.8-14.1) % Absolute Neutrophils 11.92 H (1.2-6.7) k/cumm Absolute Monocytes 1.26 H (0.11-0.7) k/cumm Chloride 97 L (98-107) mmol/L Carbon Dioxide 39.4 H (21.0-32.0) mmol/L Anion Gap 0.6 L (3-11) mmol/L BUN 31 H (7-18) mg/dL Glucose 279 H D (70-100) mg/dL Vital Signs Temperature 37.3 C 07/04/18 16:29 Temperature Source Tympanic 07/04/18 16:29 Pulse 100 H 07/04/18 16:29 Pulse Rhythm Regular 07/04/18 09:14 Respiratory Rate 20 07/04/18 16:29 Respiratory Effort Non-Labored 07/04/18 09:14 Respiratory Depth Normal 07/04/18 09:14 Respiratory Pattern Normal 07/04/18 09:14 Blood Pressure 147/78 H 07/04/18 16:29 Pulse Oximetry 94 L 07/04/18 16:29 Oxygen Delivery Method Room Air 07/04/18 16:29 Oxygen Flow Rate 0 07/04/18 16:29 Pain Level 8 07/04/18 15:01 Comment 07/02/18 03:50 Intake & Output 07/03/18 07/04/18 07/04/18 23:59 11:59 23:59 Intake Total 1420 / 2270 1530 / 2750 1220 / 2750 Output Total 1750 / 3100 600 / 1800 1200 / 1800 Balance -330 / -830 930 / 950 20 / 950 Intake: IV 700 / 1300 600 / 1220 620 / 1220 Oral 720 / 970 930 / 1530 600 / 1530 Output: Urine 1750 / 3100 600 / 1800 1200 / 1800 Other: Urine Color Yellow Yellow Yellow Urine Appearance Clear Clear Clear Urine Odor Normal Normal Normal Voiding Methods Urinal Urinal Urinal Laboratory Results WBC 15.34 k/cumm (4.4-10.8) H 07/04/18 07:15 RBC 5.06 m/cumm (4.50-6.00) 07/04/18 07:15 Hgb 11.6 g/dL (13.5-17.5) L 07/04/18 07:15 Hct 39.0 % (40.0-50.0) L 07/04/18 07:15 MCV 77.1 fL (80-95) L 07/04/18 07:15 MCH 22.9 pg (27.0-33.0) L 07/04/18 07:15 MCHC 29.7 g/dL (32.0-36.0) L 07/04/18 07:15 RDW 17.6 % (11.8-14.1) H 07/04/18 07:15 Plt Count 349 x1000/uL (130-400) 07/04/18 07:15 MPV 11.0 fL (8.0-11.0) 07/04/18 07:15 Immature Gran % 0.9 07/04/18 07:15 Neutrophils % 77.7 07/04/18 07:15 Band Neutrophils % 5.0 % 06/29/18 06:38 Lymphocytes % 13.1 07/04/18 07:15 Monocytes % 8.2 07/04/18 07:15 Eosinophils % 0.0 07/04/18 07:15 Basophils % 0.1 07/04/18 07:15 Absolute Neutrophils 11.92 k/cumm (1.2-6.7) H 07/04/18 07:15 Absolute Lymphocytes 2.01 k/cumm (1.2-3.4) 07/04/18 07:15 Absolute Monocytes 1.26 k/cumm (0.11-0.7) H 07/04/18 07:15 Absolute Eosinophils 0.00 k/cumm (0.0-0.7) 07/04/18 07:15 Absolute Basophils 0.02 k/cumm (0.0-0.2) 07/04/18 07:15 Differential Comment Manual differential 06/29/18 06:38 RBC Morphology See below 06/29/18 06:38 Polychromasia Present 06/29/18 06:38 Hypochromasia 1+ 06/29/18 06:38 Anisocytosis 1+ 06/29/18 06:38 PT 10.4 sec (9.3-11.0) 06/28/18 19:20 INR 1.0 (0.9-1.1) 06/28/18 19:20 APTT 23.2 sec (21.0-31.4) 06/28/18 19:20 Sodium 137 mmol/L (136-145) 07/04/18 07:15 Potassium 4.2 mmol/L (3.5-5.1) 07/04/18 07:15 Chloride 97 mmol/L (98-107) L 07/04/18 07:15 Carbon Dioxide 39.4 mmol/L (21.0-32.0) H 07/04/18 07:15 Anion Gap 0.6 mmol/L (3-11) L 07/04/18 07:15 BUN 31 mg/dL (7-18) H 07/04/18 07:15 Creatinine 0.95 mg/dL (0.70-1.30) 07/04/18 07:15 Estimated GFR/1.73 m2 >= 60.00 (mL/min/1.73m2) 07/04/18 07:15 Glucose 279 mg/dL (70-100) H D 07/04/18 07:15 Calcium 9.0 mg/dL (8.5-10.1) 07/04/18 07:15 Magnesium 2.0 mg/dL (1.8-2.4) 07/04/18 07:15 Total Bilirubin 0.4 mg/dL (0.2-1.0) 06/28/18 19:20 AST 29 U/L (15-37) 06/28/18 19:20 ALT 26 U/L (12-78) 06/28/18 19:20 Alkaline Phosphatase 139 U/L (46-116) H 06/28/18 19:20 Troponin I < 0.02 ng/mL (0.00-0.06) 06/28/18 19:20 NT-Pro-B Natriuret Pep 69 pg/mL (-299) 06/28/18 19:20 Total Protein 9.8 g/dL (6.4-8.2) H 06/28/18 19:20 Albumin 2.9 g/dL (3.4-5.0) L 06/28/18 19:20 Vancomycin Trough 19.8 ug/mL (10.0-20.0) 07/03/18 11:05 Legionella Source (see note) 06/29/18 00:30 Legionella Reprt Status (see note) 06/29/18 00:30 Legionella Final Result (see note) 06/29/18 00:30 Ur Strep pneumoniae Ag Negative (Negative) 06/29/18 00:30
[2018-07-04 20:30] VITALS: BP 148/81; PULSE 97; RESP 20; TEMP 35.3; O2SAT 98
[2018-07-04] MEDS: Mometasone 220 MCG 14 DOSE INHALER 1 PUFF IH (20:42)
[2018-07-04] MEDS: traZODone 50 MG TAB 150 MG PO (22:47)
[2018-07-04] MEDS: Amitriptyline 50 MG TAB 150 MG PO (22:48)
[2018-07-04] MEDS: Enoxaparin 40 MG/0.4 ML SYR SC (22:49)
[2018-07-04] MEDS: Milk of Magnesia 30 ML CUP PO (22:49)
[2018-07-04] MEDS: Insulin Glargine 300 UNITS/3 ML PEN 65 UNITS SC (22:53)
[2018-07-04 23:56] VITALS: BP 126/65; PULSE 68; RESP 20; TEMP 36.6; O2SAT 93
[2018-07-05] MEDS: Normal Saline Flush 10 ML SYR IVP ×3 (00:57→22:03)
[2018-07-05] MEDS: VANCOMYCIN 1,500 MG in Normal Saline 500 ML 333.333 MG IVPB ×2 (00:57→11:57)
[2018-07-05] MEDS: CEFEPIME 2 GM in Normal Saline 100 ML IVPB ×3 (06:18→22:01)
[2018-07-05 07:28] LABS: Abs Immature Grans 0.16 k/cumm (0.0-0.09); Absolute Basophil Count 0.02 k/cumm (0.0-0.2); Absolute Lymphocyte Count 1.88 k/cumm (1.2-3.4); Absolute Monocyte Count 1.01 k/cumm (0.11-0.7); Basophils % 0.1; HCT 38.8 % (40.0-50.0); HGB 11.5 g/dL (13.5-17.5); Lymphocytes % 12.3; Mean Corp. HGB Concentration 29.6 g/dL (32.0-36.0); Mean Corpuscular Hemoglobin 22.9 pg (27.0-33.0); Mean Corpuscular Volume 77.1 fL (80-95); Mean Platelet Volume 11.5 fL (8.0-11.0); Monocytes % 6.6; Platelet Count 310 x1000/uL (130-400); RBC 5.03 m/cumm (4.50-6.00); RBC Distribution Width 17.7 % (11.8-14.1); White Blood Cell Count 15.32 k/cumm (4.4-10.8)
[2018-07-05 07:30] VITALS: BP 155/92; PULSE 95; RESP 20; TEMP 36.7; O2SAT 93
[2018-07-05 07:33] LABS: Absolute Neutrophil Count 12.26 k/cumm (1.2-6.7)
[2018-07-05 07:48] LABS: Anion Gap 3.7 mmol/L (3-11); BUN 28 mg/dL (7-18); CO2 36.3 mmol/L (21.0-32.0); CREATININE 0.89 mg/dL (0.70-1.30); Calcium 8.4 mg/dL (8.5-10.1); Chloride 97 mmol/L (98-107); Glucose 311 mg/dL (70-100); Magnesium 2.2 mg/dL (1.8-2.4); Potassium 4.5 mmol/L (3.5-5.1); Sodium 137 mmol/L (136-145)
[2018-07-05] MEDS: Nystatin CREAM 15 GM TUBE TP ×2 (08:00→19:40)
[2018-07-05] MEDS: predniSONE 20 MG TAB 40 MG PO (08:14)
[2018-07-05] MEDS: Polyethylene Glycol 3350 17 GM PACKET PO ×2 (08:14→19:37)
[2018-07-05] MEDS: Benzonatate 200 MG CAP PO ×3 (08:14→19:38)
[2018-07-05] MEDS: guaiFENesin 600 MG TABCR 1200 MG PO ×2 (08:14→19:38)
[2018-07-05] MEDS: Lactobacillus Acidophilus CAP 1 CAP PO ×3 (08:14→19:38)
[2018-07-05] MEDS: LEVOFLOXACIN 500 MG, LEVOFLOXACIN 250 MG 750 MG PO (08:14)
[2018-07-05] MEDS: Gabapentin 600 MG TAB PO ×2 (08:14→19:38)
[2018-07-05] MEDS: Omeprazole 20 MG CAPCR PO ×2 (08:15→19:38)
[2018-07-05] MEDS: Furosemide 40 MG TAB PO ×2 (08:15→16:39)
[2018-07-05] MEDS: Insulin Aspart 300 UNITS/3 ML PEN 20 UNITS SC ×3 (08:17→17:26)
[2018-07-05] MEDS: Insulin Aspart 300 UNITS/3 ML PEN SC ×4 (08:18→22:02)
[2018-07-05] MEDS: Insulin Glargine 300 UNITS/3 ML PEN 60 UNITS SC (08:18)
[2018-07-05] MEDS: Budesonide/Formoterol 160/4.5 6 GM 60 PUFF INH IH ×2 (08:44→19:37)
[2018-07-05 08:45] VITALS: O2SAT 93
--- NOTE | 2018-07-05 09:48 | DI.RAD_ITS ---
SYMPTOM/DIAGNOSIS: HCAP, PERSISTENT LEUKOCYTOSIS AP AND LATERAL CHEST: The heart appears mildly enlarged. The lungs are grossly clear and well expanded. Previously noted bilateral intrapulmonary infiltrates seen on examination of 07/02/18 appear to have resolved. CONCLUSION: No evidence of acute process.
[2018-07-05] MEDS: Magnesium Oxide 400 MG TAB PO ×2 (10:09→22:04)
--- NOTE | 2018-07-05 10:52 | OT.INTREAT ---
Date of service: 07/05/18 Time of Service: 10:20 Occupational Therapy Notes Occupational Therapy Inpatient Treatment Note Date: 07/05/18 PRECAUTIONS: Fall, Standard SUBJECTIVE: Pt was lying in bed when OT arrived. Pt is agreeable to OT session. OBJECTIVE: PAIN:c/o pain in (L) UE which is unclear to OT where pain is specifically located he reports that he hurt his arm grabbing his trapeze getting back into bed. FUNCTIONAL MOBILITY Rolling L/R: (I) BATHING: Lying in bed max (A) for set up Upper Body: (I) used long handled sponge for (R) UE due to pain in (L) arm he performed this (I). Lower Body: Did not wash glutes or legs due to open wounds at this time. DRESSING: Lying in bed max (A) for set up Upper Extremity: Min (A) for [facility] gown Lower Extremity: NT TOILETING: Lying in bed Device: Urinal Assist: (I) vc for placement otherwise pt was able to perform (I) ASSESSMENT/PLAN: Pt is demonstrating (I) in ADLs, he is able to tolerate bathing routine, this is limited due to open wounds which are being cared for per Nursing. Pt would benefit from continued skilled OT services for increased (I) in bathing routine. TREATMENT CODES/TIME: [id number], 30 minutes, (10:20) Verna Serra OTR/L [facility]
--- NOTE | 2018-07-05 10:56 | OTTR_ITS ---
Date of service: 07/05/18 Time of Service: 10:20 Occupational Therapy Notes Occupational Therapy Inpatient Treatment Note Date: 07/05/18 PRECAUTIONS: Fall, Standard SUBJECTIVE: Pt was lying in bed when OT arrived. Pt is agreeable to OT session. OBJECTIVE: PAIN:c/o pain in (L) UE which is unclear to OT where pain is specifically located he reports that he hurt his arm grabbing his trapeze getting back into bed. FUNCTIONAL MOBILITY Rolling L/R: (I) BATHING: Lying in bed max (A) for set up Upper Body: (I) used long handled sponge for (R) UE due to pain in (L) arm he performed this (I). Lower Body: Did not wash glutes or legs due to open wounds at this time. DRESSING: Lying in bed max (A) for set up Upper Extremity: Min (A) for [facility] gown Lower Extremity: NT TOILETING: Lying in bed Device: Urinal Assist: (I) vc for placement otherwise pt was able to perform (I) ASSESSMENT/PLAN: Pt is demonstrating (I) in ADLs, he is able to tolerate bathing routine, this is limited due to open wounds which are being cared for per Nursing. Pt would benefit from continued skilled OT services for increased (I) in bathing routine. TREATMENT CODES/TIME: [id number], 30 minutes, (10:20) Verna Serra OTR/L [facility]
[2018-07-05 11:47] LABS: Vancomycin, Trough 18.5 ug/mL (10.0-20.0)
--- NOTE | 2018-07-05 12:26 | PT.INTREAT ---
Date of service: 07/05/18 Time of Service: 12:26 PT Notes Inpatient Physical Therapy Treatment Note [facility] Date: 07/05/18 PRECAUTIONS: Fall SUBJECTIVE: Rajan reports that he has already been up and walking and transferring this morning with nursing. He also reports that while he was utilizing the overhead trapeze to boost himself up in bed, he felt a pain from his L shoulder down to his elbow. He reports that he has to keep it in a certain position to avoid an increase in pain. He reports that he has already spoken with nursing regarding this issue. OBJECTIVE: PAIN: Patient c/o L UE pain with reaching and generalized movements. Ended with ice packs to left upper arm. BED MOBILITY/TRANSFERS/GAIT: Hold weight bearing activities due to safety concerns. THEREX: Patient completed a resisted UE strengthening program, with R UE only, utilizing green Theraband for resistance, as per flow sheet. He also completed bridging, crunches, and SLR exercises while in a supine position. ASSESSMENT: Patient tolerated session well with complaint of R UE pain. He would benefit from continued strengthening in supine and long-sit positions. PLAN: Continue with PT's POC TREATMENT CODE/TIME: Session 1: 30 minutes; [id number] x2 Session 2: 30 minutes; [id number] x2
--- NOTE | 2018-07-05 12:32 | PTTR_ITS ---
Date of service: 07/05/18 Time of Service: 12:26 PT Notes Inpatient Physical Therapy Treatment Note [facility] Date: 07/05/18 PRECAUTIONS: Fall SUBJECTIVE: Rajan reports that he has already been up and walking and transferring this morning with nursing. He also reports that while he was utilizing the overhead trapeze to boost himself up in bed, he felt a pain from his L shoulder down to his elbow. He reports that he has to keep it in a certain position to avoid an increase in pain. He reports that he has already spoken with nursing regarding this issue. OBJECTIVE: PAIN: Patient c/o L UE pain with reaching and generalized movements. Ended with ice packs to left upper arm. BED MOBILITY/TRANSFERS/GAIT: Hold weight bearing activities due to safety con cerns. THEREX: Patient completed a resisted UE strengthening program, with R UE only, utilizing green Theraband for resistance, as per flow sheet. He also completed bridging, crunches, and SLR exercises while in a supine position. ASSESSMENT: Patient tolerated session well with complaint of R UE pain. He would benefit from continued strengthening in supine and long-sit positions. PLAN: Continue with PT's POC TREATMENT CODE/TIME: Session 1: 30 minutes; [id number] x2 Session 2: 30 minutes; [id number] x2
--- NOTE | 2018-07-05 14:33 | PDOC.CMPRO ---
- If Service Date Differs Date of service: 07/05/18 Time of Service: 14:33 Care Management Progress Note S/O: Peter is lying in bed this morning when this rewriter visits. He is playing on his video game this morning, and states that he is feeling good. Peter states that he pulled his shoulder when trying to boost himself up in bed this morning, and that nursing staff is aware of this. A repeat CXR was ordered for this morning. SHEBA discussed with JANNY Cardoza, discharge planning and when Peter will potentially be ready, and he will potentially be ready for DC tomorrow 07/06. SHEBA spoke with Cash, Caregiver, whom can transport in the evening. A: 58 y/o male admitted 06/28/18 for HCAP, Hypoxia P: Peter will return to his caregiver Cash's home in [place] once medically cleared. He will resume home health RN services, and F/U with PCP and plan of care as prescribed. Peter's caregiver to transport when ready.
--- NOTE | 2018-07-05 14:50 | CMPROGNOTE_ITS ---
- If Service Date Differs Date of service: 07/05/18 Time of Service: 14:33 Care Management Progress Note S/O: Peter is lying in bed this morning when this functional tester typewriters visits. He is playing on his video game this morning, and states that he is feeling good. Peter states that he pulled his shoulder when trying to boost himself up in bed this morning, and that nursing staff is aware of this. A repeat CXR was ordered for this morning. SHEBA discussed with JANNY Cardoza, discharge planning and when Peter will potentially be ready, and he will potentially be ready for DC tomorrow 07/06. SHEBA spoke with Cash, Caregiver, whom can transport in the evening. A: 58 y/o male admitted 06/28/18 for HCAP, Hypoxia P: Peter will return to his caregiver Cash's home in [place] once medically cleared. He will resume home health RN services, and F/U with PCP and plan of care as prescribed. Peter's caregiver to transport when ready.
--- NOTE | 2018-07-05 14:51 | W.PM.PROGNOT ---
Date of Service Date of service: 07/05/18 Time of Service: 14:51 Assessment and Plan (1) HCAP (healthcare-associated pneumonia): Current visit: Yes Status: Acute Improving. Currently on day #6 of combination antibiotic therapy including Vancomycin, levaquin and cefepime. Antibiotic course to be complete tomorrow. His white count sightly elevated, but stable. Continue to monitor, possibly related to steroids, delayed response. Repeat x-ray this morning shows no acute process, infiltrates previously noted have resolved. He is not requiring oxygen. Continue antibiotics, continue PRN nebs, continue prednisone, taper again tomorrow. Continue IS. (2) Steroid-induced hyperglycemia: Current visit: Yes Status: Acute In the setting of poorly controlled diabetes, with Hgb A1c of 13.6. Blood glucose continues to improve, continue HS lantus at 65 units, continue short-acting insulin on resistant scale, continue to monitor closely as steroids are tapered. (3) Acute on chronic diastolic (congestive) heart failure: Current visit: Yes Status: Acute He is back on his home diuretic dose. His respiratory status has improved, no rales on auscultation, edema improved. Continue lasix at current dose. Continue to monitor fluid status and renal function. (4) Pressure ulcer: Current visit: No Status: Chronic Continue current wound care. Qualifiers: Pressure injury location: calf Pressure injury stage: stage 3 Laterality: left Qualified Code(s): L89.893 - Pressure ulcer of other site, stage 3 (5) DVT prophylaxis: Current visit: Yes Status: Acute Subcutaneous Lovenox. (6) Discharge planning issues: Current visit: Yes Status: Acute He is a FULL CODE. He will return home when he is medically ready. Possibly in the next 24-48 hours if he continues to improve. This case was discussed with Dr. Acuña who is in agreement. Subjective Interval history since last seen: Mr. Hidalgo is a pleasant 58-year-old male with past medical history significant for poorly controlled diabetes, morbid obesity, diastolic heart failure, chronic pain, ABHAY, who was recently admitted to [facility] for community acquired pneumonia with azithromycin and ceftriaxone and discharged on 06/24/18. He returned 4 days later with worsening infiltrate noted on CXR. He is currently being treated with Vanomycin, Levaquin and Cefepime (day #6) as well as steroids and nebs. He continues to deny fever, chills, dizziness, coughing, shortness of breath at rest, wheezing, no chest pain/pressure, palpitations, he is eating and drinking and tolerating his diet, no nausea, vomiting or diarrhea. He does report constipation. He is interested in taking milk of magnesia. He does report left arm discomfort which began after he pulled himself up in bed. Exam Narrative Exam Narrative: General: obese male, very pleasant, laying in bed on his right side, in no acute distress, able to speak in complete sentences with no shortness of breath. HEENT: EOMI, pupils equal and round, mucous membranes moist. Heart: regular rate and rhythm, no murmur appreciated. Lungs: Respirations even and unlabored, lungs are clear throughout, no rales, rhonchi or wheezing. GI: abdomen obese with thickened skin on pannus, no open areas noted on limited exam, soft, nontender on palpation. Extremities: BLE's with trace edema, chronic venous stasis dermatitis, wounds with dressings intact (peeling at edges), dressings not removed to visualize wounds today. Bilateral feet cool to touch, pedal pulses palpable bilaterally. Ulceration to coccyx not visualized. Objective Objective Clinical Data: Abnormal lab results 07/05/18 07/05/18 Range/Units 06:15 06:15 WBC 15.32 H (4.4-10.8) k/cumm Hgb 11.5 L (13.5-17.5) g/dL Hct 38.8 L (40.0-50.0) % MCV 77.1 L (80-95) fL MCH 22.9 L (27.0-33.0) pg MCHC 29.6 L (32.0-36.0) g/dL RDW 17.7 H (11.8-14.1) % MPV 11.5 H (8.0-11.0) fL Absolute Neutrophils 12.26 H (1.2-6.7) k/cumm Absolute Monocytes 1.01 H (0.11-0.7) k/cumm Chloride 97 L (98-107) mmol/L Carbon Dioxide 36.3 H (21.0-32.0) mmol/L BUN 28 H (7-18) mg/dL Glucose 311 H (70-100) mg/dL Calcium 8.4 L (8.5-10.1) mg/dL Vital Signs Temperature 36.7 C 07/05/18 07:30 Temperature Source Tympanic 07/05/18 07:30 Pulse 95 H 07/05/18 07:30 Pulse Rhythm Regular 07/04/18 20:26 Respiratory Rate 20 07/05/18 07:30 Respiratory Effort 07/04/18 20:26 Respiratory Depth Normal 07/04/18 20:26 Respiratory Pattern Normal 07/04/18 20:26 Blood Pressure 155/92 H 07/05/18 07:30 Pulse Oximetry 93 L 07/05/18 07:30 Oxygen Delivery Method Room Air 07/05/18 07:30 Oxygen Flow Rate 0 07/05/18 07:30 Pain Level 10 07/05/18 10:09 Comment 07/02/18 03:50 Intake & Output 07/04/18 07/05/18 07/05/18 23:59 11:59 23:59 Intake Total 1800 / 3330 990 / 1540 550 / 1540 Output Total 2375 / 2975 500 / 500 Balance -575 / 355 490 / 1040 550 / 1040 Weight 112.1 kg Intake: IV 720 / 1320 510 / 510 Oral 1080 / 2009 480 / 1030 550 / 1030 Output: Urine 2375 / 2975 500 / 500 Other: Urine Color Yellow Yellow Urine Appearance Clear Clear Urine Odor Normal Normal Voiding Methods Urinal Urinal Laboratory Results WBC 15.32 k/cumm (4.4-10.8) H 07/05/18 06:15 RBC 5.03 m/cumm (4.50-6.00) 07/05/18 06:15 Hgb 11.5 g/dL (13.5-17.5) L 07/05/18 06:15 Hct 38.8 % (40.0-50.0) L 07/05/18 06:15 MCV 77.1 fL (80-95) L 07/05/18 06:15 MCH 22.9 pg (27.0-33.0) L 07/05/18 06:15 MCHC 29.6 g/dL (32.0-36.0) L 07/05/18 06:15 RDW 17.7 % (11.8-14.1) H 07/05/18 06:15 Plt Count 310 x1000/uL (130-400) 07/05/18 06:15 MPV 11.5 fL (8.0-11.0) H 07/05/18 06:15 Immature Gran % 1.0 07/05/18 06:15 Neutrophils % 80.0 07/05/18 06:15 Band Neutrophils % 5.0 % 06/29/18 06:38 Lymphocytes % 12.3 07/05/18 06:15 Monocytes % 6.6 07/05/18 06:15 Eosinophils % 0.0 07/05/18 06:15 Basophils % 0.1 07/05/18 06:15 Absolute Neutrophils 12.26 k/cumm (1.2-6.7) H 07/05/18 06:15 Absolute Lymphocytes 1.88 k/cumm (1.2-3.4) 07/05/18 06:15 Absolute Monocytes 1.01 k/cumm (0.11-0.7) H 07/05/18 06:15 Absolute Eosinophils 0.00 k/cumm (0.0-0.7) 07/05/18 06:15 Absolute Basophils 0.02 k/cumm (0.0-0.2) 07/05/18 06:15 Differential Comment Manual differential 06/29/18 06:38 RBC Morphology See below 06/29/18 06:38 Polychromasia Present 06/29/18 06:38 Hypochromasia 1+ 06/29/18 06:38 Anisocytosis 1+ 06/29/18 06:38 PT 10.4 sec (9.3-11.0) 06/28/18 19:20 INR 1.0 (0.9-1.1) 06/28/18 19:20 APTT 23.2 sec (21.0-31.4) 06/28/18 19:20 Sodium 137 mmol/L (136-145) 07/05/18 06:15 Potassium 4.5 mmol/L (3.5-5.1) 07/05/18 06:15 Chloride 97 mmol/L (98-107) L 07/05/18 06:15 Carbon Dioxide 36.3 mmol/L (21.0-32.0) H 07/05/18 06:15 Anion Gap 3.7 mmol/L (3-11) 07/05/18 06:15 BUN 28 mg/dL (7-18) H 07/05/18 06:15 Creatinine 0.89 mg/dL (0.70-1.30) 07/05/18 06:15 Estimated GFR/1.73 m2 >= 60.00 (mL/min/1.73m2) 07/05/18 06:15 Glucose 311 mg/dL (70-100) H 07/05/18 06:15 Calcium 8.4 mg/dL (8.5-10.1) L 07/05/18 06:15 Magnesium 2.2 mg/dL (1.8-2.4) 07/05/18 06:15 Total Bilirubin 0.4 mg/dL (0.2-1.0) 06/28/18 19:20 AST 29 U/L (15-37) 06/28/18 19:20 ALT 26 U/L (12-78) 06/28/18 19:20 Alkaline Phosphatase 139 U/L (46-116) H 06/28/18 19:20 Troponin I < 0.02 ng/mL (0.00-0.06) 06/28/18 19:20 NT-Pro-B Natriuret Pep 69 pg/mL (-299) 06/28/18 19:20 Total Protein 9.8 g/dL (6.4-8.2) H 06/28/18 19:20 Albumin 2.9 g/dL (3.4-5.0) L 06/28/18 19:20 Vancomycin Trough 18.5 ug/mL (10.0-20.0) 07/05/18 11:15 Legionella Source (see note) 06/29/18 00:30 Legionella Reprt Status (see note) 06/29/18 00:30 Legionella Final Result (see note) 06/29/18 00:30 Ur Strep pneumoniae Ag Negative (Negative) 06/29/18 00:30
[2018-07-05] MEDS: Milk of Magnesia 30 ML CUP PO ×2 (16:38→22:04)
[2018-07-05 16:43] VITALS: BP 165/71; PULSE 101; RESP 20; TEMP 37; O2SAT 94
[2018-07-05 19:33] VITALS: BP 121/71; PULSE 104; RESP 20; TEMP 36.5; O2SAT 94
[2018-07-05] MEDS: Mometasone 220 MCG 14 DOSE INHALER 1 PUFF IH (19:37)
[2018-07-05 21:09] VITALS: O2SAT 94
[2018-07-05] MEDS: Enoxaparin 40 MG/0.4 ML SYR SC (22:03)
[2018-07-05] MEDS: Insulin Glargine 300 UNITS/3 ML PEN 65 UNITS SC (22:03)
[2018-07-05] MEDS: traZODone 50 MG TAB 150 MG PO (22:04)
[2018-07-05] MEDS: Amitriptyline 50 MG TAB 150 MG PO (22:04)
[2018-07-06 00:07] VITALS: BP 114/84; PULSE 102; RESP 20; TEMP 37.4; O2SAT 93
[2018-07-06] MEDS: VANCOMYCIN 1,500 MG in Normal Saline 500 ML 333.33 MG IVPB (00:52)
[2018-07-06] MEDS: CEFEPIME 2 GM in Normal Saline 100 ML IVPB (05:32)
[2018-07-06 07:18] LABS: Abs Immature Grans 0.19 k/cumm (0.0-0.09); Absolute Basophil Count 0.02 k/cumm (0.0-0.2); Absolute Monocyte Count 1.55 k/cumm (0.11-0.7); Basophils % 0.1; Eosinophils % 0.7; HCT 38.7 % (40.0-50.0); HGB 11.3 g/dL (13.5-17.5); Lymphocytes % 24.1; Mean Corp. HGB Concentration 29.2 g/dL (32.0-36.0); Mean Corpuscular Hemoglobin 22.9 pg (27.0-33.0); Mean Corpuscular Volume 78.3 fL (80-95); Mean Platelet Volume 11.1 fL (8.0-11.0); Monocytes % 8.2; Neutrophils % 65.9; Platelet Count 303 x1000/uL (130-400); RBC 4.94 m/cumm (4.50-6.00); RBC Distribution Width 17.9 % (11.8-14.1); White Blood Cell Count 18.89 k/cumm (4.4-10.8)
[2018-07-06 07:24] LABS: Absolute Eosinophil Count 0.13 k/cumm (0.0-0.7); Absolute Lymphocyte Count 4.55 k/cumm (1.2-3.4); Absolute Neutrophil Count 12.45 k/cumm (1.2-6.7)
[2018-07-06 07:39] LABS: Anion Gap 0.6 mmol/L (3-11); BUN 29 mg/dL (7-18); CO2 39.4 mmol/L (21.0-32.0); CREATININE 1.05 mg/dL (0.70-1.30); Calcium 8.3 mg/dL (8.5-10.1); Chloride 99 mmol/L (98-107); Glucose 204 mg/dL (70-100); Magnesium 2.2 mg/dL (1.8-2.4); Potassium 4.1 mmol/L (3.5-5.1); Sodium 139 mmol/L (136-145)
[2018-07-06 07:45] VITALS: BP 134/70; PULSE 74; RESP 20; TEMP 36.1; O2SAT 92
[2018-07-06 07:59] LABS: Diff Comment Diff Reviewed
[2018-07-06 08:00] LABS: Anisocytosis 1+; Hypochromasia 2+; Microcytosis 2+; Polychromasia Present
[2018-07-06] MEDS: Insulin Aspart 300 UNITS/3 ML PEN 20 UNITS SC ×2 (08:50→11:50)
[2018-07-06] MEDS: Insulin Aspart 300 UNITS/3 ML PEN SC ×2 (08:51→11:51)
[2018-07-06] MEDS: Insulin Glargine 300 UNITS/3 ML PEN 60 UNITS SC (08:54)
[2018-07-06] MEDS: Lactobacillus Acidophilus CAP 1 CAP PO (09:43)
[2018-07-06] MEDS: predniSONE 20 MG TAB 60 MG PO (09:43)
[2018-07-06] MEDS: Omeprazole 20 MG CAPCR PO (09:43)
[2018-07-06] MEDS: guaiFENesin 600 MG TABCR 1200 MG PO (09:43)
[2018-07-06] MEDS: Magnesium Oxide 400 MG TAB PO (09:44)
[2018-07-06] MEDS: Furosemide 40 MG TAB PO (09:44)
[2018-07-06] MEDS: LEVOFLOXACIN 500 MG, LEVOFLOXACIN 250 MG 750 MG PO (09:44)
[2018-07-06] MEDS: Metoprolol CR 25 MG TABCR PO (09:46)
[2018-07-06] MEDS: Benzonatate 200 MG CAP PO (09:46)
[2018-07-06] MEDS: Gabapentin 600 MG TAB PO (09:46)
[2018-07-06] MEDS: Polyethylene Glycol 3350 17 GM PACKET PO (09:47)
[2018-07-06] MEDS: Nystatin CREAM 15 GM TUBE TP (09:51)
[2018-07-06] MEDS: Budesonide/Formoterol 160/4.5 6 GM 60 PUFF INH IH (10:05)
[2018-07-06] MEDS: Magnesium Citrate 300 ML BTL 150 ML PO (11:13)
--- NOTE | 2018-07-06 11:20 | PDOC.CMDIS ---
- If Service Date Differs Date of service: 07/06/18 Time of Service: 11:20 LACE Index Scoring Tool - Questions: Length of Stay (in days): 7 - 13 Acuity (Admit via E.D.?): Yes Comorbidities: Diabetes w/o Complication E.D. Visits: 8 - Answers: Total Score: 13 Risk of Readmission: High Risk Care Management Discharge Reason for Hospitalization: HCAP, Hypoxia Discharge Plan: Peter will return home today with a resumption of home health RN services. He will require wound management while at home. SHEBA spoke with Olga Seymour, and arranged for transportation at 1400. SHEBA also notified Cash, Caregiver, whom is aware of time and mode of transport. GEMINI [facility], aware of the above, as is JANNY Cardoza,. Patient/Family Education Needs: Review DC instructions, any limitations, and discuss 'Ask Me Three'. Services Needed at Discharge: Home Health Care Services (RN - wound management), Transportation (Olga)
--- NOTE | 2018-07-06 11:42 | OTDS_ITS ---
Date of service: 07/06/18 Time of Service: 11:20 Occupational Therapy Notes Occupational Therapy Inpatient Discharge Summary Dates of Service: 07/02/18-07/06/18 Date: 07/06/18 Referring Doctor:Dahlia Brar MD OT Orders: Eval and Treat Precautions: Fall Precautions PATIENT PROFILE/ADMITTING DIAGNOSIS: Pt is a 58 year old male admitted to [facility] on 06/28/18 with a diagnosis of healthcare acquired pneumonia. He had a recent hospitalization from 06/21/2018 to 06/24/18, after which he returned home, with declining health after that point. He presented to the emergency department on 06/29/18 with hypoxia. Past Medical History: Super?super obesity: Right rotator cuff repair: Ascending aortic aneurysm; right ventricular dilation; right ventricular systolic dysfunction; chronic pain; DM; GERD; anxiety and depression; ABHAY; anemia; multiple pressure ulcers with ongoing wound care through home health Social History/Home Situation: Pt reports that he lives in the basement level of his caretakers home. He states that he has 24 hour care as well as 2 other residents in the home. His baseline is sitting in shower with max (A) for (B) LE, min (A) for dressing, (I) eating, he reports that he cooks meals in the microwave and is able to go grocery shopping. He has a wheelchair that he utilizes as well as an electric chiar which he states is supposed to be coming this week. Equipment owned/DME: Bariatric Nori, BiPAP, hospital bed, trapeze, shower chair. Patient has home health services 3 times a week for wound care SUBJECTIVE: Pt was lying in bed when OT arrived. He reports that he is going home today and is agreeable to OT session. OBJECTIVE: Pain: (L) UE ROM: RUE WFL throughout L UE WFL throughout STRENGTH: RUE 4/5 shoulder flexion, 4+/5 elbow, 4/5 clinical lab assistant LUE NT due to pain in (L) shoulder FUNCTIONAL MOBILITY/ADLS: Bathing: Lying in bed with max (A) for set up pt was able to (I) wash upper and lower body in the supine position with limitations due to wounds. BALANCE: Static sitting Good Dynamic Sitting Fair ASSESSMENT: Patient is a 58-year-old male referred to occupational therapy services with diagnosis of of healthcare acquired pneumonia . Pt was unable to achieve baseline for ADls at this time due to limitations in functional mobility. OT recommends that pt return home with HH when medically cleared per MD. Pt was seen for 5 OT sessions over the course of 5 days. He was able to demonstrate an increased (I) in his ADL routines. OT will discharge pt from skilled OT services at this time. GOALS Goals x1 week 1. Transfers min (A) (NOT MET) 2. Dressing- Sitting on side of the bed pt will be able to (I) don and doff UE clothing (MET) Sitting on side of bed pt will require min (A) for donning and doffing LE clothing (NOT MET) 3. Bathing- Pt will be able to (I) wash up sitting in the shower with min (A) LE and ideal technique with use of long handled sponge. (NOT MET) 4. Toileting- Pt will be able to perform toileting routine (I) on toilet. (NOT MET) PLAN OF CARE/TREATMENT PLAN: Pt to be discharged home today when medically cleared per MD. Discharge from skilled OT services DISCHARGE RECOMMENDATIONS OT recommends that pt return home with 24 hour care and increased HH services. TREATMENT TIME/MINUTES/CODES [id number], 20 minutes (11:20) [facility]
--- NOTE | 2018-07-06 11:46 | PT.INDS ---
Date of service: 07/06/18 Time of Service: 11:30 PT Notes Date: 07/06/18 Referring Doctor: Dr. Barr PT Orders: PT CONSULT: Evaluate and treat Precautions: Fall Treatment Dates: 06/29/18 - 07/06/18 Patient Profile/Admitting Diagnosis: Patient admitted 06/28/18 with a diagnosis of healthcare acquired pneumonia. He had a recent hospitalization from 06/21/2018 - 06/24/18, after which he returned home, although with declining health after that point. He presented to the emergency department 06/28/18 with hypoxia, and was subsequently diagnosed with HCAP. He's participated in PT intervention 1-2x/day for the past 7 days, with a total of 12 PT sessions during that time. 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 Per his report he has been performing stand pivot transfers consistently. He also states that he has been able to walk more as of late, recently able to get himself into a hotel room with family members with use of a WW. He reports increasing frequency of falls over the days leading up to admission. He estimates that he typically falls about once a month, although fell twice yesterday. When he falls he requires assistance and use of Nori lift to get up. Equipment Owned/DME: Bariatric Nori, BiPAP, hospital bed, trapeze, shower chair. Patient has home health services 3 times a week for wound care Subjective: Patient states that he is returning home this afternoon. Objective: General Observation: Morbidly obese male, resting in bed with OT present. Mental Status: A and O x3 Pain: Patient reports chronic pain related to his wounds ROM: Right Upper Extremity: WFL, although with reports of right shoulder pain in end ranges of flexion Left Upper Extremity: WFL Right Lower Extremity: WFL Left Lower Extremity: WFL Strength: Right Upper Extremity: 3/5 shoulder flexion. Triceps 4/5. Biceps 4/5. Left Upper Extremity: 4/5 shoulder flexion. Triceps 4/5. Biceps 4/5. Right Lower Extremity: Patient able to perform SLR although with extension lag. Otherwise strength is grossly 3/5 for hip flexion, knee flexion, ankle dorsiflexion. Left Lower Extremity: Patient able to perform SLR although with extension lag. Otherwise strength is grossly 3/5 for hip flexion, knee flexion, ankle dorsiflexion. Bed Mobility/Transfers: Supine sit: Independent, although with increased time to perform Sit to supine: Independent, with increased time to perform. Patient is able to scoot up in bed independently, with heavy reliance on rails and trapeze Sit to stand: SBA Gait: Unable Balance: Static Sitting: Good Dynamic Sitting: Fair Static Standing: Poor Dynamic Standing: Poor Treatment: Today's session consisted of re-evaluation, followed by instruction in therex program for supine activities as noted on flowsheet. Deferred on seated activities to reduce shear on wounds and dressing. Assessment: Patient is a 58 year old male referred to physical therapy services with the diagnosis of healthcare acquired pneumonia. Patient has participated in skilled PT intervention 1-2x/day for 12 sessions over the past 7 days, with improved mobility throughout treatment. Patient has ongoing safety issues related to super-obesity, reduced mobility and long history of falls. He is appropriate for d/c from PT services in acute care setting with recommendation for resumption of PT upon discharge. Goals: Goals X1 week 1. Supine-Sit: Independent (MET) 2. Sit-Supine: Independent (MET) 3. Sit-Stand: Min assist (MET) 4. Stand-Sit : Min assist (MET) 5. Stand pivot transfer: Min assist (not met) Plan of Care/Treatment Plan: d/c from PT in acute care setting DISCHARGE RECOMMENDATIONS: Return home with 24-hour care and resumption of home health services TREATMENT CODE/TIME: 15 minutes ([id number])
[2018-07-06] MEDS: VANCOMYCIN 1,500 MG in Normal Saline 500 ML 333 MG IVPB (11:57)
--- NOTE | 2018-07-06 12:41 | W.PM.DS.N ---
Date of service: 07/06/18 Time of Service: 12:41 DS: Diagnosis Discharge Diagnosis (1) HCAP (healthcare-associated pneumonia): Status: Acute (2) Steroid-induced hyperglycemia: Status: Acute (3) Acute on chronic diastolic (congestive) heart failure: Status: Acute (4) Pressure ulcer: Status: Chronic Discharge Plan Disposition Patient Disposition: HOME W/HOME HEALTH SERVICE Condition: Stable Discharge Details Reason For Visit: HCAP, HYPOXIA Admit Date/Time: 06/28/18 20:23 Admit Provider: Jake Cordero Attending Provider: Jake Cordero [facility]: Mr. Hidalgo is a pleasant 58-year-old male with past medical history significant for poorly controlled diabetes, morbid obesity, diastolic heart failure, chronic pain, ABHAY, who was recently admitted to [facility] for community acquired pneumonia with azithromycin and ceftriaxone and discharged on 06/24/18. He returned 4 days later with worsening infiltrate noted on CXR. He received a full course of triple antibiotic therapy with Vancomycin, Levaquin and Cefepime. His symptoms resolved quickly. He remained afebrile, he denies shortness of breath, coughing, wheezing, chest pain/pressure. His leukocytosis initially resolved, then increased- likely a delayed steroid effect. He had a repeat chest x-ray which showed no evidence of an acute process, the previously noted bilateral infiltrates had resolved. He will continue to taper off of steroids over the days following his discharge. His blood sugar was elevated, however, blood glucose levels improved with adjustment of his insulin and steroid taper. He will need ongoing monitoring and adjustments as well as dietary changes as his Hgb A1c was 13.6 on this admission. He was initially diuresed with IV lasix, however, he transitioned back to his home Lasix dose. He also has wounds that have been managed by the wound care nurses, he will need ongoing wound care upon discharge home. Home health nursing will need to follow the current dressing orders. He worked with PT but was found to be unsafe to transfer, he will need ongoing PT at home to work on safe transfers. He will follow up with his PCP as scheduled. Home health nursing will be resumed. Home health PT will be added. He will have follow up CBC to assess his white blood cell count as he tapers off of steroids. Home Meds and New Rx's Prescriptions: New polyethylene glycol 3350 17 gram Powder In Packet 17 g PO DAILY PRN PRN (Reason: Constipation) Qty: 0 RF: 0 magnesium oxide 400 mg (241.3 mg magnesium) Tablet 400 mg PO BID@1000,2200 Qty: 14 RF: 0 magnesium hydroxide [Milk of Magnesia] 400 mg/5 mL Suspension 30 ml PO DAILY PRN PRNQty: 0 RF: 0 Enema Disposable 19-7 gram/118 mL Enema 133 ml VT DAILY PRN PRNQty: 0 RF: 0 Symbicort 160-4.5 mcg/actuation Hfa Aerosol Inhaler 2 puff Inhalation BID Qty: 1 RF: 0 prednisone 10 mg tablet 10 mg PO DAILY Qty: 26 RF: 0 Continued polyethylene glycol 3350 17 GM powder in packet 17 gm PO BID RF: 0 morphine [MS Contin] 60 MG tablet extended release 60 mg PO Q12H Qty: 30 RF: 0 Iodosorb 0.9 % Gel 40 gm topical Q12H Qty: 40 RF: 0 morphine 15 MG tablet 15 mg PO TID PRN PRNRF: 0 gabapentin 300 MG capsule 600 mg PO TID RF: 0 acetaminophen [Tylenol] 325 mg Tablet 325 mg PO Q6H PRNRF: 0 trazodone 150 mg Tablet 150 mg PO HS RF: 0 metformin 1,000 mg Tablet 1,000 mg PO BID RF: 0 nystatin 100,000 unit/gram Cream 1 applic TOPICAL BID RF: 0 losartan 25 mg Tablet 25 mg PO DAILY RF: 0 amitriptyline 50 MG tablet 150 mg PO HS RF: 0 furosemide [Lasix] 40 mg Tablet 40 mg PO BID RF: 0 glipizide 10 mg Tablet 10 mg PO BID RF: 0 Glucagon Emergency Kit (human) 1 mg Recon Soln 1 mg IM PRN PRNRF: 0 metoprolol succinate 25 mg Tablet Extended Release 24 Hr 25 mg PO DAILY RF: 0 omeprazole 20 mg Tablet,Delayed Release (Dr/Ec) 20 mg PO BID RF: 0 Tresiba FlexTouch U-200 200 unit/mL (3 mL) Insulin Pen 45 unit subcut DAILY RF: 0 Discontinued fluticasone 50 mcg/actuation Blister With Device 1 inh INHALATION Q12H RF: 0 furosemide 20 mg Tablet 20 mg PO DAILY RF: 0 Discharge Instructions Instructions: Hospital Acquired Pneumonia (DC) Additional Instructions: Taper prednisone as follows: 60 mg x1 day, then decrease to 40 mg x2 days, then 30 mg x2 days, then 20 mg x2 days, then 10 mg x2 days then stop. Resume home health nursing. Please follow current wound care orders and draw CBC on 07/09/18. Monitor blood glucose. Please add PT. Monitor blood sugar closely, adjust with PCP as needed. Take care! Stand Alone Forms: Nursing Discharge Form Referrals: Tasneem Richardson [NURSE PRACTITIONER] - 07/20/18 3:00 pm Activity:: Activity as Tolerated Equipment/Supplies:: No Equipment Needed Diet:: Carb Counting Discharge Orders Discharge Orders: Discharge Order (Routine); Ordered 07/06/18 Ordered By: Nani Catherine Other Ambulatory Orders: Complete Blood Count No Diff (Routine) Timeframe: 3 Days Facility: [facility] - Location: Laboratory Outpatient Ordered By: Nani Catherine Exam Narrative Exam Narrative: General: obese male, very pleasant, laying in bed on his right side, in no acute distress, able to speak in complete sentences with no shortness of breath. HEENT: EOMI, pupils equal and round, mucous membranes moist. Heart: regular rate and rhythm, no murmur appreciated. Lungs: Respirations even and unlabored, lungs are clear throughout, no rales, rhonchi or wheezing. GI: abdomen obese with thickened skin on pannus, no open areas noted on limited exam, soft, nontender on palpation. Extremities: BLE's with trace edema, chronic venous stasis dermatitis, wounds with dressings intact, dressings not removed to visualize wounds today. Bilateral feet cool to touch, pedal pulses palpable bilaterally. Ulceration to coccyx not visualized. DS: Data Vitals/I&O Vitals and I&O: Vital Signs Temperature 36.1 C L 07/06/18 07:45 Temperature Source Tympanic 07/06/18 07:45 Pulse 74 07/06/18 07:45 Pulse Rhythm Regular 07/06/18 11:58 Respiratory Rate 20 07/06/18 07:45 Respiratory Effort Non-Labored 07/06/18 11:58 Respiratory Depth Normal 07/06/18 11:58 Respiratory Pattern Normal 07/06/18 11:58 Blood Pressure 134/70 07/06/18 07:45 Pulse Oximetry 92 L 07/06/18 07:45 Oxygen Delivery Method Bi-pap 07/06/18 07:45 Oxygen Flow Rate 2 07/06/18 07:45 Pain Level 7 07/05/18 17:24 Comment 07/02/18 03:50 Intake & Output 07/05/18 07/06/18 07/06/18 23:59 11:59 23:59 Intake Total 2450 / 3560 840 / 840 Output Total 900 / 2000 Balance 1550 / 1560 840 / 840 Weight 215 kg Intake: IV 700 / 1330 600 / 600 Oral 1750 / 2230 240 / 240 Output: Urine 900 / 2000 Other: Urine Color Pale Yellow Urine Appearance Clear Urine Odor None Voiding Methods Urinal Completed studies during hospitalization [Text1]: 06/28/18: AP AND LATERAL CHEST: The heart is mildly enlarged. Predominantly right sided basilar infiltrate again noted. This may be a little more prominent than on examination of 06/21/18. Upper lungs remain mostly clear with slight interstitial prominence seen bilaterally, likely chronic. CONCLUSION: Findings suggesting mild interval worsening of right basilar infiltrate. 07/02/18: PORTABLE CHEST: There are again seen bilateral interstitial infiltrates noted without significant change. No focal consolidating infiltrates or effusions seen. No pneumothorax is identified. IMPRESSION: Overall stable appearance of the chest since 06/28/18. 07/05/18: AP AND LATERAL CHEST: The heart appears mildly enlarged. The lungs are grossly clear and well expanded. Previously noted bilateral intrapulmonary infiltrates seen on examination of 07/02/18 appear to have resolved. CONCLUSION: No evidence of acute process. Labs on day of discharge: Labs from last 24 hours 07/06/18 07/06/18 06:55 06:55 WBC 18.89 H RBC 4.94 Hgb 11.3 L Hct 38.7 L MCV 78.3 L MCH 22.9 L MCHC 29.2 L RDW 17.9 H Plt Count 303 MPV 11.1 H Immature Gran % 1.0 Neutrophils % 65.9 Lymphocytes % 24.1 Monocytes % 8.2 Eosinophils % 0.7 Basophils % 0.1 Absolute Neutrophils 12.45 H Absolute Lymphocytes 4.55 H Absolute Monocytes 1.55 H Absolute Eosinophils 0.13 Absolute Basophils 0.02 Differential Comment Diff reviewed RBC Morphology See below Polychromasia Present Hypochromasia 2+ Anisocytosis 1+ Microcytosis 2+ Sodium 139 Potassium 4.1 Chloride 99 Carbon Dioxide 39.4 H Anion Gap 0.6 L BUN 29 H Creatinine 1.05 Estimated GFR/1.73 m2 >= 60.00 Glucose 204 H D Calcium 8.3 L Magnesium 2.2 PFSH Medical History Pressure ulcer (Chronic) Right rotator cuff tear (Chronic) Ascending aortic aneurysm (Chronic) Right ventricular dilation, secondary (Chronic) Right ventricular systolic dysfunction (Chronic) Chronic pain disorder (Chronic) Super-super obese (Chronic) Diabetes mellitus (Chronic) GERD (gastroesophageal reflux disease) (Chronic) Chronic anxiety (Chronic) Depression (Chronic) Chronic back pain (Chronic) Obstructive sleep apnea hypopnea, severe (Chronic) Iron deficiency anemia, unspecified (Chronic) Severe muscle deconditioning (Acute) Panniculitis of other sites (Resolved) Family History Father No problems noted. Son No problems noted. Social History adopted: No caregiver/support person: Yes foster care: No household members: caregiver housing: assisted living facility marital status details: about 17-18 years ago lives independently: No number of children: 1 number of grandchildren: 0 highest education level completed: high school graduate service: No current occupational status: disabled leisure activities: games Hx Recent Travel: No sexually active: No diet: diabetic well-balanced diet: about half the time daily servings fruits/ve-1 eating out: rarely or never reads food labels: sometimes during the past year weight has: increased > 10 lbs what type of physical activity do you participate in: none Smoking and Tabacco status: Former Tobacco Use
--- NOTE | 2018-07-06 13:37 | RESPIRATORY ---
07/06/18-Pt's home BIPAP unit tubing is terrible condition with duck tape all over it .RT called [facility] to order Pt a new mask and Bipap tubing for his home unit. [facility] has sent order to Pt's Planning Analyst to sign orders. [facility] states they will drop ship supplies to Pt at his home in [place].
== END 2018-07-06 14:21 | disposition home health service (06) | DRG 193 ==
LOC: ER 20:29 → MS 21:28
PROVIDERS: Internal Medicine; Nurse Practitioner Family; Admitting Provider Internal Medicine; Emergency Provider Emergency Medicine; PCP Family Medicine; Visit Provider Internal Medicine
DX: J18.1 Lobar pneumonia, unspecified organism (principal); I50.33 Acute on chronic diastolic (congestive) heart failure; L89.893 Pressure ulcer of other site, stage 3; N17.9 Acute kidney failure, unspecified; Z68.44 Body mass index [BMI] 60.0-69.9, adult; T50.2X5A Adverse effect of carbonic-anhydrase inhibitors, benzothiadiazides and other diuretics, initial encounter; E11.621 Type 2 diabetes mellitus with foot ulcer; L97.519 Non-pressure chronic ulcer of other part of right foot with unspecified severity; Y95 Nosocomial condition; E11.65 Type 2 diabetes mellitus with hyperglycemia; T38.0X5A Adverse effect of glucocorticoids and synthetic analogues, initial encounter; E86.0 Dehydration; F32.9 Major depressive disorder, single episode, unspecified; G47.33 Obstructive sleep apnea (adult) (pediatric); E66.01 Morbid (severe) obesity due to excess calories; L89.159 Pressure ulcer of sacral region, unspecified stage; L89.309 Pressure ulcer of unspecified buttock, unspecified stage; Z71.3 Dietary counseling and surveillance; Z79.4 Long term (current) use of insulin; I83.12 Varicose veins of left lower extremity with inflammation; I83.11 Varicose veins of right lower extremity with inflammation; K59.00 Constipation, unspecified; M79.602 Pain in left arm
CPT/HCPCS: 36415; 80048; 80053; 82947; 87040; 87449; 93005; 94640; 96365; 96375; 97110; 97163; 97167; 97530; 97535; 99223; 99232; 99233; 99239; 99285; J1650; 71045; 71046; 80202; 83735; 83880; 84484; 85025; 85610; 85730; 87450; 87581; 93010; 94660; G0378; J1940; J1956; J2930; J3475; J3490; J7512; J7620

== ENCOUNTER 2018-07-09 20:29 | Outpatient (REF) | payer MEDICARE, MEDICAID, SELFPAY ==
[2018-07-09 21:51] LABS: Abs Immature Grans 0.15 k/cumm (0.0-0.09); Absolute Basophil Count 0.02 k/cumm (0.0-0.2); Absolute Eosinophil Count 0.09 k/cumm (0.0-0.7); Absolute Lymphocyte Count 1.28 k/cumm (1.2-3.4); Basophils % 0.1; Eosinophils % 0.4; HCT 39.7 % (40.0-50.0); HGB 11.9 g/dL (13.5-17.5); Immature Grans % 0.7; Lymphocytes % 5.9; Mean Corpuscular Hemoglobin 23.5 pg (27.0-33.0); Mean Corpuscular Volume 78.3 fL (80-95); Mean Platelet Volume 11.7 fL (8.0-11.0); Monocytes % 2.6; Neutrophils % 90.3; Platelet Count 287 x1000/uL (130-400); RBC 5.07 m/cumm (4.50-6.00); RBC Distribution Width 19.1 % (11.8-14.1); White Blood Cell Count 21.77 k/cumm (4.4-10.8)
[2018-07-09 21:58] LABS: Absolute Monocyte Count 0.57 k/cumm (0.11-0.7); Absolute Neutrophil Count 19.66 k/cumm (1.2-6.7)
[2018-07-09 23:21] LABS: Anisocytosis 2+; Diff Comment RBC Morph Reviewed; Hypochromasia 1+; Macrocytosis 1+; Microcytosis 1+; Polychromasia Present
== END 2018-07-09 20:49 ==
LOC: NCHCN 20:29
PROVIDERS: PCP Family Medicine; Visit Provider Nurse Practitioner Family
DX: J18.9 Pneumonia, unspecified organism (principal); E11.9 Type 2 diabetes mellitus without complications; I87.2 Venous insufficiency (chronic) (peripheral); E66.8 Other obesity
CPT/HCPCS: 85025

== ENCOUNTER 2018-07-23 14:41 | Inpatient (IN) | payer MEDICARE, MEDICAID, SELFPAY ==
[2018-07-23] VITALS (34 sets, daily range): BP systolic 90–127; BP diastolic 49–95; PULSE 96–107; RESP 10–25; TEMP 36.7–36.8; O2SAT 90–95
--- NOTE | 2018-07-23 14:50 | DI.RAD_ITS ---
SYMPTOM/DIAGNOSIS: COUGH, HYPOXIC PORTABLE SEMI ERECT CHEST: Comparison is made with 07/05/18. The exam is limited by patient body habitus and positioning. The film is rotated. The heart size is within normal limits. The lugs are not well inflated. There is a question of increased densities in both lungs, left greater than right which could represent superimposed infiltrates. No effusions are seen. IMPRESSION: Limited exam. Findings suspicious for left sided pulmonary infiltrates.
[2018-07-23 16:12] LABS: Abs Immature Grans 0.02 k/cumm (0.0-0.09); HCT 35.4 % (40.0-50.0); HGB 10.2 g/dL (13.5-17.5); Mean Corp. HGB Concentration 28.8 g/dL (32.0-36.0); Mean Corpuscular Hemoglobin 23.7 pg (27.0-33.0); Mean Corpuscular Volume 82.3 fL (80-95); Mean Platelet Volume 9.8 fL (8.0-11.0); Platelet Count 310 x1000/uL (130-400); RBC Distribution Width 19.8 % (11.8-14.1); White Blood Cell Count 10.07 k/cumm (4.4-10.8)
--- NOTE | 2018-07-23 16:29 | DI.VRAD_ITS ---
EXAM: XR Chest, 1 View EXAM DATE/TIME: 07/23/2018 2:51 PM CLINICAL HISTORY: 58 years old, male; Signs and symptoms; Cough and other: Hypoxic, ; patient HX: Cough, hypoxic TECHNIQUE: XR of the chest, 1 view. COMPARISON: CR XR CHEST 2V PA LATERAL 07/05/2018 9:16 AM FINDINGS: There are new multifocal patchy consolidative opacities in the left mid and lower lung zone. The findings are consistent with pneumonia in the proper clinical setting. The cardiomediastinal silhouette and vasculature are within normal limits given this AP portable technique. The right lung is clear. IMPRESSION: Multifocal patchy opacities and consolidation within the left lung consistent with pneumonia in the proper clinical setting. Dictated and Authenticated by: Adryan Schulz MD. Ordering:IVAN Avina MD
[2018-07-23 16:33] LABS: ALT 20 U/L (12-78); AST 43 U/L (15-37); Absolute Lymphocyte Count 3.63 k/cumm (1.2-3.4); Absolute Monocyte Count 0.91 k/cumm (0.11-0.7); Absolute Neutrophil Count 5.44 k/cumm (1.2-6.7); Albumin 1.8 g/dL (3.4-5.0); Alkaline Phosphatase 108 U/L (46-116); Anion Gap 2.9 mmol/L (3-11); Anisocytosis 2+; Atypical Lymphocytes % 5; BUN 17 mg/dL (7-18); Bilirubin, Total 0.3 mg/dL (0.2-1.0); CO2 39.1 mmol/L (21.0-32.0); CREATININE 1.18 mg/dL (0.70-1.30); Calcium 7.9 mg/dL (8.5-10.1); Chloride 102 mmol/L (98-107); Diff Comment Manual Differential; Glucose 229 mg/dL (70-100); Hypochromasia 2+; Potassium 3.3 mmol/L (3.5-5.1); Sodium 144 mmol/L (136-145); Total Protein 6.4 g/dL (6.4-8.2)
[2018-07-23 16:34] LABS: Polychromasia Present
[2018-07-23 16:36] LABS: Poikilocytes 2+; Stomatocytes 2+
--- NOTE | 2018-07-23 16:41 | ED.GENADUL_ITS ---
Discharge Plan Disposition Patient Disposition: [facility] INPATIENT Condition: Stable Discharge Details Chief Complaint: SOB Clinical Impression: Community acquired pneumonia Reason For Visit: HOSPITAL ACQUIRED PNEUMONIA Admit Date/Time: 07/23/18 16:50 Admit Provider: Jake Cordero Attending Provider: Jake Cordero Primary Care Provider: Alfonzo Young ED Provider: Fabrice Arredondo Discharge Data Discharge Date/Time-TO BE ENTERED AT DEPARTURE: 07/23/18 17:48 Medical Decision Making 58-year-old male who is super morbidly obese, and poorly medically compliant, who presents for 1 day of cough, with productive yellow sputum, home health evaluated him and noticed his low oxygen, 911 was called, and on their arrival the patient's oxygen was 73% on room air. The patient does not normally use oxygen. He does have a concentrator, but this did not improve any of his symptoms or oxygen. He was started on 4 L of oxygen by paramedics, his O2 return to the high 90s. Physical exam on arrival demonstrates a super morbidly obese male with multiple medical problems who demonstrates crackles throughout, worse on the left than the right. Chest x-ray was ordered and demonstrates multifocal pneumonia. Patient was recently admitted here not long ago, we will start broad-spectrum antibiotics of Rocephin, azithromycin and vancomycin. Patient's oxygen has remained stable here. His lab work has returned, his calc ium is low however his albumin is low. Corrected calcium is around 9 which is certainly within normal limits. Potassium is also low at 3.3, this will be corrected with oral potassium. Hemoglobin is slightly lower than normal. No significant white count. The patient's notable hypoxemia and his normal baseline oxygen requirements, in addition to his positive x-ray findings of pneumonia, I do feel that he would benefit from IV antibiotics and inpatient admission for setting up home oxygen, further management. I discussed the case with Dr. Barr, she agrees with the assessment and plan. I have extensively reviewed the treatment plan with the patient. I have addressed all patient concerns at this time. I have also discussed the plan with the admitting physician and they agree with the current assessment and plan and have agreed to assume responsibility for the patient. All parties demonstrate verbal understanding and agreement with our assessment and plan at this time. HPI General Date/Time Provider Initiated Documentation: 07/23/18 14:50 . HPI Narrative: This is a 58-year-old male with a past medical history of super morbid obesity, multiple chronic ulcers on his buttock, legs and feet, obstructive sleep apnea, depression, ascending aortic aneurysm, diabetes mellitus. He presents today for evaluation of cough and shortness of breath. Patient states that this morning he felt short of breath at home with this cough. She he does have a home concentrator at home but otherwise does not use regular oxygen. He does use BiPAP at night. He states that his cough continued to worsen throughout the day, he contacted 911 for further evaluation. EMS arrived his O2 sats were in the 73's, he was given supplemental oxygen and he came up to the 90s at 4 L. He denies any chest pain, pleuritic chest pain, arm neck or shoulder pain. He denies any blood clots. He has no other complaints at this time. No other modifying factors. Related Data Home Medications Medication Instructions Recorded Confirmed gabapentin 600 mg PO TID 04/11/17 07/23/18 morphine 15 mg PO TID PRN PRN 04/11/17 07/23/18 morphine [MS Contin] 60 mg PO Q12H #30 tabcr 11/03/17 07/23/18 polyethylene glycol 3350 17 gm PO BID packet 11/03/17 07/23/18 acetaminophen [Tylenol] 325 mg PO Q6H PRN 02/22/18 07/23/18 amitriptyline 150 mg PO HS 02/22/18 07/23/18 losartan 25 mg PO DAILY 02/22/18 07/23/18 metformin 1,000 mg PO BID 02/22/18 07/23/18 nystatin 1 applic TOPICAL BID 02/22/18 07/23/18 trazodone 150 mg PO HS 02/22/18 07/23/18 Glucagon Emergency Kit (human) 1 mg IM PRN PRN 03/16/18 07/23/18 Tresiba FlexTouch U-200 45 unit SUBCUT DAILY 03/16/18 07/23/18 furosemide [Lasix] 40 mg PO BID 03/16/18 07/23/18 glipizide 10 mg PO BID 03/16/18 07/23/18 omeprazole 20 mg PO BID 03/16/18 07/23/18 Iodosorb 40 gm TOPICAL Q12H #40 gm 06/24/18 07/23/18 budesonide-formoterol [Symbicort] 2 puff INHALATION BID #1 inh 07/06/18 07/23/18 magnesium hydroxide [Milk of 30 ml PO DAILY PRN PRN #0 ml 07/06/18 07/23/18 Magnesia] polyethylene glycol 3350 17 g PO DAILY PRN PRN #0 ea 07/06/18 sodium phosphates [Enema 133 ml [place] DAILY PRN PRN #0 ml 07/06/18 07/23/18 Disposable] magnesium oxide 400 mg (241.3 mg 400 mg PO BID@1000,2200 #14 tab 07/07/18 07/23/18 magnesium) tablet metoprolol succinate ER 25 mg 25 mg PO DAILY #30 tab 07/07/18 07/23/18 tablet,extended release 24 hr Previous Rx's Medication Instructions Recorded morphine [MS Contin] 60 mg PO Q12H #30 tabcr 11/03/17 polyethylene glycol 3350 17 gm PO BID packet 11/03/17 Iodosorb 40 gm TOPICAL Q12H #40 gm 06/24/18 budesonide-formoterol [Symbicort] 2 puff INHALATION BID #1 inh 07/06/18 magnesium hydroxide [Milk of 30 ml PO DAILY PRN PRN #0 ml 07/06/18 Magnesia] polyethylene glycol 3350 17 g PO DAILY PRN PRN #0 ea 07/06/18 sodium phosphates [Enema 133 ml MT DAILY PRN PRN #0 ml 07/06/18 Disposable] magnesium oxide 400 mg (241.3 mg 400 mg PO BID@1000,2200 #14 tab 07/07/18 magnesium) tablet metoprolol succinate ER 25 mg 25 mg PO DAILY #30 tab 07/07/18 tablet,extended release 24 hr Allergies Allergy/AdvReac Type Severity Reaction Status Date / Time ketorolac Allergy Unverified 07/23/18 14:56 lisinopril Allergy Unverified 07/23/18 14:56 methadone Allergy Unverified 07/23/18 14:56 oxycodone [From OxyContin] Allergy Unverified 07/23/18 14:56 General Stated Complaint: SOB RAMESH: 2 Review of Systems Review of Systems All systems reviewed & are unremarkable except as noted in HPI and below PFSH Social History adopted: No caregiver/support person: Yes foster care: No household members: caregiver housing: assisted living facility marital status details: about 17-18 years ago lives independently: No number of children: 1 number of grandchildren: 0 highest education level completed: high school graduate service: No current occupational status: disabled leisure activities: games Hx Recent Travel: No sexually active: No diet: diabetic well-balanced diet: about half the time daily servings fruits/ve-1 eating out: rarely or never reads food labels: sometimes during the past year weight has: increased > 10 lbs what type of physical activity do you participate in: none Smoking and Tabacco status: Former Tobacco Use Exam Narrative Exam Narrative: 1.Const: Well-nourished, super morbidly obese 2.Eyes: PERRL, no conjunctival injection, and symmetrical lids. 3.ENT: Atraumatic external nose and ears. Moist MM. Neck: Symmetric, trachea midline, No thyromegaly. 4.CVS: +S1/S2, No murmurs or gallops. Peripheral pulses 2+ and equal in all extremities. Brisk capillary refill in all extremities. 5.RESP: Pickwickian type respirations, rhonchi and rales throughout, worse on the left than the right. No wheezes. Small amount of reproducible chest pain on the right breast. 6.GI: Soft, Nontender/Nondistended, No hepatosplenomegaly. No guarding or rebound. 7.MSK: Normocephalic/Atraumatic, Extremities w/o deformity or ttp No cyanosis or clubbing, Normal movement of all extremities 8.Skin: Multiple chronic ulcers on the patient's buttock, calves, and feet. There are currently wrapped with soft and gauze. 9.Neuro: preschool program director II-XII grossly intact. Sensation grossly intact, no focal neurologic deficits. 10.Psych: (AAO) x3. Appropriate mood and affect Course Vital Signs Temperature 36.7 C 07/23/18 14:44 Pulse 107 H 07/23/18 14:44 Respiratory Rate 15 07/23/18 14:44 Blood Pressure 127/59 L 07/23/18 14:44 Pulse Oximetry 93 L 07/23/18 14:44 Temperature 36.7 C 07/23/18 14:44 Temperature Source Temporal Artery Scan 07/23/18 14:44 Pulse 100 H 07/23/18 16:16 Pulse 100 H 07/23/18 16:16 Respiratory Rate 15 07/23/18 16:16 Respiratory Effort Non-Labored 07/23/18 15:01 Respiratory Depth Normal 07/23/18 15:01 Respiratory Pattern Normal 07/23/18 15:01 Blood Pressure 117/78 07/23/18 16:16 Blood Pressure Mean 87 07/23/18 16:16 Blood Pressure Position Supine 07/23/18 14:44 Pulse Oximetry 93 L 07/23/18 16:16 Oxygen Delivery Method Nasal Cannula 07/23/18 14:45 Oxygen Flow Rate 4 07/23/18 14:45
[2018-07-23] MEDS: Potassium Chloride 20 MEQ TABCR 40 MEQ PO (17:09)
[2018-07-23] MEDS: AZITHROMYCIN 500 MG in Normal Saline 250 ML 250 MG IVPB (17:16)
[2018-07-23] MEDS: VANCOMYCIN 2,000 MG in Normal Saline 500 ML 250 MG IVPB (17:42)
--- NOTE | 2018-07-23 19:51 | W.PM.HP.N ---
Date of service: 07/23/18 Time of Service: 18:30 Assessment and Plan (1) Right heart failure due to pulmonary hypertension: Current visit: Yes Status: Acute initiate lasix drip, monitor UO, BMP, BNP; check dedicated echocardiogram (none done since 10/17/2017, at that time LVEF 60-65% with no RWMA; diastolic parameters were normal but RV severely dilated w/ mild RV systolic dysfunction; moderate sized ascending aortic aneurysm 4.7 cm aortic root). Once he is euvolemic his losartan and Toprol dose should be adjusted. consider addition of spironolactone to his lasix if his renal function can tolerate this. consider cardiology referal re: his TAA. (2) Right ventricular systolic dysfunction: Current visit: Yes Status: Chronic medications as above. continue aggressive treatment of his ABHAY. (3) Obstructive sleep apnea hypopnea, severe: Current visit: Yes Status: Chronic continue aggressive treatment of his ABHAY. consider retitration sleep study. He needs better maintenance of his home BIPAP unit. It is not being properly cleaned and this sets him up for recurrent respiratory infections. (4) Diabetes mellitus: Current visit: Yes Status: Chronic hold metformin for now while his CHF is evaluated and treated. continue insulin with meal coverage and high dose sliding scale. We do not have Tresiba therefore I have substituted Lantus. Qualifiers: Chronic kidney disease stage: Diabetes mellitus complication detail: with foot ulcer Diabetes mellitus complication status: with skin complications Diabetes mellitus snf insulin use: with snf use Diabetes mellitus macular edema: Diabetes mellitus type: due to underlying condition Diabetic retinopathy severity: Laterality: Proliferative retinopathy type: Qualified Code(s): E08.621 - Diabetes mellitus due to underlying condition with foot ulcer; L97.509 - Non-pressure chronic ulcer of other part of unspecified foot with unspecified severity; Z79.4 - intermodal customer service (current) use of insulin (5) Pressure ulcer: Current visit: Yes Status: Chronic consult wound care management to evalute and treat his stasis ulcers. His great toe ulcer looks clean and has granulation tissue at the base w/out exudate and therefore I have not consulted his science and operations officer for now. Qualifiers: Laterality: left Pressure injury location: calf Pressure injury stage: stage 3 Qualified Code(s): L89.893 - Pressure ulcer of other site, stage 3 History of Present Illness Chief Complaint: dyspnea, hypoxemia, weakness Narrative: 58 yr old male w/ PMH of poorly controlled DM type 2 on insulin and oral hypoglycemic agents, HTN, ABHAY (wears BIPAP w/ 2 lpm O2 at night only), chronic diastolic CHF, morbid obesity, chronic stasis leg ulcers, who has been hospitalized 3 x over the past 5 weeks for recurrent pneumonia. Initially treated for CAP from 06/21/2018 to 06/24/2018 with Ceftriaxone, Azithromycin and corticosteroids and aerosolized bronchodilators. He was rehospitalized 06/28/2018 with worsening dyspnea, cough and worsening RLL patchy opacities w/ diffuse interstitial prominence along w/ leukocytosis of 14,000. This time he was treated for HCPA with Vancomycin, Levaquin and Cefepime from 06/28 through 07/06/2018 including corticosteroids. He was sent home on tapering doses of prednisone which he has been weaned off. His CXR was repeated on 07/05 and demonstrated resolution of his infiltrates. During his hospitalizaiton he received iv diuretics for acute on chronic RV systolic CHF (cor pulmonale). Upon discharge he was transitioned to his home dose of oral lasix. Since his discharge he has been receiving home health visiting nurses doing his wound care to his B/L lower extremities stasis leg ulcers. He has been receiving home P.T. He states that he gets out of bed several times per day with help but does little to no walking yet. He pretty much moves from the bed to the chair or bedside commode. He has been compliant with his diuretics and his other meds. His glucose upon discharge was high in the 400's but after tapering off prednisone his glucose has been in the 200's although he misplaced his glucometer yesterday. Today while visiting nurse was performing his wound care and did his routine vitals, they noticed his RA oxygen saturation was 73%. He admitted to some increased dyspnea over the past couple days and today he had a cough w/out sputum production. He denies any chest pain/pressure, no fever or rigors. He denies any noncompliance with his meds or his diet. He was evaluated in the ER by Dr. Arredondo who performed routine labs and CXR. His CBC did not show a leukocytosis (10,000 while last WBC was 21,000 on 07/09/2018. He has a stable anemia w/ Hb of 10.2 gm. His CXR demonstrated multifocal in left mid and lower lung zone for which the radiologist was suggesting as consistent w/ pneumonia in the proper clinical setting. His other labs included CMP which did not show any azotemia (last admission he had ANI). No troponin, EKG or BNP were performed. His treatment has consisted of Ceftriaxone 2 gm, Vancomycin 2 gm, and Azithromycin 500 mg. He was admitted for treatment of HCAP. However, in light of my history and exam and review of his labs and CXR, I do not believe that he has HCAP. He has no fever, leukocytosis, sputum production, chills/rigors, and I did POCUS of his lungs and found no consolidation but rather he has extensive B lines through out both lower lung zones and his pro-BNP is elevated to 1900 from his prior level of 69 on 06/28/2018. I also did limited POCUS echo and found his LV function to be normal but he has dilated RV but could not comment on RV systolic function d/t poor apical 4 chamber view and limited subcostal examination (d/t his morbid obese abdomen). His troponin is normal and his EKG did not show any ischemic changes. I am going to withold further antibiotics in favor of treating him for acute on chronic RV CHF secondary to cor pulmonale from his ABHAY. If he spikes a fever or demonstrates leukocytosis or his infiltrates fail to respond to diuretic then I would reconsider antibiotics. He is at risk for development of VRE or C. diff from recurrent hospitalizations for broad spectrum antibiotics and unless a clear cut infection is demonstrated, I would not treat him with antibiotics. I have dc'ed his tylenol so we can watch for any fever development. Review of Systems Review of Systems All systems reviewed & are unremarkable except as noted in HPI and below [facility] Medical History Pressure ulcer (Chronic) Right rotator cuff tear (Chronic) Ascending aortic aneurysm (Chronic) Right ventricular dilation, secondary (Chronic) Right ventricular systolic dysfunction (Chronic) Chronic pain disorder (Chronic) Super-super obese (Chronic) Diabetes mellitus (Chronic) GERD (gastroesophageal reflux disease) (Chronic) Chronic anxiety (Chronic) Depression (Chronic) Chronic back pain (Chronic) Obstructive sleep apnea hypopnea, severe (Chronic) Iron deficiency anemia, unspecified (Chronic) Severe muscle deconditioning (Acute) Panniculitis of other sites (Resolved) Family History Father No problems noted. Son No problems noted. Social History adopted: No caregiver/support person: Yes foster care: No household members: caregiver housing: assisted living facility marital status details: about 17-18 years ago lives independently: No number of children: 1 number of grandchildren: 0 highest education level completed: high school graduate service: No current occupational status: disabled leisure activities: games Hx Recent Travel: No sexually active: No diet: diabetic well-balanced diet: about half the time daily servings fruits/ve-1 eating out: rarely or never reads food labels: sometimes during the past year weight has: increased > 10 lbs what type of physical activity do you participate in: none Smoking and Tabacco status: Former Tobacco Use Meds Home Medications Medication Instructions Recorded Confirmed Type gabapentin 600 mg PO TID 04/11/17 07/23/18 History morphine 15 mg PO TID PRN PRN 04/11/17 07/23/18 History morphine [MS Contin] 60 mg PO Q12H #30 tabcr 11/03/17 07/23/18 Rx polyethylene glycol 3350 17 gm PO BID packet 11/03/17 07/23/18 Rx acetaminophen [Tylenol] 325 mg PO Q6H PRN 02/22/18 07/23/18 History amitriptyline 150 mg PO HS 02/22/18 07/23/18 History losartan 25 mg PO DAILY 02/22/18 07/23/18 History metformin 1,000 mg PO BID 02/22/18 07/23/18 History nystatin 1 applic TOPICAL BID 02/22/18 07/23/18 History trazodone 150 mg PO HS 02/22/18 07/23/18 History Glucagon Emergency Kit (human) 1 mg IM PRN PRN 03/16/18 07/23/18 History Tresiba FlexTouch U-200 45 unit SUBCUT DAILY 03/16/18 07/23/18 History furosemide [Lasix] 40 mg PO BID 03/16/18 07/23/18 History glipizide 10 mg PO BID 03/16/18 07/23/18 History omeprazole 20 mg PO BID 03/16/18 07/23/18 History Iodosorb 40 gm TOPICAL Q12H #40 gm 06/24/18 07/23/18 Rx budesonide-formoterol [Symbicort] 2 puff INHALATION BID #1 inh 07/06/18 07/23/18 Rx magnesium hydroxide [Milk of 30 ml PO DAILY PRN PRN #0 ml 07/06/18 07/23/18 Rx Magnesia] polyethylene glycol 3350 17 g PO DAILY PRN PRN #0 ea 07/06/18 Rx sodium phosphates [Enema 133 ml [place] DAILY PRN PRN #0 ml 07/06/18 07/23/18 Rx Disposable] magnesium oxide 400 mg (241.3 mg 400 mg PO BID@1000,2200 #14 tab 07/07/18 07/23/18 Rx magnesium) tablet metoprolol succinate ER 25 mg 25 mg PO DAILY #30 tab 07/07/18 07/23/18 Rx tablet,extended release 24 hr Allergies Allergy/AdvReac Type Severity Reaction Status Date / Time ketorolac Allergy Unverified 07/23/18 14:56 lisinopril Allergy Unverified 07/23/18 14:56 methadone Allergy Unverified 07/23/18 14:56 oxycodone [From OxyContin] Allergy Unverified 07/23/18 14:56 Exam Const General: cooperative, no acute distress and well developed Nutritional Appearance: obese morbidly obese Orientation: alert, awake and oriented x3 HENMT Head: normal to inspection, normocephalic, atraumatic and no acral cyanosis Neck Neck: normal visual inspection, full ROM, no lymphadenopathy, supple and JVD Thyroid: thyroid normal Carotids: normal carotid upstroke Lymphatic: no lymphadenopathy noted Chest Chest: normal inspection of the chest Breast inspection: normal inspection of the breasts and normal inspection of the axillae Resp Effort & Inspection: normal respiratory effort and able to speak in complete sentences Auscultation: clear to auscultation bilaterally (upper lung taveras clear to auscultation), rales bilaterally at the base, no rhonchi and no wheezes Cardio Jugular venous pressure: JVD elevated and other (HJR present) Palpation: normal PMI Rate: regular rate Rhythm: regular rhythm Heart Sounds: S1 normal, abnormal opening sounds loud S2, no gallops, no murmurs and no rubs Bruits: no carotid bruits Pulses: normal peripheral pulses GI Inspection: obesity (large pannus w/ lichenification/chronic stasis skin changes) Palpation: soft Percussion: normal to percussion Auscultation: normal bowel sounds Rectal Exam: deferred General: No CVA tenderness Skin General skin exam: dry skin Lesions: lesion noted ulcer right plantar great toe borders well-defined, color with an erythematous base, consistency soft and surface with an erythematous base; Negative for with discharge Rashes: rashes noted lichenification left anterior abdomen Other: both legs were bandaged and I did not take down his dressings Neuro General: alert, awake, oriented x3, moves all extremities and no focal motor deficits Cognition: normal cognition Speech: speech normal Motor: muscle tone normal throughout and no movement abnormalities noted Sensory Exam: lower extremity bilateral light-touch abnormal decreased Extrem General: no cyanosis and edema Laterality: bilateral Results Imaging Chest x-ray: report reviewed (FINDINGS: There are new multifocal patchy consolidative opacities in the left mid and lower lung zone. The findings are consistent with pneumonia in the proper clinical setting. The cardiomediastinal silhouette and vasculature are within normal limits given this AP portable technique. Th) and image reviewed (chest xray is rotated however increased interstitial markings along w/ bilateral air space opacities are noted compared to CXR dated 07/05/2018. cardiomegaly is unchanged however there is prominence of RA contour on current CXR. These findings are c/w CHF) Additional studies: sinus tachycardia at 100 bpm with LAFB unchanged from 06/28. No ischemic changes are noted EKG: image reviewed Labs : 07/23/18 16:05 07/23/18 16:05 Laboratory Results - last 24 hr 07/23/18 07/23/18 16:05 16:05 WBC 10.07 RBC 4.30 L Hgb 10.2 L Hct 35.4 L MCV 82.3 MCH 23.7 L MCHC 28.8 L RDW 19.8 H Plt Count 310 MPV 9.8 Immature Gran % 0.0 Neutrophils % 50.0 Band Neutrophils % 4.0 Lymphocytes % 31.0 Atypical Lymphs % 5 Monocytes % 9.0 Eosinophils % 1.0 Basophils % 0.0 Absolute Neutrophils 5.44 Absolute Lymphocytes 3.63 H Absolute Monocytes 0.91 H Absolute Eosinophils 0.10 Absolute Basophils 0.00 Differential Comment Manual differential RBC Morphology See below Polychromasia Present Hypochromasia 2+ Poikilocytosis 2+ Anisocytosis 2+ Stomatocytes 2+ Sodium 144 Potassium 3.3 L Chloride 102 Carbon Dioxide 39.1 H Anion Gap 2.9 L BUN 17 Creatinine 1.18 Estimated GFR/1.73 m2 >= 60.00 Glucose 229 H Calcium 7.9 L Total Bilirubin 0.3 AST 43 H ALT 20 Alkaline Phosphatase 108 Total Protein 6.4 Albumin 1.8 L Last Vital Signs Temp 36.7 C 07/23/18 18:02 Pulse 97 H 07/23/18 18:02 Resp 21 07/23/18 18:02 BP 106/71 07/23/18 18:02 Pulse Ox 94 L 07/23/18 18:02
[2018-07-23 20:47] LABS: Troponin I 0.04 ng/mL (0.00-0.06)
[2018-07-23] MEDS: Normal Saline Flush 10 ML SYR IVP (20:51)
[2018-07-23] MEDS: Furosemide 100 MG/10 ML VIAL 80 MG IVP (20:51)
[2018-07-23 20:52] LABS: NT-proBNP 1902 pg/mL
[2018-07-23] MEDS: Lidocaine 2% Jelly 11 ML SYR UR (21:15)
[2018-07-23] MEDS: Nystatin CREAM 15 GM TUBE TP (21:31)
[2018-07-23] MEDS: Gabapentin 300 MG CAP 600 MG PO (21:32)
[2018-07-23] MEDS: Magnesium Oxide 400 MG TAB PO (21:32)
[2018-07-23] MEDS: Enoxaparin 40 MG/0.4 ML SYR SC (21:33)
[2018-07-23] MEDS: Budesonide/Formoterol 160/4.5 6 GM 60 PUFF INH IH (21:33)
[2018-07-23] MEDS: Polyethylene Glycol 3350 17 GM PACKET PO (21:34)
[2018-07-23] MEDS: Insulin Aspart 300 UNITS/3 ML PEN SC (21:47)
[2018-07-23] MEDS: Insulin Glargine 300 UNITS/3 ML PEN 45 UNITS SC (21:48)
[2018-07-23 23:57] LABS: Troponin I 0.03 ng/mL (0.00-0.06)
[2018-07-24] VITALS (9 sets, daily range): BP systolic 91–138; BP diastolic 59–79; PULSE 81–101; RESP 16–25; TEMP 35.7–37.1; O2SAT 89–97
[2018-07-24] MEDS: Budesonide/Formoterol 160/4.5 6 GM 60 PUFF INH IH ×2 (07:35→21:47)
[2018-07-24 07:51] LABS: Abs Immature Grans 0.01 k/cumm (0.0-0.09); Absolute Basophil Count 0.01 k/cumm (0.0-0.2); Absolute Eosinophil Count 0.27 k/cumm (0.0-0.7); Absolute Lymphocyte Count 2.44 k/cumm (1.2-3.4); Absolute Monocyte Count 0.71 k/cumm (0.11-0.7); Absolute Neutrophil Count 4.62 k/cumm (1.2-6.7); Basophils % 0.1; Eosinophils % 3.3; HGB 10.1 g/dL (13.5-17.5); Immature Grans % 0.1; Lymphocytes % 30.3; Mean Corp. HGB Concentration 28.1 g/dL (32.0-36.0); Mean Corpuscular Hemoglobin 23.3 pg (27.0-33.0); Mean Corpuscular Volume 83.1 fL (80-95); Mean Platelet Volume 9.5 fL (8.0-11.0); Monocytes % 8.8; Neutrophils % 57.4; Platelet Count 325 x1000/uL (130-400); RBC 4.33 m/cumm (4.50-6.00); White Blood Cell Count 8.06 k/cumm (4.4-10.8)
[2018-07-24] MEDS: glipiZIDE 10 MG TAB PO (08:05)
[2018-07-24] MEDS: Omeprazole 20 MG CAPCR PO ×2 (08:05→16:01)
[2018-07-24] MEDS: Potassium Chloride 20 MEQ TABCR PO (08:05)
[2018-07-24] MEDS: Gabapentin 300 MG CAP 600 MG PO ×3 (08:05→21:44)
[2018-07-24 08:10] LABS: Anion Gap 0.9 mmol/L (3-11); BUN 16 mg/dL (7-18); CO2 44.1 mmol/L (21.0-32.0); Chloride 100 mmol/L (98-107); Glucose 125 mg/dL (70-100); Sodium 145 mmol/L (136-145)
[2018-07-24 08:16] LABS: Potassium 2.9 mmol/L (3.5-5.1)
[2018-07-24 08:25] LABS: Magnesium 1.5 mg/dL (1.8-2.4); NT-proBNP 1027 pg/mL; TSH (W/Ref FT4) 3.86 uIU/mL (0.358-3.74)
[2018-07-24 08:45] LABS: FREE T4 1.05 ng/dL (0.76-1.46)
--- NOTE | 2018-07-24 09:11 | INITIAL_ITS ---
- If Service Date Differs Date of service: 07/24/18 Time of Service: 09:10 Care Management Initial Assess REASON FOR HOSPITALIZATION:: Hospital aquired pneumonia PAST MEDICAL HISTORY/PAST SURGICAL HISTORY:: Pressure ulcer (Chronic). Right rotator cuff tear (Chronic). Ascending aortic aneurysm (Chronic). Right ventricular dilation, secondary (Chronic). Right ventricular systolic dysfunction (Chronic). Chronic pain disorder (Chronic). Super-super obese (Chronic). Diabetes mellitus (Chronic). GERD (gastroesophageal reflux disease) (Chronic). Chronic anxiety (Chronic). Depression (Chronic). Chronic back pain (Chronic). Obstructive sleep apnea hypopnea, severe (Chronic). Iron deficiency anemia, unspecified (Chronic). Severe muscle deconditioning (Acute). Panniculitis of other sites (Resolved) PREVIOUS FUNCTIONAL STATUS/SOCIAL/FAMILY SUPPORTS:: Peter resides in [place] with his caregiver Cash Shah, he has support of [employer] for care. Rajan states that he cooks his own meals at home, and has been trying to do lower carb. Rajan has had mutiple stays at different SNF's including [facility] and [facility]. Rajan depends on his caregiver for transportation. CURRENT FUNCTIONAL STATUS:: Petre is engaged with CM during assessment. He states he is not being cared for by his caregiver. He feels that his readmission is related to not enough care at home by caregiver. He states that he does have a direct care provider however she is not there 24 hours a day and he if often left to manage independently. Peter states he would like to transition to a facility in the [facility] he is willing to be in a skilled facility. ADVANCE DIRECTIVES:: None on file- CM offered to complete with patient. Has patient been provided with information about the portal?: Yes Did the patient sign up for the portal?: No CODE STATUS:: Full Code INSURANCE COVERAGE / FINANCIAL ISSUES:: Medicare and medicaid CURRENT HOME/COMMUNITY SERVICES/EQUIPMENT:: Currently Rajan resides in a private prison in [place] with his provider Cash. Equipment in the home includes bariatric luis miguel lift, home bipap machine, medical bed, trapeze, and a shower chair. Rajan receives home health RN services 3x/week for wound care. Rajan's upper caser through [employer] [facility] is Bhavik Rajan states that she is away at this time. PRIMARY CARE PHYSICIAN:: POTENTIAL DISCHARGE NEEDS:: F/U appointment with PCP. Resumption of home health RN services. PATIENT/FAMILY EDUCATION NEEDS:: Discharge instructions follow up plan of care and ask me three instructions including self management. ANTICIPATED BARRIERS TO DISCHARGE:: Placement vs return home with caregiver. TRANSPORTATION:: Discharge disposition to determine mode of transportation. PLAN:: Peter will be discharged home when medically ready. He is receiving IV diuretics and is being monitored for fever. He has a wound consult to manage his leg wounds and thompson in place. CM will contact [facility] and request assistance in new placement for the patient. Peter agrees to referrals to SNF in the [facility].
[2018-07-24] MEDS: Insulin Aspart 300 UNITS/3 ML PEN SC ×6 (09:26→21:49)
[2018-07-24] MEDS: Magnesium Oxide 400 MG TAB PO ×2 (09:41→21:44)
[2018-07-24] MEDS: Nystatin CREAM 15 GM TUBE TP ×2 (11:40→21:43)
[2018-07-24] MEDS: Normal Saline Flush 10 ML SYR IVP (11:50)
[2018-07-24] MEDS: Potassium Chloride 20 MEQ TABCR 40 MEQ PO (11:50)
--- NOTE | 2018-07-24 11:56 | W.SPEECHEVAL ---
Date of service: 07/24/18 Time of Service: 10:00 Speech Therapy Evaluation Note: REFERRING PROVIDER: Nani Catherine NP BACKGROUND This is a 58 year old right-handed male who presented to the ED from his private homecare home on 07/23/18 with hypoxia, dyspnea and weakness. A CXR at that time indicated possible left-sided infiltrates. He was admitted for tx of right heart failure secondary to pulmonary HTN and possible pneumonia. A swallow eval was ordered to assess for aspiration risk. PMH: DM II, HTN, ABHAY, CHF, morbid obesity, chronic stasis leg ulcers, 1+ month h/o recurrent pneumonia. The patient (pt) is able to provide additional background information with regard to p.o. consistencies taken in the weeks prior to this admission. He states that he has been taking what, by description, are Thin liquids, a Dysphagia Advanced diet with chopped meat, and small & medium-sized whole pills with a liquid wash but large pills cut-up or chewed. He also says that the chopped meats have become harder to chew but ground meat is easier. However, he states that from previous admissions to this facility, he knows he does not like the ground meat here because it's like babyfood, so he prefers fine-chopped. He c/o difficulty with liquids coming out of his nose, especially room-temperature liquids. He c/o chronic xerostomia and also acknowledges having some anxiety about swallowing. OBJECTIVE Nursing reports: - T: 36.5 -O2 sat: 93% on 4 L via NC - LS: crackles on the right, CTA-L in the presence of ABX - Pt is currently on a Regular consistency diet. - Pt tolerated whole pills with a Thin liquid wash this morning. The pt is reclined in bed laying obliquely on his left side. He says he has to be somewhat reclined and more on his left in an effort to relieve pressure on his leg wounds. He reports that since the onset of these wounds a few weeks ago, he has often been eating and drinking in this reclined position. He is willing to sit more upright on my request during this visit though (not quite to 90 degrees). He converses well, both asking and answering questions, and shows good use of humor. He is A & O x 4 and able to follow 3-step directions. Oral Sensorimotor Exam The pt is significantly partially edentulous, having only 2 teeth on the bottom ridge and 7 on the top ridge. Oral hygiene is fair but he denies any dental discomfort. Lingual tissues appear dry. Oral sensation is WNL bilaterally (B) for buccal, labial and lingual areas. Motorically, the smile is symmetrical as are forehead wrinkles. Buccal and labial strength/coordination are both WNL. No lingual deviation on protrusion is seen in a setting of good excursion. Lingual lateralization is WNL-B as are lingual rapid alternating movements. Lingual strength and mandibular lateralization are WNL-B. Velopharyngeal elevation is strong and symmetrical. Volitional cough and throat-clear are both strong. Speech intelligibility to this unfamiliar listener in the presence of mild background noise is 100%. Vocal intensity and quality are both WNL. Swallowing -Honey-thick liquid: Good bolus control; pt pauses before automatically doing a mild chin-tuck with a very intentional posterior oral transit (POT); when cued to transit subsequent boluses without the paused chin-tuck/intentional POT, pt shows a normal POT; no roopa s/s A/P; oral clearance 100%; no oral escape; no nasal regurgitation. - [place]-thick liquid: Good bolus control & POT (after reminder to avoid chin-tuck); no roopa s/s A/P; oral clearance 100%; no oral escape; no nasal regurgitation. These results are true for both single and consecutive swallows by both cup and straw. - Thin liquid: Results are the same as for [place]-thick liquid in the absence of any reminders for avoidance of chin-tuck. These results are also true for liquids at cool temperature, room temperature and mildly warm temperature. - Puree food: Good bolus control and linguopalatal bolus compression; POT is WNL; no roopa s/s A/P; oral clearance 100%; no oral escape. - Mechanically Altered food: Good mastication quality, bolus control and POT; no roopa s/s A/P; oral clearance 100%; no oral escape. - Dysphagia Advanced food: Increased mastication time used but this does result in good mastication quality; bolus appears mildly-moderately dry after chewing; bolus control WNL; POT mildly effortful but functional; no roopa s/s A/P; oral clearance 100%; no oral escape. Pt is observed to self-feed with his dominant RUE and a regular utensil. He shows an inconsistently fast self-feeding rate. INTERPRETATION The pt shows a moderate oral-prep dysphagia secondary to significant partial edentulousness. No clinical signs of a pharyngeal dysphagia are seen, however, pt is felt to be at some risk of aspiration due to a combination of factors: use of a reclined upper body position during p.o. intake; xerostomia; occasional fast self-feeding rate; anxiety; possible h/o inadequate mastication of firmer foods (Dysphagia Advanced food, chopped meats). RECOMMENDATIONS 1. Change to a Mechanically Altered diet with moistened fine-chopped meats. 2. Continue: a) Thin liquids b) whole pills with a liquid wash for small & medium-sized pills; large pills dissolved/cut up/crushed in Puree food. 3. Biotene Antibacterial Mouthwash ( 15 mls) before each meal. Green star pt's menu. 4. Periodic supervision of self-feeding with cueing for use of: a) a 90 degree upper body position as tolerated b) mildly slow self-feeding rate 5. Speech therapy to maximize swallow safety. Thank you for referring this pt.
--- NOTE | 2018-07-24 12:30 | MERGE_ITS ---
*[facility]* *[facility]* [address] [place] [address] Date of study: 07/24/2018 Transthoracic Echocardiography M-mode, complete 2D, complete spectral Doppler, and color Doppler *STUDY CONCLUSIONS* Impressions: Compared to the 09/2017 study, there has been no significant interval change. Summary: 1. Left ventricle: The cavity size was normal. Wall thickness was increased increased in a pattern of mild to moderate LVH. Systolic function was normal. The estimated ejection fraction was 55-60%. Wall motion was normal; there were no regional wall motion abnormalities. 2. Aortic root: The aortic root was moderately dilated. 4.7 cm. 3. Right ventricle: The cavity size was dilated. Wall thickness was normal. Systolic function was normal. Minor axis dimension, ED (basilar, A4C): 5.3cm. 4. Right atrium: The atrium was dilated. 5. Inferior vena cava: The vessel was patent and normal in size. The respirophasic diameter changes were in the normal range (greater than or equal to 50%). *PATIENT PRESENTATION* Height: 182.9cm ((72in) ) S/D Pressure: 99 / 62 Weight: 213.2kg ((469lb) ) BSA: 3.42m^2 Test start time: 12:45 PM. Test stop time: 01:50 PM. PERFORMING Unknown PERFORMING [facility] ORDERING Branden Cordero REFERRING Branden Cordero TICKET AGENT Deanna Hutchison RT (R)(CT), RDHAJA CONSULTING Tasneem Richardson *PROCEDURE DATA* Procedure information: The patient was identified by two identifiers. This study was interpreted by [facility]. Pertinent images and digital data are archived for permanent storage and are available for subsequent review. Comparison was made to the study of 10/17/2017. Study status: Routine. Transthoracic echocardiography. M-mode, complete 2D, complete spectral Doppler, and color Doppler. A Transthoracic Echocardiogram was performed. Scanning was performed from the parasternal, apical, subcostal, and suprasternal notch acoustic windows. Images were obtained using an [id number] cardiac ultrasound machine. Image quality was adequate. Study completion: The patient tolerated the procedure well. There were no complications. History: PMH: CHF evaluate RV and LV. *CARDIAC ANATOMY* Left ventricle: The cavity size was normal. Wall thickness was increased increased in a pattern of mild to moderate LVH. Systolic function was normal. The estimated ejection fraction was 55-60%. Wall motion was normal; there were no regional wall motion abnormalities. Diastolic parameters were normal. Aortic valve: Trileaflet; normal thickness leaflets. Mobility was not restricted. Doppler: Transvalvular velocity was within the normal range. There was no stenosis. There was no significant regurgitation. VTI ratio of LVOT to aortic valve: 0.94. Valve area (VTI): 4.6cm^2. Indexed valve area (VTI): 1.3cm^2/m^2. Peak velocity ratio of LVOT to aortic valve: 0.75. Valve area (Vmax): 3.7cm^2. Indexed valve area (Vmax): 1.1cm^2/m^2. Mean velocity ratio of LVOT to aortic valve: 0.72. Valve area (Vmean): 3.5cm^2. Indexed valve area (Vmean): 1cm^2/m^2. Mean gradient (S): 2.4mm Hg. Peak gradient (S): 3.9mm Hg. Aorta: Aortic root: The aortic root was moderately dilated. 4.7 cm. Ascending aorta: The ascending aorta was mildly dilated. Mitral valve: Structurally normal valve. Mobility was not restricted. Doppler: Transvalvular velocity was within the normal range. There was no evidence for stenosis. There was no significant regurgitation. Valve area by pressure half-time: 6.3cm^2. Indexed valve area by pressure half-time: 1.8cm^2/m^2. Left atrium: The atrium was normal in size. Right ventricle: The cavity size was dilated. Wall thickness was normal. Systolic function was normal. Pulmonic valve: Structurally normal valve. Doppler: Transvalvular velocity was within the normal range. There was no evidence for stenosis. There was no significant regurgitation. Tricuspid valve: Structurally normal valve. Doppler: Transvalvular velocity was within the normal range. There was no evidence for stenosis. There was no significant regurgitation. Pulmonary artery: Systolic pressure could not be accurately estimated. Right atrium: The atrium was dilated. Pericardium: There was no pericardial effusion. Systemic veins: Inferior vena cava: Well visualized. The vessel was patent and normal in size. The respirophasic diameter changes were in the normal range (greater than or equal to 50%). Baseline ECG: Normal sinus rhythm. Measurements Left ventricle Value 10/17/2017 Reference LV ID, ED, PLAX 6.0 cm 5.5 3.5 - 6.0 LV ID, ES, PLAX (H) 4.3 cm 3.8 2.1 - 4.0 LV PW thickness, ED, PLAX 1.3 cm 1.4 LV end-diastolic volume, 155 ml 117 1-p A2C LV ejection fraction, 1-p 56 % 61 A2C LV end-diastolic volume, 120 ml 156 1-p A4C LV ejection fraction, 1-p 58 % 62 A4C LV e', lateral 0.112 m/sec 0.121 LV E/e', lateral 4 4 LV e', medial 0.13 m/sec 0.061 LV E/e', medial 4 8 LV e', average 0.121 m/sec 0.091 LV E/e', average 4 5 Ventricular septum Value 10/17/2017 Reference IVS thickness, ED, PLAX 1.5 cm 1.4 LVOT Value 10/17/2017 Reference LVOT ID, A-P 2.5 cm 2.5 LVOT area 4.9 cm^2 5 LVOT peak velocity, S 0.74 m/sec 0.93 LVOT mean velocity, S 0.54 m/sec 0.57 LVOT VTI, S 15.0 cm 15.7 LVOT peak gradient, S 2.2 mm Hg 3.5 LVOT mean gradient, S 1.3 mm Hg 1.6 Stroke volume (SV), LVOT 74 ml 79 DP Stroke index (SV/bsa), 22 ml/m^2 23 LVOT DP Aortic valve Value 10/17/2017 Reference Aortic valve peak 1 m/sec 1.2 velocity, S Aortic valve mean 0.75 m/sec 0.82 velocity, S Aortic valve VTI, S 16.0 cm 18.1 Aortic mean gradient, S 2.4 mm Hg 3 Aortic peak gradient, S 3.9 mm Hg 5.9 VTI ratio, LVOT/AV 0.94 0.87 Aortic valve area, VTI 4.6 cm^2 4.4 Velocity ratio, peak, 0.75 0.76 LVOT/AV Aortic valve area, peak 3.7 cm^2 3.9 velocity Velocity ratio, mean, 0.72 0.69 LVOT/AV Aortic valve area, mean 3.5 cm^2 3.5 velocity Aortic valve area/bsa, 1 cm^2/m^2 1 mean velocity Aorta Value 10/17/2017 Reference Aortic root ID, ED 4.7 cm 4.7 Ascending aorta ID, A-P, S 3.6 cm 3.4 Left atrium Value 10/17/2017 Reference LA ID, A-P, ES 4.1 cm 4.3 LA ID/bsa, A-P 1.2 cm/m^2 1.2 <=2.2 LA area, ES, A4C (H) 24.1 cm^2 17.3 8.8 - 23.4 LA area, ES, A2C 20 cm^2 20 LA volume/bsa, ES, 1-p A4C 29 ml/m^2 14 LA volume, ES, 2-p 65 ml 51 LA volume/bsa, ES, 2-p 19 ml/m^2 15 LA/aortic root ratio 0.88 0.91 Mitral valve Value 10/17/2017 Reference Mitral E-wave peak 0.5 m/sec 0.47 velocity Mitral A-wave peak 0.58 m/sec 0.7 velocity Mitral deceleration time (L) 121 ms 149 150 - 230 Mitral pressure half-time 35 ms 43 Mitral E/A ratio, peak 0.86 0.67 Mitral valve area, PHT, DP 6.3 cm^2 5.1 Pulmonary veins Value 10/17/2017 Reference Pulmonary vein peak 0.58 m/sec velocity, S Pulmonary vein peak 0.58 m/sec velocity, D Pulmonary vein velocity 1 ratio, peak, S/D Tricuspid valve Value 10/17/2017 Reference Tricuspid regurg peak 2.9 m/sec 2.1 velocity Tricuspid peak RV-RA 34 mm Hg 17.3 gradient Right atrium Value 10/17/2017 Reference RA area, ES, A4C (H) 30.1 cm^2 30.7 8.3 - 19.5 Right ventricle Value 10/17/2017 Reference RV ID, minor axis, ED, A4C 5.3 cm base Legend: (L) and (H) rigo values outside specified reference range. I have personally reviewed the images and have reviewed and edited the reported findings. Electronically signed by Eulalio Velasquez 07/24/2018 15:18
--- NOTE | 2018-07-24 13:14 | EVALE_ITS ---
Date of service: 07/24/18 Time of Service: 10:00 Speech Therapy Evaluation Note: REFERRING PROVIDER: Nani Catherine NP BACKGROUND This is a 58 year old right-handed male who presented to the ED from his private homecare home on 07/23/18 with hypoxia, dyspnea and weakness. A CXR at that time indicated possible left-sided infiltrates. He was admitted for tx of right heart failure secondary to pulmonary HTN and possible pneumonia. A swallow eval was ordered to assess for aspiration risk. PMH: DM II, HTN, ABHAY, CHF, morbid obesity, chronic stasis leg ulcers, 1+ month h/o recurrent pneumonia. The patient (pt) is able to provide additional background information with re andi to p.o. consistencies taken in the weeks prior to this admission. He states that he has been taking what, by description, are Thin liquids, a Dysphagia Advanced diet with chopped meat, and small & medium-sized whole pills with a liquid wash but large pills cut-up or chewed. He also says that the chopped meats have become harder to chew but ground meat is easier. However, he states that from previous admissions to this facility, he knows he does not like the ground meat here because it's like babyfood, so he prefers fine-chopped. He c/o difficulty with liquids coming out of his nose, especially room- temperature liquids. He c/o chronic xerostomia and also acknowledges having some anxiety about swallowing. OBJECTIVE Nursing reports: - T: 36.5 -O2 sat: 93% on 4 L via NC - LS: crackles on the right, CTA-L in the presence of ABX - Pt is currently on a Regular consistency diet. - Pt tolerated whole pills with a Thin liquid wash this morning. The pt is reclined in bed laying obliquely on his left side. He says he has to be somewhat reclined and more on his left in an effort to relieve pressure on his leg wounds. He reports that since the onset of these wounds a few weeks ago, he has often been eating and drinking in this reclined position. He is willing to sit more upright on my request during this visit though (not quite to 90 degrees). He converses well, both asking and answering questions, and shows good use of humor. He is A & O x 4 and able to follow 3-step directions. Oral Sensorimotor Exam The pt is significantly partially edentulous, having only 2 teeth on the bottom ridge and 7 on the top ridge. Oral hygiene is fair but he denies any dental discomfort. Lingual tissues appear dry. Oral sensation is WNL bilaterally (B) for buccal, labial and lingual areas. Motorically, the smile is symmetrical as are forehead wrinkles. Buccal and labial strength/coordination are both WNL. No lingual deviation on protrusion is seen in a setting of good excursion. Lingual lateralization is WNL-B as are lingual rapid alternating movements. Lingual strength and mandibular lateralization are WNL-B. Velopharyngeal elevation is strong and symmetrical. Volitional cough and throat-clear are both strong. Speech intelligibility to this unfamiliar listener in the presence of mild background noise is 100%. Vocal intensity and quality are both WNL. Swallowing -Honey-thick liquid: Good bolus control; pt pauses before automatically doing a mild chin-tuck with a very intentional posterior oral transit (POT); when cued to transit subsequent boluses without the paused chin-tuck/intentional POT, pt shows a normal POT; no roopa s/s A/P; oral clearance 100%; no oral escape; no nasal regurgitation. - [place]-thick liquid: Good bolus control & POT (after reminder to avoid chin- tuck); no roopa s/s A/P; oral clearance 100%; no oral escape; no nasal regurgitation. These results are true for both single and consecutive swallows by both cup and straw. - Thin liquid: Results are the same as for [place]-thick liquid in the absence of any reminders for avoidance of chin-tuck. These results are also true for liquids at cool temperature, room temperature and mildly warm temperature. - Puree food: Good bolus control and linguopalatal bolus compression; POT is WNL; no roopa s/s A/P; oral clearance 100%; no oral escape. - Mechanically Altered food: Good mastication quality, bolus control and POT; no roopa s/s A/P; oral clearance 100%; no oral escape. - Dysphagia Advanced food: Increased mastication time used but this does result in good mastication quality; bolus appears mildly-moderately dry after chewing; bolus control WNL; POT mildly effortful but functional; no roopa s/s A/P; oral clearance 100%; no oral escape. Pt is observed to self-feed with his dominant RUE and a regular utensil. He shows an inconsistently fast self-feeding rate. INTERPRETATION The pt shows a moderate oral-prep dysphagia secondary to significant partial edentulousness. No clinical signs of a pharyngeal dysphagia are seen, however, pt is felt to be at some risk of aspiration due to a combination of factors: use of a reclined upper body position during p.o. intake; xerostomia; occasional fast self-feeding rate; anxiety; possible h/o inadequate mastication of firmer foods (Dysphagia Advanced food, chopped meats). RECOMMENDATIONS 1. Change to a Mechanically Altered diet with moistened fine-chopped meats. 2. Continue: a) Thin liquids b) whole pills with a liquid wash for small & medium-sized pills; large pills dissolved/cut up/crushed in Puree food. 3. Biotene Antibacterial Mouthwash ( 15 mls) before each meal. Green star pt's menu. 4. Periodic supervision of self-feeding with cueing for use of: a) a 90 degree upper body position as tolerated b) mildly slow self-feeding rate 5. Speech therapy to maximize swallow safety. Thank you for referring this pt.
[2018-07-24] MEDS: MAGNESIUM SULFATE 4 GM/100 ML BAG IVPB (16:09)
[2018-07-24] MEDS: Potassium Chloride Liquid 20 MEQ PKT 40 MEQ PO ×2 (16:22→21:43)
--- NOTE | 2018-07-24 17:55 | W.PM.PROGNOT ---
Date of Service Date of service: 07/24/18 Time of Service: 14:00 Assessment and Plan (1) Acute and chronic respiratory failure, unspecified whether with hypoxia or hypercapnia: Current visit: Yes Status: Acute I agree with Dr Cordero that we do not have good proof right now that there is an actual infectious component to this respiratory failure and, rather, this has more to do with fluid overload. Will hold off of further abx and continue diuresis as below, unless the patient is able to produce purulent sputum, spikes a fever, or demonstrates elevated white count. Wean O2 as tolerated. BiPAP at night. (2) Right heart failure due to pulmonary hypertension: Current visit: Yes Status: Acute Continue lasix drip, monitor UO, daily weights, and repleting electrolytes. Echo could not accurately estimate pulmonary artery pressures; LVEF is 55-60%. Consider addition of spironolactone to his lasix if his renal function can tolerate this. Outpatient cardiology referral for TAA. (3) Right ventricular systolic dysfunction: Current visit: Yes Status: Chronic medications as above. continue aggressive treatment of his ABHAY. CPAP appears to be having a problem - [facility] already has replacement parts for the patient; golf starter and ranger to pick them up. (4) Obstructive sleep apnea hypopnea, severe: Current visit: Yes Status: Chronic continue aggressive treatment of his ABHYA. Will need to follow up with pulmonary as outpatient. Will be using [facility] BiPAP tonight. 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 mellitus superintendent container terminal insulin use: with half-way use Diabetes mellitus complication status: with skin complications Diabetes mellitus complication detail: with foot ulcer Diabetic retinopathy severity: Proliferative retinopathy type: Diabetes mellitus macular edema: Laterality: Chronic kidney disease stage: Qualified Code(s): E08.621 - Diabetes mellitus due to underlying condition with foot ulcer; L97.509 - Non-pressure chronic ulcer of other part of unspecified foot with unspecified severity; Z79.4 - retirement (current) use of insulin (6) Pressure ulcer: Current visit: Yes Status: Chronic Wound care and podiatry consults Qualifiers: Pressure injury location: calf Pressure injury stage: stage 3 Laterality: left Qualified Code(s): L89.893 - Pressure ulcer of other site, stage 3 (7) DVT prophylaxis: Current visit: Yes Status: Acute lovenox (8) Discharge planning issues: Current visit: Yes Status: Acute PT/OT consulted. Full code Will need cardiology/vascular follow up as outpatient for the TAA Subjective Interval history since last seen: Mr Hidalgo states he feels less weak today. He is not sure what color his sputum is, but he thinks he is making some - he hasn't been spitting it out. He is willing to give us a sample. He denies any dizziness, chest pain, remains short of breath - but better, denies nausea, vomiting. Exam Narrative Exam Narrative: General: A&Ox3, laying nearly flat in bed, on 4L of O2, not cyanotic, not in acute distress, speaking in full sentences HEENT: EOMI, MMM Heart: RRR, no m/r/g Lungs: Crackles R lung base GI: abdomen is soft, nontender, nondistended Extremities: in NICKIE boots, edematous Objective Objective Clinical Data: Abnormal lab results 07/23/18 07/24/18 07/24/18 Range/Units 20:08 07:13 07:13 RBC (4.50-6.00) m/cumm Hgb (13.5-17.5) g/dL Hct (40.0-50.0) % MCH (27.0-33.0) pg MCHC (32.0-36.0) g/dL RDW (11.8-14.1) % Absolute Monocytes (0.11-0.7) k/cumm Potassium 2.9 L* (3.5-5.1) mmol/L Carbon Dioxide 44.1 H (21.0-32.0) mmol/L Anion Gap 0.9 L (3-11) mmol/L Glucose 125 H D (70-100) mg/dL Calcium 8.0 L (8.5-10.1) mg/dL Magnesium 1.5 L (1.8-2.4) mg/dL NT-Pro-B Natriuret Pep 1902 H 1027 H ( - 299) pg/mL TSH 3.86 H (0.358-3.74) uIU/mL 07/24/18 Range/Units 07:13 RBC 4.33 L (4.50-6.00) m/cumm Hgb 10.1 L (13.5-17.5) g/dL Hct 36.0 L (40.0-50.0) % MCH 23.3 L (27.0-33.0) pg MCHC 28.1 L (32.0-36.0) g/dL RDW 20.0 H (11.8-14.1) % Absolute Monocytes 0.71 H (0.11-0.7) k/cumm Potassium (3.5-5.1) mmol/L Carbon Dioxide (21.0-32.0) mmol/L Anion Gap (3-11) mmol/L Glucose (70-100) mg/dL Calcium (8.5-10.1) mg/dL Magnesium (1.8-2.4) mg/dL NT-Pro-B Natriuret Pep ( - 299) pg/mL TSH (0.358-3.74) uIU/mL Vital Signs Temperature 36.3 C L 07/24/18 11:35 Temperature Source Tympanic 07/24/18 11:35 Pulse 81 07/24/18 11:35 Pulse Rhythm Regular 07/24/18 08:12 Pulse 96 H 07/23/18 17:20 Respiratory Rate 22 07/24/18 11:35 Respiratory Effort 07/24/18 08:12 Respiratory Depth Normal 07/24/18 08:12 Respiratory Pattern Normal 07/24/18 08:12 Blood Pressure 110/79 07/24/18 11:35 Blood Pressure Mean 102 07/23/18 17:16 Blood Pressure Position Supine 07/23/18 14:44 Pulse Oximetry 96 07/24/18 11:35 Oxygen Delivery Method Nasal Cannula 07/24/18 11:35 Oxygen Flow Rate 4 07/24/18 11:35 Pain Level 7 07/24/18 16:00 Intake & Output 07/23/18 07/24/18 07/24/18 23:59 11:59 23:59 Intake Total 1300 / 1300 281.833 / 281.833 Output Total 4625 / 4625 1300 / 1300 Balance -3325 / -3325 -1018.167 / -1018.167 Weight 214.4 kg 213.6 kg Intake: IV 820 / 820 41.833 / 41.833 Oral 480 / 480 240 / 240 Output: Urine 4625 / 4625 1300 / 1300 Other: Urine Color Pale Pale Yellow Urine Appearance Clear Clear Stool Size Large Small Stool Characteristics Soft Soft Brown Brown Laboratory Results WBC 8.06 k/cumm (4.4-10.8) 07/24/18 07:13 RBC 4.33 m/cumm (4.50-6.00) L 07/24/18 07:13 Hgb 10.1 g/dL (13.5-17.5) L 07/24/18 07:13 Hct 36.0 % (40.0-50.0) L 07/24/18 07:13 MCV 83.1 fL (80-95) 07/24/18 07:13 MCH 23.3 pg (27.0-33.0) L 07/24/18 07:13 MCHC 28.1 g/dL (32.0-36.0) L 07/24/18 07:13 RDW 20.0 % (11.8-14.1) H 07/24/18 07:13 Plt Count 325 x1000/uL (130-400) 07/24/18 07:13 MPV 9.5 fL (8.0-11.0) 07/24/18 07:13 Immature Gran % 0.1 07/24/18 07:13 Neutrophils % 57.4 07/24/18 07:13 Band Neutrophils % 4.0 % 07/23/18 16:05 Lymphocytes % 30.3 07/24/18 07:13 Atypical Lymphs % 5 07/23/18 16:05 Monocytes % 8.8 07/24/18 07:13 Eosinophils % 3.3 07/24/18 07:13 Basophils % 0.1 07/24/18 07:13 Absolute Neutrophils 4.62 k/cumm (1.2-6.7) 07/24/18 07:13 Absolute Lymphocytes 2.44 k/cumm (1.2-3.4) 07/24/18 07:13 Absolute Monocytes 0.71 k/cumm (0.11-0.7) H 07/24/18 07:13 Absolute Eosinophils 0.27 k/cumm (0.0-0.7) 07/24/18 07:13 Absolute Basophils 0.01 k/cumm (0.0-0.2) 07/24/18 07:13 Differential Comment Manual differential 07/23/18 16:05 RBC Morphology See below 07/23/18 16:05 Polychromasia Present 07/23/18 16:05 Hypochromasia 2+ 07/23/18 16:05 Poikilocytosis 2+ 07/23/18 16:05 Anisocytosis 2+ 07/23/18 16:05 Stomatocytes 2+ 07/23/18 16:05 Sodium 145 mmol/L (136-145) 07/24/18 07:13 Potassium 2.9 mmol/L (3.5-5.1) L* 07/24/18 07:13 Chloride 100 mmol/L (98-107) 07/24/18 07:13 Carbon Dioxide 44.1 mmol/L (21.0-32.0) H 07/24/18 07:13 Anion Gap 0.9 mmol/L (3-11) L 07/24/18 07:13 BUN 16 mg/dL (7-18) 07/24/18 07:13 Creatinine 1.00 mg/dL (0.70-1.30) 07/24/18 07:13 Estimated GFR/1.73 m2 >= 60.00 (mL/min/1.73m2) 07/24/18 07:13 Glucose 125 mg/dL (70-100) H D 07/24/18 07:13 Calcium 8.0 mg/dL (8.5-10.1) L 07/24/18 07:13 Magnesium 1.5 mg/dL (1.8-2.4) L 07/24/18 07:13 Total Bilirubin 0.3 mg/dL (0.2-1.0) 07/23/18 16:05 AST 43 U/L (15-37) H 07/23/18 16:05 ALT 20 U/L (12-78) 07/23/18 16:05 Alkaline Phosphatase 108 U/L (46-116) 07/23/18 16:05 Troponin I 0.03 ng/mL (0.00-0.06) 07/23/18 23:39 NT-Pro-B Natriuret Pep 1027 pg/mL (-299) H 07/24/18 07:13 Total Protein 6.4 g/dL (6.4-8.2) 07/23/18 16:05 Albumin 1.8 g/dL (3.4-5.0) L 07/23/18 16:05 TSH 3.86 uIU/mL (0.358-3.74) H 07/24/18 07:13 Free T4 1.05 ng/dL (0.76-1.46) 07/24/18 07:13 Echo: 1. Left ventricle: The cavity size was normal. Wall thickness was increased increased in a pattern of mild to moderate LVH. Systolic function was normal. The estimated ejection fraction was 55-60%. Wall motion was normal; there were no regional wall motion abnormalities. 2. Aortic root: The aortic root was moderately dilated. 4.7 cm. 3. Right ventricle: The cavity size was dilated. Wall thickness was normal. Systolic function was normal. Minor axis dimension, ED (basilar, A4C): 5.3cm. 4. Right atrium: The atrium was dilated. 5. Inferior vena cava: The vessel was patent and normal in size. The respirophasic diameter changes were in the normal range (greater than or equal to 50%). (Pulmonary artery pressures could not be accurately estimated)
--- NOTE | 2018-07-24 17:59 | PGE_ITS ---
Date of Service Date of service: 07/24/18 Time of Service: 14:00 Assessment and Plan (1) Acute and chronic respiratory failure, unspecified whether with hypoxia or hypercapnia: Current visit: Yes Status: Acute I agree with Dr Cordero that we do not have good proof right now that there is an actual infectious component to this respiratory failure and, rather, this has more to do with fluid overload. Will hold off of further abx and continue diuresis as below, unless the patient is able to produce purulent sputum, spikes a fever, or demonstrates elevated white count. Wean O2 as tolerated. BiPAP at night. (2) Right heart failure due to pulmonary hypertension: Current visit: Yes Status: Acute Continue lasix drip, monitor UO, daily weights, and repleting electrolytes. Echo could not accurately estimate pulmonary artery pressures; LVEF is 55-60%. Consider addition of spironolactone to his lasix if his renal function can tolerate this. Outpatient cardiology referral for TAA. (3) Right ventricular systolic dysfunction: Current visit: Yes Status: Chronic medications as above. continue aggressive treatment of his ABHAY. CPAP appears to be having a problem - [facility] already has replacement parts for the patient; furniture assembly supervisor to pick them up. (4) Obstructive sleep apnea hypopnea, severe: Current visit: Yes Status: Chronic continue aggressive treatment of his ABHAY. Will need to follow up with yudy mckeon as outpatient. Will be using [facility] BiPAP tonight. 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 mellitus intermediate school teacher insulin use: with intermediate school teacher use Diabetes mellitus complication status: with skin complications Diabetes mellitus complication detail: with foot ulcer Diabetic retinopathy severity: Proliferative retinopathy type: Diabetes mellitus macular edema: Laterality: Chronic kidney disease stage: Qualified Code(s): E08.621 - Diabetes mellitus due to underlying condition with foot ulcer; L97.509 - Non-pressure chronic ulcer of other part of unspecified foot with unspecified severity; Z79.4 - 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 Full code Will need cardiology/vascular follow up as outpatient for the TAA Subjective Interval history since last seen: Mr Rocky states he feels less weak today. He is not sure what color his sputum is, but he thinks he is making some - he hasn't been spitting it out. He is willing to give us a sample. He denies any dizziness, chest pain, remains short of breath - but better, denies nausea, vomiting. Exam Narrative Exam Narrative: General: A&Ox3, laying nearly flat in bed, on 4L of O2, not cyanotic, not in acute distress, speaking in full sentences HEENT: EOMI, MMM Heart: RRR, no m/r/g Lungs: Crackles R lung base GI: abdomen is soft, nontender, nondistended Extremities: in NICKIE boots, edematous Objective Objective Clinical Data: Abnormal lab results 07/23/18 07/24/18 07/24/18 Range/Units 20:08 07:13 07:13 RBC (4.50-6.00) m/cumm Hgb (13.5-17.5) g/dL Hct (40.0-50.0) % MCH (27.0-33.0) pg MCHC (32.0-36.0) g/dL RDW (11.8-14.1) % Absolute Monocytes (0.11-0.7) k/cumm Potassium 2.9 L* (3.5-5.1) mmol/L Carbon Dioxide 44.1 H (21.0-32.0) mmol/L Anion Gap 0.9 L (3-11) mmol/L Glucose 125 H D (70-100) mg/dL Calcium 8.0 L (8.5-10.1) mg/dL Magnesium 1.5 L (1.8-2.4) mg/dL NT-Pro-B Natriuret Pep 1902 H 1027 H ( - 299) pg/mL TSH 3.86 H (0.358-3.74) uIU/mL 07/24/18 Range/Units 07:13 RBC 4.33 L (4.50-6.00) m/cumm Hgb 10.1 L (13.5-17.5) g/dL Hct 36.0 L (40.0-50.0) % MCH 23.3 L (27.0-33.0) pg MCHC 28.1 L (32.0-36.0) g/dL RDW 20.0 H (11.8-14.1) % Absolute Monocytes 0.71 H (0.11-0.7) k/cumm Potassium (3.5-5.1) mmol/L Carbon Dioxide (21.0-32.0) mmol/L Anion Gap (3-11) mmol/L Glucose (70-100) mg/dL Calcium (8.5-10.1) mg/dL Magnesium (1.8-2.4) mg/dL NT-Pro-B Natriuret Pep ( - 299) pg/mL TSH (0.358-3.74) uIU/mL Vital Signs Temperature 36.3 C L 07/24/18 11:35 Temperature Source Tympanic 07/24/18 11:35 Pulse 81 07/24/18 11:35 Pulse Rhythm Regular 07/24/18 08:12 Pulse 96 H 07/23/18 17:20 Respiratory Rate 22 07/24/18 11:35 Respiratory Effort 07/24/18 08:12 Respiratory Depth Normal 07/24/18 08:12 Respiratory Pattern Normal 07/24/18 08:12 Blood Pressure 110/79 07/24/18 11:35 Blood Pressure Mean 102 07/23/18 17:16 Blood Pressure Position Supine 07/23/18 14:44 Pulse Oximetry 96 07/24/18 11:35 Oxygen Delivery Method Nasal Cannula 07/24/18 11:35 Oxygen Flow Rate 4 07/24/18 11:35 Pain Level 7 07/24/18 16:00 Intake & Output 07/23/18 07/24/18 07/24/18 23:59 11:59 23:59 Intake Total 1300 / 1300 281.833 / 281.833 Output Total 4625 / 4625 1300 / 1300 Balance -3325 / -3325 -1018.167 / -1018.167 Weight 214.4 kg 213.6 kg Intake: IV 820 / 820 41.833 / 41.833 Oral 480 / 480 240 / 240 Output: Urine 4625 / 4625 1300 / 1300 Other: Urine Color Pale Pale Yellow Urine Appearance Clear Clear Stool Size Large Small Stool Characteristics Soft Soft Brown Brown Laboratory Results WBC 8.06 k/cumm (4.4-10.8) 07/24/18 07:13 RBC 4.33 m/cumm (4.50-6.00) L 07/24/18 07:13 Hgb 10.1 g/dL (13.5-17.5) L 07/24/18 07:13 Hct 36.0 % (40.0-50.0) L 07/24/18 07:13 MCV 83.1 fL (80-95) 07/24/18 07:13 MCH 23.3 pg (27.0-33.0) L 07/24/18 07:13 MCHC 28.1 g/dL (32.0-36.0) L 07/24/18 07:13 RDW 20.0 % (11.8-14.1) H 07/24/18 07:13 Plt Count 325 x1000/uL (130-400) 07/24/18 07:13 MPV 9.5 fL (8.0-11.0) 07/24/18 07:13 Immature Gran % 0.1 07/24/18 07:13 Neutrophils % 57.4 07/24/18 07:13 Band Neutrophils % 4.0 % 07/23/18 16:05 Lymphocytes % 30.3 07/24/18 07:13 Atypical Lymphs % 5 07/23/18 16:05 Monocytes % 8.8 07/24/18 07:13 Eosinophils % 3.3 07/24/18 07:13 Basophils % 0.1 07/24/18 07:13 Absolute Neutrophils 4.62 k/cumm (1.2-6.7) 07/24/18 07:13 Absolute Lymphocytes 2.44 k/cumm (1.2-3.4) 07/24/18 07:13 Absolute Monocytes 0.71 k/cumm (0.11-0.7) H 07/24/18 07:13 Absolute Eosinophils 0.27 k/cumm (0.0-0.7) 07/24/18 07:13 Absolute Basophils 0.01 k/cumm (0.0-0.2) 07/24/18 07:13 Differential Comment Manual differential 07/23/18 16:05 RBC Morphology See below 07/23/18 16:05 Polychromasia Present 07/23/18 16:05 Hypochromasia 2+ 07/23/18 16:05 Poikilocytosis 2+ 07/23/18 16:05 Anisocytosis 2+ 07/23/18 16:05 Stomatocytes 2+ 07/23/18 16:05 Sodium 145 mmol/L (136-145) 07/24/18 07:13 Potassium 2.9 mmol/L (3.5-5.1) L* 07/24/18 07:13 Chloride 100 mmol/L (98-107) 07/24/18 07:13 Carbon Dioxide 44.1 mmol/L (21.0-32.0) H 07/24/18 07:13 Anion Gap 0.9 mmol/L (3-11) L 07/24/18 07:13 BUN 16 mg/dL (7-18) 07/24/18 07:13 Creatinine 1.00 mg/dL (0.70-1.30) 07/24/18 07:13 Estimated GFR/1.73 m2 >= 60.00 (mL/min/1.73m2) 07/24/18 07:13 Glucose 125 mg/dL (70-100) H D 07/24/18 07:13 Calcium 8.0 mg/dL (8.5-10.1) L 07/24/18 07:13 Magnesium 1.5 mg/dL (1.8-2.4) L 07/24/18 07:13 Total Bilirubin 0.3 mg/dL (0.2-1.0) 07/23/18 16:05 AST 43 U/L (15-37) H 07/23/18 16:05 ALT 20 U/L (12-78) 07/23/18 16:05 Alkaline Phosphatase 108 U/L (46-116) 07/23/18 16:05 Troponin I 0.03 ng/mL (0.00-0.06) 07/23/18 23:39 NT-Pro-B Natriuret Pep 1027 pg/mL (-299) H 07/24/18 07:13 Total Protein 6.4 g/dL (6.4-8.2) 07/23/18 16:05 Albumin 1.8 g/dL (3.4-5.0) L 07/23/18 16:05 TSH 3.86 uIU/mL (0.358-3.74) H 07/24/18 07:13 Free T4 1.05 ng/dL (0.76-1.46) 07/24/18 07:13 Echo: 1. Left ventricle: The cavity size was normal. Wall thickness was increased increased in a pattern of mild to moderate LVH. Systolic function was normal. The estimated ejection fraction was 55-60%. Wall motion was normal; there were no regional wall motion abnormalities. 2. Aortic root: The aortic root was moderately dilated. 4.7 cm. 3. Right ventricle: The cavity size was dilated. Wall thickness was normal. Systolic function was normal. Minor axis dimension, ED (basilar, A4C): 5.3cm. 4. Right atrium: The atrium was dilated. 5. Inferior vena cava: The vessel was patent and normal in size. The respirophasic diameter changes were in the normal range (greater than or equal to 50%). (Pulmonary artery pressures could not be accurately estimated)
[2018-07-24] MEDS: Collagenase 30 GM TUBE TP (19:13)
[2018-07-24] MEDS: Enoxaparin 40 MG/0.4 ML SYR SC (21:41)
[2018-07-24] MEDS: Amitriptyline 50 MG TAB 150 MG PO (21:44)
[2018-07-24] MEDS: traZODone 50 MG TAB 150 MG PO (21:45)
[2018-07-24] MEDS: Insulin Glargine 300 UNITS/3 ML PEN 45 UNITS SC (21:48)
[2018-07-25] VITALS (9 sets, daily range): BP systolic 103–180; BP diastolic 74–86; PULSE 91–105; RESP 16–25; TEMP 36.1–36.6; O2SAT 92–99
--- NOTE | 2018-07-25 00:29 | NUR.NOTE ---
Nursing Note: Since continuous SAO2 monitor placed it has been noted that every time the patient falls asleep his oxygen saturation quickly drops into the low 70's. The lowest it has been noted to be was 68%. This was while the patient was on 4L NC oxygen. The patient has been noted to be having periods of apnea when the oxygen levels drop. When the Bi-pap machine has been in use it nearly continuously alarmed apnea ventilation. The patient has also been noted to have a lot of body twitching while asleep
[2018-07-25] MEDS: Budesonide/Formoterol 160/4.5 6 GM 60 PUFF INH IH ×2 (07:29→20:29)
[2018-07-25 07:37] LABS: Abs Immature Grans 0.01 k/cumm (0.0-0.09); Absolute Basophil Count 0.01 k/cumm (0.0-0.2); Absolute Eosinophil Count 0.27 k/cumm (0.0-0.7); Absolute Lymphocyte Count 2.19 k/cumm (1.2-3.4); Absolute Monocyte Count 0.54 k/cumm (0.11-0.7); Absolute Neutrophil Count 3.53 k/cumm (1.2-6.7); Basophils % 0.2; Eosinophils % 4.1; HCT 35.1 % (40.0-50.0); HGB 9.8 g/dL (13.5-17.5); Immature Grans % 0.2; Lymphocytes % 33.4; Mean Corp. HGB Concentration 27.9 g/dL (32.0-36.0); Mean Corpuscular Hemoglobin 23.6 pg (27.0-33.0); Mean Corpuscular Volume 84.4 fL (80-95); Mean Platelet Volume 9.2 fL (8.0-11.0); Monocytes % 8.2; Neutrophils % 53.9; Platelet Count 340 x1000/uL (130-400); RBC 4.16 m/cumm (4.50-6.00); RBC Distribution Width 19.2 % (11.8-14.1); White Blood Cell Count 6.55 k/cumm (4.4-10.8)
[2018-07-25 07:48] LABS: Anion Gap -1.1 mmol/L (3-11); BUN 11 mg/dL (7-18); CO2 44.1 mmol/L (21.0-32.0); CREATININE 0.84 mg/dL (0.70-1.30); Chloride 101 mmol/L (98-107); Glucose 115 mg/dL (70-100); Magnesium 1.9 mg/dL (1.8-2.4); Potassium 3.7 mmol/L (3.5-5.1); Sodium 144 mmol/L (136-145)
--- NOTE | 2018-07-25 08:24 | PDOC.CMPRO ---
- If Service Date Differs Date of service: 07/25/18 Time of Service: 08:24 Care Management Progress Note S/O: CM met with patient at the bedside. He is alert and engaged. CM contacted [facility] and left and was unable to leave a voicemail for Bhavik Tolentino's patient case manager. CM contacted Alisa León and she states that [facility] [place]. [facility] [place] data to facility and negotiating admission. Alisa will send this CM contact information for the facility. [facility] [place] that Rajan can no longer be cared for in the AFC setting and will need placement. Payment source will be terminal worker Medicaid and Medicare. CM will fax updated clinicals and contact [facility] for assistance with financial negotiation for placement. A: Peter is a 58 year old male admitted with possible HAP, Rajan is not on antibiotics he is being treated with Lasix, and respiratory support. p: Peter is currently being treated symptoms of fluid overload. He is receiving Lasix, wound care and respiratory support. No changes in the plan today. Anticipate Rajan will transition to SB1 until placement is identified. CM will continue to coordinate with community resources referral and placement at termite control technician care facility.
--- NOTE | 2018-07-25 08:27 | CMPROGNOTE_ITS ---
- If Service Date Differs Date of service: 07/25/18 Time of Service: 08:24 Care Management Progress Note S/O: CM met with patient at the bedside. He is alert and engaged. CM contacted [facility] and left and was unable to leave a voicemail for Bhavik Tolentino's clinical case manager. CM contacted Alisa León and she states that [facility] has identified a facility in [place] has a bariatric unit. [facility] has been sending clinical data to facility and negotiating admission. Alisa will send this CM contact information for the facility. [facility] states that Rajan can no longer be cared for in the AFC setting and will need placement. Payment source will be weld lay out worker Medicaid and Medicare. CM will fax updated clinicals and contact [facility] for assistance with financial negotiation for placement. A: Peter is a 58 year old male admitted with possible HAP, Rajan is not on antibiotics he is being treated with Lasix, and respiratory support. p: Peter is currently being treated symptoms of fluid overload. He is receiving Lasix, wound care and respiratory support. No changes in the plan today. Anticipate Rajan will transition to SB1 until placement is identified. CM will continue to coordinate with community resources referral and placement at adjuster leader care facility.
[2018-07-25] MEDS: Insulin Aspart 300 UNITS/3 ML PEN SC ×5 (08:53→18:04)
[2018-07-25] MEDS: Omeprazole 20 MG CAPCR PO ×2 (08:54→18:03)
[2018-07-25] MEDS: Gabapentin 300 MG CAP 600 MG PO ×3 (08:55→20:29)
[2018-07-25] MEDS: Potassium Chloride Liquid 20 MEQ PKT 40 MEQ PO ×3 (08:55→20:29)
[2018-07-25] MEDS: Metoprolol CR 25 MG TABCR PO (08:55)
[2018-07-25] MEDS: Nystatin CREAM 15 GM TUBE TP ×2 (08:56→20:30)
--- NOTE | 2018-07-25 10:49 | OT.INIE ---
Occupational Therapy Notes Inpatient Occupational Therapy Evaluation Date: 07/25/18 Referring Doctor:Dahlia Barr MD OT Orders: Eval and Treat Precautions: Fall Precautions PATIENT PROFILE/ADMITTING DIAGNOSIS: Pt is a 58 year old male admitted to [facility] on 07/23/18 through the ER with a diagnosis of community acquired pneumonia. He had a recent hospitalization here at [facility] and returned home with HH assistance with an RN 3x/week for wound care. Past Medical History: Morbid obesity: Right rotator cuff repair: Ascending aortic aneurysm; right ventricular dilation; right ventricular systolic dysfunction; chronic pain; DM; GERD; anxiety and depression; ABHAY; anemia; multiple pressure ulcers with ongoing wound care through home health Social History/Home Situation: Pt reports that he lives in the basement level of his caretakers home. He states that he has 24 hour care as well as 2 other residents in the home. His baseline is sitting in shower with max (A) for (B) LE, min (A) for dressing, (I) eating, he reports that he cooks meals in the microwave and is able to go grocery shopping. He has a wheelchair that he utilizes as well as an electric chair. Pt reports that he is not having a good experience in his current living situation due to another resident. He reports that the other resident does not let him utilize the toilet so he has been mainly utilizing a commode at this time. Equipment owned/DME: Bariatric Nori, BiPAP, hospital bed, trapeze, shower chair. Patient has home health services 3 times a week for wound care. SUBJECTIVE: Pt was lying in bed when OT arrived. He reports that he is agreeable to OT consult. OBJECTIVE: General Observation: Morbidly obese male, supplemental oxygen, IV (B) UE, O2 monitored on (L) Catalino alanis. Mental Status: A&Ox3 Pain: no c/o pain. ROM: RUE WFL throughout L UE WFL throughout STRENGTH: RUE 3-/5 shoulder flexion, 3-/5 elbow, farmworker cranberry is weak LUE 3-/5 shoulder flexion. 4-/5 elbow, farmworker cranberry is weak FUNCTIONAL MOBILITY/ADLS: Bathing- Sitting in bed with max (A) set up pt was able to perform bathing routine UE (I). Pt did not wash LE due to wrappings on legs. Dressing- Pt was able to don and doff hospital gown with min (A). Max (A) for donning and doffing (B) socks. BALANCE: Static sitting Good Dynamic Sitting Good Dynamic Standing Fair Static Standing Fair SPECIAL TESTS: Daily Activity Limitations Standardized Measure [facility] AM -PAC ?6 clicks? Daily Activity Inpatient Short Form: Raw score: 17 CMS score: 53.32% INFORMED CONSENT/EDUCATION: Pt instructed in purpose of OT Consult and plan of care. ASSESSMENT: Patient is a 58-year-old male referred to occupational therapy services with diagnosis of of community acquired pneumonia . Patient presents with clinical signs and symptoms consistent with dx, as demonstrated by the following impairment level findings: decreased (B) UE strength, decreased functional activity tolerance, decreased functional mobility to perform ADLs, decreased strength (B) UE. Impairments are contributing to the following functional limitations: decreased functional activity tolerance, decrease functional mobility, decreased gross motor control for ADLs. OT recommends that pt go to SNF when medically cleared per MD. OT recommends that pt go to SNF when medically cleared per MD for increased rehab and functional strengthening to increase pts (I) in ADLs. AMPAC score 17, CMS score 53.32% Patient is assessed as a Moderate 26549 complexity based on the following: History: See Above Examination: See Above Presentation: Evolving Decision Making: AMPAC score 17, CMS score 53.32% GOALS Goals x1 week 1. Transfers mod (A) to side of bed 2. Dressing- Sitting on side of the bed pt will be able to (I) don and doff UE clothing 3. Toileting- Pt will be able to perform toileting routine on commode with min (A) PLAN OF CARE/TREATMENT PLAN: 1x/day, 5 days/ week x 1week Initiate Occupational Therapy Services for bathing, dressing, grooming, toileting, eating, transfer training. DISCHARGE RECOMMENDATIONS OT recommends that pt go to SNF when medically cleared per MD. TREATMENT TIME/MINUTES/CODES 02511, [id number], 45 minutes (08:05) [facility]
[2018-07-25] MEDS: Magnesium Oxide 400 MG TAB PO ×2 (10:55→22:03)
--- NOTE | 2018-07-25 13:34 | PT.INIE ---
Date of service: 07/25/18 Time of Service: 08:30 PT Notes Inpatient Physical Therapy Evaluation Date: 07/25/2018 Referring Doctor: Dr. Barr PT Orders: PT CONSULT: Evaluate/treat Precautions: Fall. Standard. 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 Patient Profile/Admitting Diagnosis: Patient was admitted on 07/23/2018 with a diagnosis of hospital-acquired pneumonia. He came in with chief complaints of dyspnea, hypoxemia, and weakness. 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 He states that he has 24 hour care as well as 2 other residents in the home. His baseline is sitting in shower with max (A) for (B) LE, min (A) for dressing, (I) eating, he reports that he cooks meals in the microwave and is able to go grocery shopping. He has a wheelchair that he utilizes as well as an electric chair. Pt reports that he is not having a good experience in his current living situation due to another resident. He reports that the other resident does not let him utilize the toilet so he has been mainly utilizing a commode at this time. Equipment Owned/DME: Bariatric Nori, BiPAP, hospital bed, trapeze, shower chair. Patient has home health services 3 times a week for wound care. Subjective: Patient was seen today lying in bed. PT came in to do initial evaluation and to help with sit to stand transfers so that a standing weight may be taken. Patient states that he continues to feel very short of breath and generally weak. He does not feel that he is able to walk at this time. I want to be able to go home and get back to walking Objective: General Observation: Super-super obese male. IV line in the right upper extremity. Bae catheter on. Mental Status: A and O x3 Pain: 4/10 right. 2/10 left elbow. 6/10 back of legs back of my leg dietz ROM: Right Upper Extremity: WFL, although with reports of right shoulder pain in end ranges of flexion Left Upper Extremity: WFL Right Lower Extremity: SLR only to 0-20 degrees, knee flexion 0-20 Left Lower Extremity: SLR 0-15 degrees, knee flexion 0-20 Strength: Right Upper Extremity: 4/5 shoulder flexion. Triceps 4/5. Biceps 4/5. Supervising Nurse strong, patient able to pull on overhead trapeze/bed rail to help her position self. Left Upper Extremity: 4/5 shoulder flexion. Triceps 4/5. Biceps 4/5. Supervising Nurse strong, patient able to pull on overhead trapeze/bed rail to help her position self. Right Lower Extremity: Grossly 3-/5 Left Lower Extremity: Grossly 3-/5 Bed Mobility/Transfers: Supine sit: Mod A, requires use of overhead trapeze. Sit to supine: Mod A, requires use of overhead trapeze. Sit to stand: Dependent. Patient able to assume position with assist of 3. Stand to sit: Dependent. Patient able to assume position with assist of 3. Gait: Not tested due to safety issues. Balance: Static Sitting: Fair Dynamic Sitting: Fair Static Standing: Unable to obtain Dynamic Standing: Unable Special Tests: Mobility Limitations Standardized Measure [facility] AM-PAC 6 clicks Basic Mobility Inpatient Short Form: Raw Score: 8 just need to finish the images for the CMS Score: 87% deficit Informed Consent/Education: Patient instructed in purpose of PT consult and plan of care. Treatment: Today's session consisted of evaluation, followed by instruction in therex program for supine and seated activities as noted on flowsheet. Assessment: Patient is a 58 year old male referred to physical therapy services with the diagnosis of hospital-acquired pneumonia. Patient presents with clinical signs and symptoms consistent with mobility deficits related to current diagnosis, as demonstrated by the following impairment level findings: 1. Decreased functional upper extremity strength 2. Decreased functional lower extremities strength 3. Decreased balance 4. Decreased activity tolerance Impairments are contributing to the following functional limitations: 1. Unable to transfer to wheelchair 2. Unable to ambulate 3. Able to perform bed mobility 4. WHITLEY with minimal exertion Patient is assessed as High [id number] complexity based on the following: History: 58-year-old male with super super obesity and multiple chronic medical issues, being treated in acute care setting for healthcare acquired pneumonia. Patient has a long history of falls including previous falls in this hospital and 2 falls at home yesterday. Examination: Functional limitations as noted above Presentation: Unstable Decision Making: High complexity Goals: Goals X1 week 1. Supine-Sit: Independent 2. Sit-Supine: Independent 3. Sit-Stand: Mod assist 4. Stand-Sit : Mod assist 5. Stand pivot transfer: Mod assist Plan of Care/Treatment Plan: 1-2x/day, 7 days/week x 1 week. Plan of care has been reviewed with the [facility] providing the service under Physical Therapy direction. Initiate Physical Therapy intervention for strengthening, bed mobility, transfers, gait, stairs, balance training, use of assistive device. DISCHARGE RECOMMENDATIONS: Return home with 24-hour care and resumption of home health services as previously TREATMENT CODE/TIME: 39 minutes ([id number], [id number], [id number])
--- NOTE | 2018-07-25 13:39 | IN_ITS ---
Date of service: 07/25/18 Time of Service: 08:30 PT Notes Inpatient Physical Therapy Evaluation Date: 07/25/2018 Referring Doctor: Dr. Barr PT Orders: PT CONSULT: Evaluate/treat Precautions: Fall. Standard. 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 Patient Profile/Admitting Diagnosis: Patient was admitted on 07/23/2018 with a diagnosis of hospital-acquired pneumonia. He came in with chief complaints of dyspnea, hypoxemia, and weakness. 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 He states that he has 24 hour care as well as 2 other residents in the home. His baseline is sitting in shower with max (A) for (B) LE, min (A) for dressing, (I) eating, he reports that he cooks meals in the microwave and is able to go grocery shopping. He has a wheelchair that he utilizes as well as an electric chair. Pt reports that he is not having a good experience in his current living situation due to another resident. He reports that the other resident does not let him utilize the toilet so he has been mainly utilizing a commode at this time. Equipment Owned/DME: Bariatric Nori, BiPAP, hospital bed, trapeze, shower chair. Patient has home health services 3 times a week for wound care. Subjective: Patient was seen today lying in bed. PT came in to do initial evaluation and to help with sit to stand transfers so that a standing weight may be taken. Patient states that he continues to feel very short of breath and generally weak. He does not feel that he is able to walk at this time. I want to be able to go home and get back to walking Objective: General Observation: Super-super obese male. IV line in the right upper extremity. Bae catheter on. Mental Status: A and O x3 Pain: 4/10 right. 2/10 left elbow. 6/10 back of legs back of my leg dietz ROM: Right Upper Extremity: WFL, although with reports of right shoulder pain in end ranges of flexion Left Upper Extremity: WFL Right Lower Extremity: SLR only to 0-20 degrees, knee flexion 0-20 Left Lower Extremity: SLR 0-15 degrees, knee flexion 0-20 Strength: Right Upper Extremity: 4/5 shoulder flexion. Triceps 4/5. Biceps 4/5. Fisher Weir strong, patient able to pull on overhead trapeze/bed rail to help her position self. Left Upper Extremity: 4/5 shoulder flexion. Triceps 4/5. Biceps 4/5. Fisher Weir strong, patient able to pull on overhead trapeze/bed rail to help her position self. Right Lower Extremity: Grossly 3-/5 Left Lower Extremity: Grossly 3-/5 Bed Mobility/Transfers: Supine sit: Mod A, requires use of overhead trapeze. Sit to supine: Mod A, requires use of overhead trapeze. Sit to stand: Dependent. Patient able to assume position with assist of 3. Stand to sit: Dependent. Patient able to assume position with assist of 3. Gait: Not tested due to safety issues. Balance: Static Sitting: Fair Dynamic Sitting: Fair Static Standing: Unable to obtain Dynamic Standing: Unable Special Tests: Mobility Limitations Standardized Measure [facility] AM-PAC 6 clicks Basic Mobility Inpatient Short Form: Raw Score: 8 just need to finish the images for the CMS Score: 87% deficit Informed Consent/Education: Patient instructed in purpose of PT consult and plan of care. Treatment: Today's session consisted of evaluation, followed by instruction in therex program for supine and seated activities as noted on flowsheet. Assessment: Patient is a 58 year old male referred to physical therapy services with the diagnosis of hospital-acquired pneumonia. Patient presents with c linical signs and symptoms consistent with mobility deficits related to current diagnosis, as demonstrated by the following impairment level findings: 1. Decreased functional upper extremity strength 2. Decreased functional lower extremities strength 3. Decreased balance 4. Decreased activity tolerance Impairments are contributing to the following functional limitations: 1. Unable to transfer to wheelchair 2. Unable to ambulate 3. Able to perform bed mobility 4. WHITLEY with minimal exertion Patient is assessed as High [id number] complexity based on the following: History: 58-year-old male with super super obesity and multiple chronic medical issues, being treated in acute care setting for healthcare acquired pneumonia. Patient has a long history of falls including previous falls in this hospital and 2 falls at home yesterday. Examination: Functional limitations as noted above Presentation: Unstable Decision Making: High complexity Goals: Goals X1 week 1. Supine-Sit: Independent 2. Sit-Supine: Independent 3. Sit-Stand: Mod assist 4. Stand-Sit : Mod assist 5. Stand pivot transfer: Mod assist Plan of Care/Treatment Plan: 1-2x/day, 7 days/week x 1 week. Plan of care has been reviewed with the [facility] providing the service under Physical Therapy direction. Initiate Physical Therapy intervention for strengthening, bed mobility, transfers, gait, stairs, balance training, use of assistive device. DISCHARGE RECOMMENDATIONS: Return home with 24-hour care and resumption of home health services as previously TREATMENT CODE/TIME: 39 minutes ([id number], [id number])
--- NOTE | 2018-07-25 14:55 | CHAPLAIN ---
Peter was pleasant and easily engaged in a conversation. He was interested in pentecostal reading material and accepted the offer of a Bible. Peter said he was not raised with a taoism or arcadio affiliation, but in his adult life has been visited on a regular basis by Jehovah Witnesses and Mormons. He said at one point the Jehovah Witnesses were visiting him twice a week, as they Mormons were also. Peter said he agreed with much of what Jehovah Witnesses and the Mormons talked about with him, although the believed the Jehovah Witnesses strict rules kept some people from being able to belong. With recent illnesses, Peter said he has been talking to God more. Peter asked if Reiki is still available here, and I let our volunteer Reiki practitioner know he was interested. I will ask Photoresist Contact Printer Morenita Islas to visit Peter tomorrow.
[2018-07-25] MEDS: Collagenase 30 GM TUBE TP (14:58)
[2018-07-25] MEDS: Normal Saline Flush 10 ML SYR IVP (14:58)
--- NOTE | 2018-07-25 15:47 | POCOE_ITS ---
Date of service: 07/25/18 Time of Service: 15:44 History of Present Illness Chief Complaint: Chronic venous stasis wounds both LE/ wound right 1st MPJ Narrative: Peter has bee admitted for respiratory failure with right sided heart failure. I have been asked to evaulate his wounds located on both LE. I treated him for similar issues during his early June admission. PE: Morbidly obese white male in no acute distress, resting comfortably in bed. Unna boot dressing are on both LE since Monday via [facility]. The dressings are removed. Pulses are diminished although the feet and legs are warm, grossly edematous. RLE has a V-Shaped wound over the lateral calf which is full thickness with dry exudate and blood clot noted. This wound measures 3.8cm by 1.2cm and 3.5cm by 1.0cm. Partial thickness wound is noted over the medial aspect of the right 1st MPJ. The base of the wound is crusted with dried exudate and crust. This wound measures 1.4cm by 1.1cm. There are no signs of infection in either wound. The LLE has superficial wounds over the lateral and posterion calf. These are nearly closed and free of debris or signs of infection. IMP: Chronic venous stasis wounds Right worse than Left free of gross infection Plan: with a #10 scaple the wounds on the right LE were sharply debrided removing all crusts, debris and slime layer from the wound bed and margins. No undermining was noted. The lateral calve wound was spongy. The wounds were dressed with prism, adaptic and an UNNA boot dressing. The left LE was dressed with adaptic over the wound then an Unna Boot dressing. I will check on him Monday, late morning. [facility] Medical History Pressure ulcer (Chronic) Right rotator cuff tear (Chronic) Ascending aortic aneurysm (Chronic) Right ventricular dilation, secondary (Chronic) Right ventricular systolic dysfunction (Chronic) Chronic pain disorder (Chronic) Super-super obese (Chronic) Diabetes mellitus (Chronic) GERD (gastroesophageal reflux disease) (Chronic) Chronic anxiety (Chronic) Depression (Chronic) Chronic back pain (Chronic) Obstructive sleep apnea hypopnea, severe (Chronic) Iron deficiency anemia, unspecified (Chronic) Severe muscle deconditioning (Acute) Panniculitis of other sites (Resolved) Family History Father No problems noted. Son No problems noted. Social History adopted: No caregiver/support person: Yes foster care: No household members: caregiver housing: assisted living facility marital status details: about 17-18 years ago lives independently: No number of children: 1 number of grandchildren: 0 highest education level completed: high school graduate service: No current occupational status: disabled leisure activities: games Hx Recent Travel: No sexually active: No diet: diabetic well-balanced diet: about half the time daily servings fruits/ve-1 eating out: rarely or never reads food labels: sometimes during the past year weight has: increased > 10 lbs what type of physical activity do you participate in: none Smoking and Tabacco status: Former Tobacco Use Results Last Vital Signs Temp 36.1 C L 07/25/18 11:49 Pulse 97 H 07/25/18 11:49 Resp 20 07/25/18 11:49 BP 130/82 07/25/18 11:49 Pulse Ox 98 07/25/18 11:49 Labs : 07/25/18 07:15 07/25/18 07:15 Laboratory Results - last 24 hr 07/25/18 07/25/18 07:15 07:15 WBC 6.55 RBC 4.16 L Hgb 9.8 L Hct 35.1 L MCV 84.4 MCH 23.6 L MCHC 27.9 L RDW 19.2 H Plt Count 340 MPV 9.2 Immature Gran % 0.2 Neutrophils % 53.9 Lymphocytes % 33.4 Monocytes % 8.2 Eosinophils % 4.1 Basophils % 0.2 Absolute Neutrophils 3.53 Absolute Lymphocytes 2.19 Absolute Monocytes 0.54 Absolute Eosinophils 0.27 Absolute Basophils 0.01 Sodium 144 Potassium 3.7 D Chloride 101 Carbon Dioxide 44.1 H Anion Gap -1.1 L BUN 11 Creatinine 0.84 Estimated GFR/1.73 m2 >= 60.00 Glucose 115 H Calcium 8.0 L Magnesium 1.9
--- NOTE | 2018-07-25 17:01 | PHARADMIT ---
Addendum entered by Gertrude Brasher 07/30/18 17:46: VS good, labs/lytes good, wBC 6.43, H/H drifting Micro: ESBL, MRSA in sputum Vanco trough high, dose held, recalculated Day #4-5 Anbx, Aztreonam dc'd, remains on Vanco/Zosyn for HCAP, Zosyn was increased to 4.5gram RT having difficulty fitting CPAP mask Palliative consult ordered May have to swing, placement issue Original Note: Addendum entered by Gertrude Brasher 07/28/18 14:04: Pharmacy Note Subjective Provider asked why pt wasn't on triple Anbx coverage to HAP Objective Afebrile, VS ok, lytes ok, BG 128, QTC 482 Micro sputum: Heavy growth MRSA, E.Coli ESBL+ Assessment Asked provider if she wanted to increase Zosyn to the 4.5gm for HAP, she will keep the 3.375gram dose at this time since he's been on it day#2 now Was going to add Levaquin as the 3rd agent, but I expressed concern about QT prolongation Opted for Aztreonam 2gram IV q8h...no renal adjustment needed Continues on Vanco. Today's trough 18.5, continue 1.5grm Q10h...Vanco 1st dose was 07/23/09 in ED, but not started as routine med until 07/26/18 (today is day#2) some insulin adjustments QT meds: Trazodone, Amitriptyline Plan ?Antibiotic changes, repeat chest xray Monday placement issue, possible swingbed Original Note: Addendum entered by Riddhi Fu 07/27/18 13:03: Pharmacy Note Subjective pt with HAP using [facility] bipap vs home machine which may need repair , podiatry consult and wound management Objective FS 131, Assessment furosemide drip stopped, pip/tazo and vanco Plan vanco trough when appropriate Original Note: Admission Pharmacy Clinical Review HOSPITA; ACQUIRED PNEUMONIA Code Status Full Code Current Weight Wgt-206.6 kg Renally Cleared and Narrow Therapeutic Index Meds CrCl~ 106 mL/min Meds-OK QTc Value / Action Taken QTc-482 Amitriptyline, Lasix, Trazodone BP Control, Fever BP- 103/77 Tmax- 37.1C Electrolytes reviewed Na- 144 K+3.7 Mag-1.9 DVT Prophylaxis Lovenox Opiate Usage / Scheduled Bowel Regimen Ordered Yes Yes Plt/SCr for Heparin / Enoxaparin Plts-340 SCr-0.84 INR for Warfarin na H/H stable, WBC/Bands H&H- 9.8/35.1 WBC- 6.555 Antibiotic appropriateness none Cultures and Sensitivities None Surgical ABX d/c within 24 hr na DM control / Insulin Dosing BG- 115 Aspart, Glargine Heart Failure (Check EF%) (BENJAMIN's, B-Block, Diuretics) Losartan, Lasix Drip, Toprol-XL IV to PO Switch No Home Meds Reviewed Yes Home Meds Not Ordered Metformin. Comments
--- NOTE | 2018-07-25 17:29 | WOUNDCARE ---
Wound Care Report 07/25/18- Pt is a 58 year old amle seen for wound consults on his upper legs and coccyx.. Chart reviewed including h and P, recent labs and vital signs and other providers reports. Pt WBC 8.06, Albumin 1.8. Other labs reviewed. Nutrition consult suggested. L thigh has multiple open areas. Largest of which is on the posterior to inner thigh wound bed is oblong in shape, it appears to have a wound in the same location on the other leg in a similar area. Wound bed is 10 percent pink tissue, 90 percent yellow firmly adherent slough. The wound edges are raised, with dark reddish wound edges. Surrounding skin is purplish, with scant areas of macerated skin noted just outside wound margin. The wound bed is moist, with no active drainage noted, although there are no dressings in place at this time. There are also several open areas on the anterior aspect of the wound which appear to be pink wound beds, no slough noted with purplish surrounding skin. The distal upper thigh has two open areas, the more medial wound is 3.2 cm x 4.6 cm x 0.1 cm. The wound bed is 100 percent moist with pink tissue, purplish periphery, no active drainage noted. Wound edges are defined with what appears to be some epithelial bridging. The more distal l thigh wound is 1.8 cm x 1 cm x less than 0.1 cm. The wound bed is 100 percent pink moist tissue with a dry pink periphery, no drainage noted. The coccyx has a wound which the patient states is from a surgery to remove a pilonidal cyst which was removed 35 years ago. Pt states that it has not healed completely since. The wound measures 7.2cm x 1cm x 0.6 cm. The wound edges are defined, pink. The wound bed is pink tissue with scant sanguinous drainage from wound margins. The periphery is pink tissue. The Right hip/ buttock has a circular wound with a long tail measuring 2.8 cm at the round part with the wound extending 30 cm only 0.3 cm wide on the tail portion. The owund is less than 0.1 cm deep. the wound bed is healing reddish, no drainage noted. The R inner thigh measures 8.4 cm x 2cm x 0.1 cm. the edges are well defined, with a darker reddish firm edge. The wound bed is 95 % slough, 5 % pink tissue. Outside the wound margin appears to have some purplish macerated tissue. The wound bed is moist, there does not appear to be any active drainage, but there was no dressing on the wound prior. Pt has thompson in place. Pt reminded to reposition as able off the wounds. Bilateral lower extremities and feet wounds are being consulted on by Dr. Schultz- Podiatry. Recommend cleansing bilat inner thigh wounds with skintegrity wound cleanser, applying skin prep to periphery. Applying a thin layer of Santyl on and covering with a mepilex with border. Changing every day and PRN for cover dressing. For l medial and distal thigh wounds cleanse with skintegrity wound cleanser, apply skin prep to periphery and cover with mepliex change every 3 days and PRN. For the coccyx wound, cleanse with skintegrity wound cleanser, skin prep periphery, apply aquacel AG rope cut to fit wound lengthwise. If wound bed is dry apply small amount of sterile water to wound bed only, cover with mepilex border sacral change every day and PRN. Use Zinc paste (z guard) on other smaller open areas to protect from moisture. Reposition gently as possible to avoid shearing forces. Reposition pt off wounds as much as possible.
--- NOTE | 2018-07-25 19:22 | W.PM.PROGNOT ---
Date of Service Date of service: 07/25/18 Time of Service: 15:30 Assessment and Plan (1) Acute and chronic respiratory failure, unspecified whether with hypoxia or hypercapnia: Current visit: Yes Status: Acute Likely due to R-sided and diastolic CHF. No evidence of PNA clinically so far. Will repeat CXR tomorrow. Await sputum culture. Will hold off of further abx and continue diuresis as below, unless the patient is able to produce purulent sputum, spikes a fever, or demonstrates elevated white count. Wean O2 as tolerated. BiPAP at night. (2) Right heart failure due to pulmonary hypertension: Current visit: Yes Status: Acute Continue lasix drip, monitor UO, daily weights, and electrolytes. Echo could not accurately estimate pulmonary artery pressures; LVEF is 55-60%. Outpatient cardiology referral for TAA. (3) Right ventricular systolic dysfunction: Current visit: Yes Status: Chronic medications as above. Continue aggressive treatment of his ABHAY. Replacement parts for CPAP picked up. (4) Obstructive sleep apnea hypopnea, severe: Current visit: Yes Status: Chronic continue aggressive treatment of his ABHAY. Will need to follow up with pulmonary as outpatient. 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 mellitus chcf insulin use: with chcf use Diabetes mellitus complication status: with skin complications Diabetes mellitus complication detail: with foot ulcer Diabetic retinopathy severity: Proliferative retinopathy type: Diabetes mellitus macular edema: Laterality: Chronic kidney disease stage: Qualified Code(s): E08.621 - Diabetes mellitus due to underlying condition with foot ulcer; L97.509 - Non-pressure chronic ulcer of other part of unspecified foot with unspecified severity; 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 Full code Will need cardiology/vascular follow up as outpatient for the TAA Subjective Interval history since last seen: Mr Hidalgo is not feeling any better or worse - he states he is about the same. He did show me a sputum sample of frothy pink-tinged sputum. He denies dizziness, chest pain, shortness of breath at rest while in bed, nausea, vomiting. He feels generally weak, but was able to stand up on the scale today, which he states he wouldn't be able to do before. Exam Narrative Exam Narrative: General: A&Ox3, laying nearly flat in bed, on 4L of O2, not cyanotic, not in acute distress, speaking in full sentences HEENT: EOMI, MMM Heart: RRR, no m/r/g Lungs: Crackles R lung base GI: abdomen is soft, nontender, nondistended Extremities: in NICKIE boots, edematous Objective Objective Clinical Data: Abnormal lab results 07/25/18 07/25/18 Range/Units 07:15 07:15 RBC 4.16 L (4.50-6.00) m/cumm Hgb 9.8 L (13.5-17.5) g/dL Hct 35.1 L (40.0-50.0) % MCH 23.6 L (27.0-33.0) pg MCHC 27.9 L (32.0-36.0) g/dL RDW 19.2 H (11.8-14.1) % Carbon Dioxide 44.1 H (21.0-32.0) mmol/L Anion Gap -1.1 L (3-11) mmol/L Glucose 115 H (70-100) mg/dL Calcium 8.0 L (8.5-10.1) mg/dL Vital Signs Temperature 36.3 C L 07/25/18 15:57 Temperature Source Tympanic 07/25/18 15:57 Pulse 93 H 07/25/18 15:57 Pulse Rhythm Regular 07/25/18 07:30 Pulse 96 H 07/23/18 17:20 Respiratory Rate 20 07/25/18 15:57 Respiratory Effort Non-Labored 07/25/18 07:30 Respiratory Depth Normal 07/25/18 07:30 Respiratory Pattern Normal 07/25/18 07:30 Blood Pressure 103/77 07/25/18 15:57 Blood Pressure Mean 102 07/23/18 17:16 Blood Pressure Position Supine 07/23/18 14:44 Pulse Oximetry 93 L 07/25/18 15:57 Oxygen Delivery Method Nasal Cannula 07/25/18 15:57 Oxygen Flow Rate 4 07/25/18 15:57 Fraction of Inspired Oxygen (FIO2) 32 07/25/18 11:45 Pain Level 7 07/25/18 08:54 Comment 07/25/18 03:55 Intake & Output 07/24/18 07/25/18 07/25/18 23:59 11:59 23:59 Intake Total 720 / 1001.833 180.667 / 545.917 365.250 / 545.917 Output Total 1775 / 3475 1575 / 1900 325 / 1900 Balance -1055 / -2473.167 -1394.333 / -1354.083 40.250 / -1354.083 Weight 206.6 kg Intake: IV 0 / 41.833 80.667 / 145.917 65.250 / 145.917 Oral 720 / 960 100 / 400 300 / 400 Output: Urine 1775 / 3475 1575 / 1900 325 / 1900 Other: Urine Color Pale Yellow Yellow Yellow Urine Appearance Clear Clear Clear Laboratory Results WBC 6.55 k/cumm (4.4-10.8) 07/25/18 07:15 RBC 4.16 m/cumm (4.50-6.00) L 07/25/18 07:15 Hgb 9.8 g/dL (13.5-17.5) L 07/25/18 07:15 Hct 35.1 % (40.0-50.0) L 07/25/18 07:15 MCV 84.4 fL (80-95) 07/25/18 07:15 MCH 23.6 pg (27.0-33.0) L 07/25/18 07:15 MCHC 27.9 g/dL (32.0-36.0) L 07/25/18 07:15 RDW 19.2 % (11.8-14.1) H 07/25/18 07:15 Plt Count 340 x1000/uL (130-400) 07/25/18 07:15 MPV 9.2 fL (8.0-11.0) 07/25/18 07:15 Immature Gran % 0.2 07/25/18 07:15 Neutrophils % 53.9 07/25/18 07:15 Band Neutrophils % 4.0 % 07/23/18 16:05 Lymphocytes % 33.4 07/25/18 07:15 Atypical Lymphs % 5 07/23/18 16:05 Monocytes % 8.2 07/25/18 07:15 Eosinophils % 4.1 07/25/18 07:15 Basophils % 0.2 07/25/18 07:15 Absolute Neutrophils 3.53 k/cumm (1.2-6.7) 07/25/18 07:15 Absolute Lymphocytes 2.19 k/cumm (1.2-3.4) 07/25/18 07:15 Absolute Monocytes 0.54 k/cumm (0.11-0.7) 07/25/18 07:15 Absolute Eosinophils 0.27 k/cumm (0.0-0.7) 07/25/18 07:15 Absolute Basophils 0.01 k/cumm (0.0-0.2) 07/25/18 07:15 Differential Comment Manual differential 07/23/18 16:05 RBC Morphology See below 07/23/18 16:05 Polychromasia Present 07/23/18 16:05 Hypochromasia 2+ 07/23/18 16:05 Poikilocytosis 2+ 07/23/18 16:05 Anisocytosis 2+ 07/23/18 16:05 Stomatocytes 2+ 07/23/18 16:05 Sodium 144 mmol/L (136-145) 07/25/18 07:15 Potassium 3.7 mmol/L (3.5-5.1) D 07/25/18 07:15 Chloride 101 mmol/L (98-107) 07/25/18 07:15 Carbon Dioxide 44.1 mmol/L (21.0-32.0) H 07/25/18 07:15 Anion Gap -1.1 mmol/L (3-11) L 07/25/18 07:15 BUN 11 mg/dL (7-18) 07/25/18 07:15 Creatinine 0.84 mg/dL (0.70-1.30) 07/25/18 07:15 Estimated GFR/1.73 m2 >= 60.00 (mL/min/1.73m2) 07/25/18 07:15 Glucose 115 mg/dL (70-100) H 07/25/18 07:15 Calcium 8.0 mg/dL (8.5-10.1) L 07/25/18 07:15 Magnesium 1.9 mg/dL (1.8-2.4) 07/25/18 07:15 Total Bilirubin 0.3 mg/dL (0.2-1.0) 07/23/18 16:05 AST 43 U/L (15-37) H 07/23/18 16:05 ALT 20 U/L (12-78) 07/23/18 16:05 Alkaline Phosphatase 108 U/L (46-116) 07/23/18 16:05 Troponin I 0.03 ng/mL (0.00-0.06) 07/23/18 23:39 NT-Pro-B Natriuret Pep 1027 pg/mL (-299) H 07/24/18 07:13 Total Protein 6.4 g/dL (6.4-8.2) 07/23/18 16:05 Albumin 1.8 g/dL (3.4-5.0) L 07/23/18 16:05 TSH 3.86 uIU/mL (0.358-3.74) H 07/24/18 07:13 Free T4 1.05 ng/dL (0.76-1.46) 07/24/18 07:13
[2018-07-25] MEDS: Enoxaparin 40 MG/0.4 ML SYR SC (20:29)
[2018-07-25] MEDS: Amitriptyline 50 MG TAB 150 MG PO (22:02)
[2018-07-25] MEDS: traZODone 50 MG TAB 150 MG PO (22:03)
[2018-07-25] MEDS: Insulin Glargine 300 UNITS/3 ML PEN 45 UNITS SC (22:04)
[2018-07-26] VITALS (11 sets, daily range): BP systolic 99–133; BP diastolic 56–82; PULSE 93–110; RESP 17–34; TEMP 36.6–37.9; O2SAT 88–98
--- NOTE | 2018-07-26 06:30 | DI.RAD_ITS ---
SYMPTOM/DIAGNOSIS: F/U QUESTIONABLE PNEUMONIA PORTABLE AP CHEST: Comparison is made with 07/23/18. The cardiac silhouette appears stable and is within normal limits given the projection. The pulmonary vasculature is within normal limits. There are now bilateral pulmonary infiltrates. There does appear to be progression of the infiltrates on the left involving more of the upper lobe at the current time. There also are increased opacities in the right lung compared to the prior examination. No gross effusions or pneumothoraces are identified. The bones are unremarkable. IMPRESSION: Worsening pulmonary infiltrates suspicious for a multi focal pneumonia.
--- NOTE | 2018-07-26 06:52 | DI.VRAD_ITS ---
EXAM: XR Chest, 1 View EXAM DATE/TIME: 07/26/2018 12:00 AM CLINICAL HISTORY: 58 years old, male; Signs and symptoms; Other: Follow up questionable pneumonia TECHNIQUE: XR of the chest, 1 view. COMPARISON: SC XR PORTABLE CHEST AP 07/23/2018 4:13 PM FINDINGS: Lungs: Worsening airspace disease in the left lung with involvement of the right lung base compatible with multifocal pneumonia. Pleural space: Unremarkable. No pleural effusion. No pneumothorax. Heart/Mediastinum: Unremarkable. No cardiomegaly. Bones/joints: Unremarkable. IMPRESSION: Worsening airspace disease in the left lung with involvement of the right lung base compatible with multifocal pneumonia. Dictated and Authenticated by: Herve Ram MD. Ordering:WENDY Villagomez MD
[2018-07-26] MEDS: Budesonide/Formoterol 160/4.5 6 GM 60 PUFF INH IH ×2 (07:56→20:07)
[2018-07-26 08:06] LABS: Abs Immature Grans 0.01 k/cumm (0.0-0.09); Absolute Basophil Count 0.01 k/cumm (0.0-0.2); Absolute Eosinophil Count 0.22 k/cumm (0.0-0.7); Absolute Lymphocyte Count 2.35 k/cumm (1.2-3.4); Absolute Monocyte Count 0.59 k/cumm (0.11-0.7); Absolute Neutrophil Count 4.73 k/cumm (1.2-6.7); Basophils % 0.1; Eosinophils % 2.8; HCT 35.1 % (40.0-50.0); HGB 9.7 g/dL (13.5-17.5); Immature Grans % 0.1; Lymphocytes % 29.7; Mean Corp. HGB Concentration 27.6 g/dL (32.0-36.0); Mean Corpuscular Hemoglobin 23.3 pg (27.0-33.0); Mean Corpuscular Volume 84.4 fL (80-95); Mean Platelet Volume 9.4 fL (8.0-11.0); Monocytes % 7.5; Neutrophils % 59.8; Platelet Count 376 x1000/uL (130-400); RBC 4.16 m/cumm (4.50-6.00); White Blood Cell Count 7.91 k/cumm (4.4-10.8)
[2018-07-26 08:14] LABS: Anion Gap 1.3 mmol/L (3-11); BUN 10 mg/dL (7-18); CO2 42.7 mmol/L (21.0-32.0); CREATININE 0.93 mg/dL (0.70-1.30); Calcium 8.1 mg/dL (8.5-10.1); Chloride 98 mmol/L (98-107); Glucose 148 mg/dL (70-100); Magnesium 1.8 mg/dL (1.8-2.4); Potassium 3.5 mmol/L (3.5-5.1); Sodium 142 mmol/L (136-145)
--- NOTE | 2018-07-26 08:26 | PDOC.CMPRO ---
- If Service Date Differs Date of service: 07/26/18 Time of Service: 08:26 Care Management Progress Note S/O: Peter remains acute at this time. IV antibiotics were started today. CM contacted [facility] and rehab and left a message for admissions related to referral. CM spoke with Bhavik Ramírez after school caregiver through [place] supports he will continue to search for placement for Peter as well. No change in status today anticipate transition to swing bed here prior to [facility] to [facility]. A:Peter is a 58 year old male admitted for diuresis r/t hypoxia and hospital acquired pneumonia. P:Peter remains acute today he will transition to SB1 vs LTC facility in [place]. He continues to receive diuretics and antibiotics IV. Wound consult, diabetic consult, and nutrition consult all in place.Physical therapy and occupational therapy continue to consult as well. CM will continue to provide support to patient ongoing discharge planning and disposition.
--- NOTE | 2018-07-26 08:29 | CMPROGNOTE_ITS ---
- If Service Date Differs Date of service: 07/26/18 Time of Service: 08:26 Care Management Progress Note S/O: Peter remains acute at this time. IV antibiotics were started today. CM contacted [facility] and rehab and left a message for admissions related to referral. CM spoke with Bhavik Ramírez palliative care coordinator through [place] supports he will continue to search for placement for Peter as well. No change in status today anticipate transition to swing bed here [facility]. A:Peter is a 58 year old male admitted for diuresis r/t hypoxia and hospital acquired pneumonia. P:Peter remains acute today he will transition to SB1 vs LTC facility in [place]. He continues to receive diuretics and antibiotics IV. Wound consult, diabetic consult, and nutrition consult all in place.Physical therapy and occupational therapy continue to consult as well. CM will continue to provide support to patient ongoing discharge planning and disposition.
--- NOTE | 2018-07-26 08:35 | W.INDIABCONS ---
Date of service: 07/26/18 Time of Service: 08:35 Diabetes Inpatient Consult DESCRIPTION/ASSESSMENT: Appreciate diabetes consult for Mr. Hidalgo who is hospitalized again for heart failure. BMI 62 A1c 13.6 Blood sugars this hospitalization 104-202, mostly less than 181. He receives his home basal dose of 45units plus insulin for food at 1 unit covers 5 grams carbohydrate and resistant insulin correction. Mr. Hidalgo takes Metformin and his basal insulin. He states his blood sugars are better here because he is eating the right foods. He does prepare some of his own meals when he doesn't like what his caregivers make at home. He is physically inactive. INTERVENTION: Mr. Hidalgo is doing well with blood sugars this hospitalization and he is pleased with the result. He is aware of the possibility that he needs more medication when he is home. He is willing to take mealtime insulin and this idea is supported given his A1c and his potential degree of insulin resistance. He may also benefit from GLP1 inhibitor such as Victoza if not contraindicated. PLAN: Will follow blood sugars. Will follow up as desired for possible outpatient medication changes Time Spent in Nutritional Counseling and Treatment: 15 minutes face to face inpatient
[2018-07-26] MEDS: Omeprazole 20 MG CAPCR PO ×2 (08:45→17:25)
[2018-07-26] MEDS: Potassium Chloride Liquid 20 MEQ PKT 40 MEQ PO ×3 (08:46→20:08)
[2018-07-26] MEDS: Metoprolol CR 25 MG TABCR PO (08:46)
[2018-07-26] MEDS: Gabapentin 300 MG CAP 600 MG PO ×3 (08:46→20:07)
[2018-07-26] MEDS: Nystatin CREAM 15 GM TUBE TP ×2 (08:50→20:08)
[2018-07-26] MEDS: Collagenase 30 GM TUBE TP (08:50)
[2018-07-26] MEDS: Normal Saline Flush 10 ML SYR IVP (08:51)
[2018-07-26] MEDS: Insulin Aspart 300 UNITS/3 ML PEN SC ×6 (08:55→21:17)
--- NOTE | 2018-07-26 09:30 | DM INPTCON_ITS ---
Date of service: 07/26/18 Time of Service: 08:35 Diabetes Inpatient Consult DESCRIPTION/ASSESSMENT: Appreciate diabetes consult for Mr. Hidalgo who is hospitalized again for heart failure. BMI 62 A1c 13.6 Blood sugars this hospitalization 104-202, mostly less than 181. He receives h is home basal dose of 45units plus insulin for food at 1 unit covers 5 grams carbohydrate and resistant insulin correction. Mr. Hidalgo takes Metformin and his basal insulin. He states his blood sugars are better here because he is eating the right foods. He does prepare some of his own meals when he doesn't like what his caregivers make at home. He is physically inactive. INTERVENTION: Mr. Hidalgo is doing well with blood sugars this hospitalization and he is pleased with the result. He is aware of the possibility that he needs more medication when he is home. He is willing to take mealtime insulin and this idea is supported given his A1c and his potential degree of insulin resistance. He may also benefit from GLP1 inhibitor such as Victoza if not contraindicated. PLAN: Will follow blood sugars. Will follow up as desired for possible outpatient medication changes Time Spent in Nutritional Counseling and Treatment: 15 minutes face to face inpatient
--- NOTE | 2018-07-26 11:38 | OT.INTREAT ---
Date of service: 07/26/18 Time of Service: 09:45 Occupational Therapy Notes Occupational Therapy Inpatient Treatment Note Date: 07/26/18 PRECAUTIONS: Standard, Fall SUBJECTIVE: Pt was lying in bed he reports that he had been washed up with nursing prior to OT session. OBJECTIVE: PAIN:no c/o pain. 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 ASSESSMENT/PLAN: Pt tolerated UE strengthening well to increase (I) in functional activities and ADLs. Pt performed with good technique and in functional motions. Pt would benefit from continued skilled OT intervention for progression of UE strengthening program. TREATMENT CODES/TIME: 57702, 15 minutes (09:45) Verna eSrra OTR/[facility]
[2018-07-26] MEDS: PIPERACILLIN/TAZO 3.375 GM in Normal Saline 50 ML IVPB ×3 (12:20→23:17)
[2018-07-26] MEDS: Potassium Chloride 20 MEQ TABCR 40 MEQ PO ×2 (12:21→13:32)
--- NOTE | 2018-07-26 12:24 | W.NUTCONSULT ---
Date of service: 07/26/18 Time of Service: 12:24 Nutritional Consult ASSESSMENT: Nutrition consult for wounds. Mr. Hidalgo is 73 and 206.6 kg/455 lbs. His BMI is 62 kg/m2. His adjusted ideal body weight is 124 kg/273 lbs. Of note, one year ago, Mr. Hidalgo was 237 kg in July of 2017. He has had an intentional 13% weight loss in this time. In past admissions, Mr. Hidalgo has demonstrated an eagerness to follow the recommendations of the CDE and the RD with regard to his menu choices. His estimated energy needs for slow gradual weight reduction are 1800 kcal per week (.75% weight loss per week theoretically). (REE x 1.2 -1500 kcals) His estimated protein needs for wound healing are 124g-161g/day (1.0-1.3g/kg/day of adjusted ideal body weight) He is eating 100% of meals most often. NUTRITIONAL DIAGNOSIS: Increased nutritional needs related to wounds. INTERVENTION: We will continue to offer double portion of protein foods without carbohydrates. We will also provide Ishmael supplements for supplemental glutamine and arginine for wound healing. RD and/or CDM will continue to visit Mr. Hidalgo daily for menu selections and will guide him to make high protein choices and keep carbohydrates consistently at approximately 45 grams per meal. Would recommend that Mr. Hidalgo have a multivitamin with minerals twice per day to ensure he is getting 100% of his vitamin and mineral needs. I currently don't see one on his medication list. MONITORING AND EVALUATION: 1. Will monitor PO intake, weight, progress. 2. Will evaluate nutrition care plan ongoing and adjust as needed. Thank you for the consult. Time Spent in Nutritional Counseling and Treatment: IRINA
[2018-07-26] MEDS: Magnesium Oxide 400 MG TAB PO ×2 (12:30→21:16)
[2018-07-26] MEDS: VANCOMYCIN 2,000 MG in Normal Saline 500 ML 250 MG IVPB (13:25)
[2018-07-26 16:46] LABS: HCO3 47 mmol/L (22-28); pH 7.41 (7.35-7.45); pO2 44 mmHg (83-108); sO2 80 % (94-98); tCO2 44 mmol/L (22-29)
[2018-07-26 16:49] LABS: Site Left Radial; pCO2 73 mmHg (34-47)
[2018-07-26 16:50] LABS: FIO2L 4 L
--- NOTE | 2018-07-26 18:50 | NUR.NOTE ---
Nursing Note: Patient has pulled out the iv access on his right side, and the site on his left is red and puffy, I updated ccc
--- NOTE | 2018-07-26 19:28 | PGE_ITS ---
Date of Service Date of service: 07/26/18 Time of Service: 15:30 Assessment and Plan (1) HCAP (healthcare-associated pneumonia): Current visit: Yes Status: Acute With fever overnight and worsening CXR findings, it does appear that the patient has a pneumonia. He was initiated on vancomycin/zosyn. Will monitor respiratory status (2) Acute and chronic respiratory failure, unspecified whether with hypoxia or hypercapnia: Current visit: Yes Status: Acute Multifactorial. ABG today shows evidence of both hypoxia and hypercapnia. I feel that the pH of 7.41 is also showing us that the patient was overdiuresed and is now in metabolic alkalosis. The twitching the patient reports is likely a sign of hypercapnia. Discussed at length with respiratory therapy. There are concerns about the patient's BiPAP machine, its settings and its tubing. We are going to be treating him with our BiPAP, and for tonight we will widen the gap between the IPAP and EPAP to permit for more CO2 exhalation. Lasix gtt d/c'ed. (3) Right heart failure due to pulmonary hypertension: Current visit: Yes Status: Acute Patient now likely overdiuresed, so lasix gtt stopped. Echo could not accurately estimate pulmonary artery pressures; LVEF is 55-60%. Outpatient cardiology referral for TAA. (4) Right ventricular systolic dysfunction: Current visit: Yes Status: Chronic Continue aggressive treatment of his ABHAY. Replacement parts for bipap picked up, but we feel he could use a repeat outpatient sleep study. (5) Obstructive sleep apnea hypopnea, severe: Current visit: Yes Status: Chronic continue aggressive treatment of his ABHAY. Will need to follow up with pulmonary as outpatient. 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 Diabetes mellitus complication status: with skin complications Diabetes mellitus complication detail: with foot ulcer Diabetic retinopathy severity: Proliferative retinopathy type: Diabetes mellitus macular edema: Laterality: Chronic kidney disease stage: Qualified Code(s): E08.621 - Diabetes mellitus due to underlying condition with foot ulcer; L97.509 - Non-pressure chronic ulcer of other part of unspecified foot with unspecified severity; 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 Full code Will need cardiology/vascular follow up as outpatient for the TAA Will need a repeat sleep study Subjective Interval history since last seen: Mr Hidalgo states he feels more clouded and sleepy today. He denies dizziness, chest pain, nausea, vomiting. He continues to cough. He does not feel any better. He did have a fever at 3:29 am. (37.9) Complains of twitching today. Exam Narrative Exam Narrative: General: A&Ox3, but appears a little inappropriate today, though able to answer questions and follow commands. Something is not quite right about his behavior. Laying flat in bed, not cyanotic, not in acute distress, speaking in full sentences HEENT: EOMI, dry MM Heart: RRR, no m/r/g Lungs: CTAB GI: abdomen is soft, nontender, nondistended Extremities: in NICKIE boots, edematous Objective Objective Clinical Data: Abnormal lab results 07/26/18 07/26/18 07/26/18 Range/Units 07:30 07:30 16:40 RBC 4.16 L (4.50-6.00) m/cumm Hgb 9.7 L (13.5-17.5) g/dL Hct 35.1 L (40.0-50.0) % MCH 23.3 L (27.0-33.0) pg MCHC 27.6 L (32.0-36.0) g/dL RDW 19.0 H (11.8-14.1) % pCO2 73 H* (34-47) mmHg pO2 44 L (83-108) mmHg O2 Saturation 80 L (94-98) % ABG HCO3 47 H (22-28) mmol/L ABG Total CO2 44 H (22-29) mmol/L Carbon Dioxide 42.7 H (21.0-32.0) mmol/L Anion Gap 1.3 L (3-11) mmol/L Glucose 148 H (70-100) mg/dL Calcium 8.1 L (8.5-10.1) mg/dL Vital Signs Temperature 36.9 C 07/26/18 11:45 Temperature Source Tympanic 07/26/18 11:45 Pulse 102 H 07/26/18 19:23 Pulse Rhythm Regular 07/26/18 16:12 Pulse 96 H 07/23/18 17:20 Respiratory Rate 17 07/26/18 17:33 Respiratory Effort 07/26/18 16:12 Respiratory Depth Shallow 07/26/18 16:12 Respiratory Pattern Normal 07/26/18 16:12 Blood Pressure 101/57 L 07/26/18 11:45 Blood Pressure Mean 102 07/23/18 17:16 Blood Pressure Position Supine 07/23/18 14:44 Pulse Oximetry 98 07/26/18 19:23 Oxygen Delivery Method Nasal Cannula 07/26/18 11:45 Oxygen Flow Rate 4 07/26/18 11:45 Fraction of Inspired Oxygen (FIO2) 40 07/26/18 19:23 Pain Level 7 07/26/18 12:30 Comment 07/26/18 07:40 Intake & Output 07/25/18 07/26/18 07/26/18 23:59 11:59 23:59 Intake Total 668.250 / 848.917 37 / 959.583 922.583 / 959.583 Output Total 2200 / 3775 2900 / 3375 475 / 3375 Balance -1531.750 / -2926.083 -2863 / -2415.417 447.583 / -2415.417 Intake: IV 128.250 / 208.917 37 / 659.583 622.583 / 659.583 Oral 540 / 640 300 / 300 Output: Urine 2200 / 3775 2900 / 3375 475 / 3375 Other: Urine Color Yellow Yellow Pale Yellow Urine Appearance Clear Clear Clear Urine Odor None Voiding Methods Indwelling Catheter Laboratory Results WBC 7.91 k/cumm (4.4-10.8) 07/26/18 07:30 RBC 4.16 m/cumm (4.50-6.00) L 07/26/18 07:30 Hgb 9.7 g/dL (13.5-17.5) L 07/26/18 07:30 Hct 35.1 % (40.0-50.0) L 07/26/18 07:30 MCV 84.4 fL (80-95) 07/26/18 07:30 MCH 23.3 pg (27.0-33.0) L 07/26/18 07:30 MCHC 27.6 g/dL (32.0-36.0) L 07/26/18 07:30 RDW 19.0 % (11.8-14.1) H 07/26/18 07:30 Plt Count 376 x1000/uL (130-400) 07/26/18 07:30 MPV 9.4 fL (8.0-11.0) 07/26/18 07:30 Immature Gran % 0.1 07/26/18 07:30 Neutrophils % 59.8 07/26/18 07:30 Band Neutrophils % 4.0 % 07/23/18 16:05 Lymphocytes % 29.7 07/26/18 07:30 Atypical Lymphs % 5 07/23/18 16:05 Monocytes % 7.5 07/26/18 07:30 Eosinophils % 2.8 07/26/18 07:30 Basophils % 0.1 07/26/18 07:30 Absolute Neutrophils 4.73 k/cumm (1.2-6.7) 07/26/18 07:30 Absolute Lymphocytes 2.35 k/cumm (1.2-3.4) 07/26/18 07:30 Absolute Monocytes 0.59 k/cumm (0.11-0.7) 07/26/18 07:30 Absolute Eosinophils 0.22 k/cumm (0.0-0.7) 07/26/18 07:30 Absolute Basophils 0.01 k/cumm (0.0-0.2) 07/26/18 07:30 Differential Comment Manual differential 07/23/18 16:05 RBC Morphology See below 07/23/18 16:05 Polychromasia Present 07/23/18 16:05 Hypochromasia 2+ 07/23/18 16:05 Poikilocytosis 2+ 07/23/18 16:05 Anisocytosis 2+ 07/23/18 16:05 Stomatocytes 2+ 07/23/18 16:05 Sample Site Left radial 07/26/18 16:40 pCO2 73 mmHg (34-47) H* 07/26/18 16:40 pO2 44 mmHg (83-108) L 07/26/18 16:40 O2 Saturation 80 % (94-98) L 07/26/18 16:40 ABG pH 7.41 (7.35-7.45) 07/26/18 16:40 ABG HCO3 47 mmol/L (22-28) H 07/26/18 16:40 ABG Total CO2 44 mmol/L (22-29) H 07/26/18 16:40 Oxygen Liter Flow 4 L 07/26/18 16:40 FiO2 Home bipap % 07/26/18 16:40 Sodium 142 mmol/L (136-145) 07/26/18 07:30 Potassium 3.5 mmol/L (3.5-5.1) 07/26/18 07:30 Chloride 98 mmol/L (98-107) 07/26/18 07:30 Carbon Dioxide 42.7 mmol/L (21.0-32.0) H 07/26/18 07:30 Anion Gap 1.3 mmol/L (3-11) L 07/26/18 07:30 BUN 10 mg/dL (7-18) 07/26/18 07:30 Creatinine 0.93 mg/dL (0.70-1.30) 07/26/18 07:30 Estimated GFR/1.73 m2 >= 60.00 (mL/min/1.73m2) 07/26/18 07:30 Glucose 148 mg/dL (70-100) H 07/26/18 07:30 Calcium 8.1 mg/dL (8.5-10.1) L 07/26/18 07:30 Magnesium 1.8 mg/dL (1.8-2.4) 07/26/18 07:30 Total Bilirubin 0.3 mg/dL (0.2-1.0) 07/23/18 16:05 AST 43 U/L (15-37) H 07/23/18 16:05 ALT 20 U/L (12-78) 07/23/18 16:05 Alkaline Phosphatase 108 U/L (46-116) 07/23/18 16:05 Troponin I 0.03 ng/mL (0.00-0.06) 07/23/18 23:39 NT-Pro-B Natriuret Pep 1027 pg/mL (-299) H 07/24/18 07:13 Total Protein 6.4 g/dL (6.4-8.2) 07/23/18 16:05 Albumin 1.8 g/dL (3.4-5.0) L 07/23/18 16:05 TSH 3.86 uIU/mL (0.358-3.74) H 07/24/18 07:13 Free T4 1.05 ng/dL (0.76-1.46) 07/24/18 07:13 CXR: Worsening pulmonary infiltrates suspicious for a multi focal pneumonia.
[2018-07-26] MEDS: Enoxaparin 40 MG/0.4 ML SYR SC (20:07)
[2018-07-26] MEDS: Polyethylene Glycol 3350 17 GM PACKET PO (20:08)
[2018-07-26] MEDS: traZODone 50 MG TAB 150 MG PO (21:16)
[2018-07-26] MEDS: Amitriptyline 50 MG TAB 150 MG PO (21:16)
[2018-07-26] MEDS: Insulin Glargine 300 UNITS/3 ML PEN 45 UNITS SC (21:17)
--- NOTE | 2018-07-26 23:46 | NUR.NOTE ---
Nursing Note: Pt. currently sleeping without Luz machine on. I have woken up the patient and encouraged him to wear his Luz, he is refusing to do so at this time.
[2018-07-27] VITALS (7 sets, daily range): BP systolic 116–138; BP diastolic 69–89; PULSE 89–103; RESP 14–34; TEMP 36.2–37.1; O2SAT 92–97
--- NOTE | 2018-07-27 01:24 | NUR.NOTE ---
Nursing Note: Pt. agreed to put Luz machine on at this time.
[2018-07-27] MEDS: PIPERACILLIN/TAZO 3.375 GM in Normal Saline 50 ML IVPB ×3 (05:04→19:39)
[2018-07-27 08:03] LABS: HCO3 46 mmol/L (22-28); pH 7.42 (7.35-7.45); pO2 65 mmHg (83-108); sO2 93 % (94-98); tCO2 43 mmol/L (22-29)
[2018-07-27 08:05] LABS: FIO2L 4 L; Site Left Radial; pCO2 71 mmHg (34-47)
[2018-07-27 08:06] LABS: FIO2 Nasal cannula %
[2018-07-27 08:36] LABS: Abs Immature Grans 0.03 k/cumm (0.0-0.09); Absolute Basophil Count 0.01 k/cumm (0.0-0.2); Absolute Monocyte Count 0.58 k/cumm (0.11-0.7); Absolute Neutrophil Count 4.07 k/cumm (1.2-6.7); Basophils % 0.1; Eosinophils % 2.7; HCT 38.2 % (40.0-50.0); HGB 10.4 g/dL (13.5-17.5); Immature Grans % 0.4; Lymphocytes % 33.8; Mean Corp. HGB Concentration 27.2 g/dL (32.0-36.0); Mean Corpuscular Hemoglobin 23.2 pg (27.0-33.0); Mean Corpuscular Volume 85.3 fL (80-95); Mean Platelet Volume 9.6 fL (8.0-11.0); Monocytes % 7.8; Neutrophils % 55.2; Platelet Count 430 x1000/uL (130-400); RBC 4.48 m/cumm (4.50-6.00); RBC Distribution Width 19.6 % (11.8-14.1); White Blood Cell Count 7.39 k/cumm (4.4-10.8)
--- NOTE | 2018-07-27 08:42 | PDOC.CMPRO ---
- If Service Date Differs Date of service: 07/27/18 Time of Service: 08:43 Care Management Progress Note S/O:Peter makes good eye contact he appreciates his care. Bo cabral RT will be here this evening to assess his BIPAP and trade it out if needed. CM continues to work with community providers to identify LTC bed for discharge. Peter remains acute and is receiving IV antibiotics and daily labs. A:Peter is a 58 year old male admitted with Hospital acquired pneumonia and diuresis P:Peter remains acute and on IV antibiotics. He continues to have PT and OT consult. Peter will transition to SB1 here at [facility] until placement current negotiations with [facility] [place] [facility].
--- NOTE | 2018-07-27 08:48 | CMPROGNOTE_ITS ---
- If Service Date Differs Date of service: 07/27/18 Time of Service: 08:43 Care Management Progress Note S/O:Peter makes good eye contact he appreciates his care. Bo cabral RT will be here this evening to assess his BIPAP and trade it out if needed. CM continues to work with community providers to identify LTC bed for discharge. Peter remains acute and is receiving IV antibiotics and daily labs. A:Peter is a 58 year old male admitted with Hospital acquired pneumonia and diuresis P:Peter remains acute and on IV antibiotics. He continues to have PT and OT consult. Peter will transition to SB1 here at [facility] until placement current negotiations with [facility].
[2018-07-27 09:04] LABS: Anion Gap -0.2 mmol/L (3-11); BUN 9 mg/dL (7-18); CO2 43.2 mmol/L (21.0-32.0); CREATININE 0.92 mg/dL (0.70-1.30); Calcium 8.9 mg/dL (8.5-10.1); Chloride 100 mmol/L (98-107); Glucose 127 mg/dL (70-100); Potassium 3.9 mmol/L (3.5-5.1); Sodium 143 mmol/L (136-145)
[2018-07-27 09:06] LABS: Anisocytosis 2+; Diff Comment RBC Morph Reviewed; Hypochromasia 1+; Polychromasia Present; Stomatocytes 2+
[2018-07-27] MEDS: Gabapentin 300 MG CAP 600 MG PO ×3 (09:22→19:39)
[2018-07-27] MEDS: Metoprolol CR 25 MG TABCR PO (09:23)
[2018-07-27] MEDS: Collagenase 30 GM TUBE TP (09:23)
[2018-07-27] MEDS: Potassium Chloride Liquid 20 MEQ PKT 40 MEQ PO ×3 (09:23→19:39)
[2018-07-27] MEDS: Nystatin CREAM 15 GM TUBE TP ×2 (09:23→19:40)
[2018-07-27] MEDS: Magnesium Oxide 400 MG TAB PO ×2 (09:23→21:10)
[2018-07-27] MEDS: Omeprazole 20 MG CAPCR PO ×2 (09:23→17:24)
[2018-07-27] MEDS: Insulin Aspart 300 UNITS/3 ML PEN SC ×5 (09:26→21:09)
--- NOTE | 2018-07-27 09:33 | W.SPEECHPG ---
Date of service: 07/27/18 Time of Service: 08:00 Speech Therpy Note Note: SUBJECTIVE Patient (pt) is reclined in bed, laying obliquely on his left side, feeding himself breakfast. He greets me with good direct eye contact, a smile and an intelligible verbal greeting. OBJECTIVE Nursing reports: - T: 36.5 - O2 sat: 94% on 4 L via NC - LS: CTA and diminished bilaterally in the presence of ABX Swallowing - Thin liquid: Good bolus control and posterior oral transit (POT), no roopa signs/symptoms (s/s) of aspiration/penetration (A/P); oral clearance 100%; no oral escape. These results are true for both single and consecutive swallows by cup. - Mechanically Altered food: Good bolus control & mastication quality; POT WNL; no roopa s/s A/P; oral clearance 100%; no oral escape. Pt reports no Biotene Antibacterial mouthwash given to him prior to this meal but did have it one or two times yesterday. Pt's meal tray slip has no green star on it, so tray may have been passed prior to nursing having given the Biotene. Called parking enforcement manager, Susan, who will see that green star gets put on meal tray slips. Pt states he does often eat in this reclined position but also eats more upright at times. Reinstructed pt in rationale for upright upper body position during p.o. intake. He does show an appropriate self-feeding rate during this visit. Pt reports having had moistened fine-chopped meat yesterday and felt he was able to chew it well and swallow it without difficulty. Discussed his anxiety around swallowing that he mentioned during his swallow eval. Suggested trying deep rhythmic breathing exercise as a way to decrease anxiety and therefore decrease any throat muscle tension prior to meals. Pt was amenable. Gave exercise in print to pt. Pt's demonstration accuracy of exercise: 80%. ASSESSMENT Pt appears to be tolerating his current diet and liquid consistencies. PLAN 1. Continue current p.o. consistencies: Thin liquids, Mechanically Altered diet with moistened fine-chopped meats, small & medium whole pills with a liquid wash but large pills dissolved/cut up/crushed in puree prn. 2. Continue ST plan of care.
[2018-07-27] MEDS: Budesonide/Formoterol 160/4.5 6 GM 60 PUFF INH IH ×2 (10:10→19:39)
--- NOTE | 2018-07-27 10:28 | OT.INNT ---
Date of service: 07/27/18 Time of Service: 10:28 Occupational Therapy Notes 07/27/18 Pt was lying in bed when OT arrived. He reports that he is not feeling well and does not want to participate in session today. Verna Serra OTR/[facility]
--- NOTE | 2018-07-27 12:32 | W.PM.PROGNOT ---
Date of Service Date of service: 07/27/18 Time of Service: 12:33 Subjective Patient reports: no new complaints Interval history since last seen: No new c/o concerning his LE's. Exam Narrative Exam Narrative: Unna boot dressings are in tact and comfortable on both LE. No drainage noted. Toes are warm and pink, bilaterally. Imp: Chronic venous stasis wounds both LE Plan: Unna boots are to be changed tomorrow by nursing. Collagen matrix to be applied to all open wounds, cover with Adaptic, 3Unna Boots, kerlix, jing wraps or Coflex type dressings. I discussed the case with Nursing as well as the hospitalist. Objective Objective Clinical Data: Abnormal lab results 07/26/18 07/27/18 07/27/18 Range/Units 16:40 07:15 07:15 RBC 4.48 L (4.50-6.00) m/cumm Hgb 10.4 L (13.5-17.5) g/dL Hct 38.2 L (40.0-50.0) % MCH 23.2 L (27.0-33.0) pg MCHC 27.2 L (32.0-36.0) g/dL RDW 19.6 H (11.8-14.1) % Plt Count 430 H (130-400) x1000/uL pCO2 73 H* (34-47) mmHg pO2 44 L (83-108) mmHg O2 Saturation 80 L (94-98) % ABG HCO3 47 H (22-28) mmol/L ABG Total CO2 44 H (22-29) mmol/L Carbon Dioxide 43.2 H (21.0-32.0) mmol/L Anion Gap -0.2 L (3-11) mmol/L Glucose 127 H (70-100) mg/dL 07/27/18 Range/Units 07:55 RBC (4.50-6.00) m/cumm Hgb (13.5-17.5) g/dL Hct (40.0-50.0) % MCH (27.0-33.0) pg MCHC (32.0-36.0) g/dL RDW (11.8-14.1) % Plt Count (130-400) x1000/uL pCO2 71 H* (34-47) mmHg pO2 65 L (83-108) mmHg O2 Saturation 93 L (94-98) % ABG HCO3 46 H (22-28) mmol/L ABG Total CO2 43 H (22-29) mmol/L Carbon Dioxide (21.0-32.0) mmol/L Anion Gap (3-11) mmol/L Glucose (70-100) mg/dL Vital Signs Temperature 36.2 C L 07/27/18 12:10 Temperature Source Tympanic 07/27/18 12:10 Pulse 90 07/27/18 12:10 Pulse Rhythm Regular 07/26/18 16:12 Pulse 96 H 07/23/18 17:20 Respiratory Rate 22 07/27/18 12:10 Respiratory Effort Non-Labored 07/26/18 22:10 Respiratory Depth Shallow 07/26/18 22:10 Respiratory Pattern Normal 07/26/18 22:10 Blood Pressure 128/73 07/27/18 12:10 Blood Pressure Mean 102 07/23/18 17:16 Blood Pressure Position Supine 07/23/18 14:44 Pulse Oximetry 92 L 07/27/18 12:10 Oxygen Delivery Method Nasal Cannula 07/27/18 12:10 Oxygen Flow Rate 3 07/27/18 12:10 Fraction of Inspired Oxygen (FIO2) 32 07/27/18 10:10 Pain Level 7 07/26/18 12:30 Comment 07/26/18 07:40 Intake & Output 07/26/18 07/27/18 07/27/18 18:59 06:59 18:59 Intake Total 922.583 / 1272.583 350 / 1272.583 250 / 250 Output Total 1525 / 2575 1050 / 2575 350 / 350 Balance -602.417 / -1302.417 -700 / -1302.417 -100 / -100 Intake: IV 622.583 / 972.583 350 / 972.583 Oral 300 / 300 250 / 250 Output: Urine 1525 / 2575 1050 / 2575 350 / 350 Other: Urine Color Pale Yellow Light Keely Yellow Urine Appearance Clear Clear Cloudy Urine Odor None Voiding Methods Indwelling Catheter Laboratory Results WBC 7.39 k/cumm (4.4-10.8) 07/27/18 07:15 RBC 4.48 m/cumm (4.50-6.00) L 07/27/18 07:15 Hgb 10.4 g/dL (13.5-17.5) L 07/27/18 07:15 Hct 38.2 % (40.0-50.0) L 07/27/18 07:15 MCV 85.3 fL (80-95) 07/27/18 07:15 MCH 23.2 pg (27.0-33.0) L 07/27/18 07:15 MCHC 27.2 g/dL (32.0-36.0) L 07/27/18 07:15 RDW 19.6 % (11.8-14.1) H 07/27/18 07:15 Plt Count 430 x1000/uL (130-400) H 07/27/18 07:15 MPV 9.6 fL (8.0-11.0) 07/27/18 07:15 Immature Gran % 0.4 07/27/18 07:15 Neutrophils % 55.2 07/27/18 07:15 Band Neutrophils % 4.0 % 07/23/18 16:05 Lymphocytes % 33.8 07/27/18 07:15 Atypical Lymphs % 5 07/23/18 16:05 Monocytes % 7.8 07/27/18 07:15 Eosinophils % 2.7 07/27/18 07:15 Basophils % 0.1 07/27/18 07:15 Absolute Neutrophils 4.07 k/cumm (1.2-6.7) 07/27/18 07:15 Absolute Lymphocytes 2.50 k/cumm (1.2-3.4) 07/27/18 07:15 Absolute Monocytes 0.58 k/cumm (0.11-0.7) 07/27/18 07:15 Absolute Eosinophils 0.20 k/cumm (0.0-0.7) 07/27/18 07:15 Absolute Basophils 0.01 k/cumm (0.0-0.2) 07/27/18 07:15 Differential Comment Rbc morph reviewed 07/27/18 07:15 RBC Morphology See below 07/27/18 07:15 Polychromasia Present 07/27/18 07:15 Hypochromasia 1+ 07/27/18 07:15 Poikilocytosis 2+ 07/23/18 16:05 Anisocytosis 2+ 07/27/18 07:15 Stomatocytes 2+ 07/27/18 07:15 Sample Site Left radial 07/27/18 07:55 pCO2 71 mmHg (34-47) H* 07/27/18 07:55 pO2 65 mmHg (83-108) L 07/27/18 07:55 O2 Saturation 93 % (94-98) L 07/27/18 07:55 ABG pH 7.42 (7.35-7.45) 07/27/18 07:55 ABG HCO3 46 mmol/L (22-28) H 07/27/18 07:55 ABG Total CO2 43 mmol/L (22-29) H 07/27/18 07:55 ABG Base Excess mmol/L (-3-3) 07/27/18 07:55 Oxygen Liter Flow 4 L 07/27/18 07:55 FiO2 Nasal cannula % 07/27/18 07:55 Sodium 143 mmol/L (136-145) 07/27/18 07:15 Potassium 3.9 mmol/L (3.5-5.1) 07/27/18 07:15 Chloride 100 mmol/L (98-107) 07/27/18 07:15 Carbon Dioxide 43.2 mmol/L (21.0-32.0) H 07/27/18 07:15 Anion Gap -0.2 mmol/L (3-11) L 07/27/18 07:15 BUN 9 mg/dL (7-18) 07/27/18 07:15 Creatinine 0.92 mg/dL (0.70-1.30) 07/27/18 07:15 Estimated GFR/1.73 m2 >= 60.00 (mL/min/1.73m2) 07/27/18 07:15 Glucose 127 mg/dL (70-100) H 07/27/18 07:15 Calcium 8.9 mg/dL (8.5-10.1) 07/27/18 07:15 Magnesium 2.0 mg/dL (1.8-2.4) 07/27/18 07:15 Total Bilirubin 0.3 mg/dL (0.2-1.0) 07/23/18 16:05 AST 43 U/L (15-37) H 07/23/18 16:05 ALT 20 U/L (12-78) 07/23/18 16:05 Alkaline Phosphatase 108 U/L (46-116) 07/23/18 16:05 Troponin I 0.03 ng/mL (0.00-0.06) 07/23/18 23:39 NT-Pro-B Natriuret Pep 1027 pg/mL (-299) H 07/24/18 07:13 Total Protein 6.4 g/dL (6.4-8.2) 07/23/18 16:05 Albumin 1.8 g/dL (3.4-5.0) L 07/23/18 16:05 TSH 3.86 uIU/mL (0.358-3.74) H 07/24/18 07:13 Free T4 1.05 ng/dL (0.76-1.46) 07/24/18 07:13
--- NOTE | 2018-07-27 13:53 | PT.INIE ---
Time of Service: 13:05 PT Notes Date: 07/24/2018 Referring Doctor: Dr. Barr PT Orders: PT CONSULT: Evaluate/treat Precautions: Fall. Standard. 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 Patient Profile/Admitting Diagnosis: Patient was admitted on 07/23/2018 with a diagnosis of hospital-acquired pneumonia. He came in with chief complaints of dyspnea, hypoxemia, and weakness. 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 Per OT documentation: pt lives in the basement level of his jammer hooker's home. He states that he has 24 hour care as well as 2 other residents in the home. His baseline is sitting in shower with max (A) for (B) LE, min (A) for dressing, (I) eating, he reports that he cooks meals in the microwave and is able to go grocery shopping. He has a wheelchair that he utilizes as well as an electric chair. Pt reports that he is not having a good experience in his current living situation due to another resident. He reports that the other resident does not let him utilize the toilet so he has been mainly utilizing a commode at this time. Equipment Owned/DME: Bariatric Nori, BiPAP, hospital bed, trapeze, shower chair. Patient has home health services 3 times a week for wound care. Subjective: Patient was seen today lying in bed. PT came in to do initial evaluation and to help with sit to stand transfers so that a standing weight may be taken. Patient states that he continues to feel very short of breath and generally weak. He does not feel that he is able to walk at this time. I want to be able to go home and get back to walking Objective: General Observation: Super-super obese male. IV line in the right upper extremity. Bae catheter on. Mental Status: A and O x3 Pain: 4/10 right. 2/10 left elbow. 6/10 back of legs back of my leg dietz ROM: Right Upper Extremity: WFL, although with reports of right shoulder pain in end ranges of flexion Left Upper Extremity: WFL Right Lower Extremity: SLR only to 0-20 degrees, knee flexion 0-20 Left Lower Extremity: SLR 0-15 degrees, knee flexion 0-20 Strength: Right Upper Extremity: 4/5 shoulder flexion. Triceps 4/5. Biceps 4/5. Hvac Operations Technician strong, patient able to pull on overhead trapeze/bed rail to help her position self. Left Upper Extremity: 4/5 shoulder flexion. Triceps 4/5. Biceps 4/5. Hvac Operations Technician strong, patient able to pull on overhead trapeze/bed rail to help her position self. Right Lower Extremity: Grossly 3-/5 Left Lower Extremity: Grossly 3-/5 Bed Mobility/Transfers: Supine sit: Mod A, requires use of overhead trapeze. Sit to supine: Mod A, requires use of overhead trapeze. Sit to stand: Dependent. Patient able to assume position with assist of 3. Stand to sit: Dependent. Patient able to assume position with assist of 3. Gait: Not tested due to safety issues. Balance: Static Sitting: Fair Dynamic Sitting: Fair Static Standing: Unable to obtain Dynamic Standing: Unable Special Tests: Mobility Limitations Standardized Measure [facility] AM-PAC 6 clicks Basic Mobility Inpatient Short Form: Raw Score: 8 just need to finish the images for the CMS Score: 87% deficit Informed Consent/Education: Patient instructed in purpose of PT consult and plan of care. Treatment: Today's session consisted of evaluation, followed by instruction in therex program for supine and seated activities as noted on flowsheet. Assessment: Patient is a 58 year old male referred to physical therapy services with the diagnosis of hospital-acquired pneumonia. Patient presents with clinical signs and symptoms consistent with mobility deficits related to current diagnosis, as demonstrated by the following impairment level findings: 1. Decreased functional upper extremity strength 2. Decreased functional lower extremities strength 3. Decreased balance 4. Decreased activity tolerance Impairments are contributing to the following functional limitations: 1. Unable to transfer to wheelchair 2. Unable to ambulate 3. Able to perform bed mobility 4. WHITLEY with minimal exertion Patient is assessed as High [id number] complexity based on the following: History: 58-year-old male with super super obesity and multiple chronic medical issues, being treated in acute care setting for healthcare acquired pneumonia. Patient has a long history of falls including previous falls in this hospital and 2 falls at home yesterday. Examination: Functional limitations as noted above Presentation: Unstable Decision Making: High complexity Goals: Goals X1 week 1. Supine-Sit: Independent 2. Sit-Supine: Independent 3. Sit-Stand: Mod assist 4. Stand-Sit : Mod assist 5. Stand pivot transfer: Mod assist Plan of Care/Treatment Plan: 1-2x/day, 7 days/week x 1 week. Plan of care has been reviewed with the CLINICAL ADMINISTRATOR providing the service under Physical Therapy direction. Initiate Physical Therapy intervention for strengthening, bed mobility, transfers, gait, stairs, balance training, use of assistive device. DISCHARGE RECOMMENDATIONS: Return home with 24-hour care and resumption of home health services as previously TREATMENT CODE/TIME: 39 minutes ([id number], [id number], [id number]) Inpatient Physical Therapy Evaluation Date: 07/27/2018 Referring Doctor: Dahlia Barr MD PT Orders: PT CONSULT: Eval/treat Precautions: Fall. Standard. Droplet. PMHX: Social History/Home Situation: [] Current Functional Limitations: [] Equipment Owned/DME: [] Subjective: [] Objective: [] General Observation: [] Mental Status: [] Pain: [] Vital Signs: [] ROM: Right Upper Extremity: [] Left Upper Extremity: [] Right Lower Extremity: [] Left Lower Extremity: [] Strength: Right Upper Extremity: [] Left Upper Extremity: [] Right Lower Extremity: [] Left Lower Extremity: [] Sensation: [] Bed Mobility/Transfers: [] Gait: [] Balance: [] Static Sitting: [] Dynamic Sitting: [] Static Standing: [] Dynamic Standing: [] Special Tests: Mobility Limitations Standardized Measure [facility] AMPAC 6 clicks Basic Mobility Inpatient Short Form: Raw Score: [] Standardized Score: [] CMS Score: [] CMS Modifier: [] Informed Consent/Education: Patient instructed in purpose of PT consult and plan of care. Assessment: Patient is a [] year old [] referred to physical therapy services with the diagnosis of []. Patient presents with clinical signs and symptoms consistent with [], as demonstrated by the following impairment level findings: []. Impairments are contributing to the following functional limitations: AMPAC score. Patient is assessed as a [] Low 68276 [] Moderate 20962 [] High 61592 complexity based on the following: History: [] Examination: [] Presentation: [] Decision Making: [] Goals: Goals X1 week 1. Supine-Sit [] 2. Sit-Supine [] 3. Sit-Stand [] 4. Stand-Sit [] 5. Bed-Chair [] 6. Chair-Bed [] 7. Gait [] 8. Stairs [] 9. Independent with home exercise program [] 10. Balance [] Plan of Care/Treatment Plan: 1-2x/day, 7 days/week x 1 week. Plan of care has been reviewed with the CLINICAL ADMINISTRATOR providing the service under Physical Therapy direction. Initiate Physical Therapy intervention for strengthening, bed mobility, transfers, gait, stairs, balance training, use of assistive device. DISCHARGE RECOMMENDATIONS: [] TREATMENT CODE/TIME: []
--- NOTE | 2018-07-27 13:58 | IN_ITS ---
Time of Service: 13:05 PT Notes Date: 07/24/2018 Referring Doctor: Dr. Barr PT Orders: PT CONSULT: Evaluate/treat Precautions: Fall. Standard. 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 Patient Profile/Admitting Diagnosis: Patient was admitted on 07/23/2018 with a diagnosis of hospital-acquired pneumonia. He came in with chief complaints of dyspnea, hypoxemia, and weakness. 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 Per OT documentation: pt lives in the basement level of his ux engineer's home. He states that he has 24 hour care as well as 2 other residents in the home. His baseline is sitting in shower with max (A) for (B) LE, min (A) for dressing, (I) eating, he reports that he cooks meals in the microwave and is able to go grocery shopping. He has a wheelchair that he utilizes as well as an electric chair. Pt reports that he is not having a good experience in his current living situation due to another resident. He reports that the other resident does not let him utilize the toilet so he has been mainly utilizing a commode at this time. Equipment Owned/DME: Bariatric Nori, BiPAP, hospital bed, trapeze, shower chair. Patient has home health services 3 times a week for wound care. Subjective: Patient was seen today lying in bed. PT came in to do initial evaluation and to help with sit to stand transfers so that a standing weight may be taken. Patient states that he continues to feel very short of breath and generally weak. He does not feel that he is able to walk at this time. I want to be able to go home and get back to walking Objective: General Observation: Super-super obese male. IV line in the right upper extremity. Bae catheter on. Mental Status: A and O x3 Pain: 4/10 right. 2/10 left elbow. 6/10 back of legs back of my leg dietz ROM: Right Upper Extremity: WFL, although with reports of right shoulder pain in end ranges of flexion Left Upper Extremity: WFL Right Lower Extremity: SLR only to 0-20 degrees, knee flexion 0-20 Left Lower Extremity: SLR 0-15 degrees, knee flexion 0-20 Strength: Right Upper Extremity: 4/5 shoulder flexion. Triceps 4/5. Biceps 4/5. Ad Copy Writer strong, patient able to pull on overhead trapeze/bed rail to help her position self. Left Upper Extremity: 4/5 shoulder flexion. Triceps 4/5. Biceps 4/5. Ad Copy Writer strong, patient able to pull on overhead trapeze/bed rail to help her position self. Right Lower Extremity: Grossly 3-/5 Left Lower Extremity: Grossly 3-/5 Bed Mobility/Transfers: Supine sit: Mod A, requires use of overhead trapeze. Sit to supine: Mod A, requires use of overhead trapeze. Sit to stand: Dependent. Patient able to assume position with assist of 3. Stand to sit: Dependent. Patient able to assume position with assist of 3. Gait: Not tested due to safety issues. Balance: Static Sitting: Fair Dynamic Sitting: Fair Static Standing: Unable to obtain Dynamic Standing: Unable Special Tests: Mobility Limitations Standardized Measure [facility] AM-PAC 6 clicks Basic Mobility Inpatient Short Form: Raw Score: 8 just need to finish the images for the CMS Score: 87% deficit Informed Consent/Education: Patient instructed in purpose of PT consult and plan of care. Treatment: Today's session consisted of evaluation, followed by instruction in therex program for supine and seated activities as noted on flowsheet. Assessment: Patient is a 58 year old male referred to physical therapy services with the diagnosis of hospital-acquired pneumonia. Patient presents with clinical signs and symptoms consistent with mobility deficits related to current diagnosis, as demonstrated by the following impairment level findings: 1. Decreased functional upper extremity strength 2. Decreased functional lower extremities strength 3. Decreased balance 4. Decreased activity tolerance Impairments are contributing to the following functional limitations: 1. Unable to transfer to wheelchair 2. Unable to ambulate 3. Able to perform bed mobility 4. WHITLEY with minimal exertion Patient is assessed as High 92625 complexity based on the following: History: 58-year-old male with super super obesity and multiple chronic medical issues, being treated in acute care setting for healthcare acquired pneumonia. Patient has a long history of falls including previous falls in this hospital and 2 falls at home yesterday. Examination: Functional limitations as noted above Presentation: Unstable Decision Making: High complexity Goals: Goals X1 week 1. Supine-Sit: Independent 2. Sit-Supine: Independent 3. Sit-Stand: Mod assist 4. Stand-Sit : Mod assist 5. Stand pivot transfer: Mod assist Plan of Care/Treatment Plan: 1-2x/day, 7 days/week x 1 week. Plan of care has been reviewed with the BACK JOINER providing the service under Physical Therapy direction. Initiate Physical Therapy intervention for strengthening, bed mobility, transfers, gait, stairs, balance training, use of assistive device. DISCHARGE RECOMMENDATIONS: Return home with 24-hour care and resumption of home health services as previously TREATMENT CODE/TIME: 39 minutes (12095, [id number], 71229) Inpatient Physical Therapy Evaluation Date: 07/27/2018 Referring Doctor: Dahlia Barr MD PT Orders: PT CONSULT: Eval/treat Precautions: Fall. Standard. Droplet. PMHX: Social History/Home Situation: [] Current Functional Limitations: [] Equipment Owned/DME: [] Subjective: [] Objective: [] General Observation: [] Mental Status: [] Pain: [] Vital Signs: [] ROM: Right Upper Extremity: [] Left Upper Extremity: [] Right Lower Extremity: [] Left Lower Extremity: [] Strength: Right Upper Extremity: [] Left Upper Extremity: [] Right Lower Extremity: [] Left Lower Extremity: [] Sensation: [] Bed Mobility/Transfers: [] Gait: [] Balance: [] Static Sitting: [] Dynamic Sitting: [] Static Standing: [] Dynamic Standing: [] Special Tests: Mobility Limitations Standardized Measure [facility] AMPAC 6 clicks Basic Mobility Inpatient Short Form: Raw Score: [] Standardized Score: [] CMS Score: [] CMS Modifier: [] Informed Consent/Education: Patient instructed in purpose of PT consult and plan of care. Assessment: Patient is a [] year old [] referred to physical therapy services with the diagnosis of []. Patient presents with clinical signs and symptoms consistent with [], as demonstrated by the following impairment level findings: []. Impairments are contributing to the following functional limitations: AMPAC score. Patient is assessed as a [] Low 43253 [] Moderate 63085 [] High 41024 complexity based on the following: History: [] Examination: [] Presentation: [] Decision Making: [] Goals: Goals X1 week 1. Supine-Sit [] 2. Sit-Supine [] 3. Sit-Stand [] 4. Stand-Sit [] 5. Bed-Chair [] 6. Chair-Bed [] 7. Gait [] 8. Stairs [] 9. Independent with home exercise program [] 10. Balance [] Plan of Care/Treatment Plan: 1-2x/day, 7 days/week x 1 week. Plan of care has been reviewed with the BACK JOINER providing the service under Physical Therapy direction. Initiate Physical Therapy intervention for strengthening, bed mobility, transfers, gait, stairs, balance training, use of assistive device. DISCHARGE RECOMMENDATIONS: [] TREATMENT CODE/TIME: []
--- NOTE | 2018-07-27 15:56 | PT.INTREAT ---
Date of service: 07/27/18 Time of Service: 15:56 PT Notes Inpatient Physical Therapy Treatment Note [facility] Date: 07/27/18 PRECAUTIONS: FALL SUBJECTIVE: Rajan reports that he is feeling better this afternoon versus this morning, although still feels somewhat foggy. OBJECTIVE: PAIN: No c/o pain BED MOBILITY/TRANSFERS Rolling: I to L and R with bed rails Supine-sit: Max A with Nori lift Sit-supine: Max A with Nori lift THEREX: Patient completed an upper extremity and lower extremity strengthening program, in a supine position, as per flow sheet. Resistance via 2.5# ankle weights used for LE strengthening exercises. Patient requires rest breaks between exercises due to SOB and fatigue. ASSESSMENT: Patient tolerated session with complaint of increased SOB and fatigue. He would benefit from continued upper and lower extremity strengthening for improved mobility and activity tolerance. PLAN: Continue with PTs POC TREATMENT CODE/TIME: 30 minutes; 85523, 47584
--- NOTE | 2018-07-27 15:56 | PT.INNT ---
Date of service: 07/27/18 Time of Service: 10:00 PT Notes 07/27/18 Patient refused morning PT session stating that he is not feeling well enough to participate. Will attempt to resume PT services this afternoon.
[2018-07-27] MEDS: Enoxaparin 40 MG/0.4 ML SYR SC (19:39)
[2018-07-27] MEDS: Polyethylene Glycol 3350 17 GM PACKET PO (19:40)
--- NOTE | 2018-07-27 20:52 | W.PM.PROGNOT ---
Date of Service Date of service: 07/27/18 Time of Service: 16:15 Assessment and Plan (1) HCAP (healthcare-associated pneumonia): Current visit: Yes Status: Acute Improving. On vancomycin/zosyn Day 2. Sputum cx with GNR and MRSA. Would finish a 5 day course. Will monitor respiratory status. Consider repeat CXR on 07/30/18. (2) Acute and chronic respiratory failure, unspecified whether with hypoxia or hypercapnia: Current visit: Yes Status: Acute Multifactorial. At about his baseline. His BiPAP machine was supposed to be looked at today by [facility] as it is suspected to have a malfunction. (3) Right heart failure due to pulmonary hypertension: Current visit: Yes Status: Acute Echo could not accurately estimate pulmonary artery pressures; LVEF is 55-60%. Outpatient cardiology referral for TAA. Meanwhile, resume PO lasix at outpatient dose tomorrow am. (4) Right ventricular systolic dysfunction: Current visit: Yes Status: Chronic Continue aggressive treatment of his ABHAY. BiPAP is being looked at by [facility]. (5) Obstructive sleep apnea hypopnea, severe: Current visit: Yes Status: Chronic continue aggressive treatment of his ABHAY. Will need to follow up with pulmonary as outpatient. (6) Diabetes mellitus: Current visit: Yes Status: Chronic Continue basal bolus insulin Qualifiers: Diabetes mellitus type: due to underlying condition Diabetes mellitus buttermaker continuous churn insulin use: with fdc use Diabetes mellitus complication status: with skin complications Diabetes mellitus complication detail: with foot ulcer Diabetic retinopathy severity: Proliferative retinopathy type: Diabetes mellitus macular edema: Laterality: Chronic kidney disease stage: Qualified Code(s): E08.621 - Diabetes mellitus due to underlying condition with foot ulcer; L97.509 - Non-pressure chronic ulcer of other part of unspecified foot with unspecified severity; 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 Full code Will need cardiology/vascular follow up as outpatient for the TAA Will need a repeat sleep study Awaiting a bed at [facility] in [facility] Subjective Interval history since last seen: Mr Brothpetros states his breathing is a lot better today and he is having less twitching, but overall he feels worse (pointing at his head) because he found out today that he cannot return to where he previously lived. He denies dizziness, chest pain, states his breathing is perfect, denies nausea, vomiting. Exam Narrative Exam Narrative: General: A&Ox3, appears to be at his mental baseline, Laying flat in bed, not cyanotic, not in acute distress, speaking in full sentences HEENT: EOMI, dry MM Heart: RRR, no m/r/g Lungs: coarse breath sounds at B bases GI: abdomen is soft, nontender, nondistended Extremities: in NICKIE boots, edematous Objective Objective Clinical Data: Abnormal lab results 07/27/18 07/27/18 07/27/18 Range/Units 07:15 07:15 07:55 RBC 4.48 L (4.50-6.00) m/cumm Hgb 10.4 L (13.5-17.5) g/dL Hct 38.2 L (40.0-50.0) % MCH 23.2 L (27.0-33.0) pg MCHC 27.2 L (32.0-36.0) g/dL RDW 19.6 H (11.8-14.1) % Plt Count 430 H (130-400) x1000/uL pCO2 71 H* (34-47) mmHg pO2 65 L (83-108) mmHg O2 Saturation 93 L (94-98) % ABG HCO3 46 H (22-28) mmol/L ABG Total CO2 43 H (22-29) mmol/L Carbon Dioxide 43.2 H (21.0-32.0) mmol/L Anion Gap -0.2 L (3-11) mmol/L Glucose 127 H (70-100) mg/dL Vital Signs Temperature 36.7 C 07/27/18 16:10 Temperature Source Tympanic 07/27/18 16:10 Pulse 89 07/27/18 16:10 Pulse Rhythm Regular 07/27/18 19:59 Pulse 96 H 07/23/18 17:20 Respiratory Rate 20 07/27/18 16:10 Respiratory Effort Non-Labored 07/27/18 19:59 Respiratory Depth Shallow 07/27/18 19:59 Respiratory Pattern Normal 07/27/18 19:59 Blood Pressure 116/70 07/27/18 16:10 Blood Pressure Mean 102 07/23/18 17:16 Blood Pressure Position Supine 07/23/18 14:44 Pulse Oximetry 95 07/27/18 16:10 Oxygen Delivery Method Nasal Cannula 07/27/18 16:10 Oxygen Flow Rate 3 07/27/18 16:10 Fraction of Inspired Oxygen (FIO2) 32 07/27/18 10:10 Pain Level 7 07/26/18 12:30 Comment 07/26/18 07:40 Intake & Output 07/26/18 07/27/18 07/27/18 23:59 11:59 23:59 Intake Total 972.583 / 1009.583 550 / 890 340 / 890 Output Total 475 / 3375 1399 Balance 497.583 / -2365.417 -850 / -1085 -235 / -1085 Weight 206.6 kg Intake: IV 672.583 / 709.583 300 / 400 100 / 400 Oral 300 / 300 250 / 490 240 / 490 Output: Urine 475 / 3375 1399 Other: Urine Color Pale Light Keely Light Keely Yellow Urine Appearance Clear Cloudy Clear Laboratory Results WBC 7.39 k/cumm (4.4-10.8) 07/27/18 07:15 RBC 4.48 m/cumm (4.50-6.00) L 07/27/18 07:15 Hgb 10.4 g/dL (13.5-17.5) L 07/27/18 07:15 Hct 38.2 % (40.0-50.0) L 07/27/18 07:15 MCV 85.3 fL (80-95) 07/27/18 07:15 MCH 23.2 pg (27.0-33.0) L 07/27/18 07:15 MCHC 27.2 g/dL (32.0-36.0) L 07/27/18 07:15 RDW 19.6 % (11.8-14.1) H 07/27/18 07:15 Plt Count 430 x1000/uL (130-400) H 07/27/18 07:15 MPV 9.6 fL (8.0-11.0) 07/27/18 07:15 Immature Gran % 0.4 07/27/18 07:15 Neutrophils % 55.2 07/27/18 07:15 Band Neutrophils % 4.0 % 07/23/18 16:05 Lymphocytes % 33.8 07/27/18 07:15 Atypical Lymphs % 5 07/23/18 16:05 Monocytes % 7.8 07/27/18 07:15 Eosinophils % 2.7 07/27/18 07:15 Basophils % 0.1 07/27/18 07:15 Absolute Neutrophils 4.07 k/cumm (1.2-6.7) 07/27/18 07:15 Absolute Lymphocytes 2.50 k/cumm (1.2-3.4) 07/27/18 07:15 Absolute Monocytes 0.58 k/cumm (0.11-0.7) 07/27/18 07:15 Absolute Eosinophils 0.20 k/cumm (0.0-0.7) 07/27/18 07:15 Absolute Basophils 0.01 k/cumm (0.0-0.2) 07/27/18 07:15 Differential Comment Rbc morph reviewed 07/27/18 07:15 RBC Morphology See below 07/27/18 07:15 Polychromasia Present 07/27/18 07:15 Hypochromasia 1+ 07/27/18 07:15 Poikilocytosis 2+ 07/23/18 16:05 Anisocytosis 2+ 07/27/18 07:15 Stomatocytes 2+ 07/27/18 07:15 Sample Site Left radial 07/27/18 07:55 pCO2 71 mmHg (34-47) H* 07/27/18 07:55 pO2 65 mmHg (83-108) L 07/27/18 07:55 O2 Saturation 93 % (94-98) L 07/27/18 07:55 ABG pH 7.42 (7.35-7.45) 07/27/18 07:55 ABG HCO3 46 mmol/L (22-28) H 07/27/18 07:55 ABG Total CO2 43 mmol/L (22-29) H 07/27/18 07:55 ABG Base Excess mmol/L (-3-3) 07/27/18 07:55 Oxygen Liter Flow 4 L 07/27/18 07:55 FiO2 Nasal cannula % 07/27/18 07:55 Sodium 143 mmol/L (136-145) 07/27/18 07:15 Potassium 3.9 mmol/L (3.5-5.1) 07/27/18 07:15 Chloride 100 mmol/L (98-107) 07/27/18 07:15 Carbon Dioxide 43.2 mmol/L (21.0-32.0) H 07/27/18 07:15 Anion Gap -0.2 mmol/L (3-11) L 07/27/18 07:15 BUN 9 mg/dL (7-18) 07/27/18 07:15 Creatinine 0.92 mg/dL (0.70-1.30) 07/27/18 07:15 Estimated GFR/1.73 m2 >= 60.00 (mL/min/1.73m2) 07/27/18 07:15 Glucose 127 mg/dL (70-100) H 07/27/18 07:15 Calcium 8.9 mg/dL (8.5-10.1) 07/27/18 07:15 Magnesium 2.0 mg/dL (1.8-2.4) 07/27/18 07:15 Total Bilirubin 0.3 mg/dL (0.2-1.0) 07/23/18 16:05 AST 43 U/L (15-37) H 07/23/18 16:05 ALT 20 U/L (12-78) 07/23/18 16:05 Alkaline Phosphatase 108 U/L (46-116) 07/23/18 16:05 Troponin I 0.03 ng/mL (0.00-0.06) 07/23/18 23:39 NT-Pro-B Natriuret Pep 1027 pg/mL (-299) H 07/24/18 07:13 Total Protein 6.4 g/dL (6.4-8.2) 07/23/18 16:05 Albumin 1.8 g/dL (3.4-5.0) L 07/23/18 16:05 TSH 3.86 uIU/mL (0.358-3.74) H 07/24/18 07:13 Free T4 1.05 ng/dL (0.76-1.46) 07/24/18 07:13
--- NOTE | 2018-07-27 20:55 | PGE_ITS ---
Date of Service Date of service: 07/27/18 Time of Service: 16:15 Assessment and Plan (1) HCAP (healthcare-associated pneumonia): Current visit: Yes Status: Acute Improving. On vancomycin/zosyn Day 2. Sputum cx with GNR and MRSA. Would finish a 5 day course. Will monitor respiratory status. Consider repeat CXR on 07/30/18. (2) Acute and chronic respiratory failure, unspecified whether with hypoxia or hypercapnia: Current visit: Yes Status: Acute Multifactorial. At about his baseline. His BiPAP machine was supposed to be looked at today by [facility] as it is suspected to have a malfunction. (3) Right heart failure due to pulmonary hypertension: Current visit: Yes Status: Acute Echo could not accurately estimate pulmonary artery pressures; LVEF is 55- 60%. Outpatient cardiology referral for TAA. Meanwhile, resume PO lasix at outpatient dose tomorrow am. (4) Right ventricular systolic dysfunction: Current visit: Yes Status: Chronic Continue aggressive treatment of his ABHAY. BiPAP is being looked at by [facility]. (5) Obstructive sleep apnea hypopnea, severe: Current visit: Yes Status: Chronic continue aggressive treatment of his ABHAY. Will need to follow up with pulmonary as outpatient. (6) Diabetes mellitus: Current visit: Yes Status: Chronic Continue basal bolus insulin Qualifiers: Diabetes mellitus type: due to underlying condition Diabetes mellitus mcc insulin use: with intermodal dispatcher use Diabetes mellitus complication status: with skin complications Diabetes mellitus complication detail: with foot ulcer Diabetic retinopathy severity: Proliferative retinopathy type: Diabetes mellitus macular edema: Laterality: Chronic kidney disease stage: Qualified Code(s): E08.621 - Diabetes mellitus due to underlying condition with foot ulcer; L97.509 - Non-pressure chronic ulcer of other part of unspecified foot with unspecified severity; 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 Full code Will need cardiology/vascular follow up as outpatient for the TAA Will need a repeat sleep study Awaiting a bed at [facility] in [facility] Subjective Interval history since last seen: Mr Brothpetros states his breathing is a lot better today and he is having less twitching, but overall he feels worse (pointing at his head) because he found out today that he cannot return to where he previously lived. He denies dizziness, chest pain, states his breathing is perfect, denies nausea, vomiting. Exam Narrative Exam Narrative: General: A&Ox3, appears to be at his mental baseline, Laying flat in bed, not cyanotic, not in acute distress, speaking in full sentences HEENT: EOMI, dry MM Heart: RRR, no m/r/g Lungs: coarse breath sounds at B bases GI: abdomen is soft, nontender, nondistended Extremities: in NICKIE boots, edematous Objective Objective Clinical Data: Abnormal lab results 07/27/18 07/27/18 07/27/18 Range/Units 07:15 07:15 07:55 RBC 4.48 L (4.50-6.00) m/cumm Hgb 10.4 L (13.5-17.5) g/dL Hct 38.2 L (40.0-50.0) % MCH 23.2 L (27.0-33.0) pg MCHC 27.2 L (32.0-36.0) g/dL RDW 19.6 H (11.8-14.1) % Plt Count 430 H (130-400) x1000/uL pCO2 71 H* (34-47) mmHg pO2 65 L (83-108) mmHg O2 Saturation 93 L (94-98) % ABG HCO3 46 H (22-28) mmol/L ABG Total CO2 43 H (22-29) mmol/L Carbon Dioxide 43.2 H (21.0-32.0) mmol/L Anion Gap -0.2 L (3-11) mmol/L Glucose 127 H (70-100) mg/dL Vital Signs Temperature 36.7 C 07/27/18 16:10 Temperature Source Tympanic 07/27/18 16:10 Pulse 89 07/27/18 16:10 Pulse Rhythm Regular 07/27/18 19:59 Pulse 96 H 07/23/18 17:20 Respiratory Rate 20 07/27/18 16:10 Respiratory Effort Non-Labored 07/27/18 19:59 Respiratory Depth Shallow 07/27/18 19:59 Respiratory Pattern Normal 07/27/18 19:59 Blood Pressure 116/70 07/27/18 16:10 Blood Pressure Mean 102 07/23/18 17:16 Blood Pressure Position Supine 07/23/18 14:44 Pulse Oximetry 95 07/27/18 16:10 Oxygen Delivery Method Nasal Cannula 07/27/18 16:10 Oxygen Flow Rate 3 07/27/18 16:10 Fraction of Inspired Oxygen (FIO2) 32 07/27/18 10:10 Pain Level 7 07/26/18 12:30 Comment 07/26/18 07:40 Intake & Output 07/26/18 07/27/18 07/27/18 23:59 11:59 23:59 Intake Total 972.583 / 1009.583 550 / 890 340 / 890 Output Total 475 / 3375 1399 Balance 497.583 / -2365.417 -850 / -1085 -235 / -1085 Weight 206.6 kg Intake: IV 672.583 / 709.583 300 / 400 100 / 400 Oral 300 / 300 250 / 490 240 / 490 Output: Urine 475 / 3375 1399 Other: Urine Color Pale Light Keely Light Keely Yellow Urine Appearance Clear Cloudy Clear Laboratory Results WBC 7.39 k/cumm (4.4-10.8) 07/27/18 07:15 RBC 4.48 m/cumm (4.50-6.00) L 07/27/18 07:15 Hgb 10.4 g/dL (13.5-17.5) L 07/27/18 07:15 Hct 38.2 % (40.0-50.0) L 07/27/18 07:15 MCV 85.3 fL (80-95) 07/27/18 07:15 MCH 23.2 pg (27.0-33.0) L 07/27/18 07:15 MCHC 27.2 g/dL (32.0-36.0) L 07/27/18 07:15 RDW 19.6 % (11.8-14.1) H 07/27/18 07:15 Plt Count 430 x1000/uL (130-400) H 07/27/18 07:15 MPV 9.6 fL (8.0-11.0) 07/27/18 07:15 Immature Gran % 0.4 07/27/18 07:15 Neutrophils % 55.2 07/27/18 07:15 Band Neutrophils % 4.0 % 07/23/18 16:05 Lymphocytes % 33.8 07/27/18 07:15 Atypical Lymphs % 5 07/23/18 16:05 Monocytes % 7.8 07/27/18 07:15 Eosinophils % 2.7 07/27/18 07:15 Basophils % 0.1 07/27/18 07:15 Absolute Neutrophils 4.07 k/cumm (1.2-6.7) 07/27/18 07:15 Absolute Lymphocytes 2.50 k/cumm (1.2-3.4) 07/27/18 07:15 Absolute Monocytes 0.58 k/cumm (0.11-0.7) 07/27/18 07:15 Absolute Eosinophils 0.20 k/cumm (0.0-0.7) 07/27/18 07:15 Absolute Basophils 0.01 k/cumm (0.0-0.2) 07/27/18 07:15 Differential Comment Rbc morph reviewed 07/27/18 07:15 RBC Morphology See below 07/27/18 07:15 Polychromasia Present 07/27/18 07:15 Hypochromasia 1+ 07/27/18 07:15 Poikilocytosis 2+ 07/23/18 16:05 Anisocytosis 2+ 07/27/18 07:15 Stomatocytes 2+ 07/27/18 07:15 Sample Site Left radial 07/27/18 07:55 pCO2 71 mmHg (34-47) H* 07/27/18 07:55 pO2 65 mmHg (83-108) L 07/27/18 07:55 O2 Saturation 93 % (94-98) L 07/27/18 07:55 ABG pH 7.42 (7.35-7.45) 07/27/18 07:55 ABG HCO3 46 mmol/L (22-28) H 07/27/18 07:55 ABG Total CO2 43 mmol/L (22-29) H 07/27/18 07:55 ABG Base Excess mmol/L (-3-3) 07/27/18 07:55 Oxygen Liter Flow 4 L 07/27/18 07:55 FiO2 Nasal cannula % 07/27/18 07:55 Sodium 143 mmol/L (136-145) 07/27/18 07:15 Potassium 3.9 mmol/L (3.5-5.1) 07/27/18 07:15 Chloride 100 mmol/L (98-107) 07/27/18 07:15 Carbon Dioxide 43.2 mmol/L (21.0-32.0) H 07/27/18 07:15 Anion Gap -0.2 mmol/L (3-11) L 07/27/18 07:15 BUN 9 mg/dL (7-18) 07/27/18 07:15 Creatinine 0.92 mg/dL (0.70-1.30) 07/27/18 07:15 Estimated GFR/1.73 m2 >= 60.00 (mL/min/1.73m2) 07/27/18 07:15 Glucose 127 mg/dL (70-100) H 07/27/18 07:15 Calcium 8.9 mg/dL (8.5-10.1) 07/27/18 07:15 Magnesium 2.0 mg/dL (1.8-2.4) 07/27/18 07:15 Total Bilirubin 0.3 mg/dL (0.2-1.0) 07/23/18 16:05 AST 43 U/L (15-37) H 07/23/18 16:05 ALT 20 U/L (12-78) 07/23/18 16:05 Alkaline Phosphatase 108 U/L (46-116) 07/23/18 16:05 Troponin I 0.03 ng/mL (0.00-0.06) 07/23/18 23:39 NT-Pro-B Natriuret Pep 1027 pg/mL (-299) H 07/24/18 07:13 Total Protein 6.4 g/dL (6.4-8.2) 07/23/18 16:05 Albumin 1.8 g/dL (3.4-5.0) L 07/23/18 16:05 TSH 3.86 uIU/mL (0.358-3.74) H 07/24/18 07:13 Free T4 1.05 ng/dL (0.76-1.46) 07/24/18 07:13
[2018-07-27] MEDS: traZODone 50 MG TAB 150 MG PO (21:10)
[2018-07-27] MEDS: Amitriptyline 50 MG TAB 150 MG PO (21:10)
[2018-07-28] VITALS (7 sets, daily range): BP systolic 122–138; BP diastolic 68–92; PULSE 80–101; RESP 20–30; TEMP 35.9–36.9; O2SAT 89–96
[2018-07-28] MEDS: PIPERACILLIN/TAZO 3.375 GM in Normal Saline 50 ML IVPB ×4 (01:08→20:52)
[2018-07-28 07:15] LABS: Abs Immature Grans 0.06 k/cumm (0.0-0.09); Absolute Basophil Count 0.01 k/cumm (0.0-0.2); Absolute Eosinophil Count 0.27 k/cumm (0.0-0.7); Absolute Lymphocyte Count 2.49 k/cumm (1.2-3.4); Absolute Monocyte Count 0.73 k/cumm (0.11-0.7); Absolute Neutrophil Count 3.36 k/cumm (1.2-6.7); Basophils % 0.1; Eosinophils % 3.9; HCT 35.5 % (40.0-50.0); HGB 9.8 g/dL (13.5-17.5); Immature Grans % 0.9; Mean Corp. HGB Concentration 27.6 g/dL (32.0-36.0); Mean Corpuscular Hemoglobin 23.5 pg (27.0-33.0); Mean Corpuscular Volume 85.1 fL (80-95); Mean Platelet Volume 9.4 fL (8.0-11.0); Monocytes % 10.5; Neutrophils % 48.6; Platelet Count 447 x1000/uL (130-400); RBC 4.17 m/cumm (4.50-6.00); RBC Distribution Width 19.4 % (11.8-14.1); White Blood Cell Count 6.92 k/cumm (4.4-10.8)
[2018-07-28 07:28] LABS: Anisocytosis 2+; Diff Comment RBC Morph Reviewed; Hypochromasia 2+
[2018-07-28 07:42] LABS: Anion Gap 1.1 mmol/L (3-11); BUN 10 mg/dL (7-18); CO2 41.9 mmol/L (21.0-32.0); CREATININE 0.96 mg/dL (0.70-1.30); Chloride 103 mmol/L (98-107); Glucose 128 mg/dL (70-100); Sodium 146 mmol/L (136-145)
[2018-07-28] MEDS: Budesonide/Formoterol 160/4.5 6 GM 60 PUFF INH IH ×2 (09:21→20:58)
[2018-07-28] MEDS: Insulin Aspart 300 UNITS/3 ML PEN SC ×5 (09:29→18:21)
[2018-07-28] MEDS: Insulin Glargine 300 UNITS/3 ML PEN 15 UNITS SC (09:30)
[2018-07-28] MEDS: Potassium Chloride Liquid 20 MEQ PKT 40 MEQ PO ×3 (09:33→20:55)
[2018-07-28] MEDS: Collagenase 30 GM TUBE TP (09:33)
[2018-07-28] MEDS: Nystatin CREAM 15 GM TUBE TP ×2 (09:33→20:56)
[2018-07-28] MEDS: Magnesium Oxide 400 MG TAB PO ×2 (09:34→22:19)
[2018-07-28] MEDS: Metoprolol CR 25 MG TABCR PO (09:34)
[2018-07-28] MEDS: Furosemide 40 MG TAB PO ×2 (09:34→16:22)
[2018-07-28] MEDS: Omeprazole 20 MG CAPCR PO ×2 (09:34→16:22)
[2018-07-28] MEDS: Gabapentin 300 MG CAP 600 MG PO ×3 (09:34→20:55)
--- NOTE | 2018-07-28 10:15 | PGE_ITS ---
Date of Service Date of service: 07/28/18 Time of Service: 10:06 Assessment and Plan (1) HCAP (healthcare-associated pneumonia): Current visit: Yes Status: Acute Improving. On vancomycin/zosyn Day 07/24. Sputum cx with GNR and MRSA, ESLB and E.coli. As third admission in less 90 days aztreonam has been added for coverage. Would finish a 5 day course. Consider repeat CXR on 07/30/18. (2) Acute and chronic respiratory failure, unspecified whether with hypoxia or hypercapnia: Current visit: Yes Status: Acute Multifactorial. At about his baseline. New bipap machine yesterday. Looks and sounds better today (3) Right heart failure due to pulmonary hypertension: Current visit: Yes Status: Acute Echo could not accurately estimate pulmonary artery pressures; LVEF is 55- 60%. Outpatient cardiology referral for TAA. outpatient lasix dose resumed. (4) Right ventricular systolic dysfunction: Current visit: Yes Status: Chronic Continue aggressive treatment of his ABHAY. Received new bipap (5) Obstructive sleep apnea hypopnea, severe: Current visit: Yes Status: Chronic continue aggressive treatment of his ABHAY. Will need to follow up with pulmonary as outpatient. (6) Diabetes mellitus: Current visit: Yes Status: Chronic Continue basal bolus insulin, Lantus at HS. Glucose is controlled at this time. 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 Full code Will need cardiology/vascular follow up as outpatient for the TAA Will need a repeat sleep study Awaiting a bed at [facility] in [facility] Subjective Patient reports: feels better Interval history since last seen: Mr. Hidalgo is a 58 y.o M admitted for HCAP, after previously being admitted twice in the past 2 months. He was placed on vanco and zosyn, his sputum was positive for ESLB, E coli, and MRSA. Aztreonem has been added as well as this is his third return in 90 days. Today he is feeling better, no SOB, lung sounds clear, blood glucose below 180. He does have multiple wounds that have been dressed and wound has been consulted. He continues with bipap and currently 3 L oxygen. Exam Narrative Exam Narrative: General: A&Ox3, appears to be at his mental baseline, Laying flat in bed, not cyanotic, not in acute distress, speaking in full sentences HEENT: EOMI, dry MM Heart: RRR, no m/r/g Lungs: lung sounds clear, no wheezing, rhonci, crackles GI: abdomen is soft, nontender, nondistended Extremities: in NICKIE boots, edematous Skin: wound to buttocks bilaterally underneath folds, dressed by wound care. Objective Objective Clinical Data: Abnormal lab results 07/28/18 07/28/18 Range/Units 06:03 06:03 RBC 4.17 L (4.50-6.00) m/cumm Hgb 9.8 L (13.5-17.5) g/dL Hct 35.5 L (40.0-50.0) % MCH 23.5 L (27.0-33.0) pg MCHC 27.6 L (32.0-36.0) g/dL RDW 19.4 H (11.8-14.1) % Plt Count 447 H (130-400) x1000/uL Absolute Monocytes 0.73 H (0.11-0.7) k/cumm Sodium 146 H (136-145) mmol/L Carbon Dioxide 41.9 H (21.0-32.0) mmol/L Anion Gap 1.1 L (3-11) mmol/L Glucose 128 H (70-100) mg/dL Vital Signs Temperature 35.9 C L 07/28/18 07:35 Temperature Source Tympanic 07/28/18 07:35 Pulse 87 03/09/19 07:35 Pulse Rhythm Regular 07/27/18 19:59 Pulse 96 H 07/23/18 17:20 Respiratory Rate 22 07/28/18 07:35 Respiratory Effort Non-Labored 07/27/18 19:59 Respiratory Depth Shallow 07/27/18 19:59 Respiratory Pattern Normal 07/27/18 19:59 Blood Pressure 137/92 H 07/28/18 07:35 Blood Pressure Mean 102 07/23/18 17:16 Blood Pressure Position Supine 07/23/18 14:44 Pulse Oximetry 96 07/28/18 07:35 Oxygen Delivery Method Cpap 07/28/18 07:35 Oxygen Flow Rate 3 07/28/18 09:22 Fraction of Inspired Oxygen (FIO2) 32 07/27/18 10:10 Pain Level 7 07/26/18 12:30 Comment 07/28/18 07:35 Intake & Output 07/27/18 07/27/18 07/28/18 11:59 23:59 11:59 Intake Total 550 / 890 340 / 890 300 / 300 Output Total 1399 750 / 750 Balance -850 / -1085 -235 / -1085 -450 / -450 Weight 206.6 kg 201 kg Intake: IV 300 / 400 100 / 400 300 / 300 Oral 250 / 490 240 / 490 Output: Urine 1399 750 / 750 Other: Urine Color Light Keely Light Keely Pale Yellow Urine Appearance Cloudy Clear Clear Laboratory Results WBC 6.92 k/cumm (4.4-10.8) 07/28/18 06:03 RBC 4.17 m/cumm (4.50-6.00) L 07/28/18 06:03 Hgb 9.8 g/dL (13.5-17.5) L 07/28/18 06:03 Hct 35.5 % (40.0-50.0) L 07/28/18 06:03 MCV 85.1 fL (80-95) 07/28/18 06:03 MCH 23.5 pg (27.0-33.0) L 07/28/18 06:03 MCHC 27.6 g/dL (32.0-36.0) L 07/28/18 06:03 RDW 19.4 % (11.8-14.1) H 07/28/18 06:03 Plt Count 447 x1000/uL (130-400) H 07/28/18 06:03 MPV 9.4 fL (8.0-11.0) 07/28/18 06:03 Immature Gran % 0.9 07/28/18 06:03 Neutrophils % 48.6 07/28/18 06:03 Band Neutrophils % 4.0 % 07/23/18 16:05 Lymphocytes % 36.0 07/28/18 06:03 Atypical Lymphs % 5 07/23/18 16:05 Monocytes % 10.5 07/28/18 06:03 Eosinophils % 3.9 07/28/18 06:03 Basophils % 0.1 07/28/18 06:03 Absolute Neutrophils 3.36 k/cumm (1.2-6.7) 07/28/18 06:03 Absolute Lymphocytes 2.49 k/cumm (1.2-3.4) 07/28/18 06:03 Absolute Monocytes 0.73 k/cumm (0.11-0.7) H 07/28/18 06:03 Absolute Eosinophils 0.27 k/cumm (0.0-0.7) 07/28/18 06:03 Absolute Basophils 0.01 k/cumm (0.0-0.2) 07/28/18 06:03 Differential Comment Rbc morph reviewed 07/28/18 06:03 RBC Morphology See below 07/28/18 06:03 Polychromasia Present 07/27/18 07:15 Hypochromasia 2+ 07/28/18 06:03 Poikilocytosis 2+ 07/23/18 16:05 Anisocytosis 2+ 07/28/18 06:03 Stomatocytes 2+ 07/27/18 07:15 Sample Site Left radial 07/27/18 07:55 pCO2 71 mmHg (34-47) H* 07/27/18 07:55 pO2 65 mmHg (83-108) L 07/27/18 07:55 O2 Saturation 93 % (94-98) L 07/27/18 07:55 ABG pH 7.42 (7.35-7.45) 07/27/18 07:55 ABG HCO3 46 mmol/L (22-28) H 07/27/18 07:55 ABG Total CO2 43 mmol/L (22-29) H 07/27/18 07:55 ABG Base Excess mmol/L (-3-3) 07/27/18 07:55 Oxygen Liter Flow 4 L 07/27/18 07:55 FiO2 Nasal cannula % 07/27/18 07:55 Sodium 146 mmol/L (136-145) H 07/28/18 06:03 Potassium 4.0 mmol/L (3.5-5.1) 07/28/18 06:03 Chloride 103 mmol/L (98-107) 07/28/18 06:03 Carbon Dioxide 41.9 mmol/L (21.0-32.0) H 07/28/18 06:03 Anion Gap 1.1 mmol/L (3-11) L 07/28/18 06:03 BUN 10 mg/dL (7-18) 07/28/18 06:03 Creatinine 0.96 mg/dL (0.70-1.30) 07/28/18 06:03 Estimated GFR/1.73 m2 >= 60.00 (mL/min/1.73m2) 07/28/18 06:03 Glucose 128 mg/dL (70-100) H 07/28/18 06:03 Calcium 9.0 mg/dL (8.5-10.1) 07/28/18 06:03 Magnesium 2.0 mg/dL (1.8-2.4) 07/28/18 06:03 Total Bilirubin 0.3 mg/dL (0.2-1.0) 07/23/18 16:05 AST 43 U/L (15-37) H 07/23/18 16:05 ALT 20 U/L (12-78) 07/23/18 16:05 Alkaline Phosphatase 108 U/L (46-116) 07/23/18 16:05 Troponin I 0.03 ng/mL (0.00-0.06) 07/23/18 23:39 NT-Pro-B Natriuret Pep 1027 pg/mL (-299) H 07/24/18 07:13 Total Protein 6.4 g/dL (6.4-8.2) 07/23/18 16:05 Albumin 1.8 g/dL (3.4-5.0) L 07/23/18 16:05 TSH 3.86 uIU/mL (0.358-3.74) H 07/24/18 07:13 Free T4 1.05 ng/dL (0.76-1.46) 07/24/18 07:13
[2018-07-28 10:16] LABS: Vancomycin, Trough 18.5 ug/mL (10.0-20.0)
[2018-07-28] MEDS: AZTREONAM 2,000 MG in Normal Saline 100 ML 200 MG IVPB ×2 (10:26→18:24)
--- NOTE | 2018-07-28 10:41 | PT.INTREAT ---
Date of service: 07/28/18 Time of Service: 10:42 PT Notes Inpatient Physical Therapy Treatment Note [facility] Date: 07/28/18 PRECAUTIONS: Fall SUBJECTIVE: Rajan states that he is feeling a little better today, versus yesterday. OBJECTIVE: PAIN: No c/o pain BED MOBILITY/TRANSFERS Rolling L/R: I with bed rails THEREX: Patient completed a resisted UE and LE strengthening program, as per flow sheet. Patient was able to tolerate a progression in his ther ex program today. He continues to require rests between exercises ASSESSMENT: Patient tolerated session with SOB and fatigue with ther ex. He was able to tolerate a slight progression in his resisted ther ex program today, although would benefit from continued strengthening for improved mobility. PLAN: Continue with PT's POC TREATMENT CODE/TIME: 30 minutes; [id number] x2
--- NOTE | 2018-07-28 11:03 | PDOC.CMPRO ---
Care Management Progress Note S/O: Peter had new BIPAP delivered yesterday. Per provider he will likely have a repeat CXR on Monday and enter SWB1 with improvement. He was started on a third IV ABX today as he has failed previous treatments. CM will continue to follow. A:Peter is a 58 year old male admitted with Hospital acquired pneumonia and diuresis P: Peter continues to be closely monitored and remains on IV antibiotics. He continues to work with PT/OT as well. Anticipate Peter will enter SWB1 awaiting bed availability and financial negotiations between [facility], [facility] and [facility].
--- NOTE | 2018-07-28 11:07 | CMPROGNOTE_ITS ---
Care Management Progress Note S/O: Peter had new BIPAP delivered yesterday. Per provider he will likely have a repeat CXR on Monday and enter SWB1 with improvement. He was started on a third IV ABX today as he has failed previous treatments. CM will continue to follow. A:Peter is a 58 year old male admitted with Hospital acquired pneumonia and diuresis P: Peter continues to be closely monitored and remains on IV antibiotics. He continues to work with PT/OT as well. Anticipate Peter will enter SWB1 awaiting bed availability and financial negotiations between [facility], [facility] and [facility].
[2018-07-28] MEDS: Polyethylene Glycol 3350 17 GM PACKET PO (20:55)
[2018-07-28] MEDS: Enoxaparin 40 MG/0.4 ML SYR SC (20:56)
[2018-07-28] MEDS: traZODone 50 MG TAB 150 MG PO (22:20)
[2018-07-28] MEDS: Amitriptyline 50 MG TAB 150 MG PO (22:20)
[2018-07-28] MEDS: Insulin Glargine 300 UNITS/3 ML PEN 45 UNITS SC (22:22)
[2018-07-29] VITALS (9 sets, daily range): BP systolic 106–153; BP diastolic 68–93; PULSE 81–94; RESP 18–30; TEMP 36.4–37; O2SAT 91–96
[2018-07-29] MEDS: PIPERACILLIN/TAZO 3.375 GM in Normal Saline 50 ML IVPB ×2 (01:56→09:07)
[2018-07-29] MEDS: Normal Saline Flush 10 ML SYR IVP ×6 (01:56→20:32)
[2018-07-29] MEDS: AZTREONAM 2,000 MG in Normal Saline 100 ML 200 MG IVPB (03:45)
[2018-07-29 08:42] LABS: Abs Immature Grans 0.06 k/cumm (0.0-0.09); Absolute Basophil Count 0.02 k/cumm (0.0-0.2); Absolute Eosinophil Count 0.19 k/cumm (0.0-0.7); Absolute Lymphocyte Count 2.39 k/cumm (1.2-3.4); Absolute Monocyte Count 0.72 k/cumm (0.11-0.7); Absolute Neutrophil Count 3.04 k/cumm (1.2-6.7); Basophils % 0.3; HCT 35.6 % (40.0-50.0); HGB 10.1 g/dL (13.5-17.5); Immature Grans % 0.9; Lymphocytes % 37.2; Mean Corp. HGB Concentration 28.4 g/dL (32.0-36.0); Mean Corpuscular Hemoglobin 23.9 pg (27.0-33.0); Mean Corpuscular Volume 84.4 fL (80-95); Mean Platelet Volume 9.1 fL (8.0-11.0); Monocytes % 11.2; Neutrophils % 47.4; Platelet Count 483 x1000/uL (130-400); RBC 4.22 m/cumm (4.50-6.00); RBC Distribution Width 19.3 % (11.8-14.1); White Blood Cell Count 6.42 k/cumm (4.4-10.8)
[2018-07-29 08:46] LABS: Anion Gap -1.9 mmol/L (3-11); BUN 11 mg/dL (7-18); CO2 42.9 mmol/L (21.0-32.0); CREATININE 0.94 mg/dL (0.70-1.30); Calcium 8.5 mg/dL (8.5-10.1); Chloride 101 mmol/L (98-107); Glucose 163 mg/dL (70-100); Magnesium 2.1 mg/dL (1.8-2.4); Potassium 4.3 mmol/L (3.5-5.1); Sodium 142 mmol/L (136-145)
[2018-07-29] MEDS: Nystatin CREAM 15 GM TUBE TP ×2 (08:55→20:32)
[2018-07-29] MEDS: Insulin Aspart 300 UNITS/3 ML PEN SC ×7 (08:57→22:34)
[2018-07-29] MEDS: Metoprolol CR 25 MG TABCR PO (08:59)
[2018-07-29] MEDS: Furosemide 40 MG TAB PO ×2 (08:59→15:07)
[2018-07-29] MEDS: Gabapentin 300 MG CAP 600 MG PO ×3 (08:59→20:33)
[2018-07-29] MEDS: Omeprazole 20 MG CAPCR PO ×2 (08:59→15:07)
[2018-07-29] MEDS: Potassium Chloride Liquid 20 MEQ PKT 40 MEQ PO ×3 (09:00→20:32)
[2018-07-29] MEDS: Collagenase 30 GM TUBE TP (09:09)
[2018-07-29] MEDS: Budesonide/Formoterol 160/4.5 6 GM 60 PUFF INH IH ×2 (09:15→20:35)
[2018-07-29] MEDS: Magnesium Oxide 400 MG TAB PO ×2 (10:34→22:32)
--- NOTE | 2018-07-29 11:03 | CMPROGNOTE_ITS ---
Care Management Progress Note S/O: Provider revisited code status with Peter and reports he remains a FULL CODE and appeared detached from his medical status. STUDENT NURSE ordered repeat PC Consult; CM faxed to office and spoke with Dr. Eckert who anticipates her earliest availability would be Monday. Per Provider note: On vancomycin/zosyn Day /. Sputum cx with GNR and MRSA, ESLB and E.coli. C/o having twitching and feeling more sleepy today. ABG was done. Given results patient could use tighter pressures, though he is very noncompliant and when we used our hospital equipment he broke three masks in 12 hours. He continues to rip mask off and eat or eat while wearing mask. Repeat CXR was done, showing stable bilateral opacities. Continue current treatment. A:Peter is a 58 year old male admitted with Hospital acquired pneumonia and diuresis P: Peter continues to be closely monitored and remains on IV antibiotics. He continues to work with PT/OT as well. Anticipate Peter will enter [facility] awaiting bed availability and financial negotiations between [facility], [facility] and [facility].
[2018-07-29 11:07] LABS: HCO3 41 mmol/L (22-28); pH 7.42 (7.35-7.45); pO2 59 mmHg (83-108); sO2 90 % (94-98); tCO2 39 mmol/L (22-29)
[2018-07-29 11:11] LABS: FIO2L 3 LPM L; pCO2 64 mmHg (34-47)
[2018-07-29 11:12] LABS: Site Left Radial
--- NOTE | 2018-07-29 11:38 | PT.INTREAT ---
Date of service: 07/29/18 Time of Service: 11:38 PT Notes Inpatient Physical Therapy Treatment Note [facility] Date: 07/29/18 PRECAUTIONS: FALL SUBJECTIVE: Rajan states that he is fatigued today, although willing to participate in PT. OBJECTIVE: PAIN: No c/o pain BED MOBILITY/TRANSFERS Rolling L/R: I with bed rails Supine-sit: Max A with Nori Sit-supine: Max A with Nori THEREX: Patient completed a resisted UE and LE strengthening program in a supine position, as per flow sheet. ASSESSMENT: Patient completed a ther ex program in a supine position, although was not able to tolerate a progression today, due to fatigue. He would benefit from continued strengthening for improved mobility and activity tolerance. PLAN: Continue with PT's POC TREATMENT CODE/TIME: 30 minutes; [id number] x2
--- NOTE | 2018-07-29 12:25 | DI.RAD_ITS ---
SYMPTOM/DIAGNOSIS: HYPOXIA PORTABLE AP CHEST: Comparison is made with 07/26/18. The cardiac silhouette appears stable. There are again seen bilateral pulmonary infiltrates, left greater than right. These appear stable. No gross effusions or pneumothoraces are identified. IMPRESSION: Stable bilateral pulmonary infiltrates.
--- NOTE | 2018-07-29 12:29 | DI.VRAD_ITS ---
EXAM: XR Chest, 1 View EXAM DATE/TIME: 07/29/2018 10:56 AM CLINICAL HISTORY: 58 years old, male; Signs and symptoms; Other: Hypoxia TECHNIQUE: XR of the chest, 1 view. COMPARISON: SC XR PORTABLE CHEST AP 07/26/2018 6:19 AM FINDINGS: Lungs: Stable nonspecific moderate bilateral pulmonary opacities, left greater than right, most consistent with pneumonia. Pleural space: Unremarkable. No pleural effusion. No pneumothorax. Heart/Mediastinum: Unremarkable. No cardiomegaly. Bones/joints: Unremarkable. IMPRESSION: Stable nonspecific moderate bilateral pulmonary opacities, left greater than right, most consistent with pneumonia. Dictated and Authenticated by: Lion Verdin MD. Ordering:CASTILLO Hannah MD
--- NOTE | 2018-07-29 12:30 | W.PM.PROGNOT ---
Date of Service Date of service: 07/29/18 Time of Service: 13:34 Assessment and Plan (1) HCAP (healthcare-associated pneumonia): Current visit: Yes Status: Acute Improving. On vancomycin/zosyn Day 4/5. Sputum cx with GNR and MRSA, ESLB and E.coli. C/o having twitching and feeling more sleepy today. ABG was done. Given results patient could use tighter pressures, though he is very noncompliant and when we used our hospital equipment he broke three masks in 12 hours. He continues to rip mask off and eat or eat while wearing mask. Repeat CXR was done, showing stable bilateral opacities. Continue current treatment. (2) Acute and chronic respiratory failure, unspecified whether with hypoxia or hypercapnia: Current visit: Yes Status: Acute not compliant with bipap, tried to wean off oxygen and saturation dropped to 80's. Was not oxygen dependent prior to admission (3) Right heart failure due to pulmonary hypertension: Current visit: Yes Status: Acute Echo could not accurately estimate pulmonary artery pressures; LVEF is 55-60%. Outpatient cardiology referral for TAA. outpatient lasix dose resumed. (4) Right ventricular systolic dysfunction: Current visit: Yes Status: Chronic Continue aggressive treatment of his ABHAY. see above (5) Obstructive sleep apnea hypopnea, severe: Current visit: Yes Status: Chronic continue aggressive treatment of his ABHAY. Will need to follow up with pulmonary as outpatient. (6) Diabetes mellitus: Current visit: Yes Status: Chronic Continue basal bolus insulin, Lantus at HS. Glucose is controlled at this time. Qualifiers: Chronic kidney disease stage: Diabetes mellitus complication detail: with foot ulcer Diabetes mellitus complication status: with skin complications Diabetes mellitus half-way insulin use: with meterman use Diabetes mellitus macular edema: Diabetes mellitus type: due to underlying condition Diabetic retinopathy severity: Laterality: Proliferative retinopathy type: Qualified Code(s): E08.621 - Diabetes mellitus due to underlying condition with foot ulcer; L97.509 - Non-pressure chronic ulcer of other part of unspecified foot with unspecified severity; Z79.4 - USP (current) use of insulin (7) Pressure ulcer: Current visit: Yes Status: Chronic Wound care and podiatry consults Qualifiers: Laterality: left Pressure injury location: calf Pressure injury stage: stage 3 Qualified Code(s): L89.893 - Pressure ulcer of other site, stage 3 (8) DVT prophylaxis: Current visit: Yes Status: Acute lovenox (9) Discharge planning issues: Current visit: Yes Status: Acute PT/OT consulted. Full code Will need cardiology/vascular follow up as outpatient for the TAA Will need a repeat sleep study Awaiting a bed at [facility] in [facility] (10) Palliative care status: Start date: 07/29/18 Start time: 13:18 Current visit: Yes Status: Acute Currently full code. He does have worsening ABHAY, questionable Pulmonary HTN unable to diagnose with right dilated ventricle. Subjective Patient reports: feels better Interval history since last seen: Mr. Hidalgo is a 58 y.o M admitted for HCAP, after previously being admitted twice in the past 2 months. He was placed on vanco and zosyn, his sputum was positive for ESLB, E coli, and MRSA. Aztreonem has been added as well as this is his third return in 90 days. Today he is feeling tired and twitching. He attributes this to possible CO2 retention. ABG were drawn. His oxygen level was lower than previous with HCO3 improving. He is currently using his home bipap machine. CXR revealed stable bilateral infilitrates we will continue current treatment. Lungs were clear with a few scattered wheezes to RLL, that cleared when sitting up. At this moment he would benefit from our bipap machine due to being able to get tighter pressures, though it does not seem he is interested in wearing it or will be compliant with it. When he first arrived he was placed on our bipap machine and refused to keep it on asked to be placed back on 4 L and broke three masks in a matter of 12 hours. Discussed with patient code status, in the setting of worsening oxygenation and bipap use, questionable PTH and Right sided diastolic function; he would be appropriate for palliative care. At this moment he wants to remain a full code and think about it and discuss it with his family, he did say multiple times throughout the conversation that I don't care if I have to live with a trach, they can trach me, that is what my son wants. He has seen Dr. Eckert in the past and a consult has been placed. Exam Narrative Exam Narrative: General: A&Ox3, appears to be at his mental baseline, Laying flat in bed, not cyanotic, not in acute distress, speaking in full sentences HEENT: EOMI, dry MM Heart: RRR, no m/r/g Lungs: lung sounds clear, scattered wheezing that clear when sitting up GI: abdomen is soft, nontender, nondistended Extremities: in NICKIE boots, edematous Skin: wound to buttocks bilaterally underneath folds, dressed by wound care. Objective Objective Clinical Data: Abnormal lab results 07/29/18 07/29/18 07/29/18 Range/Units 08:28 08:28 11:09 RBC 4.22 L (4.50-6.00) m/cumm Hgb 10.1 L (13.5-17.5) g/dL Hct 35.6 L (40.0-50.0) % MCH 23.9 L (27.0-33.0) pg MCHC 28.4 L (32.0-36.0) g/dL RDW 19.3 H (11.8-14.1) % Plt Count 483 H (130-400) x1000/uL Absolute Monocytes 0.72 H (0.11-0.7) k/cumm pCO2 64 H* (34-47) mmHg pO2 59 L (83-108) mmHg O2 Saturation 90 L (94-98) % ABG HCO3 41 H (22-28) mmol/L ABG Total CO2 39 H (22-29) mmol/L Carbon Dioxide 42.9 H (21.0-32.0) mmol/L Anion Gap -1.9 L (3-11) mmol/L Glucose 163 H (70-100) mg/dL Vital Signs Temperature 36.4 C L 07/29/18 07:55 Temperature Source Tympanic 07/29/18 07:55 Pulse 90 07/29/18 07:55 Pulse Rhythm Regular 07/29/18 10:15 Pulse 96 H 07/23/18 17:20 Respiratory Rate 18 07/29/18 07:55 Respiratory Effort Non-Labored 07/29/18 10:15 Respiratory Depth Normal 07/29/18 10:15 Respiratory Pattern Normal 07/29/18 10:15 Blood Pressure 137/80 07/29/18 07:55 Blood Pressure Mean 102 07/23/18 17:16 Blood Pressure Position Supine 07/23/18 14:44 Pulse Oximetry 92 L 07/29/18 07:55 Oxygen Delivery Method Nasal Cannula 07/29/18 07:55 Oxygen Flow Rate 3 07/29/18 07:55 Fraction of Inspired Oxygen (FIO2) 32 07/27/18 10:10 Pain Level 0 07/29/18 07:55 Comment 07/29/18 03:58 Intake & Output 07/28/18 07/29/18 07/29/18 22:59 11:59 23:59 Intake Total Output Total Balance Weight Intake: IV Oral Output: Urine Other: Urine Color Urine Appearance Laboratory Results WBC 6.42 k/cumm (4.4-10.8) 07/29/18 08:28 RBC 4.22 m/cumm (4.50-6.00) L 07/29/18 08:28 Hgb 10.1 g/dL (13.5-17.5) L 07/29/18 08:28 Hct 35.6 % (40.0-50.0) L 07/29/18 08:28 MCV 84.4 fL (80-95) 07/29/18 08:28 MCH 23.9 pg (27.0-33.0) L 07/29/18 08:28 MCHC 28.4 g/dL (32.0-36.0) L 07/29/18 08:28 RDW 19.3 % (11.8-14.1) H 07/29/18 08:28 Plt Count 483 x1000/uL (130-400) H 07/29/18 08:28 MPV 9.1 fL (8.0-11.0) 07/29/18 08:28 Immature Gran % 0.9 07/29/18 08:28 Neutrophils % 47.4 07/29/18 08:28 Band Neutrophils % 4.0 % 07/23/18 16:05 Lymphocytes % 37.2 07/29/18 08:28 Atypical Lymphs % 5 07/23/18 16:05 Monocytes % 11.2 07/29/18 08:28 Eosinophils % 3.0 07/29/18 08:28 Basophils % 0.3 07/29/18 08:28 Absolute Neutrophils 3.04 k/cumm (1.2-6.7) 07/29/18 08:28 Absolute Lymphocytes 2.39 k/cumm (1.2-3.4) 07/29/18 08:28 Absolute Monocytes 0.72 k/cumm (0.11-0.7) H 07/29/18 08:28 Absolute Eosinophils 0.19 k/cumm (0.0-0.7) 07/29/18 08:28 Absolute Basophils 0.02 k/cumm (0.0-0.2) 07/29/18 08:28 Differential Comment Rbc morph reviewed 07/28/18 06:03 RBC Morphology See below 07/28/18 06:03 Polychromasia Present 07/27/18 07:15 Hypochromasia 2+ 07/28/18 06:03 Poikilocytosis 2+ 07/23/18 16:05 Anisocytosis 2+ 07/28/18 06:03 Stomatocytes 2+ 07/27/18 07:15 Sample Site Left radial 07/29/18 11:09 pCO2 64 mmHg (34-47) H* 07/29/18 11:09 pO2 59 mmHg (83-108) L 07/29/18 11:09 O2 Saturation 90 % (94-98) L 07/29/18 11:09 ABG pH 7.42 (7.35-7.45) 07/29/18 11:09 ABG HCO3 41 mmol/L (22-28) H 07/29/18 11:09 ABG Total CO2 39 mmol/L (22-29) H 07/29/18 11:09 ABG Base Excess mmol/L (-3-3) 07/27/18 07:55 Oxygen Liter Flow 3 lpm L 07/29/18 11:09 FiO2 Nasal cannula % 07/27/18 07:55 Sodium 142 mmol/L (136-145) 07/29/18 08:28 Potassium 4.3 mmol/L (3.5-5.1) 07/29/18 08:28 Chloride 101 mmol/L (98-107) 07/29/18 08:28 Carbon Dioxide 42.9 mmol/L (21.0-32.0) H 07/29/18 08:28 Anion Gap -1.9 mmol/L (3-11) L 07/29/18 08:28 BUN 11 mg/dL (7-18) 07/29/18 08:28 Creatinine 0.94 mg/dL (0.70-1.30) 07/29/18 08:28 Estimated GFR/1.73 m2 >= 60.00 (mL/min/1.73m2) 07/29/18 08:28 Glucose 163 mg/dL (70-100) H 07/29/18 08:28 Calcium 8.5 mg/dL (8.5-10.1) 07/29/18 08:28 Magnesium 2.1 mg/dL (1.8-2.4) 07/29/18 08:28 Total Bilirubin 0.3 mg/dL (0.2-1.0) 07/23/18 16:05 AST 43 U/L (15-37) H 07/23/18 16:05 ALT 20 U/L (12-78) 07/23/18 16:05 Alkaline Phosphatase 108 U/L (46-116) 07/23/18 16:05 Troponin I 0.03 ng/mL (0.00-0.06) 07/23/18 23:39 NT-Pro-B Natriuret Pep 1027 pg/mL (-299) H 07/24/18 07:13 Total Protein 6.4 g/dL (6.4-8.2) 07/23/18 16:05 Albumin 1.8 g/dL (3.4-5.0) L 07/23/18 16:05 TSH 3.86 uIU/mL (0.358-3.74) H 07/24/18 07:13 Free T4 1.05 ng/dL (0.76-1.46) 07/24/18 07:13 Vancomycin Trough 18.5 ug/mL (10.0-20.0) 07/28/18 09:23
[2018-07-29] MEDS: PIPERACILLIN/TAZO 4.5 GM in Normal Saline 100 ML IVPB ×2 (13:12→20:31)
[2018-07-29] MEDS: Enoxaparin 40 MG/0.4 ML SYR SC (20:32)
[2018-07-29] MEDS: Polyethylene Glycol 3350 17 GM PACKET PO (20:32)
[2018-07-29] MEDS: traZODone 50 MG TAB 150 MG PO (22:32)
[2018-07-29] MEDS: Amitriptyline 25 MG TAB 75 MG PO (22:32)
[2018-07-29] MEDS: Insulin Glargine 300 UNITS/3 ML PEN 45 UNITS SC (22:33)
[2018-07-30] MEDS: PIPERACILLIN/TAZO 4.5 GM in Normal Saline 100 ML IVPB ×4 (01:53→19:25)
[2018-07-30 04:23] VITALS: BP 116/73; PULSE 96; RESP 20; TEMP 37.1; O2SAT 94
[2018-07-30 07:16] LABS: Abs Immature Grans 0.07 k/cumm (0.0-0.09); Absolute Basophil Count 0.01 k/cumm (0.0-0.2); Absolute Eosinophil Count 0.22 k/cumm (0.0-0.7); Absolute Lymphocyte Count 2.69 k/cumm (1.2-3.4); Absolute Monocyte Count 0.77 k/cumm (0.11-0.7); Absolute Neutrophil Count 2.67 k/cumm (1.2-6.7); Basophils % 0.2; Eosinophils % 3.4; HCT 35.4 % (40.0-50.0); HGB 9.7 g/dL (13.5-17.5); Immature Grans % 1.1; Lymphocytes % 41.8; Mean Corp. HGB Concentration 27.4 g/dL (32.0-36.0); Mean Corpuscular Hemoglobin 23.1 pg (27.0-33.0); Mean Corpuscular Volume 84.3 fL (80-95); Mean Platelet Volume 9.2 fL (8.0-11.0); Neutrophils % 41.5; Platelet Count 459 x1000/uL (130-400); White Blood Cell Count 6.43 k/cumm (4.4-10.8)
[2018-07-30 07:29] LABS: Anisocytosis 2+; Basophilic Stippling Present; Diff Comment RBC Morph Reviewed; Hypochromasia 2+; Polychromasia Present
[2018-07-30 07:30] LABS: Poikilocytes 2+
[2018-07-30 07:31] LABS: Anion Gap 0.2 mmol/L (3-11); BUN 11 mg/dL (7-18); CO2 42.8 mmol/L (21.0-32.0); CREATININE 0.96 mg/dL (0.70-1.30); Chloride 100 mmol/L (98-107); Glucose 139 mg/dL (70-100); Potassium 4.1 mmol/L (3.5-5.1); Sodium 143 mmol/L (136-145)
[2018-07-30 08:21] VITALS: BP 114/71; PULSE 82; RESP 20; TEMP 36.6; O2SAT 94
[2018-07-30] MEDS: Budesonide/Formoterol 160/4.5 6 GM 60 PUFF INH IH ×2 (08:29→19:26)
[2018-07-30] MEDS: Polyethylene Glycol 3350 17 GM PACKET PO (08:29)
[2018-07-30] MEDS: Normal Saline Flush 10 ML SYR IVP (08:29)
[2018-07-30] MEDS: Metoprolol CR 25 MG TABCR PO (08:30)
[2018-07-30] MEDS: Furosemide 40 MG TAB PO ×2 (08:30→16:27)
[2018-07-30] MEDS: Gabapentin 300 MG CAP 600 MG PO ×3 (08:30→19:27)
[2018-07-30] MEDS: Collagenase 30 GM TUBE TP (08:30)
[2018-07-30] MEDS: Potassium Chloride Liquid 20 MEQ PKT 40 MEQ PO ×3 (08:30→19:25)
[2018-07-30] MEDS: Omeprazole 20 MG CAPCR PO ×2 (08:31→16:27)
[2018-07-30] MEDS: Nystatin CREAM 15 GM TUBE TP ×2 (08:31→19:26)
[2018-07-30] MEDS: Insulin Aspart 300 UNITS/3 ML PEN SC ×7 (08:34→22:41)
--- NOTE | 2018-07-30 09:06 | PNE_ITS ---
Date of service: 07/30/18 Time of Service: 07:45 Speech Therpy Note Note: SUBJECTIVE Patient (pt) is reclined in bed but is willing to sit up more this morning. OBJECTIVE Nursing reports: - T: 37.1 - O2 sat: 92-94% on 3 L via NC - LS: CTA-B and diminished in the bases in the presence of ABX - Meal % for 07/29/18: B - 100% taken well; L - no info; Dinner - 100% taken well - Patient has no large-sized whole pills now. Repeat CXR on 07/29/18 shows stable moderate bilateral opacities, L > R. Swallowing Pt is observed to take Thin liquid, Mechanically Altered food with fine-chopped meat, medium-sized whole pills with a Thin liquid wash. He shows no roopa s/s aspiration/penetration with any p.o. item and shows adequate mastication quality. Prior to any p.o. intake, he is observed to use a good swish and spit for his Biotene Antibacterial Mouthwash. He uses a good spontaneous self-feeding rate during the meal and is willing to be upright to an estimated 30 degrees. He denies any xerostomia. Pt says he uses the deep rhythmic breathing exercise whenever he's stressed. Demonstration accuracy: 80%. E [employer] instructed in meaning of green line on pt's meal tray slip since she began to pass tray prior to the pt having had the Biotene mouthwash. ASSESSMENT Pt appears to be tolerating current p.o. consistencies. His reclined upper body position could put him at some risk of aspiration but this is likely to be low as long as he continues on the appropriate diet consistency. PLAN 1. Continue Thin liquids, a Mechanically Altered diet w/fine-chopped meats, small & medium-sized whole pills w/a liquid wash, any large-sized pills dissolved/cut up/ crushed in puree. 2. Continue Biotene Antibacterial Mouthwash (15 mls) before each meal. 3. d/c speech therapy
--- NOTE | 2018-07-30 09:28 | PDOC.CMPRO ---
- If Service Date Differs Date of service: 07/30/18 Time of Service: 09:29 Care Management Progress Note S/O: Peter makes good eye contact he states that he is grateful that SHEBA is working toward placement at LTC facility. Peter has had multiple ABG's over the last few days he continues to struggle with the BIPAP mask and pressures. Bo did bring a new machine on Monday which RT set up. RT is in the process of obtaining a Trilogy through [facility]. The device will allow increases pressures and less of an air leak. CM contacted [facility] and [facility] for follow up and left a voicemail for admission director. CM faxed referral to [facility], and [facility] in Rehab in [place]. At the request of Rajan SHEBA will contact all nursing home care facilities in the [facility] to assess for referral and placement. Dr. Eckert who anticipates her earliest availability would be Monday. A:Peter is a 58 year old male admitted with hospital acquired pneumonia pulmonary hypertension, with a history of chronic resp failure, ABHAY,Right ventricular failure, pulmonary hypertension, DM. Rajan also has chronic leg wounds that require dressing changes with unna boot. P: Peter continues to be closely monitored and remains on IV antibiotics. He continues to work with PT/OT as well. Anticipate Peter will enter [facility] awaiting bed availability and financial negotiations between [facility], [facility] and [facility].
[2018-07-30] MEDS: Magnesium Oxide 400 MG TAB PO ×2 (09:48→22:42)
--- NOTE | 2018-07-30 10:04 | CMPROGNOTE_ITS ---
- If Service Date Differs Date of service: 07/30/18 Time of Service: 09:29 Care Management Progress Note S/O: Peter makes good eye contact he states that he is grateful that SHEBA is working toward placement at LTC facility. Peter has had multiple ABG's over the last few days he continues to struggle with the BIPAP mask and pressures. Bo did bring a new machine on Monday which RT set up. RT is in the process of obtaining a Trilogy through [facility]. The device will allow increases pre ssures and less of an air leak. CM [facility] and left a voicemail for admission director. CM faxed referral to [facility], and [facility] in Rehab in [place]. At the request of Rajan SHEBA will contact all intermediate project manager care facilities in the [facility] to assess for referral and placement. Dr. Eckert who anticipates her earliest availability would be Monday. A:Peter is a 58 year old male admitted with hospital acquired pneumonia pulmonary hypertension, with a history of chronic resp failure, ABHAY,Right ventricular failure, pulmonary hypertension, DM. Rajan also has chronic leg wounds that require dressing changes with unna boot. P: Peter continues to be closely monitored and remains on IV antibiotics. He continues to work with PT/OT as well. Anticipate Peter will enter [facility] awaiting bed availability and financial negotiations between [place] [facility], [facility] and [facility]
--- NOTE | 2018-07-30 10:10 | OT.INTREAT ---
Date of service: 07/30/18 Time of Service: 09:05 Occupational Therapy Notes Occupational Therapy Inpatient Treatment Note Date: 07/30/18 PRECAUTIONS: Contact, Fall SUBJECTIVE: Pt was lying in bed on his (L) side and was agreeable to OT session reporting that he has not been washed up since monday. OBJECTIVE: PAIN:no c/o pain. FUNCTIONAL MOBILITY Rolling L/R: (I) Supine-sit: S, with use of trapeze Sit-supine: S, with use of trapeze BATHING: Sitting in bed, max (A) set up Upper Body: (I) Lower Body: Max (A) DRESSING: Sitting in bed Upper Extremity: Mod (A) [facility] gown. ASSESSMENT/PLAN: Progression of ADLs to side of bed as pt tolerates and symptoms dictate. Pt is demonstrating increased (I) in ADL routines and UE strength and functional ROM is progressing. Pt states that he is no longer returning to his current living situation and would like to continue care in a SNF. Care management is currently working on this. TREATMENT CODES/TIME: [id number], 20 minutes (09:05) Verna Serra OTR/L [facility]
--- NOTE | 2018-07-30 10:15 | OTTR_ITS ---
Date of service: 07/30/18 Time of Service: 09:05 Occupational Therapy Notes Occupational Therapy Inpatient Treatment Note Date: 07/30/18 PRECAUTIONS: Contact, Fall SUBJECTIVE: Pt was lying in bed on his (L) side and was agreeable to OT session reporting that he has not been washed up since monday. OBJECTIVE: PAIN:no c/o pain. FUNCTIONAL MOBILITY Rolling L/R: (I) Supine-sit: S, with use of trapeze Sit-supine: S, with use of trapeze BATHING: Sitting in bed, max (A) set up Upper Body: (I) Lower Body: Max (A) DRESSING: Sitting in bed Upper Extremity: Mod (A) [facility] gown. ASSESSMENT/PLAN: Progression of ADLs to side of bed as pt tolerates and symptoms dictate. Pt is demonstrating increased (I) in ADL routines and UE strength and functional ROM is progressing. Pt states that he is no longer returning to his current living situation and would like to continue care in a SNF. Care management is currently working on this. TREATMENT CODES/TIME: [id number], 20 minutes (09:05) Verna Serra OTR/L [facility]
[2018-07-30 11:17] VITALS: BP 161/84; PULSE 94; RESP 22; TEMP 36.5; O2SAT 93
--- NOTE | 2018-07-30 11:42 | PTTR_ITS ---
Date of service: 07/30/18 Time of Service: 11:41 PT Notes Inpatient Physical Therapy Treatment Note [facility] Date: 07/30/18 PRECAUTIONS: FALL SUBJECTIVE: Rajan states that he is feeling a little better, and is agreeable to participate in PT. OBJECTIVE: PAIN: No c/o pain BED MOBILITY/TRANSFERS Rolling L/R: I with bed rails VITALS: SaO2: 96-98% on 3L O2 via NC, 89-98 bpm, with ther ex THEREX: In a.m., patient completed a resisted UE and LE strengthening program, as per flow sheet. He was able to tolerate the addition of clamshell, side- lying hip ext, and hook-lying marching exercises with minimal c/o increased SOB. Patient required rest break between exercises x3 due to fatigue and SOB. In p.m., patient completed a global strengthening program with focus on core and resisted UE strengthening. Patient tolerated the addition of double SLR holds, cross-body crunch, and LAQ with hip flexion in supine exercises. He required rest break x2 in p.m. due to SOB and fatigue. ASSESSMENT: Patient tolerated session with c/o SOB and fatigue with ther ex. He was able to tolerate the addition of several LE and core strengthening exercises, and required less frequent rest breaks between exercises. He would b enefit from continued strengthening for improved mobility and cardiovascular endurance. PLAN: Continue with PT's POC TREATMENT CODE/TIME: Session 1: 30 minutes; [id number] x2 Session 2: 30 minutes; [id number] x2
[2018-07-30 12:17] LABS: Vancomycin, Trough 26.6 ug/mL (10.0-20.0)
--- NOTE | 2018-07-30 16:30 | PGE_ITS ---
Date of Service Date of service: 07/30/18 Time of Service: 16:30 Assessment and Plan (1) HCAP (healthcare-associated pneumonia): Current visit: Yes Status: Acute Stable. On vancomycin/zosyn Day 09/23. He has not had any twitching at this time. (2) Acute and chronic respiratory failure, unspecified whether with hypoxia or hypercapnia: Current visit: Yes Status: Acute not compliant with bipap, Respiratory is getting new equipment (3) Right heart failure due to pulmonary hypertension: Current visit: Yes Status: Acute Echo could not accurately estimate pulmonary artery pressures; LVEF is 55- 60%. Outpatient cardiology referral for TAA. outpatient lasix dose resumed. No added doses today, will continue to monitor. (4) Right ventricular systolic dysfunction: Current visit: Yes Status: Chronic Continue aggressive treatment of his ABHAY. and monitor for fluid retention see above (5) Obstructive sleep apnea hypopnea, severe: Current visit: Yes Status: Chronic continue aggressive treatment of his ABHAY. machine is being changed for better ventilation (6) Diabetes mellitus: Current visit: Yes Status: Chronic Continue basal bolus insulin, Lantus at . Glucose is controlled at this time. Qualifiers: Chronic kidney disease stage: Diabetes mellitus complication detail: with foot ulcer Diabetes mellitus complication status: with skin complications Diabetes mellitus mcfp insulin use: with mcfp use Diabetes mellitus macular edema: Diabetes mellitus type: due to underlying condition Diabetic retinopathy severity: Laterality: Proliferative retinopathy type: Qualified Code(s): E08.621 - Diabetes mellitus due to underlying condition with foot ulcer; L97.509 - Non-pressure chronic ulcer of other part of unspecified foot with unspecified severity; Z79.4 - manager long term care (current) use of insulin (7) Pressure ulcer: Current visit: Yes Status: Chronic Wound care and podiatry consults Qualifiers: Laterality: left Pressure injury location: calf Pressure injury stage: stage 3 Qualified Code(s): L89.893 - Pressure ulcer of other site, stage 3 (8) DVT prophylaxis: Current visit: Yes Status: Acute lovenox (9) Discharge planning issues: Current visit: Yes Status: Acute PT/OT consulted. Full code Will need cardiology/vascular follow up as outpatient for the TAA Will need a repeat sleep study Awaiting a bed at [facility] in [facility] (10) Palliative care status: Current visit: Yes Status: Acute Currently full code. He does have worsening ABHAY, questionable Pulmonary HTN unable to diagnose with right dilated ventricle. palliative care to see possibly tomorrow Subjective Patient reports: feels better Interval history since last seen: Mr. Hidalgo is a 58 y.o M admitted for HCAP, after previously being admitted twice in the past 2 months. He was placed on vanco and zosyn, his sputum was positive for ESLB, E coli, and MRSA. Today he is feeling better. Weight is stable. Lung sounds clear diminished. Respiratory is going to try a new machine for Mr. Hidalgo that will help meet his leaking problem. They will order it soon. Continue antiboitics and treatment. Exam Narrative Exam Narrative: General: A&Ox3, appears to be at his mental baseline, Laying flat in bed, not cyanotic, not in acute distress, speaking in full sentences HEENT: EOMI, dry MM Heart: RRR, no m/r/g Lungs: lung sounds clear, scattered wheezing that clear when sitting up GI: abdomen is soft, nontender, nondistended Extremities: in NICKIE boots, edematous Skin: wound to buttocks bilaterally underneath folds, dressed by wound care. Objective Objective Clinical Data: Abnormal lab results 07/30/18 07/30/18 07/30/18 Range/Units 06:55 06:55 11:34 RBC 4.20 L (4.50-6.00) m/cumm Hgb 9.7 L (13.5-17.5) g/dL Hct 35.4 L (40.0-50.0) % MCH 23.1 L (27.0-33.0) pg MCHC 27.4 L (32.0-36.0) g/dL RDW 19.0 H (11.8-14.1) % Plt Count 459 H (130-400) x1000/uL Absolute Monocytes 0.77 H (0.11-0.7) k/cumm Carbon Dioxide 42.8 H (21.0-32.0) mmol/L Anion Gap 0.2 L (3-11) mmol/L Glucose 139 H (70-100) mg/dL Vancomycin Trough 26.6 H* (10.0-20.0) ug/mL Vital Signs Temperature 36.5 C 07/30/18 11:17 Temperature Source Tympanic 07/30/18 11:17 Pulse 94 H 07/30/18 11:17 Pulse Rhythm Regular 07/30/18 10:23 Pulse 96 H 07/23/18 17:20 Respiratory Rate 22 07/30/18 11:17 Respiratory Effort Non-Labored 07/30/18 10:23 Respiratory Depth Normal 07/30/18 10:23 Respiratory Pattern Normal 07/30/18 10:23 Blood Pressure 161/84 H 07/30/18 11:17 Blood Pressure Mean 102 07/23/18 17:16 Blood Pressure Position Supine 07/23/18 14:44 Pulse Oximetry 93 L 07/30/18 11:17 Oxygen Delivery Method Nasal Cannula 07/30/18 11:17 Oxygen Flow Rate 3 07/30/18 11:17 Fraction of Inspired Oxygen (FIO2) 32 07/27/18 10:10 Pain Level 3 07/30/18 09:45 Comment 07/29/18 03:58 Intake & Output 07/29/18 07/30/18 07/30/18 23:59 11:59 23:59 Intake Total 960 / 2420 650 / 750 100 / 750 Output Total 3450 / 4150 1250 / 1950 700 / 1950 Balance -2490 / -1730 -600 / -1200 -600 / -1200 Weight 205.3 kg Intake: IV 460 / 780 450 / 550 100 / 550 Oral 500 / 1640 200 / 200 Output: Urine 3450 / 4150 1250 / 1950 700 / 1950 Other: Urine Color Pale Yellow Yellow Urine Appearance Clear Clear Clear Urine Odor Normal Comment pt voided in urinal and spilled large amount in bed. Voiding Methods Urinal Laboratory Results WBC 6.43 k/cumm (4.4-10.8) 07/30/18 06:55 RBC 4.20 m/cumm (4.50-6.00) L 07/30/18 06:55 Hgb 9.7 g/dL (13.5-17.5) L 07/30/18 06:55 Hct 35.4 % (40.0-50.0) L 07/30/18 06:55 MCV 84.3 fL (80-95) 07/30/18 06:55 MCH 23.1 pg (27.0-33.0) L 07/30/18 06:55 MCHC 27.4 g/dL (32.0-36.0) L 07/30/18 06:55 RDW 19.0 % (11.8-14.1) H 07/30/18 06:55 Plt Count 459 x1000/uL (130-400) H 07/30/18 06:55 MPV 9.2 fL (8.0-11.0) 07/30/18 06:55 Immature Gran % 1.1 07/30/18 06:55 Neutrophils % 41.5 07/30/18 06:55 Band Neutrophils % 4.0 % 07/23/18 16:05 Lymphocytes % 41.8 07/30/18 06:55 Atypical Lymphs % 5 07/23/18 16:05 Monocytes % 12.0 07/30/18 06:55 Eosinophils % 3.4 07/30/18 06:55 Basophils % 0.2 07/30/18 06:55 Absolute Neutrophils 2.67 k/cumm (1.2-6.7) 07/30/18 06:55 Absolute Lymphocytes 2.69 k/cumm (1.2-3.4) 07/30/18 06:55 Absolute Monocytes 0.77 k/cumm (0.11-0.7) H 07/30/18 06:55 Absolute Eosinophils 0.22 k/cumm (0.0-0.7) 07/30/18 06:55 Absolute Basophils 0.01 k/cumm (0.0-0.2) 07/30/18 06:55 Differential Comment Rbc morph reviewed 07/30/18 06:55 RBC Morphology See below 07/30/18 06:55 Polychromasia Present 07/30/18 06:55 Hypochromasia 2+ 07/30/18 06:55 Poikilocytosis 2+ 07/30/18 06:55 Basophilic Stippling Present 07/30/18 06:55 Anisocytosis 2+ 07/30/18 06:55 Stomatocytes 2+ 07/27/18 07:15 Sample Site Left radial 07/29/18 11:09 pCO2 64 mmHg (34-47) H* 07/29/18 11:09 pO2 59 mmHg (83-108) L 07/29/18 11:09 O2 Saturation 90 % (94-98) L 07/29/18 11:09 ABG pH 7.42 (7.35-7.45) 07/29/18 11:09 ABG HCO3 41 mmol/L (22-28) H 07/29/18 11:09 ABG Total CO2 39 mmol/L (22-29) H 07/29/18 11:09 ABG Base Excess mmol/L (-3-3) 07/29/18 11:09 Oxygen Liter Flow 3 lpm L 07/29/18 11:09 FiO2 Nasal cannula % 07/27/18 07:55 Sodium 143 mmol/L (136-145) 07/30/18 06:55 Potassium 4.1 mmol/L (3.5-5.1) 07/30/18 06:55 Chloride 100 mmol/L (98-107) 07/30/18 06:55 Carbon Dioxide 42.8 mmol/L (21.0-32.0) H 07/30/18 06:55 Anion Gap 0.2 mmol/L (3-11) L 07/30/18 06:55 BUN 11 mg/dL (7-18) 07/30/18 06:55 Creatinine 0.96 mg/dL (0.70-1.30) 07/30/18 06:55 Estimated GFR/1.73 m2 >= 60.00 (mL/min/1.73m2) 07/30/18 06:55 Glucose 139 mg/dL (70-100) H 07/30/18 06:55 Calcium 9.0 mg/dL (8.5-10.1) 07/30/18 06:55 Magnesium 2.0 mg/dL (1.8-2.4) 07/30/18 06:55 Total Bilirubin 0.3 mg/dL (0.2-1.0) 07/23/18 16:05 AST 43 U/L (15-37) H 07/23/18 16:05 ALT 20 U/L (12-78) 07/23/18 16:05 Alkaline Phosphatase 108 U/L (46-116) 07/23/18 16:05 Troponin I 0.03 ng/mL (0.00-0.06) 07/23/18 23:39 NT-Pro-B Natriuret Pep 1027 pg/mL (-299) H 07/24/18 07:13 Total Protein 6.4 g/dL (6.4-8.2) 07/23/18 16:05 Albumin 1.8 g/dL (3.4-5.0) L 07/23/18 16:05 TSH 3.86 uIU/mL (0.358-3.74) H 07/24/18 07:13 Free T4 1.05 ng/dL (0.76-1.46) 07/24/18 07:13 Vancomycin Trough 26.6 ug/mL (10.0-20.0) H* 07/30/18 11:34
[2018-07-30 16:50] VITALS: BP 116/74; PULSE 93; RESP 20; TEMP 36.6; O2SAT 91
[2018-07-30] MEDS: Enoxaparin 40 MG/0.4 ML SYR SC (19:25)
[2018-07-30 19:53] VITALS: BP 104/62; PULSE 99; RESP 20; TEMP 36.9; O2SAT 93
[2018-07-30] MEDS: Insulin Glargine 300 UNITS/3 ML PEN 45 UNITS SC ×2 (22:37→22:43)
[2018-07-30] MEDS: Amitriptyline 25 MG TAB 75 MG PO (22:42)
[2018-07-30] MEDS: traZODone 50 MG TAB 150 MG PO (22:42)
[2018-07-31] VITALS (9 sets, daily range): BP systolic 107–145; BP diastolic 66–77; PULSE 83–89; RESP 19–21; TEMP 36–36.7; O2SAT 83–94
[2018-07-31] MEDS: PIPERACILLIN/TAZO 4.5 GM in Normal Saline 100 ML IVPB ×3 (02:36→13:58)
[2018-07-31] MEDS: Normal Saline Flush 10 ML SYR IVP ×3 (05:31→17:33)
[2018-07-31 07:16] LABS: Abs Immature Grans 0.06 k/cumm (0.0-0.09); Absolute Basophil Count 0.01 k/cumm (0.0-0.2); Absolute Eosinophil Count 0.21 k/cumm (0.0-0.7); Absolute Lymphocyte Count 2.52 k/cumm (1.2-3.4); Absolute Monocyte Count 0.79 k/cumm (0.11-0.7); Absolute Neutrophil Count 3.14 k/cumm (1.2-6.7); Basophils % 0.1; Eosinophils % 3.1; HCT 35.9 % (40.0-50.0); HGB 9.9 g/dL (13.5-17.5); Immature Grans % 0.9; Lymphocytes % 37.4; Mean Corp. HGB Concentration 27.6 g/dL (32.0-36.0); Mean Corpuscular Hemoglobin 23.1 pg (27.0-33.0); Mean Corpuscular Volume 83.9 fL (80-95); Mean Platelet Volume 8.9 fL (8.0-11.0); Monocytes % 11.7; Neutrophils % 46.8; Platelet Count 430 x1000/uL (130-400); RBC 4.28 m/cumm (4.50-6.00); RBC Distribution Width 18.9 % (11.8-14.1); White Blood Cell Count 6.73 k/cumm (4.4-10.8)
[2018-07-31 07:36] LABS: Anion Gap 0.8 mmol/L (3-11); BUN 12 mg/dL (7-18); CO2 41.2 mmol/L (21.0-32.0); Calcium 9.1 mg/dL (8.5-10.1); Chloride 101 mmol/L (98-107); Glucose 149 mg/dL (70-100); Potassium 3.8 mmol/L (3.5-5.1); Sodium 143 mmol/L (136-145)
[2018-07-31] MEDS: Budesonide/Formoterol 160/4.5 6 GM 60 PUFF INH IH (08:45)
[2018-07-31] MEDS: Polyethylene Glycol 3350 17 GM PACKET PO (08:51)
[2018-07-31] MEDS: Omeprazole 20 MG CAPCR PO ×2 (08:52→16:26)
[2018-07-31] MEDS: Potassium Chloride Liquid 20 MEQ PKT 40 MEQ PO ×2 (08:52→13:58)
[2018-07-31] MEDS: Furosemide 40 MG TAB PO ×2 (08:52→16:26)
[2018-07-31] MEDS: Metoprolol CR 25 MG TABCR PO (08:52)
[2018-07-31] MEDS: Insulin Aspart 300 UNITS/3 ML PEN SC ×5 (08:54→17:18)
[2018-07-31] MEDS: Nystatin CREAM 15 GM TUBE TP (08:58)
--- NOTE | 2018-07-31 09:07 | CMPROGNOTE_ITS ---
- If Service Date Differs Date of service: 07/31/18 Time of Service: 09:06 Care Management Progress Note S/O:CM met with Peter at the bedside. will meet with him today. CM continues to search for placement. [facility] Rajan wants to be in the [facility] area to be closer to family. However he will agree to placement outside that area r/t limited options. CM is awaiting decision on Trilogy device for now he remains on BIPAP. [employer] has requested more information related to patients underlying condition and need for Trilogy device. 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 Peter would like his wheelchair brought to the hospital so that he can work with PT for transfers. Peter has contacted his previous caregiver to request that the chair be brought in. Peter does have his video screen and game system here. Peter will transition to [facility] today for PT/OT and wound management. CM reviewed contract with the patient and completed assessment. A:Peter is a 58 year old male admitted with hospital acquired pneumonia pulmonary hypertension, with a history of chronic resp failure, ABHAY,Right ventricular failure, pulmonary hypertension, DM. Rajan also has chronic leg wounds that require dressing changes with unna boot. P: Peter will transition to SB1 today awaiting bed availability. [facility], [facility] and rehab in [facility], [facility]. CM contact each facility prior to faxing referral.
[2018-07-31] MEDS: Gabapentin 300 MG CAP 600 MG PO ×2 (09:39→13:58)
[2018-07-31] MEDS: Magnesium Oxide 400 MG TAB PO (09:39)
[2018-07-31] MEDS: Collagenase 30 GM TUBE TP (10:27)
--- NOTE | 2018-07-31 12:00 | PTTR_ITS ---
Date of service: 07/31/18 Time of Service: 11:59 PT Notes Inpatient Physical Therapy Treatment Note [facility] Date: 07/31/18 PRECAUTIONS: Fall SUBJECTIVE: Rajan reports that he continues to work independently on his UE strengthening program, with the Therabands provided by PT. OBJECTIVE: PAIN: No c/o pain BED MOBILITY/TRANSFERS Rolling L/R: I with bed rails THEREX: Patient completed a global strengthening program in a supine position, as per flow sheet. He was able to tolerate a slight progression in his program today, modifications made to repetitions are noted on flow sheet. He was also a ble to tolerate the addition of modified UBE cycling with green Theraband x2 minutes, as well. ASSESSMENT: Patient tolerated session with some fatigue with ther ex completion. He was able to tolerate a progression in his ther ex program today. He would benefit from continued strengthening and conditioning for improved cardiovascular endurance and activity tolerance. PLAN: Continue with PT's POC TREATMENT CODE/TIME: Session 1: 30 minutes; 89709 x2 Session 2: 30 minutes; 65209 x2
--- NOTE | 2018-07-31 16:44 | W.PALLCONSUL ---
Date of service: 07/31/18 History of Present Illness Chief Complaint: Goals of care conversation; code status decision making Narrative: Peter is a 58 yo man, morbidly obese, with BMI of >62. He weighs about 23 lbs less than he did one year ago (he thought he was down 100 lbs). He has ABHAY and uses CPAP at night. He is lying in a bariatric bed with an alternating air mattress He is not in any respiratory distress. He does not look acutely ill. We talked about his needing to move out of his community detention. He feels all right about this. He knows that he is not able to manage his multiple co-morbidities there adequately. Care management is looking into placement closer to his father and son, who live in [facility]. He said he would be willing to go to a nursing or community detention in [facility] or [place], wherever he can find a bed. He would prefer NOT to be in a half-way, but the benefit of being closer to family outweighs the negative aspects. We talked at length about his code status, and what it would mean practically if he changed it to DNR/DNI. I explained he would still be able to receive other care, including IV fluids and antibiotics, diagnostic imagining, admission for acute health problems. He was with his late when she coded. She was only 31 and she did not survive. He said it was traumatic to see what the ambulance crew had to do to her. I reminded him that this would be the same for him. I also reminded him that they only do CPR on people who have . It is an attempt to bring someone back. Given his multiple health problems, the chance of him coming back to the level of health his has now is very slim, likely < 3%. He wants to discuss this with his father and son. Consults Consult date: 07/31/18 Requesting physician: Dahlia Barr Assessment and Plan (1) Palliative care status: Current visit: Yes Status: Chronic I've been following Peter in the community and have seen him on other admissions. He is not improving. He in fact is worse than he was. His weight is not down significantly, despite his reports. His heart is more taxed by his weight. He has right-sided heart failure. He is not able to exercise. He doesn't get OOB. He doesn't feel safe doing so with his current mattress. He wants to get up. He wants to be more active. He wants to be able to transfer into his mobile wheelchair on his own. This is possible. He was getting into his manual wheelchair on his own at my last home visit. He will do better, I think, in a different living situation. He needs someone to hold him to his goals, as much as possible. He has a hard time doing this himself. Will see him again this week to discuss his CODE STATUS. See below. (2) Super-super obese: Current visit: No Status: Chronic Very much in denial about how heavy he is, how he is not making any real headway. I tried to print out a graph of his weights over the last 2 years but could not. No significant weight loss. Should be on a calorie restricted diet IN ADDITION to being as active as possible. Not a candidate any more for bariatric surgery due his heart failure. (3) Obstructive sleep apnea hypopnea, severe: Current visit: Yes Status: Chronic Does wear his CPAP. (4) Right ventricular systolic dysfunction: Current visit: Yes Status: Chronic Due to his weight, primarily. Continue cardiac meds. No contradiction to exercise. (5) Counseling regarding advance directives and goals of care: Current visit: Yes Status: Acute Majority of my visit spent on this topic. He wants to think about changing his CODE STATUS from FULL to DNR/DNI. Will bring him COLST to review and fill out this week, ideally. Definitely needs to have updated prior to discharge from [facility]. Review of Systems Constitutional Reports daytime sleepiness, Reports difficulty sleeping, Reports excessive sweating, Reports fatigue, Reports stops breathing during sleep and Reports weakness Eyes Reports dry eyes and Reports requires corrective lenses ENT Reports dental pain and Reports dry mouth Cardiovascular Reports palpitations, Reports dyspnea, Reports dyspnea on exertion and Reports paroxysmal nocturnal dyspnea Respiratory Reports dyspnea and Reports dyspnea on exertion Gastrointestinal Reports constipation Genitourinary Reports difficulty urinating and Reports urinary incontinence Musculoskeletal Reports arthralgias and Reports muscle weakness Integumentary/Breasts Reports dry skin and Reports skin ulcer Neurologic Reports weakness Psychiatric Reports abnormal sleep pattern and Reports anxiety Endocrine Reports excessive sweating, Reports fatigue and Reports palpitations Hematologic/Lymphatic Reports easy bruising [facility] Medical History Pressure ulcer (Chronic) Right rotator cuff tear (Chronic) Ascending aortic aneurysm (Chronic) Right ventricular dilation, secondary (Chronic) Right ventricular systolic dysfunction (Chronic) Chronic pain disorder (Chronic) Super-super obese (Chronic) Diabetes mellitus (Chronic) GERD (gastroesophageal reflux disease) (Chronic) Chronic anxiety (Chronic) Depression (Chronic) Chronic back pain (Chronic) Obstructive sleep apnea hypopnea, severe (Chronic) Iron deficiency anemia, unspecified (Chronic) Severe muscle deconditioning (Acute) Panniculitis of other sites (Resolved) Family History Father No problems noted. Son No problems noted. Social History adopted: No caregiver/support person: Yes foster care: No household members: caregiver housing: assisted living facility marital status details: about 17-18 years ago lives independently: No number of children: 1 number of grandchildren: 0 highest education level completed: high school graduate service: No current occupational status: disabled leisure activities: games Hx Recent Travel: No sexually active: No diet: diabetic well-balanced diet: about half the time daily servings fruits/ve-1 eating out: rarely or never reads food labels: sometimes during the past year weight has: increased > 10 lbs what type of physical activity do you participate in: none Smoking and Tabacco status: Former Tobacco Use Exam Const General: cooperative, comfortable, disheveled and ill appearing Nutritional Appearance: obese morbidly obese Orientation: alert, awake and oriented x3 HENMT Head: normocephalic and atraumatic Ears: hearing grossly normal bilaterally General nose exam: external nose normal Face and sinus: dry mucous membranes Teeth and gingiva: poor dentition Eyes Conjunctivae: conjunctivae normal Sclera: sclerae normal Neck Neck: normal visual inspection Resp Effort & Inspection: normal respiratory effort, able to speak in complete sentences, no nasal flaring and no pursed lip breathing Cardio Jugular venous pressure: no JVD GI Inspection: large pannus and obesity Skin General skin exam: dry skin Wounds: wounds noted Hair: general thinning Neuro General: alert, awake and oriented x3 Cognition: normal cognition Speech: speech normal Gait: gait assisted (was in bed during my exam; reports he has new motorized wheelchair ) Method: wheelchair bound Extrem General: clubbing, edema and muscle atrophy Psych Appearance: disheveled Speech and Movement: speech clear Mood: congruent mood Affect: normal affect Attitude: cooperative Thought Process: illogical and impoverished Thought Content: phobias (hates talking about or making any decisions related to ) Insight: limited Judgment: limited Results Last Vital Signs Temp 96.8 F L 07/31/18 08:02 Pulse 83 07/31/18 08:02 Resp 20 07/31/18 08:02 BP 107/72 07/31/18 08:02 Pulse Ox 92 L 07/31/18 09:46 Labs : 07/31/18 07:10 07/31/18 07:10 Laboratory Results - last 24 hr 07/31/18 07/31/18 07:10 07:10 WBC 6.73 RBC 4.28 L Hgb 9.9 L Hct 35.9 L MCV 83.9 MCH 23.1 L MCHC 27.6 L RDW 18.9 H Plt Count 430 H MPV 8.9 Immature Gran % 0.9 Neutrophils % 46.8 Lymphocytes % 37.4 Monocytes % 11.7 Eosinophils % 3.1 Basophils % 0.1 Absolute Neutrophils 3.14 Absolute Lymphocytes 2.52 Absolute Monocytes 0.79 H Absolute Eosinophils 0.21 Absolute Basophils 0.01 Sodium 143 Potassium 3.8 Chloride 101 Carbon Dioxide 41.2 H Anion Gap 0.8 L BUN 12 Creatinine 1.00 Estimated GFR/1.73 m2 >= 60.00 Glucose 149 H Calcium 9.1 Magnesium 2.0
--- NOTE | 2018-07-31 16:51 | PCNE_ITS ---
Date of service: 07/31/18 History of Present Illness Chief Complaint: Goals of care conversation; code status decision making Narrative: Peter is a 58 yo man, morbidly obese, with BMI of >62. He weighs about 23 lbs less than he did one year ago (he thought he was down 100 lbs). He has ABHAY and uses CPAP at night. He is lying in a bariatric bed with an alternating air mattress He is not in any respiratory distress. He does not look acutely ill. We talked about his needing to move out of his community mcc. He feels all right about this. He knows that he is not able to manage his multiple co- morbidities there adequately. Care management is looking into placement closer to his father and son, who live in [facility]. He said he would be willing to go to a nursing or community mcc in [facility] or [place], wherever he can find a bed. He would prefer NOT to be in a residential, but the benefit of being closer to family outweighs the negative aspects. We talked at length about his code status, and what it would mean practically if he changed it to DNR/DNI. I explained he would still be able to receive other care, including IV fluids and antibiotics, diagnostic imagining, admission for acute health problems. He was with his late when she coded. She was only 31 and she did not survive. He said it was traumatic to see what the ambulance crew had to do to her. I reminded him that this would be the same for him. I also reminded him that they only do CPR on people who have . It is an attempt to bring someone back. Given his multiple health problems, the chance of him coming back to the level of health his has now is very slim, likely < 3%. He wants to discuss this with his father and son. Consults Consult date: 07/31/18 Requesting physician: Dahlia Barr Assessment and Plan (1) Palliative care status: Current visit: Yes Status: Chronic I've been following Peter in the community and have seen him on other admissions. He is not improving. He in fact is worse than he was. His weight is not down si gnificantly, despite his reports. His heart is more taxed by his weight. He has right-sided heart failure. He is not able to exercise. He doesn't get OOB. He doesn't feel safe doing so with his current mattress. He wants to get up. He wants to be more active. He wants to be able to transfer into his mobile wheelchair on his own. This is possible. He was getting into his manual wheelchair on his own at my last home visit. He will do better, I think, in a different living situation. He needs someone to hold him to his goals, as much as possible. He has a hard time doing this himself. Will see him again this week to discuss his CODE STATUS. See below. (2) Super-super obese: Current visit: No Status: Chronic Very much in denial about how heavy he is, how he is not making any real headway. I tried to print out a graph of his weights over the last 2 years but could not. No significant weight loss. Should be on a calorie restricted diet IN ADDITION to being as active as possible. Not a candidate any more for bariatric surgery due his heart failure. (3) Obstructive sleep apnea hypopnea, severe: Current visit: Yes Status: Chronic Does wear his CPAP. (4) Right ventricular systolic dysfunction: Current visit: Yes Status: Chronic Due to his weight, primarily. Continue cardiac meds. No contradiction to exercise. (5) Counseling regarding advance directives and goals of care: Current visit: Yes Status: Acute Majority of my visit spent on this topic. He wants to think about changing his CODE STATUS from FULL to DNR/DNI. Will bring him COLST to review and fill out this week, ideally. Definitely needs to have updated prior to discharge from [facility]. Review of Systems Constitutional Reports daytime sleepiness, Reports difficulty sleeping, Reports excessive sweating, Reports fatigue, Reports stops breathing during sleep and Reports weakness Eyes Reports dry eyes and Reports requires corrective lenses ENT Reports dental pain and Reports dry mouth Cardiovascular Reports palpitations, Reports dyspnea, Reports dyspnea on exertion and Reports paroxysmal nocturnal dyspnea Respiratory Reports dyspnea and Reports dyspnea on exertion Gastrointestinal Reports constipation Genitourinary Reports difficulty urinating and Reports urinary incontinence Musculoskeletal Reports arthralgias and Reports muscle weakness Integumentary/Breasts Reports dry skin and Reports skin ulcer Neurologic Reports weakness Psychiatric Reports abnormal sleep pattern and Reports anxiety Endocrine Reports excessive sweating, Reports fatigue and Reports palpitations Hematologic/Lymphatic Reports easy bruising [facility] Medical History Pressure ulcer (Chronic) Right rotator cuff tear (Chronic) Ascending aortic aneurysm (Chronic) Right ventricular dilation, secondary (Chronic) Right ventricular systolic dysfunction (Chronic) Chronic pain disorder (Chronic) Super-super obese (Chronic) Diabetes mellitus (Chronic) GERD (gastroesophageal reflux disease) (Chronic) Chronic anxiety (Chronic) Depression (Chronic) Chronic back pain (Chronic) Obstructive sleep apnea hypopnea, severe (Chronic) Iron deficiency anemia, unspecified (Chronic) Severe muscle deconditioning (Acute) Panniculitis of other sites (Resolved) Family History Father No problems noted. Son No problems noted. Social History adopted: No caregiver/support person: Yes foster care: No household members: caregiver housing: assisted living facility marital status details: about 17-18 years ago lives independently: No number of children: 1 number of grandchildren: 0 highest education level completed: high school graduate service: No current occupational status: disabled leisure activities: games Hx Recent Travel: No sexually active: No diet: diabetic well-balanced diet: about half the time daily servings fruits/ve-1 eating out: rarely or never reads food labels: sometimes during the past year weight has: increased > 10 lbs what type of physical activity do you participate in: none Smoking and Tabacco status: Former Tobacco Use Exam Const General: cooperative, comfortable, disheveled and ill appearing Nutritional Appearance: obese morbidly obese Orientation: alert, awake and oriented x3 HENMT Head: normocephalic and atraumatic Ears: hearing grossly normal bilaterally General nose exam: external nose normal Face and sinus: dry mucous membranes Teeth and gingiva: poor dentition Eyes Conjunctivae: conjunctivae normal Sclera: sclerae normal Neck Neck: normal visual inspection Resp Effort & Inspection: normal respiratory effort, able to speak in complete sentences, no nasal flaring and no pursed lip breathing Cardio Jugular venous pressure: no JVD GI Inspection: large pannus and obesity Skin General skin exam: dry skin Wounds: wounds noted Hair: general thinning Neuro General: alert, awake and oriented x3 Cognition: normal cognition Speech: speech normal Gait: gait assisted (was in bed during my exam; reports he has new motorized wheelchair ) Method: wheelchair bound Extrem General: clubbing, edema and muscle atrophy Psych Appearance: disheveled Speech and Movement: speech clear Mood: congruent mood Affect: normal affect Attitude: cooperative Thought Process: illogical and impoverished Thought Content: phobias (hates talking about or making any decisions related to ) Insight: limited Judgment: limited Results Last Vital Signs Temp 96.8 F L 07/31/18 08:02 Pulse 83 07/31/18 08:02 Resp 20 07/31/18 08:02 BP 107/72 07/31/18 08:02 Pulse Ox 92 L 07/31/18 09:46 Labs : 07/31/18 07:10 07/31/18 07:10 Laboratory Results - last 24 hr 07/31/18 07/31/18 07:10 07:10 WBC 6.73 RBC 4.28 L Hgb 9.9 L Hct 35.9 L MCV 83.9 MCH 23.1 L MCHC 27.6 L RDW 18.9 H Plt Count 430 H MPV 8.9 Immature Gran % 0.9 Neutrophils % 46.8 Lymphocytes % 37.4 Monocytes % 11.7 Eosinophils % 3.1 Basophils % 0.1 Absolute Neutrophils 3.14 Absolute Lymphocytes 2.52 Absolute Monocytes 0.79 H Absolute Eosinophils 0.21 Absolute Basophils 0.01 Sodium 143 Potassium 3.8 Chloride 101 Carbon Dioxide 41.2 H Anion Gap 0.8 L BUN 12 Creatinine 1.00 Estimated GFR/1.73 m2 >= 60.00 Glucose 149 H Calcium 9.1 Magnesium 2.0
--- NOTE | 2018-07-31 17:22 | NUR.NOTE ---
pt will be d/c from acute to swing bed status. Look at account [id number] for wound assessments and shift assessments for today thanks. Nursing Note:
--- NOTE | 2018-07-31 17:48 | W.PM.DS.N ---
Date of service: 07/31/18 Time of Service: 17:48 DS: Diagnosis Discharge Diagnosis (1) Super-super obese: Status: Chronic (2) Obstructive sleep apnea hypopnea, severe: Status: Chronic (3) Right ventricular systolic dysfunction: Status: Chronic (4) Acute and chronic respiratory failure, unspecified whether with hypoxia or hypercapnia: Status: Acute (5) Steroid-induced hyperglycemia: Status: Acute (6) Acute on chronic diastolic (congestive) heart failure: Status: Acute (7) HCAP (healthcare-associated pneumonia): Status: Acute (8) Pressure ulcer: Status: Chronic Discharge Plan Disposition Patient Disposition: [facility] BED LEVEL 1 Condition: Stable Discharge Details Reason For Visit: HOSPITAL ACQUIRED PNEUMONIA Admit Date/Time: 07/23/18 16:50 Admit Provider: Jake Cordero Attending Provider: Jake Cordero Primary Care Provider: Tasneem Richardson Hospital Course Hospital Course: 58-year-old morbidly obese male that presented with hospital-acquired pneumonia. He was treated with IV antibiotics, oxygen support, noninvasive ventilatory support. His condition has stabilized, no longer febrile, no further fevers. He remains oxygen dependent. He continues to be hypercapnic with a bicarb of 41.2. The plan is continue noninvasive ventilatory support to treat his obesity hypoventilation syndrome. He is transitioning to chcf level of care until a chcf facility can accept him for transfer. Home Meds and New Rx's Prescriptions: New amitriptyline 25 mg Tablet 75 mg PO HS Qty: 30 RF: 0 Continued magnesium oxide 400 mg (241.3 mg magnesium) tablet 400 mg PO BID@1000,2200 Qty: 14 RF: 0 metoprolol succinate 25 mg tablet extended release 24 hr 25 mg PO DAILY Qty: 30 RF: 0 polyethylene glycol 3350 17 GM powder in packet 17 gm PO BID RF: 0 morphine [MS Contin] 60 MG tablet extended release 60 mg PO Q12H Qty: 30 RF: 0 Iodosorb 0.9 % Gel 40 gm topical Q12H Qty: 40 RF: 0 polyethylene glycol 3350 17 gram Powder In Packet 17 g PO DAILY PRN PRN (Reason: Constipation) Qty: 0 RF: 0 magnesium hydroxide [Milk of Magnesia] 400 mg/5 mL Suspension 30 ml PO DAILY PRN PRNQty: 0 RF: 0 Enema Disposable 19-7 gram/118 mL Enema 133 ml DC DAILY PRN PRNQty: 0 RF: 0 Symbicort 160-4.5 mcg/actuation Hfa Aerosol Inhaler 2 puff Inhalation BID Qty: 1 RF: 0 morphine 15 MG tablet 15 mg PO TID PRN PRNRF: 0 gabapentin 300 MG capsule 600 mg PO TID RF: 0 acetaminophen [Tylenol] 325 mg Tablet 325 mg PO Q6H PRNRF: 0 trazodone 150 mg Tablet 150 mg PO HS RF: 0 metformin 1,000 mg Tablet 1,000 mg PO BID RF: 0 nystatin 100,000 unit/gram Cream 1 applic TOPICAL BID RF: 0 losartan 25 mg Tablet 25 mg PO DAILY RF: 0 furosemide [Lasix] 40 mg Tablet 40 mg PO BID RF: 0 glipizide 10 mg Tablet 10 mg PO BID RF: 0 Glucagon Emergency Kit (human) 1 mg Recon Soln 1 mg IM PRN PRNRF: 0 omeprazole 20 mg Tablet,Delayed Release (Dr/Ec) 20 mg PO BID RF: 0 Tresiba FlexTouch U-200 200 unit/mL (3 mL) Insulin Pen 45 unit subcut DAILY RF: 0 Discontinued amitriptyline 50 MG tablet 150 mg PO HS RF: 0 Discharge Instructions Activity:: Activity as Tolerated Equipment/Supplies:: No Equipment Needed Diet:: Carb Counting Discharge Orders Discharge Orders: Discharge Order (Routine); Ordered 07/31/18 Ordered By: Lino Jain Exam Narrative Exam Narrative: Patient has no respiratory distress. He can lie flat in bed. He does require supplemental oxygen at 3 L via nasal cannula to maintain sats of 92%. His lung sounds are generally clear on the right and left heart sounds are muffled but regular abdomen is quite massively obese but no tenderness. The lower extremities he has dressings up to the knee bilaterally because of some ulcerations and to provide counterpressure. He has some ulcers behind the right buttocks there were covered with a DuoDERM dressing. DS: Data Vitals/I&O Vitals and I&O: Vital Signs Temperature 36.7 C 07/31/18 17:02 Temperature Source Tympanic 07/31/18 17:02 Pulse 85 07/31/18 17:02 Pulse Rhythm Regular 07/31/18 11:10 Pulse 96 H 07/23/18 17:20 Respiratory Rate 19 07/31/18 17:02 Respiratory Effort Non-Labored 07/31/18 11:10 Respiratory Depth Normal 07/31/18 11:10 Respiratory Pattern Normal 07/31/18 11:10 Blood Pressure 140/75 07/31/18 17:02 Blood Pressure Mean 102 07/23/18 17:16 Blood Pressure Position Supine 07/23/18 14:44 Pulse Oximetry 88 L 07/31/18 17:38 Oxygen Delivery Method Room Air 07/31/18 17:38 Oxygen Flow Rate 0 07/31/18 17:38 Fraction of Inspired Oxygen (FIO2) 32 07/27/18 10:10 Pain Level 6 07/31/18 16:26 Comment 07/31/18 17:38 Intake & Output 07/30/18 07/31/18 07/31/18 23:59 11:59 23:59 Intake Total 690 / 1340 1710 / 2060 350 / 2060 Output Total 2450 / 3700 1125 / 3025 1900 / 3025 Balance -1760 / -2360 585 / -965 -1550 / -965 Weight 207.5 kg Intake: IV 450 / 900 460 / 560 100 / 560 Oral 240 / 440 1250 / 1500 250 / 1500 Output: Urine 2450 / 3700 1125 / 3025 1900 / 3025 Other: Urine Color Yellow Yellow Yellow Urine Appearance Clear Clear Clear Urine Odor None Normal Comment pt voided in urinal and also spilled some of it. he stated next time he needed to void that he would ring his call rivera for assistance with the urinal Voiding Methods Urinal Urinal Urinal Labs on day of discharge: Labs from last 24 hours 07/31/18 07/31/18 07:10 07:10 WBC 6.73 RBC 4.28 L Hgb 9.9 L Hct 35.9 L MCV 83.9 MCH 23.1 L MCHC 27.6 L RDW 18.9 H Plt Count 430 H MPV 8.9 Immature Gran % 0.9 Neutrophils % 46.8 Lymphocytes % 37.4 Monocytes % 11.7 Eosinophils % 3.1 Basophils % 0.1 Absolute Neutrophils 3.14 Absolute Lymphocytes 2.52 Absolute Monocytes 0.79 H Absolute Eosinophils 0.21 Absolute Basophils 0.01 Sodium 143 Potassium 3.8 Chloride 101 Carbon Dioxide 41.2 H Anion Gap 0.8 L BUN 12 Creatinine 1.00 Estimated GFR/1.73 m2 >= 60.00 Glucose 149 H Calcium 9.1 Magnesium 2.0 [facility] Medical History Counseling regarding advance directives and goals of care (Acute) Palliative care status (Chronic) Acute and chronic respiratory failure, unspecified whether with hypoxia or hypercapnia (Acute) Right heart failure due to pulmonary hypertension (Acute) Acute on chronic diastolic (congestive) heart failure (Acute) Pressure ulcer (Chronic) Right rotator cuff tear (Chronic) Ascending aortic aneurysm (Chronic) Right ventricular dilation, secondary (Chronic) Right ventricular systolic dysfunction (Chronic) Chronic pain disorder (Chronic) Super-super obese (Chronic) Diabetes mellitus (Chronic) GERD (gastroesophageal reflux disease) (Chronic) Chronic anxiety (Chronic) Depression (Chronic) Chronic back pain (Chronic) Obstructive sleep apnea hypopnea, severe (Chronic) Iron deficiency anemia, unspecified (Chronic) Severe muscle deconditioning (Acute) Panniculitis of other sites (Resolved) Family History Father No problems noted. Son No problems noted. Social History adopted: No caregiver/support person: Yes foster care: No household members: caregiver housing: assisted living facility marital status details: about 17-18 years ago lives independently: No number of children: 1 number of grandchildren: 0 highest education level completed: high school graduate service: No current occupational status: disabled leisure activities: games Hx Recent Travel: No sexually active: No diet: diabetic well-balanced diet: about half the time daily servings fruits/ve-1 eating out: rarely or never reads food labels: sometimes during the past year weight has: increased > 10 lbs what type of physical activity do you participate in: none Smoking and Tabacco status: Former Tobacco Use
--- NOTE | 2018-08-14 10:08 | OTDS_ITS ---
Date of service: 07/31/18 Time of Service: 10:07 Occupational Therapy Notes Occupational Therapy Inpatient Discharge Summary Dates of Service: 07/25/18-08/01/18 Date: 08/01/18 for 07/31/18 Referring Doctor:Dahlia Barr MD OT Orders: Eval and Treat Precautions: Fall Precautions PATIENT PROFILE/ADMITTING DIAGNOSIS: Pt is a 58 year old male admitted to [facility] on 07/23/18 through the ER with a diagnosis of community acquired pneumonia. He had a recent hospitalization here at [facility] and returned home with HH assistance with an RN 3x/week for wound care. Past Medical History: Morbid obesity: Right rotator cuff repair: Ascending aortic aneurysm; right ventricular dilation; right ventricular systolic dysfunction; chronic pain; DM; GERD; anxiety and depression; ABHAY; anemia; multiple pressure ulcers with ongoing wound care through home health Social History/Home Situation: Pt lives in the basement level of his caretakers home. He has 24 hour care as well as 2 other residents in the home. His baseline is sitting in shower with max (A) for (B) LE, min (A) for dressing, (I) eating, he reports that he cooks meals in the microwave and is able to go grocery shopping. He has a wheelchair that he utilizes as well as an electric chair. He was not having a good experience in his current living situation due to another resident. He reported that the other resident does not let him utilize the toilet so he has been mainly utilizing a commode at this time. Equipment owned/DME: Bariatric Nori, BiPAP, hospital bed, trapeze, shower chair. Patient has home health services 3 times a week for wound care. THIS DOCUMENT SERVES A SUMMARY OF CARE NO SKILLED OT SERVICES PROVIDED TO COMPLETE THIS DOCUMENT SUBJECTIVE:NT OBJECTIVE: ROM: RUE WFL throughout L UE WFL throughout STRENGTH: RUE 3-/5 shoulder flexion, 3-/5 elbow, vocational nurse lvn is weak LUE 3-/5 shoulder flexion. 4-/5 elbow, vocational nurse lvn is weak FUNCTIONAL MOBILITY/ADLS: Bathing- Sitting in bed with max (A) set up pt was able to perform bathing routine UE (I). Dressing- don and doff hospital gown (I). Max (A) for donning and doffing (B) s ocks. BALANCE: Static sitting Good Dynamic Sitting Good Dynamic Standing Fair Static Standing Fair ASSESSMENT: Patient is a 58-year-old male referred to occupational therapy services with diagnosis of of community acquired pneumonia. Pt was seen for 3 skilled OT services. He recently went to [facility] rehabilitation status. Due to this OT will need new referral in order to provide skilled OT services if recommended per MD. GOALS 1. Transfers mod (A) to side of bed (MET) 2. Dressing- Sitting on side of the bed pt will be able to (I) don and doff UE clothing (MET for hospital gown) 3. Toileting- Pt will be able to perform toileting routine on commode with min (A) (NOT MET) PLAN OF CARE/TREATMENT PLAN: Pt was transitioned to [facility] rehabilitation status on 07/31/18. Due to this pt will require new OT referral if OT services are recommended per MD orders. DISCHARGE RECOMMENDATIONS OT recommends that pt go to SNF when medically cleared per MD. TREATMENT TIME/MINUTES/CODES N/A Verna Serra OTR/L [facility]
--- NOTE | 2018-08-14 10:11 | PT.DS ---
Date of service 07/31/18 PT Notes Inpatient PT Discharge Summary Dates: 08/07/2018 Dates of Service: 08/01/18 through 08/07/18 Referring Doctor: Dr. Lion Jain PT Orders: PT CONSULT: Morbid obesity with limited ambulation Precautions: Fall. Standard. 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 Patient Profile/Admitting Diagnosis: Patient was admitted on 07/23/2018 with a diagnosis of hospital-acquired pneumonia. He came in with chief complaints of dyspnea, hypoxemia, and weakness. Patient was discontinued from ICU on 07/31/2018 and is being evaluated under swing bed level as of today. 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 He states that he has 24 hour care as well as 2 other residents in the home. His baseline is sitting in shower with max (A) for (B) LE, min (A) for dressing, (I) eating, he reports that he cooks meals in the microwave and is able to go grocery shopping. He has a wheelchair that he utilizes as well as an electric chair. Pt reports that he is not having a good experience in his current living situation due to another resident. He reports that the other resident does not let him utilize the toilet so he has been mainly utilizing a commode at this time. Equipment Owned/DME: Bariatric Nori, BiPAP, hospital bed, trapeze, shower chair. Patient has home health services 3 times a week for wound care. Subjective: Patient was seen today lying in bed being assisted by charge nurse and WATER PROOFER for morning care and packing up. Patient seen today for discharge assessment but is unavailable as he is getting ready to be transported out of hospital by 10 AM today. He states that he is all set with his exercises and is looking forward to exercise progression to a shelter facility in [place] where he is headed today. Objective: General Observation: Super-super obese male. Mental Status: A and O x3 Pain: I have my usual pain but I manage's ROM: Right Upper Extremity: WFL, although with reports of right shoulder pain in end ranges of flexion Left Upper Extremity: WFL Right Lower Extremity: SLR only to 0-30 degrees, knee flexion 0-40 Left Lower Extremity: SLR 0-40 degrees, knee flexion 0-45 Strength: Right Upper Extremity: 4+/5 shoulder flexion. Triceps 4/5. Biceps 4+/5. Body Worker strong, patient able to pull on overhead trapeze/bed rail to help her position self. Left Upper Extremity: 4+/5 shoulder flexion. Triceps 4+/5. Biceps 4+/5. Body Worker strong, patient able to pull on overhead trapeze/bed rail to help her position self. Right Lower Extremity: Grossly 3-/5 Left Lower Extremity: Grossly 3-/5 Bed Mobility/Transfers: Supine sit: Independent, requires use of overhead trapeze and B UE Sit to supine: Independent, requires use of overhead trapeze and B UE Sit to stand: Dependent. Patient able to assume position with assist of 3. Stand to sit: Dependent. Patient able to assume position with assist of 3. Gait: Not tested due to safety issues. Balance: Static Sitting: Fair Dynamic Sitting: Fair Static Standing: Unable to assess Dynamic Standing: Unable to assess Special Tests: Mobility Limitations Standardized Measure [facility] 6 clicks Basic Mobility Inpatient Short Form: Raw Score: 9 CMS Score: 81% deficit Assessment: Patient is a 58 year old male referred to physical therapy services with the diagnosis of hospital-acquired pneumonia. Patient presents with clinical signs and symptoms consistent with mobility deficits related to current diagnosis, as demonstrated by the following impairment level findings: 1. Decreased functional upper extremity strength 2. Decreased functional lower extremities strength 3. Decreased balance 4. Decreased activity tolerance Impairments are contributing to the following functional limitations: 1. Unable to transfer to wheelchair 2. Unable to ambulate 3. Able to perform bed mobility 4. WHITLEY with minimal exertion Goals: Goals X1 week 1. Supine-Sit: Independent NOT MET 2. Sit-Supine: Independent NOT MET 3. Sit-Stand: Mod assist NOT MET 4. Stand-Sit : Mod assist NOT MET 5. Stand pivot transfer: Mod assist NOT MET 6. Motorized wheelchair management on floor independent NOT MET DISCHARGE RECOMMENDATIONS: Patient is transported today at 10 AM to a shelter facility in state [place], [place] with plan to continue with functional mobility training, transfer training, progressive strength training, caregiver education and training, and DME use/management. TREATMENT CODE/TIME: N/A Thank you for this referral. Karma Field, PT, DPT, CLT [facility]
--- NOTE | 2018-08-14 10:15 | PTDS_ITS ---
Date of service 07/31/18 PT Notes Inpatient PT Discharge Summary Dates: 08/07/2018 Dates of Service: 08/01/18 through 08/07/18 Referring Doctor: Dr. Lion Jain PT Orders: PT CONSULT: Morbid obesity with limited ambulation Precautions: Fall. Standard. 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 Patient Profile/Admitting Diagnosis: Patient was admitted on 07/23/2018 with a diagnosis of hospital-acquired pneumonia. He came in with chief complaints of dyspnea, hypoxemia, and weakness. Patient was discontinued from ICU on 07/31/2018 and is being evaluated under swing bed level as of today. 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 He states that he has 24 hour care as well as 2 other residents in the home. His baseline is sitting in shower with max (A) for (B) LE, min (A) for dressing, (I) eating, he reports that he cooks meals in the microwave and is able to go grocery shopping. He has a wheelchair that he utilizes as well as an electric chair. Pt reports that he is not having a good experience in his current living situation due to another resident. He reports that the other resident does not let him utilize the toilet so he has been mainly utilizing a commode at this time. Equipment Owned/DME: Bariatric Nori, BiPAP, hospital bed, trapeze, shower chair. Patient has home health services 3 times a week for wound care. Subjective: Patient was seen today lying in bed being assisted by charge nurse and EVAPORATOR HELPER for morning care and packing up. Patient seen today for discharge assessment but is unavailable as he is getting ready to be transported out of hospital by 10 AM today. He states that he is all set with his exercises and is looking forward to exercise progression to a [facility] facility in [place] where he is headed today. Objective: General Observation: Super-super obese male. Mental Status: A and O x3 Pain: I have my usual pain but I manage's ROM: Right Upper Extremity: WFL, although with reports of right shoulder pain in end ranges of flexion Left Upper Extremity: WFL Right Lower Extremity: SLR only to 0-30 degrees, knee flexion 0-40 Left Lower Extremity: SLR 0-40 degrees, knee flexion 0-45 Strength: Right Upper Extremity: 4+/5 shoulder flexion. Triceps 4/5. Biceps 4+/5. Bolter Helper strong, patient able to pull on overhead trapeze/bed rail to help her position self. Left Upper Extremity: 4+/5 shoulder flexion. Triceps 4+/5. Biceps 4+/5. Bolter Helper strong, patient able to pull on overhead trapeze/bed rail to help her position self. Right Lower Extremity: Grossly 3-/5 Left Lower Extremity: Grossly 3-/5 Bed Mobility/Transfers: Supine sit: Independent, requires use of overhead trapeze and B UE Sit to supine: Independent, requires use of overhead trapeze and B UE Sit to stand: Dependent. Patient able to assume position with assist of 3. Stand to sit: Dependent. Patient able to assume position with assist of 3. Gait: Not tested due to safety issues. Balance: Static Sitting: Fair Dynamic Sitting: Fair Static Standing: Unable to assess Dynamic Standing: Unable to assess Special Tests: Mobility Limitations Standardized Measure [facility] 6 clicks Basic Mobility Inpatient Short Form: Raw Score: 9 CMS Score: 81% deficit Assessment: Patient is a 58 year old male referred to physical therapy services with the diagnosis of hospital-acquired pneumonia. Patient presents with clinical signs and symptoms consistent with mobility deficits related to current diagnosis, as demonstrated by the following impairment level findings: 1. Decreased functional upper extremity strength 2. Decreased functional lower extremities strength 3. Decreased balance 4. Decreased activity tolerance Impairments are contributing to the following functional limitations: 1. Unable to transfer to wheelchair 2. Unable to ambulate 3. Able to perform bed mobility 4. WHITLEY with minimal exertion Goals: Goals X1 week 1. Supine-Sit: Independent NOT MET 2. Sit-Supine: Independent NOT MET 3. Sit-Stand: Mod assist NOT MET 4. Stand-Sit : Mod assist NOT MET 5. Stand pivot transfer: Mod assist NOT MET 6. Motorized wheelchair management on floor independent NOT MET DISCHARGE RECOMMENDATIONS: Patient is transported today at 10 AM to a [facility] facility in state [place], [place] with plan to continue with functional mobility training, transfer training, progressive strength training, caregiver education and training, and DME use/management. TREATMENT CODE/TIME: N/A Thank you for this referral. Karma Field, PT, DPT, CLT [facility]
--- NOTE | 2018-08-14 10:38 | PT.DS ---
Date of service 07/31/18 Time of Service 10:38 PT Notes Inpatient Physical Therapy Discharge Summary Dates: 07/31/2018 Dates of Service: 07/25/18-07/31/2018 Referring Doctor: Dahlia Barr MD PT Orders: PT CONSULT: Evaluate/treat. Precautions: Fall. Standard. 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 Patient Profile/Admitting Diagnosis: Patient was admitted on 07/23/2018 with a diagnosis of hospital-acquired pneumonia. He came in with chief complaints of dyspnea, hypoxemia, and weakness. 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 He states that he has 24 hour care as well as 2 other residents in the home. His baseline is sitting in shower with max (A) for (B) LE, min (A) for dressing, (I) eating, he reports that he cooks meals in the microwave and is able to go grocery shopping. He has a wheelchair that he utilizes as well as an electric chair. Pt reports that he is not having a good experience in his current living situation due to another resident. He reports that the other resident does not let him utilize the toilet so he has been mainly utilizing a commode at this time. Equipment Owned/DME: Bariatric Nori, BiPAP, hospital bed, trapeze, shower chair. Patient has home health services 3 times a week for wound care. This is a summary of of physical therapy care provided for patient in the duration of dates listed above. No treatment charge done for this discharge. Subjective: Per PT documentation on 07/31/2018 patient states that he has been trying to work on his upper extremity exercises using the exercise band at that REGIONAL FACILITIES SPECIALIST gave him. Patient denied any pain. Objective: General Observation: Super-super obese male. IV line in the right upper extremity. Bae catheter on. Mental Status: A and O x3 Pain: Per PT documentation on 07/31/2018, patient reported no pain throughout session. ROM: Right Upper Extremity: WFL, although with reports of right shoulder pain in end ranges of flexion Left Upper Extremity: WFL Right Lower Extremity: SLR only to 0-20 degrees, knee flexion 0-20 Left Lower Extremity: SLR 0-15 degrees, knee flexion 0-20 Strength: Right Upper Extremity: 4/5 shoulder flexion. Triceps 4/5. Biceps 4/5. Bakeshop Cleaner strong, patient able to pull on overhead trapeze/bed rail to help her position self. Left Upper Extremity: 4/5 shoulder flexion. Triceps 4/5. Biceps 4/5. Bakeshop Cleaner strong, patient able to pull on overhead trapeze/bed rail to help her position self. Right Lower Extremity: Grossly 3-/5 Left Lower Extremity: Grossly 3-/5 Bed Mobility/Transfers: Supine sit: Mod A, requires use of overhead trapeze. Sit to supine: Mod A, requires use of overhead trapeze. Sit to stand: Dependent. Patient able to assume position with assist of 3. Stand to sit: Dependent. Patient able to assume position with assist of 3. Gait: Not tested due to safety issues. Balance: Static Sitting: Fair Dynamic Sitting: Fair Static Standing: Unable to obtain Dynamic Standing: Unable Special Tests: Mobility Limitations Standardized Measure [facility] 6 clicks Basic Mobility Inpatient Short Form: Raw Score: 8 CMS Score: 87% deficit Treatment: Today's session consisted of evaluation, followed by instruction in therex program for supine and seated activities as noted on flowsheet. Assessment: Patient is a 58 year old male referred to physical therapy services with the diagnosis of hospital-acquired pneumonia. He was discharged as of 07/31/2018 from inpatient and will convert to swing bed level as of 08/01/2018 with same physical therapy plan of care as initially established. Patient continues present with clinical signs and symptoms consistent with mobility deficits related to current diagnosis, as demonstrated by the following impairment level findings: 1. Decreased functional upper extremity strength 2. Decreased functional lower extremities strength 3. Decreased balance 4. Decreased activity tolerance Impairments are contributing to the following functional limitations: 1. Unable to transfer to wheelchair 2. Unable to ambulate 3. Able to perform bed mobility 4. WHITLEY with minimal exertion Patient is assessed as High [id number] complexity based on the following: History: 58-year-old male with super super obesity and multiple chronic medical issues, being treated in acute care setting for healthcare acquired pneumonia. Patient has a long history of falls including previous falls in this hospital and 2 falls at home yesterday. Examination: Functional limitations as noted above Presentation: Unstable Decision Making: High complexity Goals: Goals X1 week 1. Supine-Sit: Independent NOT MET 2. Sit-Supine: Independent NOT MET 3. Sit-Stand: Mod assist NOT MET 4. Stand-Sit : Mod assist NOT MET 5. Stand pivot transfer: Mod assist NOT MET DISCHARGE RECOMMENDATIONS: Patient to be reevaluated on 08/01/2018 on swing bed level with continued PT plan of care to progress bed mobility and transfer level to prior level of function. Thank you for this referral. Karma Field, PT, DPT, CLT [facility]
== END 2018-07-31 18:46 | disposition swing bed (61) | DRG 291 ==
LOC: ER 17:06 → MS 17:53
PROVIDERS: Internal Medicine; Nurse Practitioner Family; Admitting Provider Internal Medicine; Emergency Provider Student in an Organized Health Care Education/Training Program; PCP Nurse Practitioner Family; Visit Provider Family Medicine
DX: I50.33 Acute on chronic diastolic (congestive) heart failure (principal); J96.22 Acute and chronic respiratory failure with hypercapnia; J96.21 Acute and chronic respiratory failure with hypoxia; J15.5 Pneumonia due to Escherichia coli; J15.212 Pneumonia due to Methicillin resistant Staphylococcus aureus; Z68.44 Body mass index [BMI] 60.0-69.9, adult; L97.812 Non-pressure chronic ulcer of other part of right lower leg with fat layer exposed; L97.821 Non-pressure chronic ulcer of other part of left lower leg limited to breakdown of skin; I27.29 Other secondary pulmonary hypertension; I50.810 Right heart failure, unspecified; E66.01 Morbid (severe) obesity due to excess calories; Y95 Nosocomial condition; G47.33 Obstructive sleep apnea (adult) (pediatric); E11.65 Type 2 diabetes mellitus with hyperglycemia; T38.0X5A Adverse effect of glucocorticoids and synthetic analogues, initial encounter; Z51.5 Encounter for palliative care; I51.7 Cardiomegaly; I71.4 Abdominal aortic aneurysm, without rupture; Z79.4 Long term (current) use of insulin; R13.11 Dysphagia, oral phase; I83.018 Varicose veins of right lower extremity with ulcer other part of lower leg; I83.028 Varicose veins of left lower extremity with ulcer other part of lower leg; Z91.19 Patient's noncompliance with other medical treatment and regimen; E11.621 Type 2 diabetes mellitus with foot ulcer; L97.519 Non-pressure chronic ulcer of other part of right foot with unspecified severity; L89.159 Pressure ulcer of sacral region, unspecified stage
CPT/HCPCS: 36415; 36569; 80048; 80053; 82805; 87077; 92610; 93306; 94640; 96365; 96367; 96375; 97110; 97163; 97166; 97530; 97535; 99223; 99232; 99233; 99239; 99254; 99285; G8996; J1650; 36600; 71045; 80202; 83735; 83880; 84439; 84443; 84484; 85025; 87070; 87186; 87205; 92507; 94660; J0456; J1940; J2543; J3370; J3475; J3490

== ENCOUNTER 2018-07-31 18:34 | Inpatient (IN) | payer MEDICARE, MEDICAID, SELFPAY ==
--- NOTE | 2018-07-31 17:25 | CMPROGNOTE_ITS ---
- If Service Date Differs Date of service: 07/31/18 Time of Service: 17:25 Care Management Progress Note S/O:CM met with Peter at the bedside. will meet with him today. CM continues to search for placement. Several [facility] with [facility] Rajan wants to be in the [facility] area to be closer to family. However he will agree to placement outside that area r/t limited options. CM is awaiting decision on Trilogy device for now he remains on BIPAP. [facility] has requested more information related to patients underlying condition and need for Trilogy device. plumbing engineering draftsperson at [facility] Livia Dick [phone]. Peter would like his wheelchair brought to the hospital so that he can work with PT for transfers. Peter has contacted his previous caregiver to request that the chair be brought in. Peter does have his video screen and game system here. Peter will transition to [facility] today for PT/OT and wound management. CM reviewed contract with the patient and completed assessment. A:Peter is a 58 year old male admitted with hospital acquired pneumonia pulmonary hypertension, with a history of chronic resp failure, ABHAY,Right ventricular failure, pulmonary hypertension, DM. Rajan also has chronic leg wounds that require dressing changes with unna boot. P: Peter will transition to SB1 today awaiting bed availability. Referrals have been fax[facility] to [facility], [facility], [place] and rehab in [facility], [facility]. CM contact each facility prior to faxing referral.
--- NOTE | 2018-07-31 18:37 | W.PM.HP.N ---
Date of service: 07/31/18 Time of Service: 18:37 Assessment and Plan (1) Obesity hypoventilation syndrome: Current visit: Yes Status: Acute Patient continues to be BiPAP dependent. Were trying to transition him to the trilogy device for his comfort and ongoing safety. Continue to monitor his bicarb levels and for any evidence of somnolence as he runs a very high carbon dioxide level at baseline. (2) HCAP (healthcare-associated pneumonia): Current visit: Yes Status: Acute Completed 7 days of antibiotic therapy for healthcare associated pneumonia. He is lung exam is consistent with improvement he no longer is having any evidence of fever or elevated white count. Will DC antibiotics and monitor is progress (3) Discharge planning issues: Current visit: Yes Status: Acute Admitted to [address] We will have physical therapy see him for mobility issues. Continue a calorie restricted diet/carbohydrate controlled diet. He remains a full code. History of Present Illness Chief Complaint: Obesity hypoventilation syndrome/hypercapnia Narrative: This is a 58-year-old man with severe morbid obesity that has been BiPAP dependent for quite some time. He presented on 07/23/2018 with healthcare associated pneumonia. He was treated with vancomycin and Zosyn for the next 7 days and his respiratory status stabilized. Unfortunately he continues to be O2 dependent to some degree and remains BiPAP dependent at night. He has been compliant with his BiPAP at 30/25, limited only by some air leakage around his mask. Respiratory therapy has been working with him to get a trilogy device which should be able to handle his high pressures a little better. Unfortunately his current living situation in a [facility] [place] [facility] is not able to be continued. He is transitioning to [facility] in anticipation of transfer to a fpc facility once available. Review of Systems Review of Systems In general he feels well and close to his baseline. He does note that his O2 sat will drop to 84% on room air which is new for him. He is able to supplement with nasal cannula oxygen and feels stable on this. He denies any problems with chest pain. He has no shortness of breath lying flat. He is not all at mobile but is able to assist getting himself upright and can take a few steps. He otherwise gets around in a wheelchair. He has several pressure ulcers on his lower legs and behind his legs and buttocks. These are monitored and dressed by home. [facility] Social History adopted: No caregiver/support person: Yes foster care: No household members: caregiver housing: assisted living facility marital status details: about 17-18 years ago lives independently: No number of children: 1 number of grandchildren: 0 highest education level completed: high school graduate service: No current occupational status: disabled leisure activities: games Hx Recent Travel: No sexually active: No diet: diabetic well-balanced diet: about half the time daily servings fruits/ve-1 eating out: rarely or never reads food labels: sometimes during the past year weight has: increased > 10 lbs what type of physical activity do you participate in: none Smoking and Tabacco status: Former Tobacco Use Meds Home Medications Medication Instructions Recorded Confirmed Type gabapentin 600 mg PO TID 04/11/17 07/23/18 History morphine 15 mg PO TID PRN PRN 04/11/17 07/23/18 History morphine [MS Contin] 60 mg PO Q12H #30 tabcr 11/03/17 07/23/18 Rx polyethylene glycol 3350 17 gm PO BID packet 11/03/17 07/23/18 Rx acetaminophen [Tylenol] 325 mg PO Q6H PRN 02/22/18 07/23/18 History losartan 25 mg PO DAILY 02/22/18 07/23/18 History metformin 1,000 mg PO BID 02/22/18 07/23/18 History nystatin 1 applic TOPICAL BID 02/22/18 07/23/18 History trazodone 150 mg PO HS 02/22/18 07/23/18 History Glucagon Emergency Kit (human) 1 mg IM PRN PRN 03/16/18 07/23/18 History Tresiba FlexTouch U-200 45 unit SUBCUT DAILY 03/16/18 07/23/18 History furosemide [Lasix] 40 mg PO BID 03/16/18 07/23/18 History glipizide 10 mg PO BID 03/16/18 07/23/18 History omeprazole 20 mg PO BID 03/16/18 07/23/18 History Iodosorb 40 gm TOPICAL Q12H #40 gm 06/24/18 07/23/18 Rx Enema Disposable 133 ml TX DAILY PRN PRN #0 ml 02/15/19 03/04/19 Rx Symbicort 2 puff INHALATION BID #1 inh 07/06/18 07/23/18 Rx magnesium hydroxide [Milk of 30 ml PO DAILY PRN PRN #0 ml 07/06/18 07/23/18 Rx Magnesia] polyethylene glycol 3350 17 g PO DAILY PRN PRN #0 ea 07/06/18 Rx magnesium oxide 400 mg (241.3 mg 400 mg PO BID@1000,2200 #14 tab 07/07/18 07/23/18 Rx magnesium) tablet metoprolol succinate ER 25 mg 25 mg PO DAILY #30 tab 07/07/18 07/23/18 Rx tablet,extended release 24 hr amitriptyline 75 mg PO HS #30 tab 07/31/18 Rx Allergies Allergy/AdvReac Type Severity Reaction Status Date / Time ketorolac Allergy Unverified 07/23/18 14:56 lisinopril Allergy Unverified 07/23/18 14:56 methadone Allergy Unverified 07/23/18 14:56 oxycodone [From OxyContin] Allergy Unverified 07/23/18 14:56 Exam Narrative Exam Narrative: On exam he is alert and coherent and in no apparent distress. He is fully cooperative with the exam. He is able to roll side to side to allow me to examine him. His lung sounds are clear on the right and left. His heart sounds are muffled and distant but sound regular I do not appreciate a significant murmur. His abdomen is quite massively obese but there is no tenderness to palpation. The decubital area has shallow ulcerations that are dressed with a DuoDERM type dressing. His lower extremities are wrapped with compression wraps which I did not take down. He apparently has a few shallow ulcerations on both lower extremities. Neurologically displayed no focal deficits. He is wearing nasal cannula oxygen at the time of my exam.
--- NOTE | 2018-07-31 18:45 | HPE_ITS ---
Date of service: 07/31/18 Time of Service: 18:37 Assessment and Plan (1) Obesity hypoventilation syndrome: Current visit: Yes Status: Acute Patient continues to be BiPAP dependent. Were trying to transition him to the trilogy device for his comfort and ongoing safety. Continue to monitor his bicarb levels and for any evidence of somnolence as he runs a very high carbon dioxide level at baseline. (2) HCAP (healthcare-associated pneumonia): Current visit: Yes Status: Acute Completed 7 days of antibiotic therapy for healthcare associated pneumonia. He is lung exam is consistent with improvement he no longer is having any evidence of fever or elevated white count. Will DC antibiotics and monitor is progress (3) Discharge planning issues: Current visit: Yes Status: Acute Admitted to [address] We will have physical therapy see him for mobility issues. Continue a calorie restricted diet/carbohydrate controlled diet. He remains a full code. History of Present Illness Chief Complaint: Obesity hypoventilation syndrome/hypercapnia Narrative: This is a 58-year-old man with severe morbid obesity that has been BiPAP dependent for quite some time. He presented on 07/23/2018 with healthcare associated pneumonia. He was treated with vancomycin and Zosyn for the next 7 days and his respiratory status stabilized. Unfortunately he continues to be O2 dependent to some degree and remains BiPAP dependent at night. He has been compliant with his BiPAP at 30/25, limited only by some air leakage around his mask. Respiratory therapy has been working with him to get a trilogy device which should be able to handle his high pressures a little better. Unfortunately his current living situation in a community intermediate is not able to be continued. He is transitioning to [facility] in anticipation of transfer to a long term facility once available. Review of Systems Review of Systems In general he feels well and close to his baseline. He does note that his O2 sat will drop to 84% on room air which is new for him. He is able to supplement with nasal cannula oxygen and feels stable on this. He denies any problems with chest pain. He has no shortness of breath lying flat. He is not all at mobile but is able to assist getting himself upright and can take a few steps. He otherwise gets around in a wheelchair. He has several pressure ulcers on his lower legs and behind his legs and buttocks. These are monitored and dressed by home. [facility] Social History adopted: No caregiver/support person: Yes foster care: No household members: caregiver housing: assisted living facility marital status details: about 17-18 years ago lives independently: No number of children: 1 number of grandchildren: 0 highest education level completed: high school graduate service: No current occupational status: disabled leisure activities: games Hx Recent Travel: No sexually active: No diet: diabetic well-balanced diet: about half the time daily servings fruits/ve-1 eating out: rarely or never reads food labels: sometimes during the past year weight has: increased > 10 lbs what type of physical activity do you participate in: none Smoking and Tabacco status: Former Tobacco Use Meds Home Medications Medication Instructions Recorded Confirmed Type gabapentin 600 mg PO TID 04/11/17 07/23/18 History morphine 15 mg PO TID PRN PRN 04/11/17 07/23/18 History morphine [MS Contin] 60 mg PO Q12H #30 tabcr 11/03/17 07/23/18 Rx polyethylene glycol 3350 17 gm PO BID packet 11/03/17 07/23/18 Rx acetaminophen [Tylenol] 325 mg PO Q6H PRN 02/22/18 07/23/18 History losartan 25 mg PO DAILY 02/22/18 07/23/18 History metformin 1,000 mg PO BID 02/22/18 07/23/18 History nystatin 1 applic TOPICAL BID 02/22/18 07/23/18 History trazodone 150 mg PO HS 02/22/18 07/23/18 History Glucagon Emergency Kit (human) 1 mg IM PRN PRN 03/16/18 07/23/18 History Tresiba FlexTouch U-200 45 unit SUBCUT DAILY 03/16/18 07/23/18 History furosemide [Lasix] 40 mg PO BID 03/16/18 07/23/18 History glipizide 10 mg PO BID 03/16/18 07/23/18 History omeprazole 20 mg PO BID 03/16/18 07/23/18 History Iodosorb 40 gm TOPICAL Q12H #40 gm 06/24/18 07/23/18 Rx Enema Disposable 133 ml GA DAILY PRN PRN #0 ml 02/15/19 03/04/19 Rx Symbicort 2 puff INHALATION BID #1 inh 07/06/18 07/23/18 Rx magnesium hydroxide [Milk of 30 ml PO DAILY PRN PRN #0 ml 07/06/18 07/23/18 Rx Magnesia] polyethylene glycol 3350 17 g PO DAILY PRN PRN #0 ea 07/06/18 Rx magnesium oxide 400 mg (241.3 mg 400 mg PO BID@1000,2200 #14 tab 07/07/18 07/23/18 Rx magnesium) tablet metoprolol succinate ER 25 mg 25 mg PO DAILY #30 tab 07/07/18 07/23/18 Rx tablet,extended release 24 hr amitriptyline 75 mg PO HS #30 tab 07/31/18 Rx Allergies Allergy/AdvReac Type Severity Reaction Status Date / Time ketorolac Allergy Unverified 07/23/18 14:56 lisinopril Allergy Unverified 07/23/18 14:56 methadone Allergy Unverified 07/23/18 14:56 oxycodone [From OxyContin] Allergy Unverified 07/23/18 14:56 Exam Narrative Exam Narrative: On exam he is alert and coherent and in no apparent distress. He is fully cooperative with the exam. He is able to roll side to side to allow me to examine him. His lung sounds are clear on the right and left. His heart sounds are muffled and distant but sound regular I do not appreciate a significant murmur. His abdomen is quite massively obese but there is no tenderness to palpation. The decubital area has shallow ulcerations that are dressed with a DuoDERM type dressing. His lower extremities are wrapped with compression wraps which I did not take down. He apparently has a few shallow ulcerations on both lower extremities. Neurologically displayed no focal deficits. He is wearing nasal cannula oxygen at the time of my exam.
[2018-07-31 20:15] VITALS: BP 132/84; PULSE 89; RESP 20; TEMP 36.9; O2SAT 92
[2018-07-31] MEDS: Budesonide/Formoterol 160/4.5 6 GM 60 PUFF INH IH (20:21)
[2018-07-31] MEDS: Potassium Chloride Liquid 20 MEQ PKT 40 MEQ PO (20:22)
[2018-07-31] MEDS: Gabapentin 300 MG CAP 600 MG PO (20:23)
[2018-07-31] MEDS: Enoxaparin 40 MG/0.4 ML SYR SC (20:24)
[2018-07-31] MEDS: Nystatin CREAM 15 GM TUBE TP (20:40)
[2018-07-31] MEDS: Amitriptyline 25 MG TAB 75 MG PO (22:15)
[2018-07-31] MEDS: traZODone 50 MG TAB 150 MG PO (22:15)
[2018-07-31] MEDS: Magnesium Oxide 400 MG TAB PO (22:16)
[2018-07-31] MEDS: Insulin Glargine 300 UNITS/3 ML PEN 45 UNITS SC (22:21)
[2018-07-31] MEDS: Insulin Aspart 300 UNITS/3 ML PEN SC (22:24)
[2018-07-31 23:36] VITALS: BP 112/70; PULSE 78; RESP 18; TEMP 36.5; O2SAT 90
[2018-08-01 07:14] LABS: Abs Immature Grans 0.07 k/cumm (0.0-0.09); Absolute Basophil Count 0.02 k/cumm (0.0-0.2); Absolute Eosinophil Count 0.18 k/cumm (0.0-0.7); Absolute Lymphocyte Count 2.85 k/cumm (1.2-3.4); Absolute Monocyte Count 0.81 k/cumm (0.11-0.7); Absolute Neutrophil Count 3.62 k/cumm (1.2-6.7); Basophils % 0.3; Eosinophils % 2.4; HCT 37.9 % (40.0-50.0); HGB 10.5 g/dL (13.5-17.5); Immature Grans % 0.9; Lymphocytes % 37.7; Mean Corp. HGB Concentration 27.7 g/dL (32.0-36.0); Mean Corpuscular Hemoglobin 23.2 pg (27.0-33.0); Mean Corpuscular Volume 83.7 fL (80-95); Mean Platelet Volume 9.5 fL (8.0-11.0); Monocytes % 10.7; Platelet Count 419 x1000/uL (130-400); RBC 4.53 m/cumm (4.50-6.00); RBC Distribution Width 18.8 % (11.8-14.1); White Blood Cell Count 7.55 k/cumm (4.4-10.8)
[2018-08-01 07:32] VITALS: BP 135/74; PULSE 64; RESP 13; TEMP 36.7; O2SAT 90
[2018-08-01 07:46] LABS: Anion Gap 1.4 mmol/L (3-11); BUN 12 mg/dL (7-18); CO2 39.6 mmol/L (21.0-32.0); CREATININE 0.91 mg/dL (0.70-1.30); Calcium 9.2 mg/dL (8.5-10.1); Chloride 99 mmol/L (98-107); Glucose 165 mg/dL (70-100); Potassium 4.3 mmol/L (3.5-5.1); Sodium 140 mmol/L (136-145)
[2018-08-01] MEDS: Furosemide 40 MG TAB PO ×2 (08:28→16:24)
[2018-08-01] MEDS: Omeprazole 20 MG CAPCR PO ×2 (08:29→16:24)
[2018-08-01] MEDS: Gabapentin 300 MG CAP 600 MG PO ×3 (08:29→20:18)
[2018-08-01] MEDS: Metoprolol CR 25 MG TABCR PO (08:29)
[2018-08-01] MEDS: Losartan 25 MG TAB PO (08:29)
[2018-08-01] MEDS: Potassium Chloride Liquid 20 MEQ PKT 40 MEQ PO ×3 (08:29→20:17)
--- NOTE | 2018-08-01 08:36 | OT.INDS ---
Date of service: 08/01/18 Time of Service: 08:37 Occupational Therapy Notes Occupational Therapy Inpatient Discharge Summary Dates of Service: 07/25/18-08/01/18 Date: 08/01/18 for 07/31/18 Referring Doctor:Dahlia Barr MD OT Orders: Eval and Treat Precautions: Fall Precautions PATIENT PROFILE/ADMITTING DIAGNOSIS: Pt is a 58 year old male admitted to [facility] on 07/23/18 through the ER with a diagnosis of community acquired pneumonia. He had a recent hospitalization here at [facility] and returned home with HH assistance with an RN 3x/week for wound care. Past Medical History: Morbid obesity: Right rotator cuff repair: Ascending aortic aneurysm; right ventricular dilation; right ventricular systolic dysfunction; chronic pain; DM; GERD; anxiety and depression; ABHAY; anemia; multiple pressure ulcers with ongoing wound care through home health Social History/Home Situation: Pt lives in the basement level of his caretakers home. He has 24 hour care as well as 2 other residents in the home. His baseline is sitting in shower with max (A) for (B) LE, min (A) for dressing, (I) eating, he reports that he cooks meals in the microwave and is able to go grocery shopping. He has a wheelchair that he utilizes as well as an electric chair. He was not having a good experience in his current living situation due to another resident. He reported that the other resident does not let him utilize the toilet so he has been mainly utilizing a commode at this time. Equipment owned/DME: Bariatric Nori, BiPAP, hospital bed, trapeze, shower chair. Patient has home health services 3 times a week for wound care. THIS DOCUMENT SERVES A SUMMARY OF CARE NO SKILLED OT SERVICES PROVIDED TO COMPLETE THIS DOCUMENT SUBJECTIVE:NT OBJECTIVE: ROM: RUE WFL throughout L UE WFL throughout STRENGTH: RUE 3-/5 shoulder flexion, 3-/5 elbow, final canoe inspector is weak LUE 3-/5 shoulder flexion. 4-/5 elbow, final canoe inspector is weak FUNCTIONAL MOBILITY/ADLS: Bathing- Sitting in bed with max (A) set up pt was able to perform bathing routine UE (I). Dressing- don and doff hospital gown (I). Max (A) for donning and doffing (B) socks. BALANCE: Static sitting Good Dynamic Sitting Good Dynamic Standing Fair Static Standing Fair ASSESSMENT: Patient is a 58-year-old male referred to occupational therapy services with diagnosis of of community acquired pneumonia. Pt was seen for 3 skilled OT services. He recently went to [facility] [place]. Due to this OT will need new referral in order to provide skilled OT services if recommended per MD. GOALS 1. Transfers mod (A) to side of bed (MET) 2. Dressing- Sitting on side of the bed pt will be able to (I) don and doff UE clothing (MET for hospital gown) 3. Toileting- Pt will be able to perform toileting routine on commode with min (A) (NOT MET) PLAN OF CARE/TREATMENT PLAN: Pt was transitioned to [facility] rehabilitation status on 07/31/18. Due to this pt will require new OT referral if OT services are recommended per MD orders. DISCHARGE RECOMMENDATIONS OT recommends that pt go to SNF when medically cleared per MD. TREATMENT TIME/MINUTES/CODES N/A Verna Serra OTR/L [facility]
--- NOTE | 2018-08-01 08:42 | OTDS_ITS ---
Date of service: 08/01/18 Time of Service: 08:37 Occupational Therapy Notes Occupational Therapy Inpatient Discharge Summary Dates of Service: 07/25/18-08/01/18 Date: 08/01/18 for 07/31/18 Referring Doctor:Dahlia Barr MD OT Orders: Eval and Treat Precautions: Fall Precautions PATIENT PROFILE/ADMITTING DIAGNOSIS: Pt is a 58 year old male admitted to [facility] on 07/23/18 through the ER with a diagnosis of community acquired pneumonia. He had a recent hospitalization here at [facility] and returned home with HH assistance with an RN 3x/week for wound care. Past Medical History: Morbid obesity: Right rotator cuff repair: Ascending aortic aneurysm; right ventricular dilation; right ventricular systolic dysfunction; chronic pain; DM; GERD; anxiety and depression; ABHAY; anemia; multiple pressure ulcers with ongoing wound care through home health Social History/Home Situation: Pt lives in the basement level of his caretakers home. He has 24 hour care as well as 2 other residents in the home. His baseline is sitting in shower with max (A) for (B) LE, min (A) for dressing, (I) eating, he reports that he cooks meals in the microwave and is able to go grocery shopping. He has a wheelchair that he utilizes as well as an electric chair. He was not having a good experience in his current living situation due to another resident. He reported that the other resident does not let him utilize the toilet so he has been mainly utilizing a commode at this time. Equipment owned/DME: Bariatric Nori, BiPAP, hospital bed, trapeze, shower chair. Patient has home health services 3 times a week for wound care. THIS DOCUMENT SERVES A SUMMARY OF CARE NO SKILLED OT SERVICES PROVIDED TO COMPLETE THIS DOCUMENT SUBJECTIVE:NT OBJECTIVE: ROM: RUE WFL throughout L UE WFL throughout STRENGTH: RUE 3-/5 shoulder flexion, 3-/5 elbow, biodiesel engineering manager is weak LUE 3-/5 shoulder flexion. 4-/5 elbow, biodiesel engineering manager is weak FUNCTIONAL MOBILITY/ADLS: Bathing- Sitting in bed with max (A) set up pt was able to perform bathing routine UE (I). Dressing- don and doff hospital gown (I). Max (A) for donning and doffing (B) socks. BALANCE: Static sitting Good Dynamic Sitting Good Dynamic Standing Fair Static Standing Fair ASSESSMENT: Patient is a 58-year-old male referred to occupational therapy services with diagnosis of of community acquired pneumonia. Pt was seen for 3 skilled OT services. He recently went to [facility] rehabilitation status. Due to this OT will need new referral in order to provide skilled OT services if recommended per MD. GOALS 1. Transfers mod (A) to side of bed (MET) 2. Dressing- Sitting on side of the bed pt will be able to (I) don and doff UE clothing (MET for hospital gown) 3. Toileting- Pt will be able to perform toileting routine on commode with min (A) (NOT MET) PLAN OF CARE/TREATMENT PLAN: Pt was transitioned to [facility] rehabilitation status on 07/31/18. Due to this pt will require new OT referral if OT services are recommended per MD orders. DISCHARGE RECOMMENDATIONS OT recommends that pt go to SNF when medically cleared per MD. TREATMENT TIME/MINUTES/CODES N/A Verna Serra OTR/L [facility]
[2018-08-01] MEDS: Insulin Aspart 300 UNITS/3 ML PEN SC ×7 (08:45→22:25)
[2018-08-01] MEDS: Budesonide/Formoterol 160/4.5 6 GM 60 PUFF INH IH ×2 (08:58→20:21)
--- NOTE | 2018-08-01 09:02 | PT.INDS ---
Date of service: 07/31/18 PT Notes Inpatient Physical Therapy Discharge Summary Dates: 07/31/2018 Dates of Service: 07/25/18-07/31/2018 Referring Doctor: Dahlia Barr MD PT Orders: PT CONSULT: Evaluate/treat. Precautions: Fall. Standard. 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 Patient Profile/Admitting Diagnosis: Patient was admitted on 07/23/2018 with a diagnosis of hospital-acquired pneumonia. He came in with chief complaints of dyspnea, hypoxemia, and weakness. 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 Per OT documentation: pt lives in the basement level of his professor of social work's home. He states that he has 24 hour care as well as 2 other residents in the home. His baseline is sitting in shower with max (A) for (B) LE, min (A) for dressing, (I) eating, he reports that he cooks meals in the microwave and is able to go grocery shopping. He has a wheelchair that he utilizes as well as an electric chair. Pt reports that he is not having a good experience in his current living situation due to another resident. He reports that the other resident does not let him utilize the toilet so he has been mainly utilizing a commode at this time. Equipment Owned/DME: Bariatric Nori, BiPAP, hospital bed, trapeze, shower chair. Patient has home health services 3 times a week for wound care. This is a summary of of physical therapy care provided for patient in the duration of dates listed above. No treatment charge done for this discharge. Subjective: Per PT documentation on 07/31/2018 patient states that he has been trying to work on his upper extremity exercises using the exercise band at that MAINTENANCE PLANNING CLERK gave him. Patient denied any pain. Objective: General Observation: Super-super obese male. IV line in the right upper extremity. Bae catheter on. Mental Status: A and O x3 Pain: Per PT documentation on 07/31/2018, patient reported no pain throughout session. ROM: Right Upper Extremity: WFL, although with reports of right shoulder pain in end ranges of flexion Left Upper Extremity: WFL Right Lower Extremity: SLR only to 0-20 degrees, knee flexion 0-20 Left Lower Extremity: SLR 0-15 degrees, knee flexion 0-20 Strength: Right Upper Extremity: 4/5 shoulder flexion. Triceps 4/5. Biceps 4/5. Data Quality Consultant strong, patient able to pull on overhead trapeze/bed rail to help her position self. Left Upper Extremity: 4/5 shoulder flexion. Triceps 4/5. Biceps 4/5. Data Quality Consultant strong, patient able to pull on overhead trapeze/bed rail to help her position self. Right Lower Extremity: Grossly 3-/5 Left Lower Extremity: Grossly 3-/5 Bed Mobility/Transfers: Supine sit: Mod A, requires use of overhead trapeze. Sit to supine: Mod A, requires use of overhead trapeze. Sit to stand: Dependent. Patient able to assume position with assist of 3. Stand to sit: Dependent. Patient able to assume position with assist of 3. Gait: Not tested due to safety issues. Balance: Static Sitting: Fair Dynamic Sitting: Fair Static Standing: Unable to obtain Dynamic Standing: Unable Special Tests: Mobility Limitations Standardized Measure [facility] AM-PAC 6 clicks Basic Mobility Inpatient Short Form: Raw Score: 8 CMS Score: 87% deficit Treatment: Today's session consisted of evaluation, followed by instruction in therex program for supine and seated activities as noted on flowsheet. Assessment: Patient is a 58 year old male referred to physical therapy services with the diagnosis of hospital-acquired pneumonia. He was discharged as of 07/31/2018 from inpatient and will convert to swing bed level as of 08/01/2018 with same physical therapy plan of care as initially established. Patient continues present with clinical signs and symptoms consistent with mobility deficits related to current diagnosis, as demonstrated by the following impairment level findings: 1. Decreased functional upper extremity strength 2. Decreased functional lower extremities strength 3. Decreased balance 4. Decreased activity tolerance Impairments are contributing to the following functional limitations: 1. Unable to transfer to wheelchair 2. Unable to ambulate 3. Able to perform bed mobility 4. WHITLEY with minimal exertion Patient is assessed as High [id number] complexity based on the following: History: 58-year-old male with super super obesity and multiple chronic medical issues, being treated in acute care setting for healthcare acquired pneumonia. Patient has a long history of falls including previous falls in this hospital and 2 falls at home yesterday. Examination: Functional limitations as noted above Presentation: Unstable Decision Making: High complexity Goals: Goals X1 week 1. Supine-Sit: Independent NOT MET 2. Sit-Supine: Independent NOT MET 3. Sit-Stand: Mod assist NOT MET 4. Stand-Sit : Mod assist NOT MET 5. Stand pivot transfer: Mod assist NOT MET DISCHARGE RECOMMENDATIONS: Patient to be reevaluated on 08/01/2018 on swing bed level with continued PT plan of care to progress bed mobility and transfer level to prior level of function. Thank you for this referral. Karma Field, PT, DPT, CLT [facility]
--- NOTE | 2018-08-01 09:11 | INDS_ITS ---
Date of service: 07/31/18 PT Notes Inpatient Physical Therapy Discharge Summary Dates: 07/31/2018 Dates of Service: 07/25/18-07/31/2018 Referring Doctor: Dahlia Barr MD PT Orders: PT CONSULT: Evaluate/treat. Precautions: Fall. Standard. 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 Patient Profile/Admitting Diagnosis: Patient was admitted on 07/23/2018 with a diagnosis of hospital-acquired pneumonia. He came in with chief complaints of dyspnea, hypoxemia, and weakness. 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 Per OT documentation: pt lives in the basement level of his material control specialist's home. He states that he has 24 hour care as well as 2 other residents in the home. His baseline is sitting in shower with max (A) for (B) LE, min (A) for dressing, (I) eating, he reports that he cooks meals in the microwave and is able to go grocery shopping. He has a wheelchair that he utilizes as well as an electric chair. Pt reports that he is not having a good experience in his current living situation due to another resident. He reports that the other resident does not let him utilize the toilet so he has been mainly utilizing a commode at this time. Equipment Owned/DME: Bariatric Nori, BiPAP, hospital bed, trapeze, shower chair. Patient has home health services 3 times a week for wound care. This is a summary of of physical therapy care provided for patient in the duration of dates listed above. No treatment charge done for this discharge. Subjective: Per PT documentation on 07/31/2018 patient states that he has been trying to work on his upper extremity exercises using the exercise band at that ELEMENTARY EDUCATOR gave him. Patient denied any pain. Objective: General Observation: Super-super obese male. IV line in the right upper extremity. Bae catheter on. Mental Status: A and O x3 Pain: Per PT documentation on 07/31/2018, patient reported no pain throughout session. ROM: Right Upper Extremity: WFL, although with reports of right shoulder pain in end ranges of flexion Left Upper Extremity: WFL Right Lower Extremity: SLR only to 0-20 degrees, knee flexion 0-20 Left Lower Extremity: SLR 0-15 degrees, knee flexion 0-20 Strength: Right Upper Extremity: 4/5 shoulder flexion. Triceps 4/5. Biceps 4/5. Safety Supervisor strong, patient able to pull on overhead trapeze/bed rail to help her position self. Left Upper Extremity: 4/5 shoulder flexion. Triceps 4/5. Biceps 4/5. Safety Supervisor strong, patient able to pull on overhead trapeze/bed rail to help her position self. Right Lower Extremity: Grossly 3-/5 Left Lower Extremity: Grossly 3-/5 Bed Mobility/Transfers: Supine sit: Mod A, requires use of overhead trapeze. Sit to supine: Mod A, requires use of overhead trapeze. Sit to stand: Dependent. Patient able to assume position with assist of 3. Stand to sit: Dependent. Patient able to assume position with assist of 3. Gait: Not tested due to safety issues. Balance: Static Sitting: Fair Dynamic Sitting: Fair Static Standing: Unable to obtain Dynamic Standing: Unable Special Tests: Mobility Limitations Standardized Measure [facility] AM-PAC 6 clicks Basic Mobility Inpatient Short Form: Raw Score: 8 CMS Score: 87% deficit Treatment: Today's session consisted of evaluation, followed by instruction in therex program for supine and seated activities as noted on flowsheet. Assessment: Patient is a 58 year old male referred to physical therapy services with the diagnosis of hospital-acquired pneumonia. He was discharged as of 07/31/2018 from inpatient and will convert to swing bed level as of 08/01/2018 with same physical therapy plan of care as initially established. Patient continues present with clinical signs and symptoms consistent with mobility deficits related to current diagnosis, as demonstrated by the following impairment level findings: 1. Decreased functional upper extremity strength 2. Decreased functional lower extremities strength 3. Decreased balance 4. Decreased activity tolerance Impairments are contributing to the following functional limitations: 1. Unable to transfer to wheelchair 2. Unable to ambulate 3. Able to perform bed mobility 4. WHITLEY with minimal exertion Patient is assessed as High [id number] complexity based on the following: History: 58-year-old male with super super obesity and multiple chronic medical issues, being treated in acute care setting for healthcare acquired pneumonia. Patient has a long history of falls including previous falls in this hospital and 2 falls at home yesterday. Examination: Functional limitations as noted above Presentation: Unstable Decision Making: High complexity Goals: Goals X1 week 1. Supine-Sit: Independent NOT MET 2. Sit-Supine: Independent NOT MET 3. Sit-Stand: Mod assist NOT MET 4. Stand-Sit : Mod assist NOT MET 5. Stand pivot transfer: Mod assist NOT MET DISCHARGE RECOMMENDATIONS: Patient to be reevaluated on 08/01/2018 on swing bed level with continued PT plan of care to progress bed mobility and transfer level to prior level of function. Thank you for this referral. Karma Field, PT, DPT, CLT [facility]
[2018-08-01] MEDS: Magnesium Oxide 400 MG TAB PO ×2 (09:58→22:26)
[2018-08-01] MEDS: Collagenase 30 GM TUBE TP (10:02)
[2018-08-01] MEDS: Nystatin CREAM 15 GM TUBE TP ×2 (10:04→20:19)
--- NOTE | 2018-08-01 11:54 | PHARADMIT ---
Addendum entered by Alejandro Davis III 08/03/18 14:46: RT performed a PFT today, plan is for patient to change from BiPAP to some sort of Trilogy unit. VS-OK No Labs Plan is for patient to transfer to [facility] on Monday. Addendum entered by Alejandro Davis III 08/02/18 14:08: Swing Bed morbidly obese patient awaiting transfer to care home facility with bariatric capabilities. VS-OK No Labs Wgt 203.3 kg to order wound consult with surgery, and a PT evaluation. Original Note: VS okay, FSBG-240 vanco and zosyn discontinued (pt. finished course of tx per h&p) no med changes so far today PT CHANGED TO SWINGBED STATUS below is the information from his inpatient account prior to swinging: NABIL HALEY Male : 1960 Emr# [id number] 07/25/18 17:01 - Pharmacy Review by Alejandro Davis III Acct Num: [id number] : 1960 Patient Age: 58 Addendum entered by Gertrude Brasher 07/30/18 17:46: VS good, labs/lytes good, wBC 6.43, H/H drifting Micro: ESBL, MRSA in sputum Vanco trough high, dose held, recalculated Day #4-5 Anbx, Aztreonam dc'd, remains on Vanco/Zosyn for HCAP, Zosyn was increased to 4.5gram RT having difficulty fitting CPAP mask Palliative consult ordered May have to swing, placement issue Original Note: Addendum entered by Gertrude Brasher 07/28/18 14:04: Pharmacy Note Subjective Provider asked why pt wasn't on triple Anbx coverage to HAP Objective Afebrile, VS ok, lytes ok, BG 128, QTC 482 Micro sputum: Heavy growth MRSA, E.Coli ESBL+ Assessment Asked provider if she wanted to increase Zosyn to the 4.5gm for HAP, she will keep the 3.375gram dose at this time since he's been on it day#2 now Was going to add Levaquin as the 3rd agent, but I expressed concern about QT prolongation Opted for Aztreonam 2gram IV q8h...no renal adjustment needed Continues on Vanco. Today's trough 18.5, continue 1.5grm Q10h...Vanco 1st dose was 07/23/09 in ED, but not started as routine med until 07/26/18 (today is day#2) some insulin adjustments QT meds: Trazodone, Amitriptyline Plan ?Antibiotic changes, repeat chest xray Monday placement issue, possible swingbed Original Note: Addendum entered by Riddhi Fu 07/27/18 13:03: Pharmacy Note Subjective pt with HAP using [facility] bipap vs home machine which may need repair , podiatry consult and wound management Objective FS 131, Assessment furosemide drip stopped, pip/tazo and vanco Plan vanco trough when appropriate Original Note: Admission Pharmacy Clinical Review HOSPITA; ACQUIRED PNEUMONIA Code Status Full Code Current Weight Wgt-206.6 kg Renally Cleared and Narrow Therapeutic Index Meds CrCl~ 106 mL/min Meds-OK QTc Value / Action Taken QTc-482 Amitriptyline, Lasix, Trazodone BP Control, Fever BP- 103/77 Tmax- 37.1C Electrolytes reviewed Na- 144 K+3.7 Mag-1.9 DVT Prophylaxis Lovenox Opiate Usage / Scheduled Bowel Regimen Ordered Yes Yes Plt/SCr for Heparin / Enoxaparin Plts-340 SCr-0.84 INR for Warfarin na H/H stable, WBC/Bands H&H- 9.8/35.1 WBC- 6.555 Antibiotic appropriateness none Cultures and Sensitivities None Surgical ABX d/c within 24 hr na DM control / Insulin Dosing BG- 115 Aspart, Glargine Heart Failure (Check EF%) (BENJAMIN's, B-Block, Diuretics) Losartan, Lasix Drip, Toprol-XL IV to PO Switch No Home Meds Reviewed Yes Home Meds Not Ordered Metformin. Comments
--- NOTE | 2018-08-01 15:21 | PT.INIE ---
Date of service: 08/01/18 Time of Service: 12:47 PT Notes Inpatient Physical Therapy Evaluation Date: 08/01/2018 Referring Doctor: Dr. Lion Jain PT Orders: PT CONSULT: Morbid obesity with limited ambulation Precautions: Fall. Standard. 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 Patient Profile/Admitting Diagnosis: Patient was admitted on 07/23/2018 with a diagnosis of hospital-acquired pneumonia. He came in with chief complaints of dyspnea, hypoxemia, and weakness. Patient was discontinued from ICU on 07/31/2018 and is being evaluated under swing bed level as of today. 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 Per OT documentation: pt lives in the basement level of his form tamper's home. He states that he has 24 hour care as well as 2 other residents in the home. His baseline is sitting in shower with max (A) for (B) LE, min (A) for dressing, (I) eating, he reports that he cooks meals in the microwave and is able to go grocery shopping. He has a wheelchair that he utilizes as well as an electric chair. Pt reports that he is not having a good experience in his current living situation due to another resident. He reports that the other resident does not let him utilize the toilet so he has been mainly utilizing a commode at this time. Equipment Owned/DME: Bariatric Nori, BiPAP, hospital bed, trapeze, shower chair. Patient has home health services 3 times a week for wound care. Subjective: Patient was seen today lying in bed. PT came in to do swing bed initial evaluation and progress level strengthening exercises. Patient states that able to perform most of the exercises on his own now with less discomfort and shortness of breath. Objective: General Observation: Super-super obese male. IV line in the right upper extremity. Bae catheter on. Mental Status: A and O x3 Pain: Denies. ROM: Right Upper Extremity: WFL, although with reports of right shoulder pain in end ranges of flexion Left Upper Extremity: WFL Right Lower Extremity: SLR only to 0-20 degrees, knee flexion 0-20 Left Lower Extremity: SLR 0-30 degrees, knee flexion 0-45 Strength: Right Upper Extremity: 4+/5 shoulder flexion. Triceps 4/5. Biceps 4+/5. Mining Plant Operator strong, patient able to pull on overhead trapeze/bed rail to help her position self. Left Upper Extremity: 4+/5 shoulder flexion. Triceps 4+/5. Biceps 4+/5. Mining Plant Operator strong, patient able to pull on overhead trapeze/bed rail to help her position self. Right Lower Extremity: Grossly 3-/5 Left Lower Extremity: Grossly 3-/5 Bed Mobility/Transfers: Supine sit: Independent, requires use of overhead trapeze and B UE Sit to supine: Independent, requires use of overhead trapeze and B UE Sit to stand: Dependent. Patient able to assume position with assist of 3. Stand to sit: Dependent. Patient able to assume position with assist of 3. Gait: Not tested due to safety issues. Balance: Static Sitting: Fair Dynamic Sitting: Fair Static Standing: Unable to assess Dynamic Standing: Unable to assess Special Tests: Mobility Limitations Standardized Measure [facility] 6 clicks Basic Mobility Inpatient Short Form: Raw Score: 8 CMS Score: 87% deficit Informed Consent/Education: Patient instructed in purpose of PT consult and plan of care. Treatment: Today's session consisted of evaluation, followed by instruction in therex program for supine and seated activities as noted on flowsheet. Assessment: Patient is a 58 year old male referred to physical therapy services with the diagnosis of hospital-acquired pneumonia. Patient presents with clinical signs and symptoms consistent with mobility deficits related to current diagnosis, as demonstrated by the following impairment level findings: 1. Decreased functional upper extremity strength 2. Decreased functional lower extremities strength 3. Decreased balance 4. Decreased activity tolerance Impairments are contributing to the following functional limitations: 1. Unable to transfer to wheelchair 2. Unable to ambulate 3. Able to perform bed mobility 4. WHITLEY with minimal exertion Patient is assessed as High 90330 complexity based on the following: History: 58-year-old male with super super obesity and multiple chronic medical issues, being treated in acute care setting for healthcare acquired pneumonia. Patient has a long history of falls including previous falls in this hospital and 2 falls at home yesterday. Examination: Functional limitations as noted above Presentation: Unstable Decision Making: High complexity Goals: Goals X1 week 1. Supine-Sit: Independent 2. Sit-Supine: Independent 3. Sit-Stand: Mod assist 4. Stand-Sit : Mod assist 5. Stand pivot transfer: Mod assist 6. Motorized wheelchair management on floor independent Plan of Care/Treatment Plan: 1x/day, 7 days/week x 1 week. Plan of care has been reviewed with the REWINDER OPERATOR HELPER providing the service under Physical Therapy direction. Initiate Physical Therapy intervention for strengthening, bed mobility, transfers, gait, stairs, balance training, use of assistive device. DISCHARGE RECOMMENDATIONS: Per case management plan patient is to go to a long term facility using motorized wheelchair with referrals sent already to referrals fax[facility] already [facility], [facility]. TREATMENT CODE/TIME: 96713, 20 minute; 48718, 18 minutes beginning at 12:47 PM.
--- NOTE | 2018-08-01 15:24 | IN_ITS ---
Date of service: 08/01/18 Time of Service: 12:47 PT Notes Inpatient Physical Therapy Evaluation Date: 08/01/2018 Referring Doctor: Dr. Lion Jain PT Orders: PT CONSULT: Morbid obesity with limited ambulation Precautions: Fall. Standard. 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 Patient Profile/Admitting Diagnosis: Patient was admitted on 07/23/2018 with a diagnosis of hospital-acquired pneumonia. He came in with chief complaints of dyspnea, hypoxemia, and weakness. Patient was discontinued from ICU on 07/31/2018 and is being evaluated under swing bed level as of today. 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 Per OT documentation: pt lives in the basement level of his bar captain's home. He states that he has 24 hour care as well as 2 other residents in the home. His baseline is sitting in shower with max (A) for (B) LE, min (A) for dressing, (I) eating, he reports that he cooks meals in the microwave and is able to go grocery shopping. He has a wheelchair that he utilizes as well as an electric chair. Pt reports that he is not having a good experience in his current living situation due to another resident. He reports that the other resident does not let him utilize the toilet so he has been mainly utilizing a commode at this time. Equipment Owned/DME: Bariatric Nori, BiPAP, hospital bed, trapeze, shower chair. Patient has home health services 3 times a week for wound care. Subjective: Patient was seen today lying in bed. PT came in to do swing bed initial evaluation and progress level strengthening exercises. Patient states that able to perform most of the exercises on his own now with less discomfort and shortness of breath. Objective: General Observation: Super-super obese male. IV line in the right upper extremity. Bae catheter on. Mental Status: A and O x3 Pain: Denies. ROM: Right Upper Extremity: WFL, although with reports of right shoulder pain in end ranges of flexion Left Upper Extremity: WFL Right Lower Extremity: SLR only to 0-20 degrees, knee flexion 0-20 Left Lower Extremity: SLR 0-30 degrees, knee flexion 0-45 Strength: Right Upper Extremity: 4+/5 shoulder flexion. Triceps 4/5. Biceps 4+/5. Foundry Worker Apprentice strong, patient able to pull on overhead trapeze/bed rail to help her position self. Left Upper Extremity: 4+/5 shoulder flexion. Triceps 4+/5. Biceps 4+/5. Foundry Worker Apprentice strong, patient able to pull on overhead trapeze/bed rail to help her position self. Right Lower Extremity: Grossly 3-/5 Left Lower Extremity: Grossly 3-/5 Bed Mobility/Transfers: Supine sit: Independent, requires use of overhead trapeze and B UE Sit to supine: Independent, requires use of overhead trapeze and B UE Sit to stand: Dependent. Patient able to assume position with assist of 3. Stand to sit: Dependent. Patient able to assume position with assist of 3. Gait: Not tested due to safety issues. Balance: Static Sitting: Fair Dynamic Sitting: Fair Static Standing: Unable to assess Dynamic Standing: Unable to assess Special Tests: Mobility Limitations Standardized Measure [facility] 6 clicks Basic Mobility Inpatient Short Form: Raw Score: 8 CMS Score: 87% deficit Informed Consent/Education: Patient instructed in purpose of PT consult and plan of care. Treatment: Today's session consisted of evaluation, followed by instruction in therex program for supine and seated activities as noted on flowsheet. Assessment: Patient is a 58 year old male referred to physical therapy services with the diagnosis of hospital-acquired pneumonia. Patient presents with clinical signs and symptoms consistent with mobility deficits related to current diagnosis, as demonstrated by the following impairment level findings: 1. Decreased functional upper extremity strength 2. Decreased functional lower extremities strength 3. Decreased balance 4. Decreased activity tolerance Impairments are contributing to the following functional limitations: 1. Unable to transfer to wheelchair 2. Unable to ambulate 3. Able to perform bed mobility 4. WHITLEY with minimal exertion Patient is assessed as High 53293 complexity based on the following: History: 58-year-old male with super super obesity and multiple chronic medical issues, being treated in acute care setting for healthcare acquired pneumonia. Patient has a long history of falls including previous falls in this hospital and 2 falls at home yesterday. Examination: Functional limitations as noted above Presentation: Unstable Decision Making: High complexity Goals: Goals X1 week 1. Supine-Sit: Independent 2. Sit-Supine: Independent 3. Sit-Stand: Mod assist 4. Stand-Sit : Mod assist 5. Stand pivot transfer: Mod assist 6. Motorized wheelchair management on floor independent Plan of Care/Treatment Plan: 1x/day, 7 days/week x 1 week. Plan of care has been reviewed with the ARTIST REPRESENTATIVE providing the service under Physical Therapy direction. Initiate Physical Therapy intervention for strengthening, bed mobility, transfers, gait, stairs, balance training, use of assistive device. DISCHARGE RECOMMENDATIONS: Per case management plan patient is to go to a alf facility using motorized wheelchair with referrals sent already to referrals fax[facility] already to [facility], [facility], [facility]. TREATMENT CODE/TIME: 49175, 20 minute; 87045, 18 minutes beginning at 12:47 PM.
[2018-08-01 15:59] VITALS: BP 115/71; PULSE 88; RESP 20; TEMP 36.8; O2SAT 91
--- NOTE | 2018-08-01 19:54 | WOUNDCARE ---
08/01/18 Wound Care Report - Pt seen by this nurse and MD related to wounds. medial thigh wounds have closed so recommendation is to leave open to air at this time. The l inner groin. thigh is 50 percent slough with some granulation tissue int he remaining 50 % of red tissue. Edges have epibole. No s/sx of infection are noted. R thigh/ groin wound 60% slough, 40% reddish tissue with granulation tissue appearing. Edges have epibole. Recommend santyl with a telfa and tegaderm dressing as previous mepilex dressing do not stay in place and patient stated tegaderm have stayed in place previously. Coccyx dressing remains aqualcel ag covered with mepilex sacral. wound bed reddish with 10 percent slough which was non adherent.
[2018-08-01] MEDS: Enoxaparin 40 MG/0.4 ML SYR SC (20:17)
[2018-08-01] MEDS: Polyethylene Glycol 3350 17 GM PACKET PO (20:18)
[2018-08-01] MEDS: Insulin Glargine 300 UNITS/3 ML PEN 45 UNITS SC (22:25)
[2018-08-01] MEDS: traZODone 50 MG TAB 150 MG PO (22:26)
[2018-08-01] MEDS: Amitriptyline 25 MG TAB 75 MG PO (22:26)
[2018-08-01 23:29] VITALS: BP 117/79; PULSE 85; RESP 20; TEMP 36.6; O2SAT 92
[2018-08-02 08:44] VITALS: BP 135/85; PULSE 84; RESP 20; TEMP 36.3; O2SAT 95
[2018-08-02] MEDS: Insulin Aspart 300 UNITS/3 ML PEN SC ×7 (08:49→21:25)
[2018-08-02 08:50] VITALS: O2SAT 93
[2018-08-02] MEDS: Potassium Chloride Liquid 20 MEQ PKT 40 MEQ PO ×3 (08:52→20:07)
[2018-08-02] MEDS: Polyethylene Glycol 3350 17 GM PACKET PO ×2 (08:52→20:07)
[2018-08-02] MEDS: Losartan 25 MG TAB PO (08:53)
[2018-08-02] MEDS: Metoprolol CR 25 MG TABCR PO (08:53)
[2018-08-02] MEDS: Furosemide 40 MG TAB PO ×2 (08:53→15:09)
[2018-08-02] MEDS: Docusate Sodium 100 MG CAP PO (08:53)
[2018-08-02] MEDS: Milk of Magnesia 30 ML CUP PO (08:54)
[2018-08-02] MEDS: Omeprazole 20 MG CAPCR PO ×2 (08:54→18:14)
[2018-08-02] MEDS: Gabapentin 300 MG CAP 600 MG PO ×3 (08:54→20:07)
[2018-08-02] MEDS: Budesonide/Formoterol 160/4.5 6 GM 60 PUFF INH IH ×2 (08:54→20:07)
[2018-08-02] MEDS: Collagenase 30 GM TUBE TP (08:55)
[2018-08-02] MEDS: Nystatin CREAM 15 GM TUBE TP ×2 (08:55→20:07)
[2018-08-02] MEDS: Magnesium Oxide 400 MG TAB PO ×2 (10:42→21:25)
--- NOTE | 2018-08-02 14:48 | W.PALPGNOTE ---
Date of service: 08/02/18 Assessment and Plan (1) Counseling regarding advance directives and goals of care: Current visit: No Status: Acute Peter has decided to continue his FULL CODE status for now. He says he is not ready to change his status, though he did understand from the medical literature that I provided him that his chance of surviving a code neurologically intact, given his multiple medical co-morbidities, is <10%, perhaps <5%. (2) Palliative care status: Current visit: No Status: Chronic When he moves to [facility], I encourage him to ask for palliative care through their hospital. (3) Acute and chronic respiratory failure, unspecified whether with hypoxia or hypercapnia: Current visit: No Status: Acute Not a new problem for Peter. Complicated by his chronic ABHAY and super obesity. He does wear his CPAP mask nightly. He will need to have it checked regularly for effectiveness as he often pulls it off and throws it in his sleep. Subjective Patient reports: no new complaints and shortness of breath Interval history since last seen: Since I saw Peter, he had an opportunity to talk about his code status with his father. His father is still a FULL CODE even though he is in his mid-80s and on dialysis. Peter reports that his father doesn't want him to change his code status. Peter looks to his father for advice and he is his DPOA. Peter says that he is worried that he won't get good care at other places (not [facility], he states) if he is DNR/DNI. He thinks people will let him go if he gets an infection. He doesn't want this. He has heard that it is likely he will be moving to [facility] soon, to a SNF nearer his father and son. He is happy about this. Last time it took his health care marketing manager 4.5 years to find him a placement. He cannot return to that placement for multiple care-related issues, he tell me, but doesn't elaborate. Exam Narrative Exam Narrative: On exam he is alert and coherent and in no apparent distress. He is fully cooperative with the exam. He is able to roll side to side to allow me to examine him. His lung sounds are clear on the right and left. His heart sounds are muffled and distant but sound regular I do not appreciate a significant murmur. His abdomen is quite massively obese but there is no tenderness to palpation. The decubital area has shallow ulcerations that are dressed with a DuoDERM type dressing. His lower extremities are wrapped with compression wraps which I did not take down. He apparently has a few shallow ulcerations on both lower extremities. Neurologically displayed no focal deficits. He is wearing nasal cannula oxygen at the time of my exam. Objective Objective Clinical Data: Vital Signs Temperature 97.2 F L 08/06/18 08:05 Temperature Source Tympanic 08/06/18 08:05 Pulse 81 08/06/18 08:05 Pulse Rhythm Regular 08/06/18 10:40 Respiratory Rate 20 08/06/18 08:05 Respiratory Effort 08/06/18 10:40 Respiratory Depth Shallow 08/06/18 10:40 Respiratory Pattern Normal 08/06/18 10:40 Blood Pressure 130/87 08/06/18 08:05 Pulse Oximetry 95 08/06/18 08:05 Oxygen Delivery Method Nasal Cannula 08/06/18 08:05 Oxygen Flow Rate 2.5 08/06/18 08:05 Pain Level 7 08/06/18 09:17 Intake & Output 08/05/18 08/06/18 08/06/18 23:59 11:59 23:59 Intake Total 480 / 970 250 / 250 Output Total 1775 / 2375 1200 / 1650 450 / 1650 Balance -1295 / -1405 -950 / -1400 -450 / -1400 Weight 445 lb 15.922 oz Intake: Oral 480 / 960 250 / 250 Output: Urine 1775 / 2375 1200 / 1650 450 / 1650 Other: Urine Color Yellow Light Keely Pale Yellow Urine Appearance Clear Clear Urine Odor Normal None Comment some dribbling onto the pad. Z guard applied as a protectant on the uncovered skin on the perianal area Voiding Methods Urinal Urinal Urinal Laboratory Results WBC 7.55 k/cumm (4.4-10.8) 08/01/18 06:36 RBC 4.53 m/cumm (4.50-6.00) 08/01/18 06:36 Hgb 10.5 g/dL (13.5-17.5) L 08/01/18 06:36 Hct 37.9 % (40.0-50.0) L 08/01/18 06:36 MCV 83.7 fL (80-95) 08/01/18 06:36 MCH 23.2 pg (27.0-33.0) L 08/01/18 06:36 MCHC 27.7 g/dL (32.0-36.0) L 08/01/18 06:36 RDW 18.8 % (11.8-14.1) H 08/01/18 06:36 Plt Count 407 x1000/uL (130-400) H 08/04/18 06:27 MPV 9.5 fL (8.0-11.0) 08/01/18 06:36 Immature Gran % 0.9 08/01/18 06:36 Neutrophils % 48.0 08/01/18 06:36 Lymphocytes % 37.7 08/01/18 06:36 Monocytes % 10.7 08/01/18 06:36 Eosinophils % 2.4 08/01/18 06:36 Basophils % 0.3 08/01/18 06:36 Absolute Neutrophils 3.62 k/cumm (1.2-6.7) 08/01/18 06:36 Absolute Lymphocytes 2.85 k/cumm (1.2-3.4) 08/01/18 06:36 Absolute Monocytes 0.81 k/cumm (0.11-0.7) H 08/01/18 06:36 Absolute Eosinophils 0.18 k/cumm (0.0-0.7) 08/01/18 06:36 Absolute Basophils 0.02 k/cumm (0.0-0.2) 08/01/18 06:36 Sodium 140 mmol/L (136-145) 08/01/18 06:36 Potassium 4.3 mmol/L (3.5-5.1) 08/01/18 06:36 Chloride 99 mmol/L (98-107) 08/01/18 06:36 Carbon Dioxide 39.6 mmol/L (21.0-32.0) H 08/01/18 06:36 Anion Gap 1.4 mmol/L (3-11) L 08/01/18 06:36 BUN 12 mg/dL (7-18) 08/01/18 06:36 Creatinine 0.91 mg/dL (0.70-1.30) 08/01/18 06:36 Estimated GFR/1.73 m2 >= 60.00 (mL/min/1.73m2) 08/01/18 06:36 Glucose 165 mg/dL (70-100) H 08/01/18 06:36 Calcium 9.2 mg/dL (8.5-10.1) 08/01/18 06:36
--- NOTE | 2018-08-02 15:39 | PT.INTREAT ---
Date of service: 08/02/18 Time of Service: 15:39 PT Notes 08/02/18 SUBJECTIVE: Rajan stating he is doing okay today. Agreeable to PT treatment. OBJECTIVE: Therapeutic exercise [id number]: Therex per flow sheet for core strengthening, UE/LE strengthening in supien position. He progresses to black resistance band today for most all of his UE strengthening exercises with good tolerance. See flow sheet for specifics. Pt independently performs rolling in bed. Direct time: 25 minutes Lisa Estevez, DIELECTRIC MACHINE OPERATOR
--- NOTE | 2018-08-02 15:43 | PTTR_ITS ---
Date of service: 08/02/18 Time of Service: 15:39 PT Notes 08/02/18 SUBJECTIVE: Rajan stating he is doing okay today. Agreeable to PT treatment. OBJECTIVE: Therapeutic exercise [id number]: Therex per flow sheet for core strengthening, UE/LE strengthening in supien position. He progresses to black resistance band t clay for most all of his UE strengthening exercises with good tolerance. See flow sheet for specifics. Pt independently performs rolling in bed. Direct time: 25 minutes Lisa Estevez, FIBERGLASS PIPE COVERING SUPERVISOR
[2018-08-02 17:06] VITALS: BP 109/64; PULSE 91; RESP 20; TEMP 36.9; O2SAT 94
--- NOTE | 2018-08-02 17:53 | PDOC.CMACT ---
- If Service Date Differs Date of service: 08/02/18 Time of Service: 17:53 Care Management Activity Note Rajan remains pleasant he has his TV at the bedside and his video games. He has his cellphone and talks with his family often. SHEBA was contacted by [facility] whom are willing to offer a bed to the patient. Anticipate this will be on Monday. CM shared the news with the patient and he accepts the bed offer. SHEBA is waiting for the [facility] approval which RT is working on. CM should have decision by the end of the week. CM has spoken with [employer] support services SHEBA Ramírez he is working toward Rajan's belongings being brought to [place]. Anticipate Rajan will need to [facility] [place], [place]. P: Discharge to SNF facility LTC care. Anticipate Monday for discharge. [employer] supports to assist with transportation of equipment and belongings to facility.
--- NOTE | 2018-08-02 18:01 | CMACTNOTE_ITS ---
- If Service Date Differs Date of service: 08/02/18 Time of Service: 17:53 Care Management Activity Note Rajan remains pleasant he has his TV at the bedside and his video games. He has his cellphone and talks with his family often. SHEBA was contacted by [facility] whom are willing to offer a bed to the patient. Anticipate this will be on Monday. CM shared the news with the patient and he accepts the bed offer. SHEBA is waiting for the [facility] approval which RT is working on. CM should have decision by the end of the week. CM has spoken with [employer] support services SHEBA Ramírez he is working toward Rajan's belongings being brought to [place]. Anticipate Rajan will need to be transported [facility] [place], [place]. P: Discharge to SNF facility LTC care. Anticipate Monday for discharge. [employer] supports to assist with transportation of equipment and belongings to facility.
[2018-08-02] MEDS: Enoxaparin 40 MG/0.4 ML SYR SC (20:06)
--- NOTE | 2018-08-02 20:34 | NUR.NOTE ---
Nursing Note: Dressing change completed to bilateral thighs per MD orders.
[2018-08-02] MEDS: traZODone 50 MG TAB 150 MG PO (21:25)
[2018-08-02] MEDS: Amitriptyline 25 MG TAB 75 MG PO (21:25)
[2018-08-02] MEDS: Insulin Glargine 300 UNITS/3 ML PEN 45 UNITS SC (21:26)
[2018-08-02 23:17] VITALS: BP 123/80; PULSE 67; RESP 20; TEMP 36.6; O2SAT 91
[2018-08-03 08:30] VITALS: BP 148/93; PULSE 81; RESP 22; TEMP 36.4; O2SAT 95
[2018-08-03] MEDS: Potassium Chloride Liquid 20 MEQ PKT 40 MEQ PO ×3 (08:43→19:27)
[2018-08-03] MEDS: Insulin Aspart 300 UNITS/3 ML PEN SC ×7 (08:44→21:34)
[2018-08-03] MEDS: Normal Saline Flush 10 ML SYR IVP (08:45)
[2018-08-03] MEDS: Gabapentin 300 MG CAP 600 MG PO ×3 (08:46→19:27)
[2018-08-03] MEDS: Losartan 25 MG TAB PO (08:46)
[2018-08-03] MEDS: Metoprolol CR 25 MG TABCR PO (08:46)
[2018-08-03] MEDS: Polyethylene Glycol 3350 17 GM PACKET PO ×2 (08:46→19:27)
[2018-08-03] MEDS: Furosemide 40 MG TAB PO ×2 (08:47→15:37)
[2018-08-03] MEDS: Omeprazole 20 MG CAPCR PO ×2 (08:48→15:37)
[2018-08-03] MEDS: Collagenase 30 GM TUBE TP (08:48)
[2018-08-03] MEDS: Budesonide/Formoterol 160/4.5 6 GM 60 PUFF INH IH ×2 (08:48→19:27)
[2018-08-03] MEDS: Bisacodyl 10 MG SUPP PR (08:48)
[2018-08-03 08:50] VITALS: O2SAT 91
[2018-08-03] MEDS: Magnesium Oxide 400 MG TAB PO ×2 (10:25→21:35)
[2018-08-03] MEDS: Nystatin CREAM 15 GM TUBE TP ×2 (10:27→19:28)
--- NOTE | 2018-08-03 10:29 | PFT_ITS ---
PULMONARY FUNCTION TEST REPORT DATE OF SERVICE: August 03, 2018 REQUESTING PROVIDER: Lion Jain M.D. Spirometry shows no evidence of obstructive airways disease, no bronchodilator response. IMPRESSION: Normal spirometry, no evidence of obstructive airways disease. The constellation of findings is suggestive of underlying restriction. Therefore, if restrictive lung disease is suspected, proceeding with total lung capacity measurement and diffusion capacity measurement is recommended. CORIE/ev D/
--- NOTE | 2018-08-03 14:10 | CHAPLAIN ---
Rajan was in bed when I visited, but expected to be getting up to a chair this afternoon. We talked about the version of the Bible I'd given him, what he liked about it and why he wasn't interested in a KJV Bible. Rajan told me that he's going to a fci care facility in [place] on Monday and he seems excited about this. He grew up in the [facility] and has family there, so [place] will be much closer for them. Rajan has his own tv in his room and passes the time watching the tv and making phone calls on his cell phone.
[2018-08-03 15:49] VITALS: BP 116/71; PULSE 95; RESP 20; TEMP 36.7; O2SAT 93
[2018-08-03] MEDS: Enoxaparin 40 MG/0.4 ML SYR SC (19:27)
[2018-08-03] MEDS: traZODone 50 MG TAB 150 MG PO (21:34)
[2018-08-03] MEDS: Insulin Glargine 300 UNITS/3 ML PEN 45 UNITS SC (21:34)
[2018-08-03] MEDS: Amitriptyline 25 MG TAB 75 MG PO (21:35)
--- NOTE | 2018-08-03 21:56 | NUR.NOTE ---
Nursing Note: Dressing change completed to TONI line per protocol.
[2018-08-03 23:13] VITALS: BP 101/64; PULSE 69; RESP 19; TEMP 36.5; O2SAT 91
[2018-08-04 07:27] LABS: Platelet Count 407 x1000/uL (130-400)
--- NOTE | 2018-08-04 07:38 | PT.INTREAT ---
Date of service: 08/03/18 Time of Service: 07:38 PT Notes Inpatient Physical Therapy Treatment Note [facility] Date: 08/03/18 PRECAUTIONS: FALL SUBJECTIVE: Rajan states that he would like to get out of bed and sit up in the chair today. He reports that he was transferred to a wheelchair earlier today, and states that it felt good to sit up. OBJECTIVE: PAIN: No complaints of pain BED MOBILITY/TRANSFERS Rolling L/R: I with bed rails Supine-sit: Max A with Nori Sit-supine: Max A with Nori ASSESSMENT: Patient tolerated session without complaint. Patient would benefit from continued strengthening for improved ability to assist with transfers. PLAN: Continue with PT's POC TREATMENT CODE/TIME: 15 minutes; [id number]
[2018-08-04] MEDS: Potassium Chloride Liquid 20 MEQ PKT 40 MEQ PO ×3 (08:13→19:48)
[2018-08-04] MEDS: Polyethylene Glycol 3350 17 GM PACKET PO ×2 (08:14→19:48)
[2018-08-04] MEDS: Omeprazole 20 MG CAPCR PO ×2 (08:14→15:49)
[2018-08-04] MEDS: Metoprolol CR 25 MG TABCR PO (08:14)
[2018-08-04] MEDS: Gabapentin 300 MG CAP 600 MG PO ×3 (08:14→19:48)
[2018-08-04] MEDS: Losartan 25 MG TAB PO (08:14)
[2018-08-04] MEDS: Furosemide 40 MG TAB PO ×2 (08:14→15:49)
[2018-08-04 08:15] VITALS: BP 121/75; PULSE 92; RESP 20; TEMP 36.4; O2SAT 91
[2018-08-04] MEDS: Insulin Aspart 300 UNITS/3 ML PEN SC ×7 (08:18→21:29)
[2018-08-04] MEDS: Collagenase 30 GM TUBE TP (08:30)
[2018-08-04] MEDS: Nystatin CREAM 15 GM TUBE TP ×2 (08:59→19:49)
[2018-08-04 09:00] VITALS: O2SAT 91
[2018-08-04] MEDS: Budesonide/Formoterol 160/4.5 6 GM 60 PUFF INH IH ×2 (09:03→19:48)
[2018-08-04] MEDS: Magnesium Oxide 400 MG TAB PO ×2 (09:43→21:30)
--- NOTE | 2018-08-04 11:48 | PT.INTREAT ---
Date of service: 08/04/18 Time of Service: 10:45 PT Notes PT inpatient treatment note Date: 08/04/18 Fall precautions Subjective: Indicated his family was coming to visit and he wants to be up in recliner when they get here to avoid wasting time while they are here. Objective: Ther exercise (82532w2): See flow sheet for exercises performed while this am for bilateral upper / lower extremities while in supine and seated positions. Stated UBE simulation with arms was more difficult while seated today so did not use resistance and only did 1 minutes with this today. Ther activity ([id number]): Performed nori lift for transfer bed to chair with mod assist of 3, with patient performing SBA rolling from side to side and assist with position while being transferred. Assessment: Tolerated ther ex well and did good assisting with Nori lift to chair. Plan: Continue with PT's plan of care with focus on strengthening of extremities for improved ADL function. Treatment time and charge: 10:45 to 11:15 (30'), TP x 1 and TA x 1
[2018-08-04] MEDS: Normal Saline Flush 10 ML SYR IVP (16:03)
[2018-08-04 16:14] VITALS: BP 121/73; PULSE 68; RESP 20; TEMP 37; O2SAT 95
[2018-08-04 17:11] VITALS: O2SAT 95
[2018-08-04] MEDS: Enoxaparin 40 MG/0.4 ML SYR SC (19:48)
[2018-08-04] MEDS: Amitriptyline 25 MG TAB 75 MG PO (21:30)
[2018-08-04] MEDS: Insulin Glargine 300 UNITS/3 ML PEN 45 UNITS SC (21:30)
[2018-08-04] MEDS: traZODone 50 MG TAB 150 MG PO (21:30)
[2018-08-04 23:32] VITALS: BP 123/77; PULSE 84; RESP 18; TEMP 36.7; O2SAT 94
[2018-08-05 07:30] VITALS: BP 147/89; PULSE 66; RESP 22; TEMP 36.1; O2SAT 94
[2018-08-05 08:50] VITALS: O2SAT 94
[2018-08-05] MEDS: Polyethylene Glycol 3350 17 GM PACKET PO ×2 (08:50→19:44)
[2018-08-05] MEDS: Potassium Chloride Liquid 20 MEQ PKT 40 MEQ PO ×3 (08:50→19:43)
[2018-08-05] MEDS: Omeprazole 20 MG CAPCR PO ×2 (08:52→16:59)
[2018-08-05] MEDS: Gabapentin 300 MG CAP 600 MG PO ×3 (08:52→19:43)
[2018-08-05] MEDS: Furosemide 40 MG TAB PO ×2 (08:52→16:59)
[2018-08-05] MEDS: Metoprolol CR 25 MG TABCR PO (08:52)
[2018-08-05] MEDS: Losartan 25 MG TAB PO (08:52)
[2018-08-05] MEDS: Budesonide/Formoterol 160/4.5 6 GM 60 PUFF INH IH ×2 (08:53→19:44)
[2018-08-05] MEDS: Insulin Aspart 300 UNITS/3 ML PEN SC ×7 (09:22→21:20)
--- NOTE | 2018-08-05 10:45 | PT.INTREAT ---
Date of service: 08/05/18 Time of Service: 09:10 PT Notes Inpatient Physical Therapy Treatment Note [facility] Date: 08/05/18 PRECAUTIONS: Fall SUBJECTIVE: Indicated he had a nice visit with family yesterday. Finds SLRs on the right difficult. Complained of slight right shoulder sensitivity with bicep curls with 4# weight today OBJECTIVE: PAIN: Right shoulder with bicep curls BED MOBILITY/TRANSFERS Rolling L/R: I THER EX ([id number]) : Performed bed exercises as per flow sheet. Only performed 10 reps of bicep curls on the right today due to complaints of sensitivity. Able to perform modified UBE with black tubing, rows with black tubing, chest press with 4# dumbbell, pull downs with treviño tubing, shoulder abd/ adduction with green tubing and press ups with black tubing with forward and reverse biometrics experimentalist without complaints of pain. Also, performed modified biking, crunch and SLRs. Ther Activity ([id number]) : Bed to chair transfer with Nori lift with mod assist with Nori pad placement with patient required to roll to right / left. ASSESSMENT: Tolerated today's ther ex program well, with good effort. PLAN: Continue to encourage mobility and strengthening as able to tolerate, to improve ADL function. TREATMENT CODE/TIME: 9:10 to 9:40 (20') TP x 1, 11:00 to 11:10 (10') TA x 1
[2018-08-05] MEDS: Nystatin CREAM 15 GM TUBE TP ×2 (10:54→19:44)
[2018-08-05] MEDS: Collagenase 30 GM TUBE TP (10:54)
[2018-08-05] MEDS: Magnesium Oxide 400 MG TAB PO ×2 (10:54→21:20)
--- NOTE | 2018-08-05 10:57 | PTTR_ITS ---
Date of service: 08/05/18 Time of Service: 09:10 PT Notes Inpatient Physical Therapy Treatment Note [facility] Date: 08/05/18 PRECAUTIONS: Fall SUBJECTIVE: Indicated he had a nice visit with family yesterday. Finds SLRs on the right difficult. Complained of slight right shoulder sensitivity with bicep curls with 4# weight today OBJECTIVE: PAIN: Right shoulder with bicep curls BED MOBILITY/TRANSFERS Rolling L/R: I THER EX ([id number]) : Performed bed exercises as per flow sheet. Only performed 10 reps of bicep curls on the right today due to complaints of sensitivity. Able to perform modified UBE with black tubing, rows with black tubing, chest press with 4# dumbbell, pull downs with treviño tubing, shoulder abd/ adduction with green tubing and press ups with black tubing with forward and reverse commercial lines underwriter without complaints of pain. Also, performed modified biking, crunch and SLRs. Ther Activity (76887) : Bed to chair transfer with Nori lift with mod assist with Nori pad placement with patient required to roll to right / left. ASSESSMENT: Tolerated today's ther ex program well, with good effort. PLAN: Continue to encourage mobility and strengthening as able to tolerate, to improve ADL function. TREATMENT CODE/TIME: 9:10 to 9:40 (20') TP x 1, 11:00 to 11:10 (10') TA x 1
[2018-08-05 13:38] VITALS: O2SAT 92
[2018-08-05 16:12] VITALS: BP 122/68; PULSE 86; RESP 20; TEMP 36.6; O2SAT 94
[2018-08-05] MEDS: Enoxaparin 40 MG/0.4 ML SYR SC (19:43)
[2018-08-05] MEDS: Amitriptyline 25 MG TAB 75 MG PO (21:19)
[2018-08-05] MEDS: traZODone 50 MG TAB 150 MG PO (21:20)
[2018-08-05] MEDS: Insulin Glargine 300 UNITS/3 ML PEN 45 UNITS SC (21:20)
[2018-08-06 00:10] VITALS: BP 136/66; PULSE 99; RESP 20; TEMP 37; O2SAT 91
[2018-08-06 08:05] VITALS: BP 130/87; PULSE 81; RESP 20; TEMP 36.2; O2SAT 95
[2018-08-06] MEDS: Potassium Chloride Liquid 20 MEQ PKT 40 MEQ PO ×3 (08:56→20:48)
[2018-08-06] MEDS: Insulin Aspart 300 UNITS/3 ML PEN SC ×7 (08:57→20:49)
[2018-08-06] MEDS: Nystatin CREAM 15 GM TUBE TP (08:59)
[2018-08-06] MEDS: Collagenase 30 GM TUBE TP (09:00)
[2018-08-06] MEDS: Gabapentin 300 MG CAP 600 MG PO ×3 (09:00→20:46)
[2018-08-06] MEDS: Metoprolol CR 25 MG TABCR PO (09:00)
[2018-08-06] MEDS: Omeprazole 20 MG CAPCR PO ×2 (09:01→17:11)
[2018-08-06] MEDS: Losartan 25 MG TAB PO (09:01)
[2018-08-06] MEDS: Furosemide 40 MG TAB PO ×2 (09:01→17:11)
[2018-08-06] MEDS: Magnesium Oxide 400 MG TAB PO ×2 (09:17→20:48)
[2018-08-06] MEDS: Budesonide/Formoterol 160/4.5 6 GM 60 PUFF INH IH ×2 (10:00→21:02)
--- NOTE | 2018-08-06 10:01 | PDOC.CMPRO ---
- If Service Date Differs Date of service: 08/06/18 Time of Service: 10:01 Care Management Progress Note S/O: CM contacted [facility] and spoke with Albert Garzon admission director. They are setting up the equipment and are ready to provide services on Monday. CM contacted Lyssa at [facility] and arranged transportation for 10:00 the rehab has requested Peter be there by 12:00. CM spoke contacted [facility] and spoke with Bhavik Ramírez and requested that Peter belongings be transferred to [place]. Bhavik states that Peter will need to pay for that out of pocket. CM reviewed support services and requested that SS coordinate this with Peter and his family. CM notified patient, MD KALE and nursing meat supervisor of change in plan. A: Peter is a 58 year old male admitted with HAP, and chronic wounds. Admitted for diuretic therapy and antibiotics. P: Discharge to SNF facility anticipate he will transition LTC care. Monday he will be discharged to [facility] in [place] via Ambulance ([facility]). CM contacted [facility] and arranged transpiration and time. [employer] supports to assist with transportation of equipment and belongings to facility.
--- NOTE | 2018-08-06 10:17 | CMPROGNOTE_ITS ---
- If Service Date Differs Date of service: 08/06/18 Time of Service: 10:01 Care Management Progress Note S/O: CM contacted [facility] and spoke with Albert Garzon admission director. They are setting up the equipment and are ready to provide services on Monday. CM contacted Lyssa at [facility] and arranged transportation for 10:00 the rehab has requested Peter be there by 12:00. CM spoke contacted [facility] and spoke with Bhavik Ramírez and requested that Peter belongings be transferred to [place]. Bhavik states that Peter will need to pay for that out of pocket. CM reviewed support services and requested that SS coordinate this with Peter and his family. CM notified patient, MD KALE and nursing preparation department supervisor of change in plan. A: Peter is a 58 year old male admitted with HAP, and chronic wounds. Admitted for diuretic therapy and antibiotics. P: Discharge to SNF facility anticipate he will transition LTC care. Monday he will be discharged to [facility] in [place] via Ambulance ([facility]). CM contacted [facility] and arranged transpiration and time. [employer] supports to assist with transportation of equipment and belongings to facility.
--- NOTE | 2018-08-06 13:39 | PTTR_ITS ---
Date of service: 08/06/18 Time of Service: 09:50 PT Notes Inpatient Physical Therapy Treatment Note [facility] Date: 08/06/18 PRECAUTIONS: Fall. Contact precautions. SUBJECTIVE: Patient stated that he was supposed to leave today but then some transportation/moving issues arose that required his attention. He was informed that the transferred date is not today but tomorrow 08/07/18. He states that he has been trying his best to consistently do his bed level exercises. OBJECTIVE: PAIN: And ask how he is doing today pain israel I have my usual kind of pain at I manage BED MOBILITY/TRANSFERS Rolling L/R: I Scooting upward in bed: Independent using overhead trapeze and bilateral bed ra ils THER EX ([id number]) : Performed bed exercises x10 reps as per flow sheet. Patient continues to tolerate modified UBE in supine with black tubing, rows with black tubing, chest press with 4# dumbbell, pull downs with treviño tubing, shoulder abd/ adduction with green tubing and press ups with black tubing with forward and reverse corporate treasurer without complaints of pain. Also, performed modified biking, crunch and SLRs. ASSESSMENT: Patient demonstrates good mastery of his bed level exercises but continues to require verbal cues to perform intermittent deep breathing exercises to minimize fatigue and maximize exercise performance. PLAN: Peter will be discontinued from skilled services tomorrow. Patient to transfer to a detention facility in [place], [place] with plan to continue with functional mobility training, strengthening exercise progression, transfer training. TREATMENT CODE/TIME: [id number] 35 minutes beginning at 9:50 AM.
[2018-08-06 16:26] VITALS: BP 114/80; PULSE 93; RESP 20; TEMP 36.4; O2SAT 92
--- NOTE | 2018-08-06 17:22 | NUR.NOTE ---
HOME MEDS SENT TO PHARMACY. Nursing Note:
--- NOTE | 2018-08-06 18:31 | NUR.NOTE ---
Nursing Note: patient was hoyered back to bed prior to dinner, as he had slipped down in his chair. with the transfer, both dressings were displaced and subsequently, both were replaced
[2018-08-06] MEDS: traZODone 50 MG TAB 150 MG PO (20:47)
[2018-08-06] MEDS: Enoxaparin 40 MG/0.4 ML SYR SC (20:47)
[2018-08-06] MEDS: Amitriptyline 25 MG TAB 75 MG PO (20:48)
[2018-08-06] MEDS: Insulin Glargine 300 UNITS/3 ML PEN 45 UNITS SC (22:39)
[2018-08-06 23:52] VITALS: BP 155/86; PULSE 107; RESP 20; TEMP 36.8; O2SAT 89
[2018-08-07 07:50] VITALS: BP 130/81; PULSE 73; RESP 22; TEMP 35.9; O2SAT 94
[2018-08-07] MEDS: Metoprolol CR 25 MG TABCR PO (09:03)
[2018-08-07] MEDS: Gabapentin 300 MG CAP 600 MG PO (09:03)
[2018-08-07] MEDS: Nystatin CREAM 15 GM TUBE TP (09:04)
[2018-08-07] MEDS: Potassium Chloride Liquid 20 MEQ PKT 40 MEQ PO (09:04)
[2018-08-07] MEDS: Omeprazole 20 MG CAPCR PO (09:04)
[2018-08-07] MEDS: Furosemide 40 MG TAB PO (09:04)
[2018-08-07] MEDS: Losartan 25 MG TAB PO (09:04)
[2018-08-07] MEDS: Insulin Aspart 300 UNITS/3 ML PEN SC ×2 (09:05→09:06)
[2018-08-07] MEDS: Collagenase 30 GM TUBE TP (09:06)
--- NOTE | 2018-08-07 09:06 | PT.INDS ---
Date of service: 08/07/18 PT Notes Inpatient Physical Therapy Discharge Summary Dates: 08/07/2018 Dates of Service: 08/01/18 through 08/07/18 Referring Doctor: Dr. Lion Jain PT Orders: PT CONSULT: Morbid obesity with limited ambulation Precautions: Fall. Standard. 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 Patient Profile/Admitting Diagnosis: Patient was admitted on 07/23/2018 with a diagnosis of hospital-acquired pneumonia. He came in with chief complaints of dyspnea, hypoxemia, and weakness. Patient was discontinued from ICU on 07/31/2018 and is being evaluated under swing bed level as of today. 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 Per OT documentation: pt lives in the basement level of his guest service host's home. He states that he has 24 hour care as well as 2 other residents in the home. His baseline is sitting in shower with max (A) for (B) LE, min (A) for dressing, (I) eating, he reports that he cooks meals in the microwave and is able to go grocery shopping. He has a wheelchair that he utilizes as well as an electric chair. Pt reports that he is not having a good experience in his current living situation due to another resident. He reports that the other resident does not let him utilize the toilet so he has been mainly utilizing a commode at this time. Equipment Owned/DME: Bariatric Nori, BiPAP, hospital bed, trapeze, shower chair. Patient has home health services 3 times a week for wound care. Subjective: Patient was seen today lying in bed being assisted by charge nurse and EXPORT TRAFFIC DEPARTMENT MANAGER for morning care and packing up. Patient seen today for discharge assessment but is unavailable as he is getting ready to be transported out of hospital by 10 AM today. He states that he is all set with his exercises and is looking forward to exercise progression to a assisted facility in [place] where he is headed today. Objective: General Observation: Super-super obese male. Mental Status: A and O x3 Pain: I have my usual pain but I manage's ROM: Right Upper Extremity: WFL, although with reports of right shoulder pain in end ranges of flexion Left Upper Extremity: WFL Right Lower Extremity: SLR only to 0-30 degrees, knee flexion 0-40 Left Lower Extremity: SLR 0-40 degrees, knee flexion 0-45 Strength: Right Upper Extremity: 4+/5 shoulder flexion. Triceps 4/5. Biceps 4+/5. Composition Floor Layer strong, patient able to pull on overhead trapeze/bed rail to help her position self. Left Upper Extremity: 4+/5 shoulder flexion. Triceps 4+/5. Biceps 4+/5. Composition Floor Layer strong, patient able to pull on overhead trapeze/bed rail to help her position self. Right Lower Extremity: Grossly 3-/5 Left Lower Extremity: Grossly 3-/5 Bed Mobility/Transfers: Supine sit: Independent, requires use of overhead trapeze and B UE Sit to supine: Independent, requires use of overhead trapeze and B UE Sit to stand: Dependent. Patient able to assume position with assist of 3. Stand to sit: Dependent. Patient able to assume position with assist of 3. Gait: Not tested due to safety issues. Balance: Static Sitting: Fair Dynamic Sitting: Fair Static Standing: Unable to assess Dynamic Standing: Unable to assess Special Tests: Mobility Limitations Standardized Measure [facility] 6 clicks Basic Mobility Inpatient Short Form: Raw Score: 9 CMS Score: 81% deficit Assessment: Patient is a 58 year old male referred to physical therapy services with the diagnosis of hospital-acquired pneumonia. Patient presents with clinical signs and symptoms consistent with mobility deficits related to current diagnosis, as demonstrated by the following impairment level findings: 1. Decreased functional upper extremity strength 2. Decreased functional lower extremities strength 3. Decreased balance 4. Decreased activity tolerance Impairments are contributing to the following functional limitations: 1. Unable to transfer to wheelchair 2. Unable to ambulate 3. Able to perform bed mobility 4. WHITLEY with minimal exertion Goals: Goals X1 week 1. Supine-Sit: Independent NOT MET 2. Sit-Supine: Independent NOT MET 3. Sit-Stand: Mod assist NOT MET 4. Stand-Sit : Mod assist NOT MET 5. Stand pivot transfer: Mod assist NOT MET 6. Motorized wheelchair management on floor independent NOT MET DISCHARGE RECOMMENDATIONS: Patient is transported today at 10 AM to a assisted facility in [place], [place] with plan to continue with functional mobility training, transfer training, progressive strength training, caregiver education and training, and DME use/management. TREATMENT CODE/TIME: N/A Thank you for this referral. Karma Field, PT, DPT, CLT [facility]
[2018-08-07] MEDS: Budesonide/Formoterol 160/4.5 6 GM 60 PUFF INH IH (09:14)
--- NOTE | 2018-08-07 09:16 | INDS_ITS ---
Date of service: 08/07/18 PT Notes Inpatient Physical Therapy Discharge Summary Dates: 08/07/2018 Dates of Service: 08/01/18 through 08/07/18 Referring Doctor: Dr. Lion Jain PT Orders: PT CONSULT: Morbid obesity with limited ambulation Precautions: Fall. Standard. 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 Patient Profile/Admitting Diagnosis: Patient was admitted on 07/23/2018 with a diagnosis of hospital-acquired pneumonia. He came in with chief complaints of dyspnea, hypoxemia, and weakness. Patient was discontinued from ICU on 07/31/2018 and is being evaluated under swing bed level as of today. 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 Per OT documentation: pt lives in the basement level of his nematologist's home. He states that he has 24 hour care as well as 2 other residents in the home. His baseline is sitting in shower with max (A) for (B) LE, min (A) for dressing, (I) eating, he reports that he cooks meals in the microwave and is able to go grocery shopping. He has a wheelchair that he utilizes as well as an electric chair. Pt reports that he is not having a good experience in his current living situation due to another resident. He reports that the other resident does not let him utilize the toilet so he has been mainly utilizing a commode at this time. Equipment Owned/DME: Bariatric Nori, BiPAP, hospital bed, trapeze, shower chair. Patient has home health services 3 times a week for wound care. Subjective: Patient was seen today lying in bed being assisted by charge nurse and HOPPER OPERATOR for morning care and packing up. Patient seen today for discharge assessment but is unavailable as he is getting ready to be transported out of hospital by 10 AM today. He states that he is all set with his exercises and is looking forward to exercise progression to a halfway facility in [place] where he is headed today. Objective: General Observation: Super-super obese male. Mental Status: A and O x3 Pain: I have my usual pain but I manage's ROM: Right Upper Extremity: WFL, although with reports of right shoulder pain in end ranges of flexion Left Upper Extremity: WFL Right Lower Extremity: SLR only to 0-30 degrees, knee flexion 0-40 Left Lower Extremity: SLR 0-40 degrees, knee flexion 0-45 Strength: Right Upper Extremity: 4+/5 shoulder flexion. Triceps 4/5. Biceps 4+/5. Professor Of Environmental Studies strong, patient able to pull on overhead trapeze/bed rail to help her position self. Left Upper Extremity: 4+/5 shoulder flexion. Triceps 4+/5. Biceps 4+/5. Professor Of Environmental Studies strong, patient able to pull on overhead trapeze/bed rail to help her position self. Right Lower Extremity: Grossly 3-/5 Left Lower Extremity: Grossly 3-/5 Bed Mobility/Transfers: Supine sit: Independent, requires use of overhead trapeze and B UE Sit to supine: Independent, requires use of overhead trapeze and B UE Sit to stand: Dependent. Patient able to assume position with assist of 3. Stand to sit: Dependent. Patient able to assume position with assist of 3. Gait: Not tested due to safety issues. Balance: Static Sitting: Fair Dynamic Sitting: Fair Static Standing: Unable to assess Dynamic Standing: Unable to assess Special Tests: Mobility Limitations Standardized Measure [facility] 6 clicks Basic Mobility Inpatient Short Form: Raw Score: 9 CMS Score: 81% deficit Assessment: Patient is a 58 year old male referred to physical therapy services with the diagnosis of hospital-acquired pneumonia. Patient presents with clinical signs and symptoms consistent with mobility deficits related to current diagnosis, as demonstrated by the following impairment level findings: 1. Decreased functional upper extremity strength 2. Decreased functional lower extremities strength 3. Decreased balance 4. Decreased activity tolerance Impairments are contributing to the following functional limitations: 1. Unable to transfer to wheelchair 2. Unable to ambulate 3. Able to perform bed mobility 4. WHITLEY with minimal exertion Goals: Goals X1 week 1. Supine-Sit: Independent NOT MET 2. Sit-Supine: Independent NOT MET 3. Sit-Stand: Mod assist NOT MET 4. Stand-Sit : Mod assist NOT MET 5. Stand pivot transfer: Mod assist NOT MET 6. Motorized wheelchair management on floor independent NOT MET DISCHARGE RECOMMENDATIONS: Patient is transported today at 10 AM to a halfway facility in [place], [place] with plan to continue with functional mobility training, transfer training, progressive strength training, caregiver education and training, and DME use/management. TREATMENT CODE/TIME: N/A Thank you for this referral. Karma Filed, PT, DPT, CLT [facility]
[2018-08-07] MEDS: Magnesium Oxide 400 MG TAB PO (09:22)
--- NOTE | 2018-08-07 09:36 | W.PM.DS.N ---
Date of service: 08/07/18 Time of Service: 09:36 DS: Diagnosis Discharge Diagnosis (1) Counseling regarding advance directives and goals of care: Status: Acute (2) Palliative care status: Status: Chronic (3) Acute and chronic respiratory failure, unspecified whether with hypoxia or hypercapnia: Status: Acute Discharge Plan Disposition Patient Disposition: SKILLED NSG. FAC.(LEVEL 1) Condition: Good Discharge Details Reason For Visit: OBESITY HYPOVENTILATION SYNDROME/HYPERCAPNEA Admit Date/Time: 07/31/18 18:34 Admit Provider: Lion Jain Attending Provider: Lion Jain [facility] Hospital Course: Mr. Hidalgo is a 58 year old man with a past medical history significant for type 2 Diabetes, HTN, ABHAY (wears BiPAP), chronic diastolic CHF, morbid obesity, and chronic stasis leg ulcers who presented to the ED on 07/23/18 with cough and increasing shortness of breath as well as low oxygen saturation reported as 73% per home health nursing. This was his third hospitalization for pneumonia in the past 2 months. He was treated with IV antibiotics, nebulizer treatments, steroids and supplemental oxygen. He recovered from the acute illness and was transitioned to Swing bed status on 07/31/18 for ongoing physical therapy while placement was determined. [facility] but it was determined that his level of needs was too high for the current situation and he will transition to [facility]. Respiratory therapy felt that he would benefit from using a Trilogy. He had bedside PFTs. RT was not able to get the Trilogy approved while he was here at the hospital, however, this has been communicated to [facility] and they will continue to work on obtaining a Trilogy for him. Peter was maintained on a calorie restricted, carbohydrate counting diet. His blood sugar was controlled with both long and short-acting insulin. His blood sugar was fairly well controlled. He may need adjustment to the current regimen. He has several wounds and will need a wound care consult at [facility]. He has NICKIE boots to bilateral lower extremities. He has trace edema to bilateral lower extremities. He has been followed by wound care. From a Physical Therapy perspective, he was not able to meet his goals while he was here on Swing bed status. He will need ongoing functional mobility training, transfer training, progressive strength training, caregiver education and training, and DME use/management. He is transferred to [facility] today via ambulance. Home Meds and New Rx's Prescriptions: New furosemide 40 mg Tablet 40 mg PO BID@0830,1600 Qty: 0 RF: 0 trazodone 50 mg Tablet 150 mg PO HS Qty: 0 RF: 0 polyethylene glycol 3350 17 gram Powder In Packet 17 g PO BID Qty: 0 RF: 0 morphine [MS Contin] 30 mg Tablet Extended Release 60 mg PO Q12H Qty: 6 RF: 0 potassium chloride 20 mEq Packet 40 meq PO TID Qty: 0 RF: 0 amitriptyline 25 mg Tablet 75 mg PO HS Qty: 1 RF: 0 magnesium oxide 400 mg (241.3 mg magnesium) Tablet 400 mg PO BID@1000,2200 Qty: 1 RF: 0 magnesium hydroxide [Milk of Magnesia] 400 mg/5 mL Suspension 30 ml PO DAILY PRN PRN (Reason: Constipation) Qty: 0 RF: 0 DuoDERM Hydroactive Paste topical DIRECTED Qty: 0 RF: 0 bisacodyl 10 mg Suppository 10 mg VA DAILY PRN PRN (Reason: Constipation) Qty: 0 RF: 0 nystatin 100,000 unit/gram Cream topical BID Qty: 0 RF: 0 losartan 25 mg Tablet 25 mg PO DAILY Qty: 0 RF: 0 docusate sodium [Colace] 100 mg Capsule 100 mg PO TID PRN PRNQty: 0 RF: 0 gabapentin 300 mg Capsule 600 mg PO TID Qty: 0 RF: 0 omeprazole 20 mg Capsule,Delayed Release(Dr/Ec) 20 mg PO BID AC Qty: 0 RF: 0 alum-mag hydroxide-simeth [Mag-Al Plus] 200-200-20 mg/5 mL Suspension 30 ml PO Q2H PRN PRNQty: 0 RF: 0 Santyl 250 unit/gram Ointment topical DAILY Qty: 0 RF: 0 morphine 15 mg Tablet 15 mg PO TID PRN PRNQty: 9 RF: 0 Novolog Flexpen U-100 Insulin 100 unit/mL Insulin Pen subcut AC & HS Qty: 0 RF: 0 Novolog Flexpen U-100 Insulin 100 unit/mL Insulin Pen subcut 0800,1200,1700 Qty: 0 RF: 0 Symbicort 160-4.5 mcg/actuation Hfa Aerosol Inhaler 2 puff Inhalation BID Qty: 0 RF: 0 Lantus Solostar U-100 Insulin 100 unit/mL (3 mL) Insulin Pen 45 units subcut HS Qty: 0 RF: 0 Mouthwash [Biotene Mouthwash] 15 ml Mucous Membrane AC Qty: 0 RF: 0 Continued metoprolol succinate 25 mg tablet extended release 24 hr 25 mg PO DAILY Qty: 30 RF: 0 Discontinued magnesium oxide 400 mg (241.3 mg magnesium) tablet 400 mg PO BID@1000,2200 Qty: 14 RF: 0 No Action polyethylene glycol 3350 17 GM powder in packet 17 gm PO BID RF: 0 morphine [MS Contin] 60 MG tablet extended release 60 mg PO Q12H Qty: 30 RF: 0 Iodosorb 0.9 % Gel 40 gm topical Q12H Qty: 40 RF: 0 polyethylene glycol 3350 17 gram Powder In Packet 17 g PO DAILY PRN PRN (Reason: Constipation) Qty: 0 RF: 0 magnesium hydroxide [Milk of Magnesia] 400 mg/5 mL Suspension 30 ml PO DAILY PRN PRNQty: 0 RF: 0 Enema Disposable 19-7 gram/118 mL Enema 133 ml VA DAILY PRN PRNQty: 0 RF: 0 Symbicort 160-4.5 mcg/actuation Hfa Aerosol Inhaler 2 puff Inhalation BID Qty: 1 RF: 0 amitriptyline 25 mg Tablet 75 mg PO HS Qty: 30 RF: 0 morphine 15 MG tablet 15 mg PO TID PRN PRNRF: 0 gabapentin 300 MG capsule 600 mg PO TID RF: 0 acetaminophen [Tylenol] 325 mg Tablet 325 mg PO Q6H PRNRF: 0 trazodone 150 mg Tablet 150 mg PO HS RF: 0 metformin 1,000 mg Tablet 1,000 mg PO BID RF: 0 nystatin 100,000 unit/gram Cream 1 applic TOPICAL BID RF: 0 losartan 25 mg Tablet 25 mg PO DAILY RF: 0 furosemide [Lasix] 40 mg Tablet 40 mg PO BID RF: 0 glipizide 10 mg Tablet 10 mg PO BID RF: 0 Glucagon Emergency Kit (human) 1 mg Recon Soln 1 mg IM PRN PRNRF: 0 omeprazole 20 mg Tablet,Delayed Release (Dr/Ec) 20 mg PO BID RF: 0 Tresiba FlexTouch U-200 200 unit/mL (3 mL) Insulin Pen 45 unit subcut DAILY RF: 0 Discharge Instructions Instructions: Hospital Acquired Pneumonia (DC) Additional Instructions: Needs Wound consult. Stand Alone Forms: Nursing Discharge Form Activity:: Activity as Tolerated Equipment/Supplies:: No Equipment Needed Diet:: Carb counting and heart healthy Discharge Orders Discharge Orders: Discharge Order (Routine); Ordered 08/07/18 Ordered By: Nani Catherine Discharge Data Discharge Date/Time-TO BE ENTERED AT DEPARTURE: 08/07/18 10:17 Exam Narrative Exam Narrative: General: A&Ox3, pleasant and cooperative, Laying flat in bed, in no acute distress, speaking in full sentences HEENT: Normocephalic, atraumatic, pupils equal and round, EOMI, moist mucous membranes. Heart: RRR, no m/r/g Lungs: Respirations even and unlabored, lung sounds clear to auscultation throughout. GI: abdomen is large, soft, nontender, nondistended, pannus with dry skin, no cellulitis. Extremities: bilateral NICKIE boots, mild bilateral edema, peripheral pulses palpable bilaterally. Skin: multiple areas of ulceration, dressings not removed at this time. DS: Data Vitals/I&O Vitals and I&O: Vital Signs Temperature 35.9 C L 08/07/18 07:50 Temperature Source Tympanic 08/07/18 07:50 Pulse 73 08/07/18 07:50 Pulse Rhythm Regular 08/07/18 00:45 Respiratory Rate 22 08/07/18 07:50 Respiratory Effort 08/07/18 00:45 Respiratory Depth Normal 08/07/18 00:45 Respiratory Pattern Normal 08/07/18 00:45 Blood Pressure 130/81 08/07/18 07:50 Pulse Oximetry 94 L 08/07/18 07:50 Oxygen Delivery Method Room Air 08/07/18 07:50 Oxygen Flow Rate 0 08/07/18 07:50 Pain Level 7 08/07/18 09:22 Intake & Output 08/06/18 08/06/18 08/07/18 11:59 23:59 11:59 Intake Total 250 / 250 0 / 0 Output Total 1200 / 2530 1330 / 2530 425 / 425 Balance -950 / -2280 -1330 / -2280 -425 / -425 Weight 202.3 kg 202.6 kg Intake: Oral 250 / 250 0 / 0 Output: Urine 1200 / 2530 1330 / 2530 425 / 425 Other: Urine Color Light Keely Yellow Dark Keely Urine Appearance Clear Clear Clear Urine Odor None Normal Normal Comment nurse held urinal in place for patient to reduce leakage Voiding Methods Urinal Urinal Toilet [facility] Medical History Counseling regarding advance directives and goals of care (Acute) Palliative care status (Chronic) Acute and chronic respiratory failure, unspecified whether with hypoxia or hypercapnia (Acute) Right heart failure due to pulmonary hypertension (Acute) Acute on chronic diastolic (congestive) heart failure (Acute) Pressure ulcer (Chronic) Right rotator cuff tear (Chronic) Ascending aortic aneurysm (Chronic) Right ventricular dilation, secondary (Chronic) Right ventricular systolic dysfunction (Chronic) Chronic pain disorder (Chronic) Super-super obese (Chronic) Diabetes mellitus (Chronic) GERD (gastroesophageal reflux disease) (Chronic) Chronic anxiety (Chronic) Depression (Chronic) Chronic back pain (Chronic) Obstructive sleep apnea hypopnea, severe (Chronic) Iron deficiency anemia, unspecified (Chronic) Severe muscle deconditioning (Acute) Panniculitis of other sites (Resolved) Family History Father No problems noted. Son No problems noted. Social History Smoking/Tobacco Use Status: Former Tobacco Use Drug use: Never Adopted: No Caregiver/Support person: Yes Foster care: No Household members: caregiver Housing: assisted living facility Sexually active: No Do you feel safe in your relationship?: Yes
--- NOTE | 2018-08-07 09:40 | DSE_ITS ---
Date of service: 08/07/18 Time of Service: 09:36 DS: Diagnosis Discharge Diagnosis (1) Counseling regarding advance directives and goals of care: Status: Acute (2) Palliative care status: Status: Chronic (3) Acute and chronic respiratory failure, unspecified whether with hypoxia or hypercapnia: Status: Acute Discharge Plan Disposition Patient Disposition: SKILLED NSG. FAC.(LEVEL 1) Condition: Good Discharge Details Reason For Visit: OBESITY HYPOVENTILATION SYNDROME/HYPERCAPNEA Admit Date/Time: 07/31/18 18:34 Admit Provider: Lion Jain Attending Provider: Lion Jain [facility] Hospital Course: Mr. Hidalgo is a 58 year old man with a past medical history significant for type 2 Diabetes, HTN, ABHAY (wears BiPAP), chronic diastolic CHF, morbid obesity, and chronic stasis leg ulcers who presented to the ED on 07/23/18 with cough and increasing shortness of breath as well as low oxygen saturation reported as 73% per home health nursing. This was his third hospitalization for pneumonia in the past 2 months. He was treated with IV antibiotics, nebulizer treatments, steroids and supplemental oxygen. He recovered from the acute illness and was transitioned to Swing bed status on 07/31/18 for ongoing physical therapy while placement was determined. He was previously living [facility] a community correction but it was determined that his level of needs was too high for the current situation and he will transition to [facility]. Respiratory therapy felt that he would benefit from using a Trilogy. He had bedside PFTs. RT was not able to get the Trilogy approved while he was here at the hospital, however, this has been communicated to [facility] and they will continue to work on obtaining a Trilogy for him. Peter was maintained on a calorie restricted, carbohydrate counting diet. His blood sugar was controlled with both long and short-acting insulin. His blood sugar was fairly well controlled. He may need adjustment to the current regimen. He has several wounds and will need a wound care consult at [facility]. He has NICKIE boots to bilateral lower extremities. He has trace edema to bilateral lower extremities. He has been followed by wound care. From a Physical Therapy perspective, he was not able to meet his goals while he was here on Swing bed status. He will need ongoing functional mobility training, transfer training, progressive strength training, caregiver education and training, and DME use/management. He is transferred to [facility] today via ambulance. Home Meds and New Rx's Prescriptions: New furosemide 40 mg Tablet 40 mg PO BID@0830,1600 Qty: 0 RF: 0 trazodone 50 mg Tablet 150 mg PO HS Qty: 0 RF: 0 polyethylene glycol 3350 17 gram Powder In Packet 17 g PO BID Qty: 0 RF: 0 morphine [MS Contin] 30 mg Tablet Extended Release 60 mg PO Q12H Qty: 6 RF: 0 potassium chloride 20 mEq Packet 40 meq PO TID Qty: 0 RF: 0 amitriptyline 25 mg Tablet 75 mg PO HS Qty: 1 RF: 0 magnesium oxide 400 mg (241.3 mg magnesium) Tablet 400 mg PO BID@1000,2200 Qty: 1 RF: 0 magnesium hydroxide [Milk of Magnesia] 400 mg/5 mL Suspension 30 ml PO DAILY PRN PRN (Reason: Constipation) Qty: 0 RF: 0 DuoDERM Hydroactive Paste topical DIRECTED Qty: 0 RF: 0 bisacodyl 10 mg Suppository 10 mg MS DAILY PRN PRN (Reason: Constipation) Qty: 0 RF: 0 nystatin 100,000 unit/gram Cream topical BID Qty: 0 RF: 0 losartan 25 mg Tablet 25 mg PO DAILY Qty: 0 RF: 0 docusate sodium [Colace] 100 mg Capsule 100 mg PO TID PRN PRNQty: 0 RF: 0 gabapentin 300 mg Capsule 600 mg PO TID Qty: 0 RF: 0 omeprazole 20 mg Capsule,Delayed Release(Dr/Ec) 20 mg PO BID AC Qty: 0 RF: 0 alum-mag hydroxide-simeth [Mag-Al Plus] 200-200-20 mg/5 mL Suspension 30 ml PO Q2H PRN PRNQty: 0 RF: 0 Santyl 250 unit/gram Ointment topical DAILY Qty: 0 RF: 0 morphine 15 mg Tablet 15 mg PO TID PRN PRNQty: 9 RF: 0 Novolog Flexpen U-100 Insulin 100 unit/mL Insulin Pen subcut AC & HS Qty: 0 RF: 0 Novolog Flexpen U-100 Insulin 100 unit/mL Insulin Pen subcut 0800,1200,1700 Qty: 0 RF: 0 Symbicort 160-4.5 mcg/actuation Hfa Aerosol Inhaler 2 puff Inhalation BID Qty: 0 RF: 0 Lantus Solostar U-100 Insulin 100 unit/mL (3 mL) Insulin Pen 45 units subcut HS Qty: 0 RF: 0 Mouthwash [Biotene Mouthwash] 15 ml Mucous Membrane AC Qty: 0 RF: 0 Continued metoprolol succinate 25 mg tablet extended release 24 hr 25 mg PO DAILY Qty: 30 RF: 0 Discontinued magnesium oxide 400 mg (241.3 mg magnesium) tablet 400 mg PO BID@1000,2200 Qty: 14 RF: 0 No Action polyethylene glycol 3350 17 GM powder in packet 17 gm PO BID RF: 0 morphine [MS Contin] 60 MG tablet extended release 60 mg PO Q12H Qty: 30 RF: 0 Iodosorb 0.9 % Gel 40 gm topical Q12H Qty: 40 RF: 0 polyethylene glycol 3350 17 gram Powder In Packet 17 g PO DAILY PRN PRN (Reason: Constipation) Qty: 0 RF: 0 magnesium hydroxide [Milk of Magnesia] 400 mg/5 mL Suspension 30 ml PO DAILY PRN PRNQty: 0 RF: 0 Enema Disposable 19-7 gram/118 mL Enema 133 ml MS DAILY PRN PRNQty: 0 RF: 0 Symbicort 160-4.5 mcg/actuation Hfa Aerosol Inhaler 2 puff Inhalation BID Qty: 1 RF: 0 amitriptyline 25 mg Tablet 75 mg PO HS Qty: 30 RF: 0 morphine 15 MG tablet 15 mg PO TID PRN PRNRF: 0 gabapentin 300 MG capsule 600 mg PO TID RF: 0 acetaminophen [Tylenol] 325 mg Tablet 325 mg PO Q6H PRNRF: 0 trazodone 150 mg Tablet 150 mg PO HS RF: 0 metformin 1,000 mg Tablet 1,000 mg PO BID RF: 0 nystatin 100,000 unit/gram Cream 1 applic TOPICAL BID RF: 0 losartan 25 mg Tablet 25 mg PO DAILY RF: 0 furosemide [Lasix] 40 mg Tablet 40 mg PO BID RF: 0 glipizide 10 mg Tablet 10 mg PO BID RF: 0 Glucagon Emergency Kit (human) 1 mg Recon Soln 1 mg IM PRN PRNRF: 0 omeprazole 20 mg Tablet,Delayed Release (Dr/Ec) 20 mg PO BID RF: 0 Tresiba FlexTouch U-200 200 unit/mL (3 mL) Insulin Pen 45 unit subcut DAILY RF: 0 Discharge Instructions Instructions: Hospital Acquired Pneumonia (DC) Additional Instructions: Needs Wound consult. Stand Alone Forms: Nursing Discharge Form Activity:: Activity as Tolerated Equipment/Supplies:: No Equipment Needed Diet:: Carb counting and heart healthy Discharge Orders Discharge Orders: Discharge Order (Routine); Ordered 08/07/18 Ordered By: Nani Catherine Discharge Data Discharge Date/Time-TO BE ENTERED AT DEPARTURE: 08/07/18 10:17 Exam Narrative Exam Narrative: General: A&Ox3, pleasant and cooperative, Laying flat in bed, in no acute distress, speaking in full sentences HEENT: Normocephalic, atraumatic, pupils equal and round, EOMI, moist mucous membranes. Heart: RRR, no m/r/g Lungs: Respirations even and unlabored, lung sounds clear to auscultation throughout. GI: abdomen is large, soft, nontender, nondistended, pannus with dry skin, no cellulitis. Extremities: bilateral NICKIE boots, mild bilateral edema, peripheral pulses palpable bilaterally. Skin: multiple areas of ulceration, dressings not removed at this time. DS: Data Vitals/I&O Vitals and I&O: Vital Signs Temperature 35.9 C L 08/07/18 07:50 Temperature Source Tympanic 08/07/18 07:50 Pulse 73 08/07/18 07:50 Pulse Rhythm Regular 08/07/18 00:45 Respiratory Rate 22 08/07/18 07:50 Respiratory Effort 08/07/18 00:45 Respiratory Depth Normal 08/07/18 00:45 Respiratory Pattern Normal 08/07/18 00:45 Blood Pressure 130/81 08/07/18 07:50 Pulse Oximetry 94 L 08/07/18 07:50 Oxygen Delivery Method Room Air 08/07/18 07:50 Oxygen Flow Rate 0 08/07/18 07:50 Pain Level 7 08/07/18 09:22 Intake & Output 08/06/18 08/06/18 08/07/18 11:59 23:59 11:59 Intake Total 250 / 250 0 / 0 Output Total 1200 / 2530 1330 / 2530 425 / 425 Balance -950 / -2280 -1330 / -2280 -425 / -425 Weight 202.3 kg 202.6 kg Intake: Oral 250 / 250 0 / 0 Output: Urine 1200 / 2530 1330 / 2530 425 / 425 Other: Urine Color Light Keely Yellow Dark Keely Urine Appearance Clear Clear Clear Urine Odor None Normal Normal Comment nurse held urinal in place for patient to reduce leakage Voiding Methods Urinal Urinal Toilet [facility] Medical History Counseling regarding advance directives and goals of care (Acute) Palliative care status (Chronic) Acute and chronic respiratory failure, unspecified whether with hypoxia or hypercapnia (Acute) Right heart failure due to pulmonary hypertension (Acute) Acute on chronic diastolic (congestive) heart failure (Acute) Pressure ulcer (Chronic) Right rotator cuff tear (Chronic) Ascending aortic aneurysm (Chronic) Right ventricular dilation, secondary (Chronic) Right ventricular systolic dysfunction (Chronic) Chronic pain disorder (Chronic) Super-super obese (Chronic) Diabetes mellitus (Chronic) GERD (gastroesophageal reflux disease) (Chronic) Chronic anxiety (Chronic) Depression (Chronic) Chronic back pain (Chronic) Obstructive sleep apnea hypopnea, severe (Chronic) Iron deficiency anemia, unspecified (Chronic) Severe muscle deconditioning (Acute) Panniculitis of other sites (Resolved) Family History Father No problems noted. Son No problems noted. Social History Smoking/Tobacco Use Status: Former Tobacco Use Drug use: Never Adopted: No Caregiver/Support person: Yes Foster care: No Household members: caregiver Housing: assisted living facility Sexually active: No Do you feel safe in your relationship?: Yes
--- NOTE | 2018-08-07 09:45 | PDOC.CMDIS ---
- If Service Date Differs Date of service: 08/07/18 Time of Service: 09:30 LACE Index Scoring Tool - Questions: Length of Stay (in days): 7 - 13 Acuity (Admit via E.D.?): Yes Comorbidities: Previous M.I., Diabetes w/o Complication, Congestive Heart Failure E.D. Visits: 13 - Answers: Total Score: 17 Risk of Readmission: High Risk Care Management Discharge Reason for Hospitalization: SB1 for PT/OT awaiting placement to LTC, treatment for HAP Discharge Plan: Peter is being discharged to [facility] for LTC placement. CM contacted facility and faxed all notes r/t trilogy and person to follow up with at [facility]. Peter will be transported by [facility] which was coordianted by CM. He will work with [facility] to have his belongings sent to [facility]. His personal belongings at [facility] were sent with his to facility. His medicaitons including his pain medication was sent with him to the facility in care of ambulance crew. Peter is appreciative of the care he received and is looking forward to being closer to his family. Patient/Family Education Needs: Education related to discharge and expectations at the facility. Peter understands and agrees with the plan to transfer. Services Needed at Discharge: DME Agency, Oxygen Therapy, Respiratory Therapy, Penitentiary Facility, Transportation
--- NOTE | 2018-08-07 11:24 | NUR.NOTE ---
Nursing Note: patients thigh wounds were addressed and cleaned per order. He was given 15 mg MSIR for the comfort during his ambulance trip, report given to Jazmín
--- NOTE | 2018-08-07 11:33 | NUR.NOTE ---
Nursing Note: Addendum to previous note, all patients belongings that were in his room were packed and sent with the ambulance crew, patient had meds that were in the pharmacy that were sent with him
--- NOTE | 2018-08-08 18:13 | CMDISCH_ITS ---
- If Service Date Differs Date of service: 08/07/18 Time of Service: 09:30 LACE Index Scoring Tool - Questions: Length of Stay (in days): 7 - 13 Acuity (Admit via E.D.?): Yes Comorbidities: Previous M.I., Diabetes w/o Complication, Congestive Heart Failure E.D. Visits: 13 - Answers: Total Score: 17 Risk of Readmission: High Risk Care Management Discharge Reason for Hospitalization: SB1 for PT/OT awaiting placement to LTC, treatment for HAP Discharge Plan: Peter is being discharged to [facility] for LTC placement. CM contacted facility and faxed all notes r/t trilogy and person to follow up with at [facility]. Peter will be transported by [facility] which was coordianted by CM. He will work with [facility] to have his belongings sent to [facility]. His personal belongings at [facility] were sent with his to facility. His medicaitons including his pain medication was sent with him to the facility in care of ambulance crew. Peter is appreciative of the care he received and is looking forward to being closer to his family. Patient/Family Education Needs: Education related to discharge and expectations at the facility. Peter understands and agrees with the plan to transfer. Services Needed at Discharge: DME Agency, Oxygen Therapy, Respiratory Therapy, Retirement Facility, Transportation
== END 2018-08-07 10:17 | disposition skilled nursing facility (03) | DRG 189 ==
PROVIDERS: Internal Medicine; Admitting Provider Family Medicine; PCP Nurse Practitioner Family; Visit Provider Internal Medicine
DX: J96.20 Acute and chronic respiratory failure, unspecified whether with hypoxia or hypercapnia (principal); E66.2 Morbid (severe) obesity with alveolar hypoventilation; I50.32 Chronic diastolic (congestive) heart failure; L97.111 Non-pressure chronic ulcer of right thigh limited to breakdown of skin; L97.121 Non-pressure chronic ulcer of left thigh limited to breakdown of skin; Z51.5 Encounter for palliative care; Z71.89 Other specified counseling; E11.9 Type 2 diabetes mellitus without complications; I11.0 Hypertensive heart disease with heart failure; Z79.4 Long term (current) use of insulin; L89.159 Pressure ulcer of sacral region, unspecified stage; I83.011 Varicose veins of right lower extremity with ulcer of thigh; I83.021 Varicose veins of left lower extremity with ulcer of thigh
CPT/HCPCS: 36415; 80048; 94060; 94640; 97110; 97162; 97530; 99232; 99239; 99305; 99316; J1650; 85025; 85049; J3490